=== PATIENT | male | born 1955 | race African-American/Black ===

== ENCOUNTER 2017-07-21 23:47 | Inpatient (IN) ==
--- NOTE | 2017-07-22 00:54 | Emergency Department Note ---
Disposition Clinical Impression: Pneumonia Qualifiers: Pneumonia type: due to unspecified organism Laterality: bilateral Lung location : lower lobe of lung Qualified Code(s): J18.9 - Pneumonia, unspecified organism Disposition: Admitted As Inpatient Condition: Fair Time of Disposition: 03:15 General Adult HPI - General Chief complaint: ED General Medical Stated complaint: poss. food bolus Time Seen by Provider: 07/22/17 00:22 Source: patient, EMS Limitations: no limitations Nursing Notes Reviewed: Yes Vital Signs Reviewed: Yes - History of Present Illness HPI Narrative: Mr. Barry, 61-year-old male, presents from nursing facility for violation of suspected food bolus in his trachea. Patient has an indwelling tracheostomy. At approximately 10:30 this evening, he was eating chicken oliva believes he swallowed wrong. He immediately began coughing and has been coughing since. He has not been able to bring anything up. Feels like it is stuck right behind his sternal notch. Patient has a history of similar episodes; most recently was hamburger she was eventually able to cough up himself. States this feels similar. 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 He completed radiotherapy on 01/19/17. He does have a PEG tube in place for which she administers his pill for medications - he has trouble swallowing pills currently. Otherwise, 10 drinks by mouth. Pain Scale: 0 - Related Data Home Medications Medication Instructions Recorded Confirmed Acetaminophen [Tylenol] 1,000 mg PO Q4H PRN 08/08/16 04/20/17 Aclidinium [place] [Tudorza 400 mcg IH BID 08/08/16 04/20/17 Pressair] Albuterol Neb [Proventil Neb] 2.5 mg IH Q3H PRN 08/08/16 04/20/17 Albuterol Sulfate [Ventolin Hfa] 1 puff IH Q3H PRN 08/08/16 04/20/17 Aspirin [Lo-Dose Aspirin EC] 81 mg PO DAILY 08/08/16 04/20/17 Atorvastatin [Lipitor] 40 mg PO HS 08/08/16 04/20/17 Budesonide/Formoterol 160/4.5 2 puff IH BID 08/08/16 04/20/17 [Symbicort 160/4.5] Gabapentin [Neurontin] 400 mg PO TID 08/08/16 04/20/17 Guaifenesin [Mucinex] 600 mg PO BID 08/08/16 04/20/17 Loratadine [Claritin] 10 mg PO DAILY 08/08/16 04/20/17 Meloxicam [Mobic] 15 mg PO DAILY 08/08/16 04/20/17 Metoprolol XL (24 HR) Succ [Toprol 25 mg PO DAILY 08/08/16 04/20/17 Xl] Potassium Chloride [K-Tab ER] 20 meq PO DAILY 08/08/16 04/20/17 Sennosides [Senokot] 8.6 mg PO DAILY PRN 08/08/16 04/20/17 Tramadol HCl [Ultram] 100 mg PO TID PRN 08/08/16 04/20/17 acetaZOLAMIDE [Diamox] 250 mg PO DAILY 08/08/16 04/20/17 metOLazone [Zaroxolyn] 2.5 mg PO QWEEK 08/08/16 04/20/17 HYDROcodone/Acet 5/325 mg [[place] 1 tab PO TID PRN 04/20/17 04/20/17 5-325 mg] Previous Rx's Medication Instructions Recorded Furosemide [Lasix] 40 mg PO BIDDIURETIC 30 Days 08/16/16 tablet Allergies Allergy/AdvReac Type Severity Reaction Status Date / Time Penicillins Allergy Anaphylaxis Verified 04/20/17 11:33 All systems ED: reviewed and negative except as stated. Review of Systems: As Per HPI Past Medical History - Past Medical History Medical history: Reports: CHF, COPD, hyperlipidemia, hypertension, other Surgical history: Reports: no surgical history Psychiatric history: Reports: anxiety - Social History Smoking Status: Former smoker Smokeless Tobacco Status: No Alcohol use: Reports: none Drug use: Reports: none Physical Exam Vital Signs Reviewed General: Patient is alert, oriented, and in no acute distress. He has a dry cough. HEENT: No facial asymmetry. Head is normocephalic and atraumatic. PERRLA, EOMI. mucosa moist. Trachea midline. Tracheostomy in place. Cardiovascular: Heart regular rate and rhythm without clicks, rubs, gallops, or murmurs. No JVD. PMI nondisplaced. Respiratory: Symmetric chest rise with good respiratory effort. Bilateral breath sounds are coarse and equalx Neuro: GCS 15. Alert and oriented 4. Psych: Patient's affect is appropriate for situation. - General Limitations: no limitations General appearance: alert, in no apparent distress Course Course Narrative: Patient is clinically stable and in no acute respiratory distress. He is irritated by his repeated coughing in the foreign body sensation he has posterior to the sternal notch. Patient's lung sounds are concerning. He is maintaining his saturations well. Chest x-ray concerning for ammonia. Clinically concern for healthcare associated pneumonia versus aspiration pneumonia. Patient is agreeable to admission for IV antibiotics and continued management. As the patient with the admitting hospitalist, Dr. Robert saunders, who agrees to accept the patient for continued evaluation and management. Chest X-Ray 07/22/17 00:50 IMPRESSION: Fcba-[id number]-gfst-right bibasilar airspace disease most consistent with pneumonia. D/ / Ja Lux MD / Ja Lux MD Interpreting Provider: Ja Lux MD Vital Signs Temperature 98.1 F 07/21/17 23:51 Pulse Rate 89 07/21/17 23:51 Respiratory Rate 18 07/21/17 23:51 Blood Pressure 108/67 07/21/17 23:51 O2 Sat by Pulse Oximetry 91 07/21/17 23:51 Temperature 98.1 F 07/21/17 23:51 Pulse Rate 89 07/21/17 23:51 Respiratory Rate 18 07/21/17 23:51 Blood Pressure 108/67 07/21/17 23:51 O2 Sat by Pulse Oximetry 91 07/21/17 23:51 Oxygen Delivery Oxygen Delivery Nasal Cannula Medical Decision Making - Lab Data Result diagrams: 07/22/17 03:32 07/22/17 03:32 Attestation Statement - Attestation Attestation: I, Esteban Sanchez MD, personally evaluated this patient and discussed their management with the resident physician. I reviewed the resident's note and agree with the documented findings, medical decision making, and plan of care. 61-year-old male sent from a local [facility] for possible fluid bolus in the esophagus. Patient has a tracheostomy. He was eating some fried chicken patties and he got choked and felt like he had some stuck in his throat. He states he was unable to drink water because it just would not go down. He was sent here for evaluation of this however he states now this has resolved and it seems to the past and he is swallowing fine. He does complain of a harsh cough for the past few days with some dark sputum. On examination patient is a well-developed well-nourished male in no acute distress. He is alert and oriented 3. There is no diaphoresis. Patient does have some bibasilar rales. Heart regular. Abdomen soft with normal bowel sounds. Chest x-ray shows bibasilar pneumonia, worse on the left. Labs reviewed. The hospitalist, Dr. Monae, was consulted and accepted admission of the patient.
[2017-07-22] MEDS ORDERED: Levofloxacin 750 MG/150 ML 750 MG/150 ML BAG IVPB ONE (02:24)
[2017-07-22] MEDS ORDERED: Vancomycin 1,500 MG in D5% in Water 250 ML IVPB SCH (03:00)
[2017-07-22] MEDS ORDERED: *HR* HYDROcodone/Acet 5/325 mg TABLET PO ONE (03:07)
[2017-07-22 04:02] LABS: Basophils # 0.1 K/mcL (0.0-0.2); Basophils % 0.6 %; Eosinophils # 0.3 K/mcL (0.0-0.6); Eosinophils % 2.8 %; Hematocrit 39.5 % (37.5-50.1); Hemoglobin 11.6 g/dL (12.9-16.9); Immature Granulocytes % 1.3 % (0-4); Lymphocytes # 1.2 K/mcL (0.6-4.6); Lymphocytes % 11.1 %; Mean Corpuscular HGB Conc 29.4 g/dL (31.6-35.5); Mean Corpuscular Hemoglobin 24.1 pg (28.0-33.3); Mean Corpuscular Volume 82.1 fL (83.0-100.0); Mean Platelet Volume 9.5 fL (9.4-12.4); Monocytes # 0.7 K/mcL (0.0-1.3); Monocytes % 6.8 %; Platelet Count 386 K/mcL (140-400); Red Blood Count 4.81 M/mcL (4.19-5.50); Red Cell Distribution Width 18.7 % (11.5-14.5); Segmented Neutrophils % 77.4 %
[2017-07-22 04:14] LABS: BUN/Creatinine Ratio 11 (6-26); Blood Urea Nitrogen 8 mg/dL (8-26); Calcium 9.4 mg/dL (8.6-10.8); Carbon Dioxide 28 mEq/L (19-29); Chloride 103 mEq/L (98-109); Glucose 93 mg/dL (70-99); Osmolality,Calculated 282 (280-300); Potassium 4.1 mEq/L (3.5-4.5); Sodium 137 mEq/L (136-145); eGFR For African Americans > 60 (> 60); eGFR For Non-African Americans > 60 (> 60)
[2017-07-22] MEDS: Vancomycin 1,500 MG in D5% in Water 250 ML IVPB SCH ×2 (04:37→18:33)
--- NOTE | 2017-07-22 05:27 | Internal Med History&Physical ---
<Marla Porter - Last Filed: 07/22/17 06:04> Date of Encounter: 07/22/17 Time of Encounter: 05:07 Assessment and Plan (1) Sepsis Current visit: No Status: Resolved 2 SIRS criteria: (tachypnea 22, tachycardia 100). Afebile. WBC 10.4 Most likely due to pneumonia seen on chest x-ray. Concern for aspiration pneumonia needing anaerobic coverage since patient has history of choking on food. CXR demonstrated findings consistent with by bibasilar pneumonia left worse than right. History of CHF with unknown EF. Will give iv fluids 8-ml/hr unless becomes hypotensive Blood cultures pending IV fluids 80ml/hr monitor hemodynamics closely IV levaquin IV aztreonam Qualifiers: Sepsis type: sepsis due to unspecified organism Qualified Code(s): A41.9 - Sepsis, unspecified organism (2) Pneumonia Current visit: Yes Status: Acute Concern for aspiration pneumonia needing anaerobic coverage since patient has history of choking on food. CXR demonstrates findings consistent with by bibasilar pneumonia left worse than right. Patient reports increase in shortness of breathe, coughing up green sputum, malaise, chest congestion IV levaquin IV aztreonam supplemental oxygen blood cultures pending aspiration precautions speech swallow consulted NPO Qualifiers: Pneumonia type: due to unspecified organism Laterality: bilateral Lung location: lower lobe of lung Qualified Code(s): J18.9 - Pneumonia, unspecified organism (3) COPD (chronic obstructive pulmonary disease) Current visit: No Status: Chronic Patient has a history of COPD on 3L continuous oxygen.' Patient reports increase in shortness of breathe and coughing up green sputum supplemental oxygen Duonebs prn Qualifiers: COPD type: COPD with acute lower respiratory infection Qualified Code(s): J44.0 - Chronic obstructive pulmonary disease with acute lower respiratory infection (4) Cancer of supraglottis Current visit: No Status: Acute History of squamous cell carcinoma of supraglottic larynx. Last radiotherapy was 01/19/2017 He has a tracheostomy He has a peg tube that he used to receive feeding and medication in. He stated that they will be taking it out soon. He follows up in [place] at the [facility] (5) Hypertension Current visit: Yes Status: Acute history of hypertension tachycardic 100 continue home medications once confirmed Qualifiers: Hypertension type: essential hypertension Qualified Code(s): I10 - Essential (primary) hypertension (6) Hyperlipidemia Current visit: Yes Status: Acute history of hyperlipidemia continue home medications once confirmed Qualifiers: Hyperlipidemia type: unspecified Qualified Code(s): E78.5 - Hyperlipidemia , unspecified (7) DVT prophylaxis Current visit: No Status: Acute lovanox Internal Medicine - H&P: HPI Chief complaint: shortness of breathe Admitted From: Long-term Nursing Facility Plans for Post Hospital Care: Transfer Associate Financial Advisor Care History of present illness: Mr. 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 He stated that this evening at 9pm he was eating a chicken oliva when he started choking and has been coughing ever since. He reported that this has happened before and he has had to come to the hospital. He stated he has also been short of breath for the past 2 weeks and it has been getting worse. He stated that exerting himself makes it worse and that oxygen and duonebs make it better. At home he is on 3L of continuous supplemental oxygen. He believes that he has pneumonia and stated that he gets pneumonia once year at the start of winter. Reports that he has been coughing up green sputum, chills, sore throat, wheezing, malaise, chest congestion. He denies fever, headache, chest pain, palpitations, nausea, vomiting, abdominal pain, hemoptysis, melena. He denies recent travel, sickness. He completed radiotherapy or squamous cell carcinoma of the supraglottic larynx on 01/19/2017. He has a peg tube in place due to the cancer. Upon my examination he reported that he no longer feels that food is stuck but still has shortness of breath. Patient received a dose of Levaquin and vancomycin in ED. Blood cultures are ordered. Chest x-ray demonstrated findings consistent with by bibasilar pneumonia left worse than right. 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), other Psychiatric history: anxiety - Past Surgical History Surgical History: no surgical history - Social History Smoking Status: Former smoker Smokeless Tobacco Status: No Alcohol use: none Drug use: none - Family History Mother Hx Family Cardiac Disorders: No Hx Family Respiratory Disorders: No Hx Family Cancer: No Hx Family GI Disorders: No Hx Family Endocrine Disorder: No Hx Family Neuromuscular Disorders: No Hx Family Neurologic Disorders: No Hx Family HEENT Disorders: No Hx Family Autoimmune Disorders: No Father Hx Family Cardiac Disorders: No Hx Family Respiratory Disorders: No Hx Family Cancer: Yes Hx Family GI Disorders: No Hx Family Endocrine Disorder: No Hx Family Neuromuscular Disorders: No Hx Family Neurologic Disorders: No Hx Family HEENT Disorders: No Hx Family Autoimmune Disorders: No Internal Medicine - H&P: Meds Acetaminophen [Tylenol] 1,000 mg PO Q4H PRN 08/08/16 [History] Aclidinium [place] [Tudorza Pressair] 400 mcg IH BID 08/08/16 [History] Albuterol Neb [Proventil Neb] 2.5 mg IH Q3H PRN 08/08/16 [History] Albuterol Sulfate [Ventolin Hfa] 1 puff IH Q3H PRN 08/08/16 [History] Aspirin [Lo-Dose Aspirin EC] 81 mg PO DAILY 08/08/16 [History] Atorvastatin [Lipitor] 40 mg PO HS 08/08/16 [History] Budesonide/Formoterol 160/4.5 [Symbicort 160/4.5] 2 puff IH BID 08/08/16 [ History] Gabapentin [Neurontin] 400 mg PO TID 08/08/16 [History] Guaifenesin [Mucinex] 600 mg PO BID 08/08/16 [History] Loratadine [Claritin] 10 mg PO DAILY 08/08/16 [History] Meloxicam [Mobic] 15 mg PO DAILY 08/08/16 [History] Metoprolol XL (24 HR) Succ [Toprol Xl] 25 mg PO DAILY 08/08/16 [History] Potassium Chloride [K-Tab ER] 20 meq PO DAILY 08/08/16 [History] Sennosides [Senokot] 8.6 mg PO DAILY PRN 08/08/16 [History] Tramadol HCl [Ultram] 100 mg PO TID PRN 08/08/16 [History] acetaZOLAMIDE [Diamox] 250 mg PO DAILY 12/13/16 [History] metOLazone [Zaroxolyn] 2.5 mg PO QWEEK 08/08/16 [History] Furosemide [Lasix] 40 mg PO BIDDIURETIC 30 Days tablet 08/16/16 [Rx] HYDROcodone/Acet 5/325 mg [[place] 5-325 mg] 1 tab PO TID PRN 04/20/17 [History] 3 Allergy/AdvReac Type Severity Reaction Status Date / Time Penicillins Allergy Anaphylaxis Verified 04/20/17 11:33 All Systems PM: A 10-system review of systems was performed and is negative for pertinent findings except as documented above in the HPI. - Constitutional Constitutional: chills, malaise, no fever(s) - EENT Eyes: no change in vision Nose, mouth and throat: sore throat, no sinus pain, no sinus pressure - Cardiovascular Cardiovascular ROS IM: no chest pain, no diaphoresis, no edema, no palpitations - Respiratory Respiratory: cough, dyspnea, dyspnea on exertion, wheezing, chest congestion, change in phlegm color (green), no hemoptysis - Gastrointestinal Gastrointestinal: no abdominal pain, no diarrhea, no hematemesis, no melena, no nausea, no vomiting - Genitourinary Genitourinary ROS male: no hematuria - Neurological Neurological ROS: no dizziness, no frequent falls, no headache(s) - Constitutional Vitals: Temp Pulse Resp BP Pulse Ox 97.3 F L 100 24 117/74 96 07/22/17 04:09 07/22/17 04:09 07/22/17 04:09 07/22/17 04:09 07/22/17 04:09 General appearance: Present: A&O X 3, pleasant, no acute distress - Head Head exam: Present: atraumatic, normocephalic - Eye Eye exam: Present: conjunctival injection, PERRL - ENT ENT exam: Present: mucous membranes dry - Neck Neck exam general surgery: Present: supple. Absent: lymphadenopathy, tenderness - Respiratory Respiratory exam: Present: rales, wheezes. Absent: respiratory distress - Cardiovascular Cardiovascular exam: Present: RRR, +S1, +S2. Absent: clicks - GI/Abdominal GI/Abdominal exam: Present: normal bowel sounds, soft. Absent: firm - Extremities Exam Extremities exam: Present: normal inspection. Absent: pedal edema, tenderness - Back Exam Back exam: Present: normal inspection. Absent: tenderness - Skin Skin exam: Present: dry, intact Internal Med - H&P Results - Labs CBC & Chem 7: 07/22/17 03:32 07/22/17 03:32 Labs: Short CBC 07/22/17 Range/Units 03:32 WBC 10.4 (4.3-11.1) K/mcL Hgb 11.6 L (12.9-16.9) g/dL Hct 39.5 (37.5-50.1) % Plt Count 386 (140-400) K/mcL Neutrophils # 8.0 (1.6-8.9) K/mcL BMP 07/22/17 03:32 Sodium 137 Potassium 4.1 Chloride 103 Carbon Dioxide 28 BUN 8 Creatinine 0.70 L Glucose 93 Calcium 9.4 <Issa Monae - Last Filed: 07/22/17 07:36> Date of Encounter: 07/22/17 Internal Medicine - H&P: HPI History of present illness: Mr. Barry is a 61 year old male All Systems PM: A 10-system review of systems was performed and is negative for pertinent findings except as documented above in the HPI. - Constitutional Vitals: Temp Pulse Resp BP Pulse Ox 97.3 F L 100 24 117/74 96 07/22/17 04:09 07/22/17 04:09 07/22/17 04:09 07/22/17 04:09 07/22/17 05:14 Internal Med - H&P Results - Labs CBC & Chem 7: 07/22/17 03:32 07/22/17 03:32 - Attending Attestation I conducted a face to face diagnostic evaluation of this patient and my medical decision-making was reviewed with the Resident Physician, Dr. Marla Porter. I agree with the documented findings, disposition and treatment plan as described except to the extent set forth below: On exam the patient is in no acute distress lung auscultation reveals bilateral expiratory wheezes and prolonged expiratory phase with bibasilar Rales more pronounced at the left base than the right. Assessment: Aspiration pneumonia and COPD exacerbation Plan: Add IV steroids. Continue IV antibiotics to cover gram-negative rods, gram-positive cocci and anaerobes. Nothing by mouth until speech and swallow evaluation. High risk for aspiration. IV fluids. Aspiration precautions.
[2017-07-22] MEDS ORDERED: Naloxone 0.4 MG/ML INJ IVP PRN (05:47)
[2017-07-22] MEDS: 0.9 % Sodium Chloride 1,000 ML IVC SCH ×2 (06:37→18:37)
[2017-07-22] MEDS ORDERED: Aminoglycoside Consult 1 EACH MC ONE (09:10)
[2017-07-22] MEDS: Aztreonam 2,000 MG in Water for inj. (sterile) 20 ML IVP SCH ×2 (09:35→18:34)
[2017-07-22] MEDS: Ipratropium/Albuterol Neb 3 ML IH PRN ×3 (10:51→23:04)
[2017-07-22] MEDS: methylPREDNISolone 125 MG/2 ML VIAL IVP SCH (18:33)
[2017-07-23] MEDS: Aztreonam 2,000 MG in Water for inj. (sterile) 20 ML IVP SCH ×2 (00:19→10:02)
[2017-07-23] MEDS: methylPREDNISolone 125 MG/2 ML VIAL IVP SCH ×2 (00:20→05:25)
[2017-07-23 03:14] LABS: Basophils % 0.3 %; Hematocrit 37.1 % (37.5-50.1); Hemoglobin 11.1 g/dL (12.9-16.9); Immature Granulocytes % 1.8 % (0-4); Immature Platelets 2.3 % (1.1-6.1); Lymphocytes # 0.4 K/mcL (0.6-4.6); Mean Corpuscular HGB Conc 29.9 g/dL (31.6-35.5); Mean Corpuscular Hemoglobin 24.6 pg (28.0-33.3); Mean Corpuscular Volume 82.1 fL (83.0-100.0); Mean Platelet Volume 8.9 fL (9.4-12.4); Monocytes % 0.3 %; Neutrophils # 6.6 K/mcL (1.6-8.9); Nucleated Red Blood Cells 0.3 /100 WBC (0); Platelet Count 383 K/mcL (140-400); Red Blood Count 4.52 M/mcL (4.19-5.50); Red Cell Distribution Width 18.7 % (11.5-14.5); Segmented Neutrophils % 91.6 %
[2017-07-23 03:28] LABS: BUN/Creatinine Ratio 14 (6-26); Blood Urea Nitrogen 8 mg/dL (8-26); Calcium 9.4 mg/dL (8.6-10.8); Carbon Dioxide 26 mEq/L (19-29); Chloride 106 mEq/L (98-109); Glucose 138 mg/dL (70-99); Osmolality,Calculated 285 (280-300); Potassium 4.2 mEq/L (3.5-4.5); Sodium 137 mEq/L (136-145); eGFR For African Americans > 60 (> 60); eGFR For Non-African Americans > 60 (> 60)
[2017-07-23] MEDS: Vancomycin 1,500 MG in D5% in Water 250 ML IVPB SCH (03:55)
[2017-07-23 04:02] LABS: Anisocytosis 1+ (Not Present); Hypersegmented Neutrophils Present (Not Present); Large Platelets Present (Not Present); Platelet Estimate Normal (Normal); Poikilocytosis 1+ (Not Present); Toxic Granulation Present (Not Present)
[2017-07-23] MEDS: *HR* Enoxaparin 40 MG/0.4 ML SYRINGE SQ SCH (05:25)
[2017-07-23] MEDS: Ipratropium/Albuterol Neb 3 ML IH PRN ×4 (05:56→20:01)
[2017-07-23] MEDS: 0.9 % Sodium Chloride 1,000 ML IVC SCH ×2 (07:17→21:39)
[2017-07-23] MEDS: Levofloxacin 750 MG/150 ML 750 MG/150 ML BAG IVPB SCH (10:03)
[2017-07-23] MEDS: *HR* HYDROcodone/Acet 5/325 mg TABLET PO PRN ×2 (15:42→21:44)
[2017-07-23] MEDS: MetroNIDAZOLE 500 MG/100 ML 500 MG/100 ML BAG IVPB SCH (15:45)
--- NOTE | 2017-07-23 17:49 | Internal Med Progress Note ---
Date of Encounter: 07/23/17 Time of Encounter: 11:00 - Assessment and plan (1) HCAP (healthcare-associated pneumonia) Current Visit: No Status: Resolved Assessment and plan: -Concerns for aspiration pneumonia -Speech therapy evaluated with recommendations for nectar thickened liquids and mechanical altered textures -Will continue IV vancomycin, IV Levaquin and IV Flagyl. (2) Hypertension Current Visit: Yes Status: Acute Assessment and plan: Continue home medications. Qualifiers: Hypertension type: essential hypertension Qualified Code(s): I10 - Essential (primary) hypertension (3) Hyperlipidemia Current Visit: Yes Status: Acute Assessment and plan: Continue home medications Qualifiers: Hyperlipidemia type: unspecified Qualified Code(s): E78.5 - Hyperlipidemia , unspecified (4) Cancer of supraglottis Current Visit: No Status: Acute Assessment and plan: -Patient with tracheotomy (5) COPD (chronic obstructive pulmonary disease) Current Visit: No Status: Chronic Assessment and plan: Continue home medications Qualifiers: COPD type: COPD with acute lower respiratory infection Qualified Code(s): J44.0 - Chronic obstructive pulmonary disease with acute lower respiratory infection (6) DVT prophylaxis Current Visit: No Status: Acute Assessment and plan: Lovenox subcutaneous - Subjective Interval history: Patient reports a feeling better this morning after starting IV antibiotics. - Constitutional Vitals: Temp Pulse Resp BP Pulse Ox 97.6 F 97 18 120/74 96 07/23/17 15:24 07/23/17 15:24 07/23/17 15:38 07/23/17 15:24 07/23/17 15:38 General appearance: Present: A&O X 3, pleasant, no acute distress - Respiratory Respiratory exam: Present: CTAB. Absent: accessory muscle use, rales, rhonchi, wheezes - Cardiovascular Cardiovascular exam: Present: RRR, +S1, +S2. Absent: diastolic murmur, gallop, rubs, systolic murmur Internal Medicine: Result - Labs CBC & Chem 7: 07/23/17 03:04 07/23/17 03:04 Labs: Short CBC 07/23/17 Range/Units 03:04 WBC 7.2 (4.3-11.1) K/mcL Hgb 11.1 L (12.9-16.9) g/dL Hct 37.1 L (37.5-50.1) % Plt Count 383 (140-400) K/mcL Neutrophils # 6.6 (1.6-8.9) K/mcL BMP 07/23/17 03:04 Sodium 137 Potassium 4.2 Chloride 106 Carbon Dioxide 26 BUN 8 Creatinine 0.59 L Glucose 138 H Calcium 9.4 Consult Discharge Plan - Plan Referrals: NONE,PCP [Primary Care Provider] -
[2017-07-24] MEDS: MetroNIDAZOLE 500 MG/100 ML 500 MG/100 ML BAG IVPB SCH ×3 (00:16→16:53)
[2017-07-24] MEDS: Ipratropium/Albuterol Neb 3 ML IH PRN ×5 (00:17→19:57)
[2017-07-24] MEDS: *HR* Enoxaparin 40 MG/0.4 ML SYRINGE SQ SCH (06:42)
[2017-07-24] MEDS: *HR* HYDROcodone/Acet 5/325 mg TABLET PO PRN ×2 (09:05→16:51)
[2017-07-24] MEDS: Levofloxacin 750 MG/150 ML 750 MG/150 ML BAG IVPB SCH (10:00)
[2017-07-24] MEDS ORDERED: Sennosides 8.6 MG TABLET PO PRN (14:21)
[2017-07-24] MEDS ORDERED: metOLazone 2.5 MG TABLET PO SCH (14:30)
--- NOTE | 2017-07-24 15:20 | Internal Med Progress Note ---
Date of Encounter: 07/24/17 Time of Encounter: 10:05 - Assessment and plan (1) Pneumonia Current Visit: Yes Status: Acute Assessment and plan: Continue levofloxacin. Sputum culture positive for Pseudomonas. Repeat chest x -ray shows worsening bibasal airspace disease which could be atelectasis or pneumonia. WBC count is normal. Patient has had not had any further episodes of fever or chills. As such, we will continue Levaquin for now while we await sent culture and sensitivity results. Also continue Flagyl as patient may have also aspirated. Qualifiers: Pneumonia type: due to Pseudomonas Laterality: bilateral Lung location: lower lobe of lung Qualified Code(s): J15.1 - Pneumonia due to Pseudomonas (2) HCAP (healthcare-associated pneumonia) Current Visit: Yes Status: Acute Assessment and plan: Sputum culture positive for Pseudomonas aeruginosa. Currently on Levaquin. Await sensitivity results. (3) Cancer of supraglottis Current Visit: Yes Status: Acute Assessment and plan: Status post tracheotomy. Speech therapy has evaluated patient and recommended nectar thickened liquids and mechanically altered textures. Follow-up outpatient (4) COPD (chronic obstructive pulmonary disease) Current Visit: Yes Status: Chronic Assessment and plan: Continue bronchodilators as needed. Qualifiers: COPD type: COPD with acute lower respiratory infection Qualified Code(s): J44.0 - Chronic obstructive pulmonary disease with acute lower respiratory infection (5) DVT prophylaxis Current Visit: No Status: Acute (6) Hyperlipidemia Current Visit: Yes Status: Chronic Assessment and plan: Continue Lipitor Qualifiers: Hyperlipidemia type: mixed hyperlipidemia Qualified Code(s): E78.2 - Mixed hyperlipidemia (7) Hypertension Current Visit: Yes Status: Chronic Assessment and plan: Well-controlled. Continue current medications Qualifiers: Hypertension type: essential hypertension Qualified Code(s): I10 - Essential (primary) hypertension (8) Sepsis Current Visit: Yes Status: Resolved Assessment and plan: Due to pneumonia. Sepsis has resolved at this time. Continue treatment for pneumonia. Qualifiers: Sepsis type: Pseudomonas Qualified Code(s): A41.52 - Sepsis due to Pseudomonas - Subjective Interval history: Patient feels better overall. He has continued to have some cough. Able to swallow his current diet with mechanically altered ground meat and nectar thickened diet without any coughing spells or aspiration. No fever or chills reported overnight. - Constitutional Vitals: Temp Pulse Resp BP Pulse Ox 97.9 F 84 18 118/65 96 07/24/17 11:38 07/24/17 11:38 07/24/17 11:17 07/24/17 11:38 07/24/17 11:38 General appearance: Present: mild distress, A&O X 3, pleasant, answers questions appropriately - Respiratory Respiratory exam: Present: prolonged expiratory phase. Absent: accessory muscle use, rales, rhonchi, wheezes - Cardiovascular Cardiovascular exam: Present: RRR, +S1, +S2. Absent: diastolic murmur, gallop, rubs, systolic murmur - GI/Abdominal GI/Abdominal exam: Present: normal bowel sounds, soft, no peritoneal signs. Absent: distended, tenderness - Extremities Exam Extremities exam: Present: warm, radial pulses palpable and symmetrical. Absent : calf tenderness, cyanotic, pedal edema - Neurological Exam Neurological exam: Present: alert, oriented X3, no focal deficits. Absent: facial droop, speech deficit - Skin Skin exam: Present: dry, intact Internal Medicine: Result - Labs CBC & Chem 7: 07/23/17 03:04 07/23/17 03:04 - Impressions Impressions Chest X-Ray 07/24/17 08:44 IMPRESSION: Worsening bibasilar airspace disease which may represent atelectasis or pneumonia in the correct clinical setting. Recommend continued follow-up. D/ / 07/24/2017 15:13:36 Yaakov Starr MD / marcel Interpreting Provider: Yaakov Starr MD Consult Discharge Plan - Plan Referrals: NONE,PCP [Primary Care Provider] -
[2017-07-24] MEDS: Furosemide 40 MG TABLET PO SCH (16:51)
[2017-07-24] MEDS: Gabapentin 400 MG CAPSULE PO SCH ×2 (16:51→20:28)
[2017-07-24] MEDS: Aspirin Enteric Coated 81 MG Tablet PO SCH (16:53)
[2017-07-24] MEDS: Budesonide/Formoterol 160/4.5 MDI IH SCH (19:57)
[2017-07-25] MEDS: MetroNIDAZOLE 500 MG/100 ML 500 MG/100 ML BAG IVPB SCH ×3 (01:09→16:37)
[2017-07-25] MEDS: Ipratropium/Albuterol Neb 3 ML IH PRN ×6 (04:53→23:43)
[2017-07-25] MEDS: *HR* Enoxaparin 40 MG/0.4 ML SYRINGE SQ SCH (05:10)
[2017-07-25] MEDS: Budesonide/Formoterol 160/4.5 MDI IH SCH ×2 (07:43→20:35)
[2017-07-25] MEDS ORDERED: Metoprolol XL (24 HR) Succ 25 MG TAB.ER.24H PO SCH (09:00)
[2017-07-25 09:07] LABS: Red Cell Distribution Width 19.3 % (11.5-14.5)
[2017-07-25 09:09] LABS: Basophils # 0.1 K/mcL (0.0-0.2); Eosinophils # 0.2 K/mcL (0.0-0.6); Eosinophils % 2.9 %; Hematocrit 38.2 % (37.5-50.1); Hemoglobin 11.1 g/dL (12.9-16.9); Immature Granulocytes % 0.7 % (0-4); Lymphocytes # 1.4 K/mcL (0.6-4.6); Lymphocytes % 16.8 %; Mean Corpuscular HGB Conc 29.1 g/dL (31.6-35.5); Mean Corpuscular Hemoglobin 24.7 pg (28.0-33.3); Mean Corpuscular Volume 84.9 fL (83.0-100.0); Mean Platelet Volume 9.4 fL (9.4-12.4); Monocytes % 12.2 %; Neutrophils # 5.6 K/mcL (1.6-8.9); Platelet Count 342 K/mcL (140-400); Segmented Neutrophils % 66.4 %
[2017-07-25 09:38] LABS: Anisocytosis 1+ (Not Present); Platelet Estimate Normal (Normal); Polychromasia 1+ (Not Present)
[2017-07-25] MEDS: *HR* HYDROcodone/Acet 5/325 mg TABLET PO PRN ×2 (10:00→16:37)
[2017-07-25] MEDS: Gabapentin 400 MG CAPSULE PO SCH ×3 (10:00→21:45)
[2017-07-25] MEDS: acetaZOLAMIDE 250 MG TABLET PO SCH (10:00)
[2017-07-25] MEDS: Aspirin Enteric Coated 81 MG Tablet PO SCH (10:01)
[2017-07-25] MEDS: Furosemide 40 MG TABLET PO SCH ×2 (10:01→16:37)
[2017-07-25] MEDS: Levofloxacin 750 MG/150 ML 750 MG/150 ML BAG IVPB SCH (10:01)
[2017-07-25] MEDS: Loratadine 10 MG TABLET PO SCH (10:01)
--- NOTE | 2017-07-25 15:01 | Internal Med Progress Note ---
Date of Encounter: 07/25/17 Time of Encounter: 09:15 - Assessment and plan (1) Pneumonia Current Visit: Yes Status: Acute Assessment and plan: Sputum culture positive for Pseudomonas. Continue levofloxacin while we await sensitivities. Moderate risk for complications. Placement to skilled rehabilitation once culture and sensitivities are available and patient is started on appropriate antibiotic. We will continue Flagyl to cover for possible underlying aspiration pneumonia also. 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 Continue O2 supplementation Qualifiers: COPD type: COPD with acute lower respiratory infection Qualified Code(s): J44.0 - Chronic obstructive pulmonary disease with acute lower respiratory infection (5) DVT prophylaxis Current Visit: No Status: Acute Assessment and plan: Continue Lovenox (6) Hyperlipidemia Current Visit: Yes Status: Chronic Assessment and plan: Continue Lipitor Qualifiers: Hyperlipidemia type: mixed hyperlipidemia Qualified Code(s): E78.2 - Mixed hyperlipidemia (7) Hypertension Current Visit: Yes Status: Chronic Assessment and plan: Blood pressure is well controlled Qualifiers: Hypertension type: essential hypertension Qualified Code(s): I10 - Essential (primary) hypertension (8) Sepsis Current Visit: Yes Status: Resolved Qualifiers: Sepsis type: Pseudomonas Qualified Code(s): A41.52 - Sepsis due to Pseudomonas (9) Dysphagia Current Visit: Yes Status: Acute Assessment and plan: 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 Speech therapy evaluated patient again today. Recommend modified barium swallow. Will follow results. Qualifiers: Dysphagia type: oropharyngeal phase Qualified Code(s): R13.12 - Dysphagia, oropharyngeal phase - Subjective Interval history: Patient is sitting up in chair. Doing well. Able to swallow without any complaints. Shortness of breath and cough are improving. No fever or chills reported overnight. - Constitutional Vitals: Temp Pulse Resp BP Pulse Ox 97.6 F 95 14 106/78 96 07/25/17 10:47 07/25/17 10:47 07/25/17 11:23 07/25/17 10:47 07/25/17 11:23 General appearance: Present: mild distress, A&O X 3, pleasant, answers questions appropriately - Neck Neck exam general surgery: Present: supple, trachea midline. Absent: lymphadenopathy Additional comments: trach collar in place - Respiratory Respiratory exam: Present: CTAB. Absent: accessory muscle use, rales, rhonchi, wheezes - Cardiovascular Cardiovascular exam: Present: RRR, +S1, +S2. Absent: diastolic murmur, gallop, rubs, systolic murmur - GI/Abdominal GI/Abdominal exam: Present: normal bowel sounds, soft, no peritoneal signs. Absent: distended, tenderness - Extremities Exam Extremities exam: Present: warm, radial pulses palpable and symmetrical. Absent : calf tenderness, cyanotic, pedal edema - Neurological Exam Neurological exam: Present: alert, oriented X3, no focal deficits. Absent: facial droop, speech deficit - Skin Skin exam: Present: dry, intact Internal Medicine: Result - Labs CBC & Chem 7: 07/25/17 08:29 07/23/17 03:04 Labs: Short CBC 07/25/17 Range/Units 08:29 WBC 8.4 (4.3-11.1) K/mcL Hgb 11.1 L (12.9-16.9) g/dL Hct 38.2 (37.5-50.1) % Plt Count 342 (140-400) K/mcL Neutrophils # 5.6 (1.6-8.9) K/mcL - Impressions Impressions Chest X-Ray 07/24/17 08:44 IMPRESSION: Worsening bibasilar airspace disease which may represent atelectasis or pneumonia in the correct clinical setting. Recommend continued follow-up. D/ / 07/24/2017 15:13:36 Yaakov Starr MD / [email or web address] Interpreting Provider: Yaakov Starr MD Consult Discharge Plan - Plan Referrals: NONE,PCP [Primary Care Provider] -
[2017-07-25] MEDS: traMADol 50 MG TABLET PO PRN (21:46)
[2017-07-26] MEDS: *HR* HYDROcodone/Acet 5/325 mg TABLET PO PRN ×2 (00:28→10:09)
[2017-07-26] MEDS: Ipratropium/Albuterol Neb 3 ML IH PRN ×4 (04:18→15:54)
[2017-07-26] MEDS: *HR* Enoxaparin 40 MG/0.4 ML SYRINGE SQ SCH (05:56)
[2017-07-26] MEDS: Budesonide/Formoterol 160/4.5 MDI IH SCH (07:45)
[2017-07-26] MEDS ORDERED: Cefepime HCl 2,000 MG in D5% in Water (Mini-Bag+) 100 ML IVPB SCH (08:16)
[2017-07-26] MEDS ORDERED: levoFLOXacin 750 MG TABLET PO SCH (09:00)
[2017-07-26] MEDS ORDERED: Aspirin 81 MG TAB.CHEW PO SCH (09:45)
[2017-07-26] MEDS: Furosemide 40 MG TABLET PO SCH ×2 (10:02→16:19)
[2017-07-26] MEDS: acetaZOLAMIDE 250 MG TABLET PO SCH (10:02)
[2017-07-26] MEDS: Loratadine 10 MG TABLET PO SCH (10:02)
[2017-07-26] MEDS: metroNIDAZOLE 500 MG TABLET PO SCH ×3 (10:02→16:19)
[2017-07-26] MEDS: Cefepime HCl 2,000 MG in Water for inj. (sterile) 20 ML IVP SCH ×2 (10:03→17:11)
[2017-07-26] MEDS: Gabapentin 400 MG CAPSULE PO SCH ×2 (10:09→16:19)
--- NOTE | 2017-07-26 11:20 | Discharge Summary ---
Date of Encounter: 07/26/17 Time of Encounter: 11:17 - Discharge Diagnosis (1) Pneumonia Priority: Primary Status: Acute Qualifiers: Pneumonia type: due to Pseudomonas Laterality: bilateral Lung location: lower lobe of lung Qualified Code(s): J15.1 - Pneumonia due to Pseudomonas (2) HCAP (healthcare-associated pneumonia) Priority: Secondary Status: Acute (3) Cancer of supraglottis Priority: Secondary Status: Acute (4) COPD (chronic obstructive pulmonary disease) Priority: Secondary Status: Chronic Qualifiers: COPD type: COPD with acute lower respiratory infection Qualified Code(s): J44.0 - Chronic obstructive pulmonary disease with acute lower respiratory infection (5) DVT prophylaxis Priority: Secondary Status: Acute (6) Hyperlipidemia Priority: Secondary Status: Chronic Qualifiers: Hyperlipidemia type: mixed hyperlipidemia Qualified Code(s): E78.2 - Mixed hyperlipidemia (7) Hypertension Priority: Secondary Status: Chronic Qualifiers: Hypertension type: essential hypertension Qualified Code(s): I10 - Essential (primary) hypertension (8) Sepsis Priority: Secondary Status: Resolved Qualifiers: Sepsis type: Pseudomonas Qualified Code(s): A41.52 - Sepsis due to Pseudomonas (9) Dysphagia Priority: Secondary Status: Acute Qualifiers: Dysphagia type: pharyngeal phase Qualified Code(s): R13.13 - Dysphagia, pharyngeal phase - Discharge Medications Prescriptions: Cefepime HCl/Dextrose, Iso-Osm [Cefepime 2 gm Injection] 2 gm IV Q8H #30 froz.piggy guaiFENesin [Guaifenesin] 200 mg PO QID #250 ml HYDROcodone/Acet 5/325 mg [Norman 5-325 mg] 1 tab PO TID PRN #14 tablet PRN Reason: Pain Lactobacillus Acidophilus [Probiotic Acidophilus] 1 each PO BID #30 tablet Metoprolol [Lopressor] 12.5 mg PO BID #60 tablet Potassium Chloride [Klor-Con] 20 meq PO DAILY #30 packet Tramadol HCl [Ultram] 50 - 100 mg PO TID PRN #20 tablet PRN Reason: Pain Home Medications: Acetaminophen [Tylenol] 1,000 mg PO Q4H PRN 08/08/16 [History] Aclidinium [place] [Tudorza Pressair] 400 mcg IH BID 08/08/16 [History] Albuterol Neb [Proventil Neb] 2.5 mg IH Q3H PRN 08/08/16 [History] Albuterol Sulfate [Ventolin Hfa] 1 puff IH Q3H PRN 08/08/16 [History] Aspirin [Lo-Dose Aspirin EC] 81 mg PO DAILY 08/08/16 [History] Atorvastatin [Lipitor] 40 mg PO HS 08/08/16 [History] Budesonide/Formoterol 160/4.5 [Symbicort 160/4.5] 2 puff IH BID 08/08/16 [ History] Gabapentin [Neurontin] 400 mg PO TID 08/08/16 [History] Loratadine [Claritin] 10 mg PO DAILY 08/08/16 [History] Meloxicam [Mobic] 15 mg PO DAILY 08/08/16 [History] Sennosides [Senokot] 8.6 mg PO DAILY PRN 08/08/16 [History] acetaZOLAMIDE [Diamox] 250 mg PO DAILY 08/08/16 [History] Furosemide [Lasix] 40 mg PO BIDDIURETIC 30 Days tablet 08/16/16 [Rx] Polyvinyl Alcohol [Artificial Tears] 2 drop OP AD PRN 07/22/17 [History] Sertraline [Zoloft] 50 mg PO DAILY 07/22/17 [History] Cefepime HCl/Dextrose, Iso-Osm [Cefepime 2 gm Injection] 2 gm IV Q8H #30 froz.piggy 07/26/17 [Rx] HYDROcodone/Acet 5/325 mg [Norman 5-325 mg] 1 tab PO TID PRN #14 tablet 07/26/17 [Rx] Lactobacillus Acidophilus [Probiotic Acidophilus] 1 each PO BID #30 tablet 07/26 [Rx] Metoprolol [Lopressor] 12.5 mg PO BID #60 tablet 07/26/17 [Rx] Potassium Chloride [Klor-Con] 20 meq PO DAILY #30 packet 07/26/17 [Rx] Tramadol HCl [Ultram] 50 - 100 mg PO TID PRN #20 tablet 07/26/17 [Rx] guaiFENesin [Guaifenesin] 200 mg PO QID #250 ml 07/26/17 [Rx] metroNIDAZOLE [Flagyl] 500 mg PO TID 4 Days tablet 07/26/17 [Rx] Allergies/Adverse Reactions: 3 Allergy/AdvReac Type Severity Reaction Status Date / Time Penicillins Allergy Anaphylaxis Verified 04/20/17 11:33 Date of admission: 07/22/17 06:33 Primary care physician: PCP NONE Consults: 07/22/17 06:50 Consult to Speech Therapy [CONS] Routine Comment: Evaluate, develop and implement POC Reason for Consult: history of aspiration Call Completed: No 07/23/17 12:54 Consult to Substation Design Draftsperson [CONS] Routine Reason for SW Consult: Patient from [facility] 07/26/17 08:16 Consult to PICC team [Consult to Invasive Line Access Team] [CONS] Stat Reason for Consult: Vascular access for IV antibotics terminal gauger supervisor Line Type: EPIV PICC line indications: detention Med/Antibiotic Discharging clinician: Rossy Shipman Anticipated date of discharge: 07/26/17 - Patient Status Disposition: Transfer SNF Condition: Good Functional capacity at discharge: wheelchair bound Overall status at discharge: patient is progressing back to baseline - Discharge Instructions Instructions: Sepsis (DC), Chronic Dysphagia (DC), Pneumonia (DC) Follow Up With: NONE,PCP [Primary Care Provider] - - Diet and Activity Activity: as per physical therapy, wear oxygen at all times Diet: other (Mechanically altered diet with nectar thick liquids) Hospital course: Mr. 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 Patient had been having significant amount of coughing since then. Chest x-ray done in the ER showed presence of bibasal pneumonia. Patient was started on O2 supplementation and intravenous antibiotics to treat aspiration pneumonia. No food particles were identified on x-ray. Patient's symptoms slowly improved with this treatment plan. Sputum was sent for culture and its currently growing pseudomonas that since status to cefepime but resistant to levofloxacin. As such patient will be discharged today on intravenous cefepime for 10 days. He will continue to take Flagyl to complete a short course of treatment to cover anaerobic organisms. Patient was evaluated by speech therapy here and underwent modified PMs follow. Per their evaluation, patient has been placed on a mechanically altered textures and nectar thickened liquids. Patient will be discharged back to his skilled rehab Facility today. - Time Spent with Patient Total time spent providing and/or coordinating discharge services: Greater than 30 minutes (35 min) - Constitutional Vitals: Temp Pulse Resp BP Pulse Ox 97.8 F 81 20 118/76 97 07/26/17 08:02 07/26/17 08:02 07/26/17 08:02 07/26/17 08:02 07/26/17 08:02 General appearance: Present: cooperative, A&O X 3, pleasant, answers questions appropriately - ENT Additional comments: trach collar in place - Respiratory Respiratory exam: Present: CTAB. Absent: accessory muscle use, rales, rhonchi, wheezes - Cardiovascular Cardiovascular exam: Present: RRR, +S1, +S2. Absent: diastolic murmur, gallop, rubs, systolic murmur - GI/Abdominal GI/Abdominal exam: Present: normal bowel sounds, soft, no peritoneal signs. Absent: distended, tenderness - Extremities Exam Extremities exam: Present: warm, radial pulses palpable and symmetrical. Absent : calf tenderness, cyanotic, pedal edema - Neurological Exam Neurological exam: Present: alert, oriented X3, no focal deficits. Absent: facial droop, speech deficit - Skin Skin exam: Present: dry, intact
--- NOTE | 2017-07-26 11:31 | Physician Discharge Referral ---
Extended[facility] Referral Info Provider in Charge after Transfer: PCP Institutional Level of Care: Skilled - Diagnosis (1) Pneumonia Priority: Primary Status: Acute (2) HCAP (healthcare-associated pneumonia) Priority: Secondary Status: Acute (3) Cancer of supraglottis Priority: Secondary Status: Acute (4) COPD (chronic obstructive pulmonary disease) Priority: Secondary Status: Chronic (5) DVT prophylaxis Priority: Secondary Status: Acute (6) Hyperlipidemia Priority: Secondary Status: Chronic (7) Hypertension Priority: Secondary Status: Chronic (8) Sepsis Priority: Secondary Status: Resolved (9) Dysphagia Priority: Secondary Status: Acute Prognosis: Fair Aware of Diagnosis: Patient Aware of Prognosis: Patient - Transfer Medications Prescriptions: Cefepime HCl/Dextrose, Iso-Osm [Cefepime 2 gm Injection] 2 gm IV Q8H #30 froz.piggy HYDROcodone/Acet 5/325 mg [Castle 5-325 mg] 1 tab PO TID PRN #14 tablet PRN Reason: Pain Lactobacillus Acidophilus [Probiotic Acidophilus] 1 each PO BID #30 tablet Tramadol HCl [Ultram] 50 - 100 mg PO TID PRN #20 tablet PRN Reason: Pain Home Medications: Acetaminophen [Tylenol] 1,000 mg PO Q4H PRN 08/08/16 [History] Aclidinium Luana [Tudorza Pressair] 400 mcg IH BID 08/08/16 [History] Albuterol Neb [Proventil Neb] 2.5 mg IH Q3H PRN 08/08/16 [History] Albuterol Sulfate [Ventolin Hfa] 1 puff IH Q3H PRN 08/08/16 [History] Aspirin [Lo-Dose Aspirin EC] 81 mg PO DAILY 08/08/16 [History] Atorvastatin [Lipitor] 40 mg PO HS 08/08/16 [History] Budesonide/Formoterol 160/4.5 [Symbicort 160/4.5] 2 puff IH BID 08/08/16 [ History] Gabapentin [Neurontin] 400 mg PO TID 08/08/16 [History] Guaifenesin [Mucinex] 600 mg PO BID 08/08/16 [History] Loratadine [Claritin] 10 mg PO DAILY 08/08/16 [History] Meloxicam [Mobic] 15 mg PO DAILY 08/08/16 [History] Metoprolol XL (24 HR) Succ [Toprol Xl] 25 mg PO DAILY 08/08/16 [History] Potassium Chloride [K-Tab ER] 20 meq PO DAILY 08/08/16 [History] Sennosides [Senokot] 8.6 mg PO DAILY PRN 08/08/16 [History] acetaZOLAMIDE [Diamox] 250 mg PO DAILY 08/08/16 [History] Furosemide [Lasix] 40 mg PO BIDDIURETIC 30 Days tablet 08/16/16 [Rx] Polyvinyl Alcohol [Artificial Tears] 2 drop OP AD PRN 07/22/17 [History] Sertraline [Zoloft] 50 mg PO DAILY 07/22/17 [History] Cefepime HCl/Dextrose, Iso-Osm [Cefepime 2 gm Injection] 2 gm IV Q8H #30 froz.piggy 07/26/17 [Rx] HYDROcodone/Acet 5/325 mg [Castle 5-325 mg] 1 tab PO TID PRN #14 tablet 07/26/17 [Rx] Lactobacillus Acidophilus [Probiotic Acidophilus] 1 each PO BID #30 tablet 07/26 [Rx] Tramadol HCl [Ultram] 50 - 100 mg PO TID PRN #20 tablet 07/26/17 [Rx] metroNIDAZOLE [Flagyl] 500 mg PO TID 4 Days tablet 07/26/17 [Rx] Allergies/Adverse Reactions: 3 Allergy/AdvReac Type Severity Reaction Status Date / Time Penicillins Allergy Anaphylaxis Verified 04/20/17 11:33 - Respiratory Orders Oxygen / L per min (3) Smoking Cessation: Smoking cessation has been advised. For more information, call the [place] Tobacco Quit Line at 0-626-OTUV-NOW. - Ancillary Orders May consult with Dentist, Manager Financial Services, Supervisory Aide PRN - Advance Directives Code Status: Full Code - Mobility Orders Other (per PT) - Rehabiliation Orders Rehab Potential: Fair Rehab Orders: Evaluation for Physical Therapy, Evaluation for Occupational Therapy, Evaluation for Speech Therapy - Diet Orders Mechanical Soft (Mechanically altered diet with nectar thick liquids) House Supplement per Dietary: Ensure Plus 3 times daily CERTIFICATION: I certify that the transfer of the above named patient to an Extended Care Facility is necessary for the continuing treatment of the diagnosis listed. The above information is true and accurate reflection of patient's current condition. Confidential - Redisclosure prohibited without a patient's written consent.
[2017-07-26] MEDS ORDERED: Potassium Chloride Elixir 20 MEQ/15 ML UDC PO SCH (13:00)
[2017-07-26 15:41] VITALS: BP 105/70
[2017-07-26] MEDS: traMADol 50 MG TABLET PO PRN (16:22)
[2017-07-26] MEDS ORDERED: GuaiFENesin Liq 200 MG/10 ML UDC PO SCH (18:00)
== END 2017-07-26 19:05 | DRG 720 ==
LOC: 2NENU 23:47 → EMEROO 23:47 → 2NENU 07-22 03:10 → SUATTDRO 07-22 06:33
PROVIDERS: ADMIT Internal Medicine; ATTEND Internal Medicine

== ENCOUNTER 2018-11-18 07:25 | Inpatient (IN) ==
--- NOTE | 2018-11-18 07:35 | Emergency Department Note ---
Disposition Clinical Impression: Aspiration pneumonia Qualifiers: Aspiration pneumonia type: due to regurgitated food Laterality: bilateral Lung location: lower lobe of lung Qualified Code(s): J69.0 - Pneumonitis due to inhalation of food and vomit Sepsis Qualifiers: Sepsis type: sepsis due to unspecified organism Qualified Code(s): A41.9 - Sepsis, unspecified organism Disposition: Admitted As Inpatient Condition: Fair Time of Disposition: 09:32 SOB HPI - General Chief Complaint: ED Shortness of Breath/Dyspnea Stated Complaint: SOB Time Seen by Provider: 11/18/18 07:28 Source: patient, EMS Mode of arrival: EMS Limitations: no limitations Nursing Notes Reviewed: Yes Vital Signs Reviewed: Yes - History of Present Illness Patient presenting to the ED via EMS with the chief complaint of vomiting and shortness of breath. Patient is trach dependent and is at [facility]. Patient reports that he had multiple episodes of emesis last night after eating and then developed shortness of breath this morning. EMS reports he is on 3 L of nasal cannula oxygen at all times and they did have to bump him up to 5 and section and due to copious amounts of secretions coming from his trach. He denies any fever or chills. Denies any chest pain or shortness of breath currently. He denies any abdominal pain. He has had no further nausea or vomiting. No diarrhea. States he actually feels okay right now. - Related Data Home Medications Medication Instructions Recorded Confirmed Acetaminophen [Tylenol] 1,000 mg PO Q4H PRN 08/08/16 11/18/18 Aclidinium [place] [Tudorza 400 mcg IH BID 08/08/16 11/18/18 Pressair] Albuterol Neb [Proventil Neb] 2.5 mg IH Q3H PRN 08/08/16 11/18/18 Albuterol Sulfate [Ventolin Hfa] 1 puff IH Q3H PRN 08/08/16 11/18/18 Aspirin [Lo-Dose Aspirin EC] 81 mg PO DAILY 08/08/16 11/18/18 Atorvastatin [Lipitor] 40 mg PO HS 08/08/16 11/18/18 Budesonide/Formoterol 160/4.5 2 puff IH BID 08/08/16 11/18/18 [Symbicort 160/4.5] Gabapentin [Neurontin] 400 mg PO TID 08/08/16 11/18/18 Loratadine [Claritin] 10 mg PO DAILY 08/08/16 07/22/17 Meloxicam [Mobic] 15 mg PO DAILY 08/08/16 11/18/18 Sennosides [Senokot] 8.6 mg PO DAILY PRN 08/08/16 11/18/18 acetaZOLAMIDE [Diamox] 250 mg PO DAILY 08/08/16 11/18/18 Polyvinyl Alcohol [Artificial 2 drop OP AD PRN 07/22/17 11/18/18 Tears] Sertraline [Zoloft] 50 mg PO DAILY 07/22/17 11/18/18 Previous Rx's Medication Instructions Recorded Furosemide [Lasix] 40 mg PO BIDDIURETIC 30 Days 08/16/16 tablet Cefepime HCl/Dextrose, Iso-Osm 2 gm IV Q8H #30 froz.piggy 07/26/17 [Cefepime 2 gm Injection] HYDROcodone/Acet 5/325 mg [[place] 1 tab PO TID PRN #14 tablet 07/26/17 5-325 mg] Lactobacillus Acidophilus 1 each PO BID #30 tablet 07/26/17 [Probiotic Acidophilus] Metoprolol [Lopressor] 12.5 mg PO BID #60 tablet 07/26/17 Potassium Chloride [Klor-Con] 20 meq PO DAILY #30 packet 07/26/17 Tramadol HCl [Ultram] 50 - 100 mg PO TID PRN #20 tablet 07/26/17 guaiFENesin [Guaifenesin] 200 mg PO QID #250 ml 07/26/17 metroNIDAZOLE [Flagyl] 500 mg PO TID 4 Days tablet 07/26/17 Allergies Allergy/AdvReac Type Severity Reaction Status Date / Time Penicillins Allergy Anaphylaxis Verified 04/20/17 11:33 Review of Systems: As reviewed in the HPI. All other systems reviewed are negative or normal. Past Medical History - Past Medical History Attestation: Yes The following information was validated with the patient. 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), other Surgical history: Reports: no surgical history Psychiatric history: Reports: anxiety - Social History Smoking Status: Former smoker Smokeless Tobacco Status: No Alcohol use: Reports: none Drug use: Reports: none Physical Exam CONSTITUTIONAL: [well appearing, alert and in no acute distress] EYES: [EOMI, clear conjunctiva, PERRLA] HENT: [Normocephalic, atraumatic, moist mucus membranes, normal oropharyn tracheostomy with speaking bowels is copiously leaking sputum that is yellow and foul smelling ] NECK: [normal inspection, full ROM, trachea midline, no obvious swelling] PULMONARY: [Coarse and congested lung sounds bilaterally, actually worse on the left, no significant respiratory distress CARDIOVASCULAR: [tachycardic, regular rhythm, normal heart sounds, no murmurs, distal extremities are warm and well perfused] GASTROINSTESTINAL: [soft, non-tender, non-rigid, baseline distended with ascites, no guarding, no rebound, normal bowel sounds] GENITOURINARY/RECTAL: [deferred] NEUROLOGIC: [Alert, oriented x3, normal speech, moves all extremities] EXTREMITIES: [Normal inspection, full ROM, no tenderness, 1+ pedal edema, normal capillary refill] MUSCULOSKELETAL: [no gross deformities, atraumatic] SKIN: [No cyanosis, no diaphoresis, normal color, warm, no rash] PSYCHIATRIC: [normal mood and affect] Course Course Narrative: Patient presenting from the intermediate with suspected aspiration event. Was recently treated for pneumonia, but is off antibiotics. Was slightly hypoxic, requiring more oxygen. he will be suctioned at this time. Labs, chest x-ray, EKG. Disposition pending - Reevaluation(s) Reevaluation #1: Patient has a leukocytosis of 26,000. Further raising concern for aspiration pneumonia. Added on blood cultures. Due to DRIP score > 4, we will start on vancomycin, Levaquin, and cefepime. Patient does have true anaphylaxis to penicillins, but has tolerated cefepime in the past. Vital Signs Temperature 99.2 F 11/18/18 07:27 Pulse Rate 112 11/18/18 07:27 Respiratory Rate 20 11/18/18 07:27 Blood Pressure 104/69 11/18/18 07:27 O2 Sat by Pulse Oximetry 92 11/18/18 07:27 Temperature 99.2 F 11/18/18 07:27 Pulse Rate 112 11/18/18 07:27 Respiratory Rate 20 11/18/18 07:27 Blood Pressure 104/69 11/18/18 07:27 O2 Sat by Pulse Oximetry 92 11/18/18 07:27 Oxygen Delivery Oxygen Delivery Nasal Cannula Shortness of Breath/Dyspnea - Medical Records Medical records reviewed: Yes I reviewed the patient's medical records. - Lab Data Lab results reviewed: Yes I reviewed the patient's lab results. Result diagrams: 11/18/18 07:52 11/18/18 07:52 Lab Results 11/18/18 11/18/18 11/18/18 Range/Units 07:52 07:52 07:52 WBC 26.8 H (4.3-11.1) K/mcL RBC 4.87 (4.19-5.50) M/mcL Hgb 12.2 L (12.9-16.9) g/dL Hct 43.3 (37.5-50.1) % MCV 88.9 (83.0-100.0) fL MCH 25.1 L (28.0-33.3) pg MCHC 28.2 L (31.6-35.5) g/dL RDW 19.0 H (11.5-14.5) % Plt Count 270 (140-400) K/mcL MPV 9.6 (9.4-12.4) fL Immature Gran % Test Not Performed Seg Neutrophils % 92.0 % Band Neutrophils % 6.0 H (0-4) % Lymphocytes % 2.0 % Monocytes % Test Not Performed Eosinophils % Test Not Performed Basophils % Test Not Performed Neutrophils # 26.3 H (1.6-8.9) K/mcL Lymphocytes # 0.5 L (0.6-4.6) K/mcL Monocytes # Test Not Performed Eosinophils # Test Not Performed Basophils # Test Not Performed Platelet Estimate Normal (Normal) Anisocytosis 1+ A (Not Present) Sodium 140 (136-145) mEq/L Potassium 4.4 (3.5-5.1) mEq/L Chloride 102 (98-107) mEq/L Carbon Dioxide 33 H (23-29) mEq/L BUN 15 (8-23) mg/dL Creatinine 0.80 (0.70-1.30) mg/dL Est GFR ( Amer) > 60 (> 60) Est GFR (Non-Af Amer) > 60 (> 60) BUN/Creatinine Ratio 19 (6-26) Glucose 151 H (70-105) mg/dL Calculated Osmolality 294 (280-300) Lactic Acid (0.5-2.2) mmol/L Calcium 9.4 (8.6-10.3) mg/dL Total Bilirubin 0.4 (0.3-1.0) mg/dL Direct Bilirubin 0.1 (0.0-0.2) mg/dL Indirect Bilirubin 0.3 (0.0-1.2) mg/dL AST 21 (13-39) Units/L ALT 24 (7-52) Units/L Alkaline Phosphatase 148 H (34-104) Units/L Troponin I < 0.03 (< 0.04) ng/mL B-Natriuretic Peptide 93 (Less than 100) pg/mL Serum Total Protein 7.7 (6.4-8.9) g/dL Albumin 3.6 (3.5-5.7) g/dL Globulin 4.1 H (2.4-3.5) g/dL Albumin/Globulin Ratio 0.9 L (1.1-2.2) Lipase 3 L (11-82) Units/L Specimen Rejected 11/18/18 11/18/18 Range/Units 07:52 08:50 WBC (4.3-11.1) K/mcL RBC (4.19-5.50) M/mcL Hgb (12.9-16.9) g/dL Hct (37.5-50.1) % MCV (83.0-100.0) fL MCH (28.0-33.3) pg MCHC (31.6-35.5) g/dL RDW (11.5-14.5) % Plt Count (140-400) K/mcL MPV (9.4-12.4) fL Immature Gran % Seg Neutrophils % % Band Neutrophils % (0-4) % Lymphocytes % % Monocytes % Eosinophils % Basophils % Neutrophils # (1.6-8.9) K/mcL Lymphocytes # (0.6-4.6) K/mcL Monocytes # Eosinophils # Basophils # Platelet Estimate (Normal) Anisocytosis (Not Present) Sodium (136-145) mEq/L Potassium (3.5-5.1) mEq/L Chloride (98-107) mEq/L Carbon Dioxide (23-29) mEq/L BUN (8-23) mg/dL Creatinine (0.70-1.30) mg/dL Est GFR ( Amer) (> 60) Est GFR (Non-Af Amer) (> 60) BUN/Creatinine Ratio (6-26) Glucose (70-105) mg/dL Calculated Osmolality (280-300) Lactic Acid 0.9 (0.5-2.2) mmol/L Calcium (8.6-10.3) mg/dL Total Bilirubin (0.3-1.0) mg/dL Direct Bilirubin (0.0-0.2) mg/dL Indirect Bilirubin (0.0-1.2) mg/dL AST (13-39) Units/L ALT (7-52) Units/L Alkaline Phosphatase (34-104) Units/L Troponin I (< 0.04) ng/mL B-Natriuretic Peptide (Less than 100) pg/mL Serum Total Protein (6.4-8.9) g/dL Albumin (3.5-5.7) g/dL Globulin (2.4-3.5) g/dL Albumin/Globulin Ratio (1.1-2.2) Lipase (11-82) Units/L Specimen Rejected Hemolyzed - Radiology Data Radiology results reviewed: Yes I reviewed the patient's radiology results. - EKG Data EKG attestation: Yes I reviewed and interpreted this EKG. EKG results narrative: Sinus tach, rate 117, normal axis, baseline wander but no acute ischemic change Attestation Statement - Attestation Attestation: I, Marino Muñoz, examined this patient and my medical decision-making was reviewed with the RAIL [employer] MECH[employer]IC/PA/Advanced Practice Nurse/Resident Physician. I agree with the documented findings, disposition and treatment plan as described except to the extent set forth below. 63-year-old male presents emergency Department with concerns of interest breath. Patient is a chronic trach who no longer breathe through the tracheostomy site however patient still has a dummy trach still in place. Patient apparently vomited last night and this morning he has significant shortness of breath and extensive phlegm and other productive expectorant from the tracheostomy site. Patient has significantly elevated white count. Imaging shows likely infiltrate. Patient will be treated for aspiration pneumonia. Patient admitted to the hospitalist for further care and evaluation.
[2018-11-18] MEDS ORDERED: *HR* Morphine Immed Rel 30 MG TABLET PO STA (07:56)
[2018-11-18 08:07] LABS: Hematocrit 43.3 % (37.5-50.1); Hemoglobin 12.2 g/dL (12.9-16.9); Lymphocytes # 0.5 K/mcL (0.6-4.6); Mean Corpuscular HGB Conc 28.2 g/dL (31.6-35.5); Mean Corpuscular Hemoglobin 25.1 pg (28.0-33.3); Mean Corpuscular Volume 88.9 fL (83.0-100.0); Mean Platelet Volume 9.6 fL (9.4-12.4); Platelet Count 270 K/mcL (140-400); Red Blood Count 4.87 M/mcL (4.19-5.50)
[2018-11-18] MEDS ORDERED: 0.9 % Sodium Chloride 1,000 ML IVC ONE (08:11)
[2018-11-18] MEDS ORDERED: *HR* Morphine 2 MG/ML SYRINGE IVP ONE (08:16)
[2018-11-18] MEDS ORDERED: Levofloxacin 750 MG/150 ML 750 MG/150 ML BAG IVPB ONE (08:18)
[2018-11-18] MEDS ORDERED: Cefepime HCl 2,000 MG in 0.9 % Sodium Chloride Mini Bag 100 ML IVPB STA (08:21)
[2018-11-18 08:27] LABS: Alanine Aminotransferase 24 Units/L (7-52); Albumin 3.6 g/dL (3.5-5.7); Albumin/Globulin Ratio 0.9 (1.1-2.2); Alkaline Phosphatase 148 Units/L (34-104); Aspartate Amino Transferase 21 Units/L (13-39); BUN/Creatinine Ratio 19 (6-26); Bilirubin,Direct 0.1 mg/dL (0.0-0.2); Bilirubin,Indirect 0.3 mg/dL (0.0-1.2); Bilirubin,Total 0.4 mg/dL (0.3-1.0); Blood Urea Nitrogen 15 mg/dL (8-23); Calcium 9.4 mg/dL (8.6-10.3); Carbon Dioxide 33 mEq/L (23-29); Chloride 102 mEq/L (98-107); Globulin 4.1 g/dL (2.4-3.5); Glucose 151 mg/dL (70-105); Lipase 3 Units/L (11-82); Osmolality,Calculated 294 (280-300); Potassium 4.4 mEq/L (3.5-5.1); Sodium 140 mEq/L (136-145); Total Protein 7.7 g/dL (6.4-8.9); Troponin I < 0.03 ng/mL (< 0.04); eGFR For Non-African Americans > 60 (> 60)
[2018-11-18 08:48] LABS: Neutrophils # 26.3 K/mcL (1.6-8.9); Platelet Estimate Normal (Normal)
[2018-11-18 08:49] LABS: Anisocytosis 1+ (Not Present)
[2018-11-18] MEDS ORDERED: MetroNIDAZOLE 500 MG/100 ML 500 MG/100 ML BAG IVPB ONE (09:16)
--- NOTE | 2018-11-18 09:22 | Internal Med History&Physical ---
Date of Encounter: 11/18/18 Time of Encounter: 09:18 Internal Medicine - H&P: HPI Chief complaint: N/V, SOB Admitted From: Emergency Dept History of present illness: Casey Barry is a 63 M w hx HFpEF, supraglottic cancer s/p resection w structural technician zahra trach, pseudomonas pna's, dysphagia, CAD, WOEN, obesity, who p/w vomiting and SOB. Pt states that he lives at [place] and has a chronic trach but does eat food. He says that yesterday after eating food he started vomiting and coughing a lot, and that he is now coughing up thick sputum. However, he states that he was actually treated as [place] recently with PO and IV antibiotics for a pneumonia, which started about 1.5 weeks ago with productive cough and thick sputum and that those abx stopped last , and initially he had improved. Since then he's noted an increase again in his sputum production and thickness as well as cough, but in the last day or two also noted development of fever and diffuse myalgias. He says he had the flu earlier this year, unsure if he was treated with tamiflu. In the ED, pt HR 110s, RR 20, O2 sat in 80s requiring 3L to recover, coughing up thick sputum and possible vomitus. CXR showing only bibasilar fibrosis. Labs remarkable for WBC 26. Cultures drawn, given 2L fluid, and dose of Cefepime and Levaquin prior to admission. Past medical, surgical, social, and family histories reviewed and updated as below. 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), other Additional medical history: SLEEP APNEA Psychiatric history: anxiety - Past Surgical History Surgical History: no surgical history Additional surgical history: peg tube - Social History Smoking Status: Former smoker Smokeless Tobacco Status: No Alcohol use: none Drug use: none - Family History Mother Hx Family Cardiac Disorders: No Hx Family Respiratory Disorders: No Hx Family Cancer: No Hx Family GI Disorders: No Hx Family Endocrine Disorder: No Hx Family Neuromuscular Disorders: No Hx Family Neurologic Disorders: No Hx Family HEENT Disorders: No Hx Family Autoimmune Disorders: No Father Hx Family Cardiac Disorders: No Hx Family Respiratory Disorders: No Hx Family Cancer: Yes Hx Family GI Disorders: No Hx Family Endocrine Disorder: No Hx Family Neuromuscular Disorders: No Hx Family Neurologic Disorders: No Hx Family HEENT Disorders: No Hx Family Autoimmune Disorders: No Internal Medicine - H&P: Meds Acetaminophen [Tylenol] 1,000 mg PO Q4H PRN 08/08/16 [History] Aclidinium [place] [Tudorza Pressair] 400 mcg IH BID 08/08/16 [History] Albuterol Neb [Proventil Neb] 2.5 mg IH Q3H PRN 08/08/16 [History] Albuterol Sulfate [Ventolin Hfa] 1 puff IH Q3H PRN 08/08/16 [History] Aspirin [Lo-Dose Aspirin EC] 81 mg PO DAILY 08/08/16 [History] Atorvastatin [Lipitor] 40 mg PO HS 08/08/16 [History] Budesonide/Formoterol 160/4.5 [Symbicort 160/4.5] 2 puff IH BID 08/08/16 [History] Gabapentin [Neurontin] 400 mg PO TID 08/08/16 [History] Loratadine [Claritin] 10 mg PO DAILY 08/08/16 [History] Meloxicam [Mobic] 15 mg PO DAILY 08/08/16 [History] Sennosides [Senokot] 8.6 mg PO DAILY PRN 08/08/16 [History] acetaZOLAMIDE [Diamox] 250 mg PO DAILY 08/08/16 [History] Furosemide [Lasix] 40 mg PO BIDDIURETIC 30 Days tablet 08/16/16 [Rx] Polyvinyl Alcohol [Artificial Tears] 2 drop OP AD PRN 07/22/17 [History] Sertraline [Zoloft] 50 mg PO DAILY 07/22/17 [History] Cefepime HCl/Dextrose, Iso-Osm [Cefepime 2 gm Injection] 2 gm IV Q8H #30 froz.piggy 07/26/17 [Rx] HYDROcodone/Acet 5/325 mg [[place] 5-325 mg] 1 tab PO TID PRN #14 tablet 07/26/17 [Rx] Lactobacillus Acidophilus [Probiotic Acidophilus] 1 each PO BID #30 tablet [Rx] Metoprolol [Lopressor] 12.5 mg PO BID #60 tablet 07/26/17 [Rx] Potassium Chloride [Klor-Con] 20 meq PO DAILY #30 packet 07/26/17 [Rx] Tramadol HCl [Ultram] 50 - 100 mg PO TID PRN #20 tablet 07/26/17 [Rx] guaiFENesin [Guaifenesin] 200 mg PO QID #250 ml 07/26/17 [Rx] metroNIDAZOLE [Flagyl] 500 mg PO TID 4 Days tablet 07/26/17 [Rx] Allergy/AdvReac Type Severity Reaction Status Date / Time Penicillins Allergy Anaphylaxis Verified 04/20/17 11:33 All Systems PM: A 10-system review of systems was performed and is negative for pertinent findings except as documented above in the HPI. - Constitutional Vitals: Temp Pulse Resp BP Pulse Ox 99.2 F 112 20 104/69 92 11/18/18 07:27 11/18/18 07:27 11/18/18 07:27 11/18/18 07:27 11/18/18 07:27 Exam: General: NAD, good eye contact, chronically ill appearing, obese, does have tracheostomy Head: Atraumatic, normocephalic. Face symmetric Eyes: EOMI, sclerae anicteric ENT: Mucous membranes moist. Normal oral mucosa and dentition. Trachea midline. Thoracic: No visible chest wall deformities. Bibasilar crackles, scattered rhonchi Cardio: Normal S1 and S2, regular rate and rhythm, no murmurs. Abdomen: Soft, nontender, nondistended, obese Extremities: Warm, well perfused. DP pulses 2+ b/l. Mild edema Skin: Intact. No rashes, bruises, or ulcers Neuro: Awake, fully oriented. Decent memory, good concentration and attention. Speech fluent. Internal Med - H&P Results - Labs CBC & Chem 7: 11/18/18 07:52 11/18/18 07:52 Labs: Short CBC 11/18/18 Range/Units 07:52 WBC 26.8 H (4.3-11.1) K/mcL Hgb 12.2 L (12.9-16.9) g/dL Hct 43.3 (37.5-50.1) % Plt Count 270 (140-400) K/mcL Neutrophils # 26.3 H (1.6-8.9) K/mcL BMP 11/18/18 07:52 Sodium 140 Potassium 4.4 Chloride 102 Carbon Dioxide 33 H BUN 15 Creatinine 0.80 Glucose 151 H Calcium 9.4 Cardiac Enzymes 11/18/18 Range/Units 07:52 Troponin I < 0.03 (< 0.04) ng/mL Liver Function 11/18/18 Range/Units 07:52 Total Bilirubin 0.4 (0.3-1.0) mg/dL Direct Bilirubin 0.1 (0.0-0.2) mg/dL AST 21 (13-39) Units/L ALT 24 (7-52) Units/L Alkaline Phosphatase 148 H (34-104) Units/L Albumin 3.6 (3.5-5.7) g/dL - Impressions ITS Impressions Chest X-Ray 11/18/18 07:29 IMPRESSION: Bibasilar atelectasis or fibrosis. D/ / 11/18/2018 08:23:19 Brett Alamo MD / minh Interpreting Provider: Brett Alamo MD - Summary of Assessment and Plan Summary of Assessment and Plan: Casey Barry is a 63 M w hx HFpEF, supraglottic cancer s/p resection w chronic trach, pseudomonas pna's, dysphagia, CAD, OWEN, obesity PNA: wide ddx. CXR suspiciously unremarkable except bibasilar fibrosis, but pt w fevers and myalgias and says recently treated for PNA. Per ED, pt seen vomiting and subsequently had vomitus mixed with phlegm produced from trach, concern for aspiration pneumonia/pneumonitis. Does also have hx PsA PNA. - speech therapy consult and swallow study - stop vanc - continue cefepime given true anaphylaxis to PCN and tolerated cefepime in past for PsA pneumonia - add flagyl for anaerobic coverage - agree with Levaquin to double cover possible pseudomonas PNA - sputum culture - RVP - MRSA swab Sepsis: Suspected infection as above, lactic acid wnl - BCx x2 pending - lactate - targeted abx as above Acute on chronic hypoxic respiratory failure: requiring 5L O2 to maintain sats >88% - supplemental O2, wean as able - IS - treat cause as above - walk test prior to discharge COPD: not in acute exacerbation, continue home inhalers HFpEF: home lasix 40 bid, metoprolol CAD: ASA, statin OWEN: CPAP qhs Chronic pain: home norco, tramadol, tylenol Obesity: BMI 37 PPx: lovenox FEN: regular, no MIVF Lines: PIV, trach Consults: Code: Full Dispo: patient requires inpatient eval and management at this time. Anticipate 2-3 days. Will be homegoing
[2018-11-18] MEDS ORDERED: Naloxone 0.4 MG/ML INJ IVP PRN (09:23)
[2018-11-18] MEDS ORDERED: *HR* Promethazine 25 MG/ML VIAL IVP PRN (09:23)
[2018-11-18] MEDS ORDERED: Ondansetron 4 MG/2 ML VIAL IVP PRN (09:23)
[2018-11-18] MEDS ORDERED: Sennosides 8.6 MG TABLET PO PRN (09:29)
[2018-11-18] MEDS ORDERED: Artificial Tears SOLN 15 ML BOTTLE OP PRN (09:29)
[2018-11-18] MEDS: 0.9 % Sodium Chloride 1,000 ML IVC SCH ×2 (09:37→14:44)
[2018-11-18] MEDS: GuaiFENesin Liq 200 MG/10 ML UDC PO SCH ×3 (13:15→19:49)
[2018-11-18] MEDS: Aspirin Enteric Coated 81 MG Tablet PO SCH (13:15)
[2018-11-18] MEDS: Cefepime HCl 2,000 MG in 0.9 % Sodium Chloride Mini Bag 100 ML IVPB SCH (13:15)
[2018-11-18] MEDS: Furosemide 40 MG TABLET PO SCH ×2 (13:15→18:19)
[2018-11-18] MEDS: acetaZOLAMIDE 250 MG TABLET PO SCH (13:15)
[2018-11-18] MEDS: metroNIDAZOLE 500 MG TABLET PO SCH ×2 (15:26→20:30)
[2018-11-18] MEDS: Levofloxacin 750 MG/150 ML 750 MG/150 ML BAG IVPB SCH (15:26)
[2018-11-18] MEDS: Gabapentin 400 MG CAPSULE PO SCH ×2 (15:26→19:49)
--- NOTE | 2018-11-18 17:24 | Electrocardiograph Report ---
[address] [place], [place] [address] Test Date: 2018-11-18 Pat Name: Casey Barry Department: [id number] Room: 2NE16 Gender: M Reel Hooker: : 1955 Requested By: Du Martinez Order Number: [id number] Reading MD: Alondra Castellanos Measurements Intervals [place] Rate: 117 P: 109 OR: 184 QRS: 0 QRSD: 90 T: 56 QT: 315 QTc: 442 Interpretive Statements Sinus tachycardia Artifact Electronically Signed On 11-18-2018 17:22:59 EDT by Alondra Castellanos
[2018-11-18] MEDS: Albuterol 2.5 MG/3 ML NEBULIZER IH PRN ×2 (17:33→19:59)
[2018-11-18 18:11] LABS: Adenovirus Not Detected (Not Detect); Coronavirus 229E Not Detected (Not Detect); Coronavirus HKU1 Not Detected (Not Detect); Coronavirus NL63 Not Detected (Not Detect); Coronavirus OC43 Not Detected (Not Detect); Human Metapneumovirus Not Detected (Not Detect); Human Rhinovirus/Enterovirus Not Detected (Not Detect)
[2018-11-18 18:14] LABS: Bordetella Pertussis Not Detected (Not Detect); Chlamydophila pneumoniae Not Detected (Not Detect); Influenza A Untypeable Not Detected (Not Detect); Influenza B Not Detected (Not Detect); Mycoplasma pneumoniae Not Detected (Not Detect); Parainfluenza Virus 1 Not Detected (Not Detect); Parainfluenza Virus 2 Not Detected (Not Detect); Parainfluenza Virus 3 Not Detected (Not Detect); Parainfluenza Virus 4 Not Detected (Not Detect); Respiratory Syncytial Virus Not Detected (Not Detect)
[2018-11-18 18:15] LABS: Influenza A Subtype 2009 H1 DETECTED (Not Detect)
[2018-11-18] MEDS: Acetaminophen 325 MG TABLET PO PRN (19:48)
[2018-11-18] MEDS: Budesonide/Formoterol 160/4.5 1 PUFF INH IH SCH (19:59)
[2018-11-19] MEDS: Aclidinium Bromide [Tudorza Pressair] 400 MCG IH SCH ×3 (00:32→22:43)
[2018-11-19] MEDS: Cefepime HCl 2,000 MG in 0.9 % Sodium Chloride Mini Bag 100 ML IVPB SCH ×4 (00:32→18:52)
[2018-11-19 02:40] LABS: Hematocrit 42.2 % (37.5-50.1); Hemoglobin 11.5 g/dL (12.9-16.9); Mean Corpuscular HGB Conc 27.3 g/dL (31.6-35.5); Mean Corpuscular Hemoglobin 24.6 pg (28.0-33.3); Mean Corpuscular Volume 90.4 fL (83.0-100.0); Platelet Count 233 K/mcL (140-400); Red Blood Count 4.67 M/mcL (4.19-5.50); Red Cell Distribution Width 19.1 % (11.5-14.5)
[2018-11-19 02:59] LABS: BUN/Creatinine Ratio 20 (6-26); Blood Urea Nitrogen 15 mg/dL (8-23); Calcium 8.7 mg/dL (8.6-10.3); Carbon Dioxide 32 mEq/L (23-29); Chloride 103 mEq/L (98-107); Glucose 116 mg/dL (70-105); Osmolality,Calculated 292 (280-300); Potassium 3.9 mEq/L (3.5-5.1); Sodium 140 mEq/L (136-145); eGFR For Non-African Americans > 60 (> 60)
[2018-11-19] MEDS: Acetaminophen 325 MG TABLET PO PRN (04:29)
[2018-11-19] MEDS: Albuterol 2.5 MG/3 ML NEBULIZER IH PRN ×4 (04:35→21:45)
[2018-11-19] MEDS: *HR* Enoxaparin 40 MG/0.4 ML SYRINGE SQ SCH (06:14)
[2018-11-19] MEDS: Nystatin POWDER 30 GM BOTTLE TP SCH ×3 (06:17→22:43)
[2018-11-19] MEDS ORDERED: Ibuprofen 600 MG TABLET PO ONE (06:49)
[2018-11-19] MEDS: Budesonide/Formoterol 160/4.5 1 PUFF INH IH SCH ×2 (07:45→21:45)
[2018-11-19] MEDS: GuaiFENesin Liq 200 MG/10 ML UDC PO SCH ×4 (08:42→22:27)
[2018-11-19] MEDS: metroNIDAZOLE 500 MG TABLET PO SCH ×2 (08:43→13:51)
[2018-11-19] MEDS: acetaZOLAMIDE 250 MG TABLET PO SCH (08:45)
[2018-11-19] MEDS: Aspirin Enteric Coated 81 MG Tablet PO SCH (08:48)
[2018-11-19] MEDS: Levofloxacin 750 MG/150 ML 750 MG/150 ML BAG IVPB SCH (08:51)
[2018-11-19] MEDS: Furosemide 40 MG TABLET PO SCH ×2 (09:03→16:31)
[2018-11-19] MEDS: Gabapentin 400 MG CAPSULE PO SCH ×3 (09:04→22:27)
--- NOTE | 2018-11-19 11:19 | Internal Med Progress Note ---
<Nayely Ferrera - Last Filed: 11/19/18 16:16> Hospitalist Progress Note - Encounter Date of Encounter: 11/19/18 Time of Encounter: 09:00 - Subjective Interval History: Mr. Barry was seen at bedside this morning. He was sitting up and comfortable denied any fever, chills, nausea, emesis. Upon review of his vitals he was noted to have temperature 101.8 repeat temperature 6 hours later was 98. He complains of shortness of breath which is at his baseline. He is complaining of sputum production. He denies nausea, emesis, shortness of breath, chest pain. - Exam Vitals: Temp Pulse Resp BP Pulse Ox 101.8 F H 109 20 113/54 92 11/19/18 06:41 11/19/18 06:41 11/19/18 07:45 11/19/18 06:41 11/19/18 07:45 Exam: General: NAD, good eye contact, chronically ill appearing, obese, does have tracheostomy Head: Atraumatic, normocephalic. Face symmetric Eyes: EOMI, sclerae anicteric Thoracic: No visible chest wall deformities. Bibasilar crackles, scattered rhonchi Cardio: Normal S1 and S2, regular rate and rhythm Abdomen: Soft, nontender, nondistended, obese Extremities: Warm, well perfused. Pulses intact bilaterally Skin: Intact. No rashes, bruises, or ulcers Neuro: Awake, fully oriented. Thought content congruent. - Assessment and Plan (1) Pneumonia Current Visit: No Status: Acute Assessment and Plan: History of supraglottic cancer status post resection, chronic tracheostomy. Presented with fevers and myalgia cough and emesis. Likely aspiration pneumonia given he reports sometimes difficulty swallowing. Chest x-ray does not show any acute abnormalities. Blood and sputum culture pending. Respiratory panel positive for influenza MRSA swab positive -Continue cefepime day 2, vancomycin day 1, meropenem day 1 added for double pseudomonal coverage -Respiratory therapy consulted for tracheostomy care and suction -Speech evaluation was negative for aspiration concern (2) Sepsis Current Visit: Yes Status: Acute Assessment and Plan: Sepsis likely secondary to aspiration pneumonia. He was afebrile at this admission but this morning appears to have fever 101.8 tachycardia. Same plan as pneumonia (3) Acute and chronic respiratory failure with hypoxia Current Visit: Yes Status: Acute Assessment and Plan: History of chronic tracheostomy. Was recently treated with IV and oral antibiotics at outside skilled facility. Reporting emesis and cough with thick sputum production. Secondary to influenza and MRSA pneumonia -Continue to titrate supplemental oxygen -Lives at an outside facility and can be due to pseudomonal infection. -Continue cefepime and meropenem for double pseudomonal coverage and anaerobic coverage, continue vancomycin for MRSA coverage -Continue suctioning by respiratory therapists -CBC in the morning -Sputum cultures pending (4) COPD (chronic obstructive pulmonary disease) Current Visit: Yes Status: Acute Assessment and Plan: History of COPD not in acute exacerbation Continue home nebulizers and symbicort (5) OWEN (obstructive sleep apnea) Current Visit: Yes Status: Acute Assessment and Plan: CPAP at night (6) Obesity (BMI 30-39.9) Current Visit: Yes Status: Acute Assessment and Plan: Continue cardiac diet Urged to get of bed and walk with assistance DVT Prophylaxis: lovenox - Time Spent with Patient Total time spent is greater than 50% in coordination of care (as documented) at patient's floor/unit and/or counseling patient: Internal Medicine: Result - Labs CBC & Chem 7: 11/19/18 01:39 11/19/18 01:39 Labs: Short CBC 11/19/18 Range/Units 01:39 WBC 12.7 H D (4.3-11.1) K/mcL Hgb 11.5 L (12.9-16.9) g/dL Hct 42.2 (37.5-50.1) % Plt Count 233 (140-400) K/mcL BMP 11/19/18 01:39 Sodium 140 Potassium 3.9 Chloride 103 Carbon Dioxide 32 H BUN 15 Creatinine 0.76 Glucose 116 H Calcium 8.7 Consult Discharge Plan - Plan Referrals: NONE,PCP [Primary Care Provider] - <Tyrel Le - Last Filed: 11/19/18 18:49> Hospitalist Progress Note - Encounter Date of Encounter: 11/19/18 - Exam Vitals: Temp Pulse Resp BP Pulse Ox 98.1 F 85 18 125/71 90 11/19/18 15:33 11/19/18 15:33 11/19/18 17:30 11/19/18 15:33 11/19/18 17:30 - Assessment and Plan (1) Pneumonia Current Visit: No Status: Acute (2) Sepsis Current Visit: Yes Status: Acute (3) Acute and chronic respiratory failure with hypoxia Current Visit: Yes Status: Acute (4) COPD (chronic obstructive pulmonary disease) Current Visit: Yes Status: Acute (5) OWEN (obstructive sleep apnea) Current Visit: Yes Status: Acute (6) Obesity (BMI 30-39.9) Current Visit: Yes Status: Acute - Time Spent with Patient Total time spent is greater than 50% in coordination of care (as documented) at patient's floor/unit and/or counseling patient: Internal Medicine: Result - Labs CBC & Chem 7: 11/19/18 01:39 11/19/18 01:39 Labs: Short CBC 11/19/18 Range/Units 01:39 WBC 12.7 H D (4.3-11.1) K/mcL Hgb 11.5 L (12.9-16.9) g/dL Hct 42.2 (37.5-50.1) % Plt Count 233 (140-400) K/mcL BMP 11/19/18 01:39 Sodium 140 Potassium 3.9 Chloride 103 Carbon Dioxide 32 H BUN 15 Creatinine 0.76 Glucose 116 H Calcium 8.7 - Attending Attestation I examined this patient and my medical decision-making was reviewed with the Resident Physician. I agree with the documented findings, disposition and treatment plan as described except to the extent set forth below. <Nayely Ferrera - Last Filed: 11/19/18 16:16> (1) Pneumonia Qualifiers: Pneumonia type: due to Pseudomonas Laterality: bilateral Lung location: lower lobe of lung Qualified Code(s): J15.1 - Pneumonia due to Pseudomonas (2) Sepsis Qualifiers: Sepsis type: sepsis due to unspecified organism Qualified Code(s): A41.9 - Sepsis, unspecified organism (4) COPD (chronic obstructive pulmonary disease) Qualifiers: COPD type: unspecified COPD Qualified Code(s): J44.9 - Chronic obstructive pulmonary disease, unspecified <Tyrel Le - Last Filed: 11/19/18 18:49> (1) Pneumonia Qualifiers: Pneumonia type: due to Pseudomonas Laterality: bilateral Lung location: lower lobe of lung Qualified Code(s): J15.1 - Pneumonia due to Pseudomonas (2) Sepsis Qualifiers: Sepsis type: sepsis due to unspecified organism Qualified Code(s): A41.9 - Sepsis, unspecified organism (4) COPD (chronic obstructive pulmonary disease) Qualifiers: COPD type: unspecified COPD Qualified Code(s): J44.9 - Chronic obstructive pulmonary disease, unspecified
[2018-11-19] MEDS ORDERED: Water for inj. (sterile) 20 ML 20 ML IV ONE (22:20)
[2018-11-19] MEDS: Meropenem 500 MG in Water for inj. (sterile) 20 ML 10 ML IVP SCH (22:33)
[2018-11-20] MEDS: Meropenem 500 MG in Water for inj. (sterile) 20 ML 10 ML IVP SCH ×2 (00:28→07:51)
[2018-11-20] MEDS: traMADol 50 MG TABLET PO PRN (00:54)
[2018-11-20] MEDS: Cefepime HCl 2,000 MG in 0.9 % Sodium Chloride Mini Bag 100 ML IVPB SCH ×3 (02:29→16:51)
[2018-11-20] MEDS: Albuterol 2.5 MG/3 ML NEBULIZER IH PRN ×4 (04:35→20:10)
[2018-11-20] MEDS: *HR* Enoxaparin 40 MG/0.4 ML SYRINGE SQ SCH (06:08)
[2018-11-20 07:29] LABS: Hemoglobin 10.7 g/dL (12.9-16.9); Segmented Neutrophils % 84.7 %
[2018-11-20 07:31] LABS: Basophils % 0.4 %; Hematocrit 39.4 % (37.5-50.1); Immature Granulocytes % 1.1 % (0-4); Lymphocytes # 0.5 K/mcL (0.6-4.6); Lymphocytes % 9.4 %; Mean Corpuscular HGB Conc 27.2 g/dL (31.6-35.5); Mean Corpuscular Hemoglobin 23.9 pg (28.0-33.3); Mean Corpuscular Volume 88.1 fL (83.0-100.0); Monocytes # 0.2 K/mcL (0.0-1.3); Monocytes % 4.4 %; Neutrophils # 4.4 K/mcL (1.6-8.9); Platelet Count 216 K/mcL (140-400); Red Blood Count 4.47 M/mcL (4.19-5.50); Red Cell Distribution Width 18.9 % (11.5-14.5)
[2018-11-20 07:36] LABS: BUN/Creatinine Ratio 29 (6-26); Blood Urea Nitrogen 15 mg/dL (8-23); Calcium 8.4 mg/dL (8.6-10.3); Carbon Dioxide 33 mEq/L (23-29); Chloride 102 mEq/L (98-107); Glucose 102 mg/dL (70-105); Osmolality,Calculated 285 (280-300); Sodium 137 mEq/L (136-145); eGFR For Non-African Americans > 60 (> 60)
[2018-11-20] MEDS: GuaiFENesin Liq 200 MG/10 ML UDC PO SCH ×4 (07:51→20:57)
[2018-11-20] MEDS: Aspirin Enteric Coated 81 MG Tablet PO SCH (07:53)
[2018-11-20] MEDS: Furosemide 40 MG TABLET PO SCH ×2 (07:53→15:30)
[2018-11-20] MEDS: Gabapentin 400 MG CAPSULE PO SCH ×3 (07:53→20:57)
[2018-11-20] MEDS: acetaZOLAMIDE 250 MG TABLET PO SCH (07:53)
[2018-11-20] MEDS: Aclidinium Bromide [Tudorza Pressair] 400 MCG IH SCH ×2 (08:07→20:58)
[2018-11-20] MEDS: Budesonide/Formoterol 160/4.5 1 PUFF INH IH SCH ×2 (08:39→20:10)
[2018-11-20] MEDS: Nystatin POWDER 30 GM BOTTLE TP SCH ×2 (09:00→21:07)
[2018-11-20 09:04] LABS: Anisocytosis 1+ (Not Present); Basophilic Stippling 1+ (Not Present)
[2018-11-20 09:06] LABS: Platelet Estimate Normal (Normal)
[2018-11-20] MEDS ORDERED: Acetylcysteine 10% 2 ML INHSOL IH ONE (10:43)
--- NOTE | 2018-11-20 15:44 | Internal Med Progress Note ---
<Nayely Ferrera - Last Filed: 11/20/18 15:41> Hospitalist Progress Note - Encounter Date of Encounter: 11/20/18 Time of Encounter: 08:15 - Subjective Interval History: Mr. Barry is seen at bedside this morning. He reported still not feeling well. He did not elicit any specific complaints, said overall he feels tired this morning. He denied fever, chills, cough, chest pain, abdominal pain. - Exam Vitals: Temp Pulse Resp BP Pulse Ox 98 F 85 21 116/65 91 11/20/18 15:35 11/20/18 15:35 11/20/18 15:35 11/20/18 15:35 11/20/18 15:35 Exam: General: NAD, good eye contact, chronically ill appearing, obese, does have tracheostomy Head: Atraumatic, normocephalic. Face symmetric Eyes: EOMI, sclerae anicteric Thoracic: No visible chest wall deformities. Bibasilar crackles, scattered rhonchi Cardio: Normal S1 and S2, regular rate and rhythm Abdomen: Soft, nontender, nondistended, obese Extremities: Warm, well perfused. Pulses intact bilaterally Skin: Intact. No rashes, bruises, or ulcers Neuro: Awake, fully oriented. Thought content congruent. - Assessment and Plan (1) Pneumonia Current Visit: No Status: Acute Assessment and Plan: History of supraglottic cancer status post resection, chronic tracheostomy. Presented with fevers and myalgia cough and emesis. Likely aspiration pneumonia given he reports sometimes difficulty swallowing. Chest x-ray does not show any acute abnormalities. Blood and sputum culture pending. Respiratory panel positive for influenza MRSA swab positive -Sputum culture shows gram-negative rods sensitivities pending -Continue cefepime day 3, vancomycin day 2, meropenem day 2 for double pseud omonal coverage -Respiratory therapy consulted for tracheostomy care and suction -Received 1 Mucomyst treatment today -Continue guaifenesin -Speech evaluation was negative for aspiration concern (2) Sepsis Current Visit: Yes Status: Resolved Assessment and Plan: Sepsis likely secondary to aspiration pneumonia. Resolved. Overnight had no episodes of tachycardia or tachypnea remains afebrile. Same plan as pneumonia (3) Acute and chronic respiratory failure with hypoxia Current Visit: Yes Status: Acute Assessment and Plan: History of chronic tracheostomy. Was recently treated with IV and oral antibi otics at outside skilled facility. Reporting emesis and cough with thick sputum production. Secondary to influenza and MRSA pneumonia -Continue to titrate supplemental oxygen -Received 1 Mucomyst treatment -Guaifenesin ordered -Spirometry ordered -Continue cefepime and meropenem for double pseudomonal coverage and anaerobic coverage, continue vancomycin for MRSA coverage -Continue suctioning by respiratory therapists -Sputum cultures was gram-negative guzman likely Pseudomonas -CBC in the morning (4) COPD (chronic obstructive pulmonary disease) Current Visit: Yes Status: Acute Assessment and Plan: History of COPD not in acute exacerbation Continue home nebulizers and symbicort (5) OWEN (obstructive sleep apnea) Current Visit: Yes Status: Acute Assessment and Plan: CPAP at night (6) Obesity (BMI 30-39.9) Current Visit: Yes Status: Acute Assessment and Plan: Continue cardiac diet Urged to get of bed and walk with assistance (7) Depression Current Visit: Yes Status: Acute Assessment and Plan: Continue home Zoloft DVT Prophylaxis: lovenox - Time Spent with Patient Total time spent is greater than 50% in coordination of care (as documented) at patient's floor/unit and/or counseling patient: Internal Medicine: Result - Labs CBC & Chem 7: 11/20/18 06:04 11/20/18 06:04 Labs: Short CBC 11/20/18 Range/Units 06:04 WBC 5.2 D (4.3-11.1) K/mcL Hgb 10.7 L (12.9-16.9) g/dL Hct 39.4 (37.5-50.1) % Plt Count 216 (140-400) K/mcL Neutrophils # 4.4 (1.6-8.9) K/mcL BMP 11/20/18 06:04 Sodium 137 Potassium 4.0 Chloride 102 Carbon Dioxide 33 H BUN 15 Creatinine 0.52 L Glucose 102 Calcium 8.4 L Consult Discharge Plan - Plan Referrals: NONE,PCP [Primary Care Provider] - <William Groves - Last Filed: 11/20/18 17:42> Hospitalist Progress Note - Encounter Date of Encounter: 11/20/18 - Exam Vitals: Temp Pulse Resp BP Pulse Ox 98 F 85 21 116/65 91 11/20/18 15:35 11/20/18 15:35 11/20/18 15:35 11/20/18 15:35 11/20/18 15:35 - Assessment and Plan (1) Pneumonia Current Visit: No Status: Acute (2) Sepsis Current Visit: Yes Status: Resolved (3) Acute and chronic respiratory failure with hypoxia Current Visit: Yes Status: Acute (4) COPD (chronic obstructive pulmonary disease) Current Visit: Yes Status: Acute (5) OWEN (obstructive sleep apnea) Current Visit: Yes Status: Acute (6) Obesity (BMI 30-39.9) Current Visit: Yes Status: Acute (7) Depression Current Visit: Yes Status: Acute - Time Spent with Patient Total time spent is greater than 50% in coordination of care (as documented) at patient's floor/unit and/or counseling patient: Internal Medicine: Result - Labs CBC & Chem 7: 11/20/18 06:04 11/20/18 06:04 Labs: Short CBC 11/20/18 Range/Units 06:04 WBC 5.2 D (4.3-11.1) K/mcL Hgb 10.7 L (12.9-16.9) g/dL Hct 39.4 (37.5-50.1) % Plt Count 216 (140-400) K/mcL Neutrophils # 4.4 (1.6-8.9) K/mcL BMP 11/20/18 06:04 Sodium 137 Potassium 4.0 Chloride 102 Carbon Dioxide 33 H BUN 15 Creatinine 0.52 L Glucose 102 Calcium 8.4 L - Attending Attestation I examined this patient and my medical decision-making was reviewed with the Resident Physician. I agree with the documented findings, disposition and treatment plan as described except to the extent set forth below. <Nayely Ferrera - Last Filed: 11/20/18 15:41> (1) Pneumonia Qualifiers: Pneumonia type: due to Pseudomonas Laterality: bilateral Lung location: lower lobe of lung Qualified Code(s): J15.1 - Pneumonia due to Pseudomonas (2) Sepsis Qualifiers: Sepsis type: sepsis due to unspecified organism Qualified Code(s): A41.9 - Sepsis, unspecified organism (4) COPD (chronic obstructive pulmonary disease) Qualifiers: COPD type: unspecified COPD Qualified Code(s): J44.9 - Chronic obstructive pulmonary disease, unspecified (7) Depression Qualifiers: Depression Type: major depressive disorder Major depression recurrence: unspecified whether recurrent <William Groves - Last Filed: 11/20/18 17:42> (1) Pneumonia Qualifiers: Pneumonia type: due to Pseudomonas Laterality: bilateral Lung location: lower lobe of lung Qualified Code(s): J15.1 - Pneumonia due to Pseudomonas (2) Sepsis Qualifiers: Sepsis type: sepsis due to unspecified organism Qualified Code(s): A41.9 - Sepsis, unspecified organism (4) COPD (chronic obstructive pulmonary disease) Qualifiers: COPD type: unspecified COPD Qualified Code(s): J44.9 - Chronic obstructive pulmonary disease, unspecified (7) Depression Qualifiers: Depression Type: major depressive disorder Major depression recurrence: unspecified whether recurrent
[2018-11-21] MEDS: Cefepime HCl 2,000 MG in 0.9 % Sodium Chloride Mini Bag 100 ML IVPB SCH ×3 (02:06→19:11)
[2018-11-21] MEDS: Albuterol 2.5 MG/3 ML NEBULIZER IH PRN ×4 (04:35→20:27)
[2018-11-21] MEDS: *HR* Enoxaparin 40 MG/0.4 ML SYRINGE SQ SCH (05:43)
[2018-11-21 07:26] LABS: Basophils % 0.6 %; Eosinophils % 0.3 %; Hemoglobin 11.9 g/dL (12.9-16.9)
[2018-11-21 07:27] LABS: Hematocrit 42.8 % (37.5-50.1); Lymphocytes # 0.8 K/mcL (0.6-4.6); Mean Corpuscular HGB Conc 27.8 g/dL (31.6-35.5); Mean Corpuscular Hemoglobin 24.2 pg (28.0-33.3); Mean Platelet Volume 10.1 fL (9.4-12.4); Monocytes # 0.3 K/mcL (0.0-1.3); Monocytes % 9.2 %; Neutrophils # 2.3 K/mcL (1.6-8.9); Nucleated Red Blood Cells 0.9 /100 WBC (0); Platelet Count 235 K/mcL (140-400); Red Blood Count 4.92 M/mcL (4.19-5.50); Red Cell Distribution Width 19.1 % (11.5-14.5); Segmented Neutrophils % 65.9 %
[2018-11-21 07:46] LABS: BUN/Creatinine Ratio 25 (6-26); Blood Urea Nitrogen 13 mg/dL (8-23); Calcium 8.3 mg/dL (8.6-10.3); Carbon Dioxide 33 mEq/L (23-29); Chloride 100 mEq/L (98-107); Glucose 105 mg/dL (70-105); Osmolality,Calculated 284 (280-300); Potassium 3.7 mEq/L (3.5-5.1); Sodium 137 mEq/L (136-145); eGFR For Non-African Americans > 60 (> 60)
[2018-11-21 07:53] LABS: Anisocytosis 1+ (Not Present); Platelet Estimate Normal (Normal)
[2018-11-21] MEDS: Budesonide/Formoterol 160/4.5 1 PUFF INH IH SCH ×2 (07:59→20:27)
[2018-11-21] MEDS: Furosemide 40 MG TABLET PO SCH ×2 (08:34→17:44)
[2018-11-21] MEDS: Gabapentin 400 MG CAPSULE PO SCH ×3 (08:34→22:39)
[2018-11-21] MEDS: acetaZOLAMIDE 250 MG TABLET PO SCH (08:34)
[2018-11-21] MEDS: Aspirin Enteric Coated 81 MG Tablet PO SCH (08:35)
[2018-11-21] MEDS: GuaiFENesin Liq 200 MG/10 ML UDC PO SCH ×4 (08:35→22:39)
[2018-11-21] MEDS: Aclidinium Bromide [Tudorza Pressair] 400 MCG IH SCH ×2 (08:35→22:39)
[2018-11-21] MEDS: *HR* HYDROcodone/Acet 5/325 mg TABLET PO PRN ×2 (08:40→17:44)
[2018-11-21] MEDS: Nystatin POWDER 30 GM BOTTLE TP SCH ×2 (08:41→22:43)
--- NOTE | 2018-11-21 09:06 | Internal Med Progress Note ---
<Nayely Ferrera - Last Filed: 11/21/18 14:35> Hospitalist Progress Note - Encounter Date of Encounter: 11/21/18 Time of Encounter: 09:30 - Subjective Interval History: Mr. Barry was seen at bedside this morning. He was resting comfortably and did not elicit any specific complaints. He continues to say he does not feel well but has noticed some improvement since his admission. He complained of some chills although upon review vitals he remained afebrile overnight. He also elicited nausea and Zofran when necessary is added. She denied abdominal pain, emesis, chest pain, changes in his bowels, shortness of breath. - Exam Vitals: Temp Pulse Resp BP Pulse Ox 97.5 F L 84 20 96/61 94 11/21/18 06:41 11/21/18 06:41 11/21/18 06:41 11/21/18 06:41 11/21/18 06:41 Exam: General: NAD, good eye contact, chronically ill appearing, obese, does have tracheostomy Head: Atraumatic, normocephalic. Face symmetric Eyes: EOMI, sclerae anicteric Thoracic: No visible chest wall deformities. Bibasilar crackles, scattered rhonchi Cardio: Normal S1 and S2, regular rate and rhythm Abdomen: Soft, nontender, nondistended, obese Extremities: Warm, well perfused. Pulses intact bilaterally Skin: Intact. No rashes, bruises, or ulcers Neuro: Awake, fully oriented. Thought content congruent. - Assessment and Plan (1) Pneumonia Current Visit: No Status: Acute Assessment and Plan: History of supraglottic cancer status post resection, chronic tracheostomy. Presented with fevers and myalgia cough and emesis. Sputum cultures positive for Pseudomonas Chest x-ray does not show any acute abnormalities. Blood and sputum culture pending. Respiratory panel positive for influenza MRSA swab positive -Sputum culture shows gram-negative rods sensitivities pending -Continue cefepime day 4, vancomycin day 3; sensitivities have returned for sputum culture and he is sensitive to cefepime -Respiratory therapy consulted for tracheostomy care and suction -Continue guaifenesin -Speech evaluation was negative for aspiration concern -Ordered chest percussion therapy (2) Sepsis Current Visit: Yes Status: Resolved Assessment and Plan: Sepsis likely secondary to aspiration pneumonia. Resolved. Overnight had no episodes of tachycardia or tachypnea remains afebrile. Same plan as pneumonia (3) Acute and chronic respiratory failure with hypoxia Current Visit: Yes Status: Acute Assessment and Plan: History of chronic tracheostomy. Was recently treated with IV and oral antibiotics at outside skilled facility. Reporting emesis and cough with thick sputum production. Secondary to influenza and MRSA pneumonia -Continue to titrate supplemental oxygen -Received 1 Mucomyst treatment -Guaifenesin ordered -Spirometry ordered -Continue cefepime for pseudomonal coverage and vancomycin for MRSA coverage -Continue suctioning by respiratory therapists -Sputum cultures show Pseudomonas and sensitive to cefepime -CBC in the morning -Continue ipratropium nebulizer and Xopenex nebulizer -Continue IV Solu-Medrol 60 mg every 8 hours (4) COPD (chronic obstructive pulmonary disease) Current Visit: Yes Status: Acute Assessment and Plan: History of COPD not in acute exacerbation Continue home nebulizers and symbicort -Continue chest percussion therapy -Continue ipratropium nebulizer and Xopenex nebulizer -Continue 60 mg every 8 hours Solu-Medrol and can titrate based on clinical picture (5) OWEN (obstructive sleep apnea) Current Visit: Yes Status: Acute (6) Obesity (BMI 30-39.9) Current Visit: Yes Status: Acute Assessment and Plan: Continue cardiac diet Urged to get of bed and walk with assistance (7) Depression Current Visit: Yes Status: Acute Assessment and Plan: Continue home Zoloft (8) Tracheostomy present Current Visit: Yes Status: Acute Assessment and Plan: History of chronic tracheostomy. -Respiratory therapy consulted for management and care of the tracheostomy DVT Prophylaxis: lovenox - Time Spent with Patient Total time spent is greater than 50% in coordination of care (as documented) at patient's floor/unit and/or counseling patient: Internal Medicine: Result - Labs CBC & Chem 7: 11/21/18 06:56 11/21/18 06:56 Labs: Short CBC 11/20/18 11/21/18 Range/Units 06:04 06:56 WBC 3.5 L (4.3-11.1) K/mcL Hgb 11.9 L (12.9-16.9) g/dL Hct 42.8 (37.5-50.1) % Plt Count 235 (140-400) K/mcL Neutrophils # 4.4 2.3 (1.6-8.9) K/mcL BMP 11/21/18 06:56 Sodium 137 Potassium 3.7 Chloride 100 Carbon Dioxide 33 H BUN 13 Creatinine 0.53 L Glucose 105 Calcium 8.3 L Consult Discharge Plan - Plan Referrals: NONE,PCP [Primary Care Provider] - <Claude Grovesul Zane - Last Filed: 11/21/18 17:05> Hospitalist Progress Note - Encounter Date of Encounter: 11/21/18 - Exam Vitals: Temp Pulse Resp BP Pulse Ox 98.2 F 86 20 101/71 92 11/21/18 15:59 11/21/18 15:59 11/21/18 15:59 11/21/18 15:59 11/21/18 15:59 - Assessment and Plan (1) Pneumonia Current Visit: No Status: Acute (2) Sepsis Current Visit: Yes Status: Resolved (3) Acute and chronic respiratory failure with hypoxia Current Visit: Yes Status: Acute (4) COPD (chronic obstructive pulmonary disease) Current Visit: Yes Status: Acute (5) OWEN (obstructive sleep apnea) Current Visit: Yes Status: Acute (6) Obesity (BMI 30-39.9) Current Visit: Yes Status: Acute (7) Depression Current Visit: Yes Status: Acute (8) Tracheostomy present Current Visit: Yes Status: Acute - Time Spent with Patient Total time spent is greater than 50% in coordination of care (as documented) at patient's floor/unit and/or counseling patient: Internal Medicine: Result - Labs CBC & Chem 7: 11/21/18 06:56 11/21/18 06:56 Labs: Short CBC 11/21/18 Range/Units 06:56 WBC 3.5 L (4.3-11.1) K/mcL Hgb 11.9 L (12.9-16.9) g/dL Hct 42.8 (37.5-50.1) % Plt Count 235 (140-400) K/mcL Neutrophils # 2.3 (1.6-8.9) K/mcL BMP 11/21/18 06:56 Sodium 137 Potassium 3.7 Chloride 100 Carbon Dioxide 33 H BUN 13 Creatinine 0.53 L Glucose 105 Calcium 8.3 L - Attending Attestation I examined this patient and my medical decision-making was reviewed with the Resident Physician. I agree with the documented findings, disposition and treatment plan as described except to the extent set forth below. <Nayely Ferrera - Last Filed: 11/21/18 14:35> (1) Pneumonia Qualifiers: Pneumonia type: due to Pseudomonas Laterality: bilateral Lung location: lower lobe of lung Qualified Code(s): J15.1 - Pneumonia due to Pseudomonas (2) Sepsis Qualifiers: Sepsis type: sepsis due to unspecified organism Qualified Code(s): A41.9 - Sepsis, unspecified organism (4) COPD (chronic obstructive pulmonary disease) Qualifiers: COPD type: unspecified COPD Qualified Code(s): J44.9 - Chronic obstructive pulmonary disease, unspecified (7) Depression Qualifiers: Depression Type: major depressive disorder Major depression recurrence: unspecified whether recurrent <William Groves - Last Filed: 11/21/18 17:05> (1) Pneumonia Qualifiers: Pneumonia type: due to Pseudomonas Laterality: bilateral Lung location: lower lobe of lung Qualified Code(s): J15.1 - Pneumonia due to Pseudomonas (2) Sepsis Qualifiers: Sepsis type: sepsis due to unspecified organism Qualified Code(s): A41.9 - Sepsis, unspecified organism (4) COPD (chronic obstructive pulmonary disease) Qualifiers: COPD type: unspecified COPD Qualified Code(s): J44.9 - Chronic obstructive pulmonary disease, unspecified (7) Depression Qualifiers: Depression Type: major depressive disorder Major depression recurrence: unspecified whether recurrent
[2018-11-21] MEDS: methylPREDNISolone 125 MG/2 ML VIAL IVP SCH ×2 (13:07→18:00)
[2018-11-21] MEDS ORDERED: methylPREDNISolone 125 MG/2 ML VIAL IVP SCH (16:00)
[2018-11-22] MEDS: Albuterol 2.5 MG/3 ML NEBULIZER IH PRN ×6 (00:12→21:21)
[2018-11-22] MEDS: *HR* HYDROcodone/Acet 5/325 mg TABLET PO PRN ×2 (02:16→17:24)
[2018-11-22] MEDS: methylPREDNISolone 125 MG/2 ML VIAL IVP SCH (02:32)
[2018-11-22] MEDS: Cefepime HCl 2,000 MG in 0.9 % Sodium Chloride Mini Bag 100 ML IVPB SCH ×3 (02:32→17:15)
[2018-11-22 04:48] LABS: Basophils % 0.2 %; Hematocrit 41.5 % (37.5-50.1); Hemoglobin 11.8 g/dL (12.9-16.9); Immature Granulocytes % 1.5 % (0-4); Immature Platelets 3.7 % (1.1-6.1); Lymphocytes # 0.5 K/mcL (0.6-4.6); Lymphocytes % 9.8 %; Mean Corpuscular HGB Conc 28.4 g/dL (31.6-35.5); Mean Corpuscular Hemoglobin 24.3 pg (28.0-33.3); Mean Corpuscular Volume 85.6 fL (83.0-100.0); Mean Platelet Volume 10.3 fL (9.4-12.4); Monocytes # 0.1 K/mcL (0.0-1.3); Monocytes % 2.2 %; Nucleated Red Blood Cells 0.4 /100 WBC (0); Platelet Count 235 K/mcL (140-400); Red Blood Count 4.85 M/mcL (4.19-5.50); Red Cell Distribution Width 18.8 % (11.5-14.5); Segmented Neutrophils % 86.3 %
[2018-11-22 04:52] LABS: BUN/Creatinine Ratio 30 (6-26); Blood Urea Nitrogen 13 mg/dL (8-23); Calcium 8.4 mg/dL (8.6-10.3); Carbon Dioxide 31 mEq/L (23-29); Chloride 102 mEq/L (98-107); Glucose 200 mg/dL (70-105); Osmolality,Calculated 290 (280-300); Potassium 4.2 mEq/L (3.5-5.1); Sodium 137 mEq/L (136-145); eGFR For Non-African Americans > 60 (> 60)
[2018-11-22] MEDS: *HR* Enoxaparin 40 MG/0.4 ML SYRINGE SQ SCH (05:42)
[2018-11-22] MEDS ORDERED: Dextrose Gel 15 GM/37.5 ML TUBE PO PRN ×2 (06:35)
[2018-11-22] MEDS ORDERED: D5% in Water 1,000 ML IVC PRN (06:35)
[2018-11-22] MEDS ORDERED: *HR* Dextrose 50 % in Water (Syg) 50 ML SYRINGE IVP PRN (06:35)
[2018-11-22 06:40] LABS: Platelet Estimate Normal (Normal)
--- NOTE | 2018-11-22 06:40 | Internal Med Progress Note ---
<John Prado - Last Filed: 11/22/18 15:40> Hospitalist Progress Note - Encounter Date of Encounter: 11/22/18 Time of Encounter: 08:40 - Subjective Interval History: Patient is resting comfortably in bed at time of examination. He has no acute complaints today. He says overall his respiratory status has improved. He is coughing today but not significantly. - Exam Vitals: Temp Pulse Resp BP Pulse Ox 97.8 F 97 20 110/65 92 11/22/18 04:16 11/22/18 04:16 11/22/18 04:18 11/22/18 04:16 11/22/18 04:18 Exam: General: NAD, good eye contact, chronically ill appearing, obese, does have tracheostomy Head: Atraumatic, normocephalic. Face symmetric Eyes: EOMI, sclerae anicteric Thoracic: No visible chest wall deformities. scattered rhonchi, coarse throughout Cardio: Normal S1 and S2, regular rate and rhythm Abdomen: Soft, nontender, nondistended, obese Extremities: Warm, well perfused. Pulses intact bilaterally Skin: Intact. No rashes, bruises, or ulcers Neuro: Awake, fully oriented. Thought content congruent. - Assessment and Plan (1) Pneumonia Current Visit: No Status: Acute Assessment and Plan: History of supraglottic cancer status post resection, chronic tracheostomy. Presented with fevers and myalgia cough and emesis. Sputum cultures positive for Pseudomonas Chest x-ray does not show any acute abnormalities. Blood and sputum culture pending. Respiratory panel positive for influenza MRSA swab positive -Sputum culture shows gram-negative rods sensitivities pending -Continue cefepime day 5; sensitivities have returned for sputum culture and he is sensitive to cefepime -Stop vancomycin, no MRSA on culture, vanc has been subtherapeutic but patient has imrpoved -Respiratory therapy consulted for tracheostomy care and suction -Continue guaifenesin -Speech evaluation was negative for aspiration concern -Ordered chest percussion therapy (2) Sepsis Current Visit: Yes Status: Resolved Assessment and Plan: Sepsis likely secondary to aspiration pneumonia. Resolved. Overnight had no episodes of tachycardia or tachypnea remains afebrile. Same plan as pneumonia (3) Acute and chronic respiratory failure with hypoxia Current Visit: Yes Status: Acute Assessment and Plan: History of chronic tracheostomy. Was recently treated with IV and oral antibiotics at outside skilled facility. Reporting emesis and cough with thick sputum production. Secondary to influenza. Do not suspect MRSA pna -Mucolytics prn, aerosols prn. Pulmonary toilet -Continuous oxygen administration, titrate to O2 >88% -Switch to PO steroid (4) COPD (chronic obstructive pulmonary disease) Current Visit: Yes Status: Acute Assessment and Plan: History of COPD not in acute exacerbation Continue home nebulizers and symbicort -Continue chest percussion therapy -Continue ipratropium nebulizer and Xopenex nebulizer -Switch to PO steroid (5) OWEN (obstructive sleep apnea) Current Visit: Yes Status: Acute Assessment and Plan: CPAP at night (6) Obesity (BMI 30-39.9) Current Visit: Yes Status: Acute Assessment and Plan: Continue cardiac diet Urged to get of bed and walk with assistance (7) Depression Current Visit: Yes Status: Acute Assessment and Plan: Continue home Zoloft (8) Tracheostomy present Current Visit: Yes Status: Acute Assessment and Plan: History of chronic tracheostomy. -Respiratory therapy consulted for management and care of the tracheostomy DVT Prophylaxis: lovenox - Time Spent with Patient Total time spent is greater than 50% in coordination of care (as documented) at patient's floor/unit and/or counseling patient: Internal Medicine: Result - Labs CBC & Chem 7: 11/22/18 03:40 11/22/18 03:40 Labs: Short CBC 11/21/18 11/22/18 Range/Units 06:56 03:40 WBC 3.5 L 4.6 (4.3-11.1) K/mcL Hgb 11.9 L 11.8 L (12.9-16.9) g/dL Hct 42.8 41.5 (37.5-50.1) % Plt Count 235 235 (140-400) K/mcL Neutrophils # 2.3 (1.6-8.9) K/mcL BMP 11/21/18 11/22/18 06:56 03:40 Sodium 137 137 Potassium 3.7 4.2 Chloride 100 102 Carbon Dioxide 33 H 31 H BUN 13 13 Creatinine 0.53 L 0.44 L Glucose 105 200 H Calcium 8.3 L 8.4 L Consult Discharge Plan - Plan Referrals: NONE,PCP [Primary Care Provider] - Prescriptions: Cefepime HCl 2 gm IJ Q8H 8 Days #24 vial <William Groves - Last Filed: 11/22/18 17:24> Hospitalist Progress Note - Encounter Date of Encounter: 11/22/18 - Exam Vitals: Temp Pulse Resp BP Pulse Ox 98.0 F 75 16 104/80 93 11/22/18 15:47 11/22/18 15:47 11/22/18 16:04 11/22/18 15:47 11/22/18 16:04 - Assessment and Plan (1) Pneumonia Current Visit: No Status: Acute (2) Sepsis Current Visit: Yes Status: Resolved (3) Acute and chronic respiratory failure with hypoxia Current Visit: Yes Status: Acute (4) COPD (chronic obstructive pulmonary disease) Current Visit: Yes Status: Acute (5) OWEN (obstructive sleep apnea) Current Visit: Yes Status: Acute (6) Obesity (BMI 30-39.9) Current Visit: Yes Status: Acute (7) Depression Current Visit: Yes Status: Acute (8) Tracheostomy present Current Visit: Yes Status: Acute - Time Spent with Patient Total time spent is greater than 50% in coordination of care (as documented) at patient's floor/unit and/or counseling patient: Internal Medicine: Result - Labs CBC & Chem 7: 11/22/18 03:40 11/22/18 03:40 Labs: Short CBC 11/22/18 Range/Units 03:40 WBC 4.6 (4.3-11.1) K/mcL Hgb 11.8 L (12.9-16.9) g/dL Hct 41.5 (37.5-50.1) % Plt Count 235 (140-400) K/mcL Neutrophils # 4.0 (1.6-8.9) K/mcL BMP 11/22/18 03:40 Sodium 137 Potassium 4.2 Chloride 102 Carbon Dioxide 31 H BUN 13 Creatinine 0.44 L Glucose 200 H Calcium 8.4 L - Attending Attestation I examined this patient and my medical decision-making was reviewed with the Resident Physician. I agree with the documented findings, disposition and treatment plan as described except to the extent set forth below. <John Prado - Last Filed: 11/22/18 15:40> (1) Pneumonia Qualifiers: Pneumonia type: due to Pseudomonas Laterality: bilateral Lung location: lower lobe of lung Qualified Code(s): J15.1 - Pneumonia due to Pseudomonas (2) Sepsis Qualifiers: Sepsis type: sepsis due to unspecified organism Qualified Code(s): A41.9 - Sepsis, unspecified organism (4) COPD (chronic obstructive pulmonary disease) Qualifiers: COPD type: unspecified COPD Qualified Code(s): J44.9 - Chronic obstructive pulmonary disease, unspecified (7) Depression Qualifiers: Depression Type: major depressive disorder Major depression recurrence: unspecified whether recurrent Major depression episode severity: unspecified <William Groves - Last Filed: 11/22/18 17:24> (1) Pneumonia Qualifiers: Pneumonia type: due to Pseudomonas Laterality: bilateral Lung location: lower lobe of lung Qualified Code(s): J15.1 - Pneumonia due to Pseudomonas (2) Sepsis Qualifiers: Sepsis type: sepsis due to unspecified organism Qualified Code(s): A41.9 - Sepsis, unspecified organism (4) COPD (chronic obstructive pulmonary disease) Qualifiers: COPD type: unspecified COPD Qualified Code(s): J44.9 - Chronic obstructive pulmonary disease, unspecified (7) Depression Qualifiers: Depression Type: major depressive disorder Major depression recurrence: unspecified whether recurrent Major depression episode severity: unspecified
[2018-11-22] MEDS: Budesonide/Formoterol 160/4.5 1 PUFF INH IH SCH ×2 (07:31→21:21)
[2018-11-22] MEDS ORDERED: Aminoglycoside Consult 1 EACH MC ONE (08:24)
[2018-11-22] MEDS: Aspirin Enteric Coated 81 MG Tablet PO SCH (09:06)
[2018-11-22] MEDS: Gabapentin 400 MG CAPSULE PO SCH ×3 (09:07→22:27)
[2018-11-22] MEDS: Furosemide 40 MG TABLET PO SCH ×2 (09:08→17:15)
[2018-11-22] MEDS: GuaiFENesin Liq 200 MG/10 ML UDC PO SCH ×4 (09:08→22:27)
[2018-11-22] MEDS: Aclidinium Bromide [Tudorza Pressair] 400 MCG IH SCH ×2 (09:08→22:29)
[2018-11-22] MEDS: Nystatin POWDER 30 GM BOTTLE TP SCH ×2 (09:08→23:03)
[2018-11-22] MEDS: acetaZOLAMIDE 250 MG TABLET PO SCH (09:09)
[2018-11-22] MEDS: Insulin LISPRO 300 UNITS/3 ML VIAL SQ SCH ×3 (09:16→17:16)
[2018-11-22] MEDS ORDERED: Insulin LISPRO 300 UNITS/3 ML VIAL SQ SCH (21:00)
[2018-11-22] MEDS: traMADol 50 MG TABLET PO PRN (23:03)
[2018-11-23] MEDS: Albuterol 2.5 MG/3 ML NEBULIZER IH PRN ×3 (00:41→12:40)
[2018-11-23] MEDS: Cefepime HCl 2,000 MG in 0.9 % Sodium Chloride Mini Bag 100 ML IVPB SCH ×2 (02:13→08:30)
[2018-11-23] MEDS: *HR* Enoxaparin 40 MG/0.4 ML SYRINGE SQ SCH (06:27)
[2018-11-23] MEDS: *HR* HYDROcodone/Acet 5/325 mg TABLET PO PRN (07:03)
[2018-11-23 07:16] VITALS: BP 102/63
[2018-11-23] MEDS: Insulin LISPRO 300 UNITS/3 ML VIAL SQ SCH (08:05)
[2018-11-23] MEDS: Aspirin Enteric Coated 81 MG Tablet PO SCH (08:28)
[2018-11-23] MEDS: Gabapentin 400 MG CAPSULE PO SCH (08:29)
[2018-11-23] MEDS: acetaZOLAMIDE 250 MG TABLET PO SCH (08:29)
[2018-11-23] MEDS: Nystatin POWDER 30 GM BOTTLE TP SCH (08:29)
[2018-11-23] MEDS: Furosemide 40 MG TABLET PO SCH (08:29)
[2018-11-23] MEDS: GuaiFENesin Liq 200 MG/10 ML UDC PO SCH (08:30)
[2018-11-23] MEDS: Aclidinium Bromide [Tudorza Pressair] 400 MCG IH SCH (08:36)
[2018-11-23] MEDS ORDERED: predniSONE 20 MG TABLET PO SCH (09:00)
[2018-11-23] MEDS: Budesonide/Formoterol 160/4.5 1 PUFF INH IH SCH (09:41)
--- NOTE | 2018-11-23 10:19 | Discharge Summary ---
- NOTES TO OUTPATIENT PROVIDER Notes to Outpatient Provider: Taper Prednisone. Date of Encounter: 11/23/18 Time of Encounter: 10:14 - Discharge Diagnosis (1) Sepsis Priority: Primary Status: Resolved Qualifiers: Sepsis type: sepsis due to unspecified organism Qualified Code(s): A41.9 - Sepsis, unspecified organism (2) Pneumonia Priority: Secondary Status: Acute Qualifiers: Pneumonia type: due to Pseudomonas Laterality: bilateral Lung location: lower lobe of lung Qualified Code(s): J15.1 - Pneumonia due to Pseudomonas (3) Acute and chronic respiratory failure with hypoxia Priority: Secondary Status: Acute (4) COPD (chronic obstructive pulmonary disease) Priority: Secondary Status: Acute Qualifiers: COPD type: unspecified COPD Qualified Code(s): J44.9 - Chronic obstructive pulmonary disease, unspecified (5) OWEN (obstructive sleep apnea) Priority: Secondary Status: Acute (6) Obesity (BMI 30-39.9) Priority: Secondary Status: Acute (7) Depression Priority: Secondary Status: Acute Qualifiers: Depression Type: major depressive disorder Major depression recurrence: unspecified whether recurrent Active/Remission status: currently active Major depression episode severity: unspecified Qualified Code(s): F32.9 - Major depressive disorder, single episode, unspecified (8) Tracheostomy present Priority: Secondary Status: Acute Hospital course: Casey Barry is a 63 M who was admitted for sepsis from pneumonia. He has a hx HFpEF, supraglottic cancer s/p resection w chronic trach, chronic resp failure on 3L O2, history of pseudomonas pna's, dysphagia, CAD, OWEN, obesity, who p/w vomiting and SOB with thick sputum production. Patient is a resident at [facility] and has chronic tracheostomy. He was recently treated for pneumonia about 10 days prior to admission. He initially improved but after stopping antibiotics symptoms worsened. He seveloped fevers as well. In the ED, a CXR showing only bibasilar fibrosis. Labs remarkable for WBC 26. Cultures drawn, given 2L fluid, and dose of Cefepime and Levaquin prior to admission. He was continued on Cefepime on admission. Vancomycin was started as well but eventually discontinued. Sputum cultures came back positive for Pseudomonas. Based on culture results and his known penicillin allergies, he was continued on Cefepime. Clinically improved and patient was no longer septic. He was weaned back to 3 L O2 and patient discharged in stable condition. Much of his respiratory difficulties stem from frequent trach secretions, with pulm toileting that did improve. He also tested positive for Flu and completed a course of Tamiflu. - Time Spent with Patient Total time spent providing and/or coordinating discharge services: - Discharge Medications Prescriptions: New Cefepime HCl 2 gm IJ Q8H 8 Days #24 vial Metoprolol [Lopressor] 12.5 mg PO BID tablet Nystatin POWDER [Nystop] 1 appl TP BID bottle predniSONE [PredniSONE] See Taper PO DAILY #6 tablet Patient Taking Own Medication 1 each IH BID each GuaiFENesin Liq [Robitussin Liq] 200 mg PO QID udc Continue Gabapentin [Neurontin] 400 mg PO BID Budesonide/Formoterol 160/4.5 [Symbicort 160/4.5] 2 puff IH BID acetaZOLAMIDE [Diamox] 250 mg PO QAM Albuterol Neb [Proventil Neb] 2.5 mg IH Q6H PRN PRN Reason: Shortness Of Breath Atorvastatin [Lipitor] 40 mg PO HS Aspirin [Lo-Dose Aspirin EC] 81 mg PO QAM Albuterol Sulfate [Ventolin Hfa] 1 puff IH Q4H PRN PRN Reason: Shortness Of Breath Furosemide [Lasix] 40 mg PO BIDDIURETIC 30 Days tablet Sertraline [Zoloft] 50 mg PO QAM Polyvinyl Alcohol [Artificial Tears] 2 drop OP BID PRN PRN Reason: Dry Eyes Lactobacillus Acidophilus [Probiotic Acidophilus] 1 each PO BID #30 tablet HYDROcodone/Acet 5/325 mg [[place] 5-325 mg] 1 tab PO TID PRN #14 tablet PRN Reason: Pain Famotidine [Pepcid] 20 mg PO DAILY MOM Conc [MILK OF MAGNESIA conc] 30 ml PO Q24H PRN PRN Reason: Constipation Potassium Chloride [Klor-Con 10] 20 meq PO DAILY Tramadol HCl [Ultram] 100 mg PO Q6H PRN PRN Reason: Pain Discontinued Meloxicam [Mobic] 15 mg PO DAILY Home Medications: Albuterol Neb [Proventil Neb] 2.5 mg IH Q6H PRN 08/08/16 [History] Albuterol Sulfate [Ventolin Hfa] 1 puff IH Q4H PRN 08/08/16 [History] Aspirin [Lo-Dose Aspirin EC] 81 mg PO QAM 08/08/16 [History] Atorvastatin [Lipitor] 40 mg PO HS 08/08/16 [History] Budesonide/Formoterol 160/4.5 [Symbicort 160/4.5] 2 puff IH BID 08/08/16 [History] Gabapentin [Neurontin] 400 mg PO BID 08/08/16 [History] acetaZOLAMIDE [Diamox] 250 mg PO QAM 08/08/16 [History] Furosemide [Lasix] 40 mg PO BIDDIURETIC 30 Days tablet 08/16/16 [Rx] Polyvinyl Alcohol [Artificial Tears] 2 drop OP BID PRN 07/22/17 [History] Sertraline [Zoloft] 50 mg PO QAM 07/22/17 [History] HYDROcodone/Acet 5/325 mg [[place] 5-325 mg] 1 tab PO TID PRN #14 tablet 07/26/17 [Rx] Lactobacillus Acidophilus [Probiotic Acidophilus] 1 each PO BID #30 tablet 07/26/17 [Rx] Famotidine [Pepcid] 20 mg PO DAILY 11/19/18 [History] MOM Conc [MILK OF MAGNESIA conc] 30 ml PO Q24H PRN 11/19/18 [History] Potassium Chloride [Klor-Con 10] 20 meq PO DAILY 11/19/18 [History] Tramadol HCl [Ultram] 100 mg PO Q6H PRN 11/19/18 [History] Cefepime HCl 2 gm IJ Q8H 8 Days #24 vial 11/22/18 [Rx] GuaiFENesin Liq [Robitussin Liq] 200 mg PO QID udc 11/23/18 [Rx] Metoprolol [Lopressor] 12.5 mg PO BID tablet 11/23/18 [Rx] Nystatin POWDER [Nystop] 1 appl TP BID bottle 11/23/18 [Rx] Patient Taking Own Medication 1 each IH BID each 11/23/18 [Rx] predniSONE [PredniSONE] See Taper PO DAILY #6 tablet 11/23/18 [Rx] Allergies/Adverse Reactions: Allergy/AdvReac Type Severity Reaction Status Date / Time Penicillins Allergy Anaphylaxis Verified 11/19/18 09:37 Date of admission: 11/18/18 09:32 Primary care physician: PCP NONE Consults: 11/18/18 09:26 Consult to Speech Therapy [CONS] Routine Comment: Evaluate, develop and implement POC Reason for Consult: aspiration pna, hx supraglottic cancer resection Call Completed: No 11/19/18 09:41 consult to lye boiler [Consult to Nutrition] [CONS] Routine Comment: Consulting Provider: NUTRITION Reason for Dietary Consult: PO Supplementation 11/19/18 09:51 Consult to Nurse Navigator [CONS] Routine Comment: Aspiration pna in trach pt; from [facility] 11/19/18 11:17 Consult to Respiratory Therapy [CONS] Routine Reason for Consult: tracheostomy suctioning and care Call Completed: No Discharging clinician: William Groves - Constitutional Vitals: Temp Pulse Resp BP Pulse Ox 97.4 F L 62 15 102/63 98 11/23/18 07:12 11/23/18 07:12 11/23/18 09:44 11/23/18 07:12 11/23/18 09:44 Exam: General: NAD, good eye contact, chronically ill appearing, obese, does have tracheostomy Head: Atraumatic, normocephalic. Face symmetric Eyes: EOMI, sclerae anicteric Thoracic: No visible chest wall deformities. scattered rhonchi, coarse throughout Cardio: Normal S1 and S2, regular rate and rhythm Abdomen: Soft, nontender, nondistended, obese Extremities: Warm, well perfused. Pulses intact bilaterally Skin: Intact. No rashes, bruises, or ulcers Neuro: Awake, fully oriented. Thought content congruent. - Patient Status Disposition: Transfer SNF Condition: Fair Functional capacity at discharge: independent ambulation Overall status at discharge: patient is progressing back to baseline - Discharge Instructions Follow Up With: NONE,PCP [Primary Care Provider] - - Diet and Activity Activity: as per physical therapy Diet: advance to your usual diet
--- NOTE | 2018-11-23 10:31 | Physician Discharge Referral ---
- Diagnosis (1) Sepsis Priority: Primary Status: Resolved (2) Pneumonia Priority: Secondary Status: Acute (3) Acute and chronic respiratory failure with hypoxia Priority: Secondary Status: Acute (4) COPD (chronic obstructive pulmonary disease) Priority: Secondary Status: Acute (5) OWEN (obstructive sleep apnea) Priority: Secondary Status: Acute (6) Obesity (BMI 30-39.9) Priority: Secondary Status: Acute (7) Depression Priority: Secondary Status: Acute (8) Tracheostomy present Priority: Secondary Status: Acute - Transfer Medications Prescriptions: Cefepime HCl 2 gm IJ Q8H 8 Days #24 vial HYDROcodone/Acet 5/325 mg [[place] 5-325 mg] 1 tab PO Q8H PRN 2 Days #6 tab PRN Reason: Pain Home Medications: Albuterol Neb [Proventil Neb] 2.5 mg IH Q6H PRN 08/08/16 [History] Albuterol Sulfate [Ventolin Hfa] 1 puff IH Q4H PRN 08/08/16 [History] Aspirin [Lo-Dose Aspirin EC] 81 mg PO QAM 08/08/16 [History] Atorvastatin [Lipitor] 40 mg PO HS 08/08/16 [History] Budesonide/Formoterol 160/4.5 [Symbicort 160/4.5] 2 puff IH BID 08/08/16 [History] Gabapentin [Neurontin] 400 mg PO BID 08/08/16 [History] acetaZOLAMIDE [Diamox] 250 mg PO QAM 08/08/16 [History] Furosemide [Lasix] 40 mg PO BIDDIURETIC 30 Days tablet 08/16/16 [Rx] Polyvinyl Alcohol [Artificial Tears] 2 drop OP BID PRN 07/22/17 [History] Sertraline [Zoloft] 50 mg PO QAM 07/22/17 [History] HYDROcodone/Acet 5/325 mg [[place] 5-325 mg] 1 tab PO TID PRN #14 tablet 07/26/17 [Rx] Lactobacillus Acidophilus [Probiotic Acidophilus] 1 each PO BID #30 tablet 07/26/17 [Rx] Famotidine [Pepcid] 20 mg PO DAILY 11/19/18 [History] MOM Conc [MILK OF MAGNESIA conc] 30 ml PO Q24H PRN 11/19/18 [History] Potassium Chloride [Klor-Con 10] 20 meq PO DAILY 11/19/18 [History] Tramadol HCl [Ultram] 100 mg PO Q6H PRN 11/19/18 [History] Cefepime HCl 2 gm IJ Q8H 8 Days #24 vial 11/22/18 [Rx] GuaiFENesin Liq [Robitussin Liq] 200 mg PO QID udc 11/23/18 [Rx] HYDROcodone/Acet 5/325 mg [[place] 5-325 mg] 1 tab PO Q8H PRN 2 Days #6 tab 11/23/18 [Rx] Metoprolol [Lopressor] 12.5 mg PO BID tablet 11/23/18 [Rx] Nystatin POWDER [Nystop] 1 appl TP BID bottle 11/23/18 [Rx] Patient Taking Own Medication 1 each IH BID each 11/23/18 [Rx] predniSONE [PredniSONE] See Taper PO DAILY #6 tablet 11/23/18 [Rx] Allergies/Adverse Reactions: Allergy/AdvReac Type Severity Reaction Status Date / Time Penicillins Allergy Anaphylaxis Verified 11/19/18 09:37 - Respiratory Orders Smoking Cessation: Smoking cessation has been advised. For more information, call the [place] Tobacco Quit Line at 3-364-BLXI-NOW. CERTIFICATION: I certify that the transfer of the above named patient to an Extended Care Facility is necessary for the continuing treatment of the diagnosis listed. The above information is true and accurate reflection of patient's current condition. Confidential - Redisclosure prohibited without a patient's written consent.
== END 2018-11-23 14:09 | DRG 720 ==
LOC: EMEROOARM 07:25 → 2NENU 09:32 → SUATTDRO 09:32 → 2NENU 10:58
PROVIDERS: ADMIT Internal Medicine; ATTEND Student in an Organized Health Care Education/Training Program

== ENCOUNTER 2019-03-08 20:57 | Inpatient (IN) ==
[2019-03-08] MEDS ORDERED: Ipratropium/Albuterol Neb 3 ML IH ONE (21:07)
[2019-03-08] MEDS ORDERED: methylPREDNISolone 125 MG/2 ML VIAL IVP ONE (21:24)
[2019-03-08 21:36] LABS: Basophils % 0.3 %; Hemoglobin 11.8 g/dL (12.9-16.9); Immature Granulocytes % 1.3 % (0-4); Mean Corpuscular HGB Conc 28.8 g/dL (31.6-35.5); Mean Platelet Volume 9.6 fL (9.4-12.4)
[2019-03-08 21:37] LABS: Nucleated Red Blood Cells 0.1 /100 WBC (0)
[2019-03-08 21:38] LABS: Basophils # 0.1 K/mcL (0.0-0.2); Lymphocytes # 1.1 K/mcL (0.6-4.6); Lymphocytes % 4.1 %; Mean Corpuscular Hemoglobin 24.3 pg (28.0-33.3); Mean Corpuscular Volume 84.4 fL (83.0-100.0); Monocytes # 1.2 K/mcL (0.0-1.3); Monocytes % 4.2 %; Neutrophils # 24.6 K/mcL (1.6-8.9); Platelet Count 345 K/mcL (140-400); Red Blood Count 4.86 M/mcL (4.19-5.50); Red Cell Distribution Width 18.9 % (11.5-14.5); Segmented Neutrophils % 90.1 %; White Blood Count 27.3 K/mcL (4.3-11.1)
--- NOTE | 2019-03-08 21:39 | Emergency Department Note ---
Disposition Clinical Impression: Pneumonia Qualifiers: Pneumonia type: due to unspecified organism Laterality: right Lung location: lower lobe of lung Qualified Code(s): J18.1 - Lobar pneumonia, unspecified organism Disposition: Admitted As Inpatient Condition: Good Instructions: Bacterial Pneumonia (ED) Referrals: NONE,PCP [Primary Care Provider] - Forms: ED Satisfaction Letter Time of Disposition: 22:51 General Adult HPI - General Chief complaint: ED Shortness of Breath/Dyspnea Stated complaint: GRACIELA Time Seen by Provider: 03/08/19 21:06 Source: patient, EMS Mode of arrival: EMS Limitations: no limitations Nursing Notes Reviewed: Yes Vital Signs Reviewed: Yes - History of Present Illness HPI Narrative: Casey Barry is a 63 M who has a PMH of HFpEF, 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 He endorses coughing, wheezing, sputum production. Currently lives in a residential. He also endorses subjective fevers and chil ls. He denies any chest pain or palpitations. He says he has experienced similar episodes before due to pneumonia. Do not endorse any sick contacts. Denies any abdominal pain, constipation, diarrhea. Denies any dysuria, hematuria. Denies any nausea or vomiting. Pain Scale: 8 - Related Data Home Medications Medication Instructions Recorded Confirmed Albuterol Neb [Proventil Neb] 2.5 mg IH Q6H PRN 08/08/16 03/08/19 Albuterol Sulfate [Ventolin Hfa] 1 puff IH Q4H PRN 08/08/16 03/08/19 Aspirin [Lo-Dose Aspirin EC] 81 mg PO QAM 08/08/16 03/08/19 Atorvastatin [Lipitor] 40 mg PO HS 08/08/16 03/08/19 Budesonide/Formoterol 160/4.5 2 puff IH BID 08/08/16 03/08/19 [Symbicort 160/4.5] Gabapentin [Neurontin] 400 mg PO BID 08/08/16 03/08/19 acetaZOLAMIDE [Diamox] 250 mg PO QAM 08/08/16 03/08/19 Polyvinyl Alcohol [Artificial 2 drop OP BID PRN 07/22/17 03/08/19 Tears] Sertraline [Zoloft] 50 mg PO QAM 07/22/17 03/08/19 Famotidine [Pepcid] 20 mg PO DAILY 11/19/18 03/08/19 MOM Conc [MILK OF MAGNESIA conc] 30 ml PO Q24H PRN 11/19/18 03/08/19 Potassium Chloride [Klor-Con 10] 20 meq PO DAILY 11/19/18 03/08/19 Tramadol HCl [Ultram] 100 mg PO Q6H PRN 11/19/18 03/08/19 Previous Rx's Medication Instructions Recorded Furosemide [Lasix] 40 mg PO BIDDIURETIC 30 Days 08/16/16 tablet HYDROcodone/Acet 5/325 mg [[place] 1 tab PO TID PRN #14 tablet 07/26/17 5-325 mg] Lactobacillus Acidophilus 1 each PO BID #30 tablet 07/26/17 [Probiotic Acidophilus] GuaiFENesin Liq [Robitussin Liq] 200 mg PO QID udc 11/23/18 Metoprolol [Lopressor] 12.5 mg PO BID tablet 11/23/18 Nystatin POWDER [Nystop] 1 appl TP BID bottle 11/23/18 Patient Taking Own Medication 1 each IH BID each 11/23/18 Allergies Allergy/AdvReac Type Severity Reaction Status Date / Time Penicillins Allergy Anaphylaxis Verified 03/08/19 21:15 All systems ED: reviewed and negative except as stated. Review of Systems: As Per HPI Constitutional: Reports: fever, chills. Denies: weakness, weight change, night sweats Eyes: Denies: eye pain, vision change ENT ED: Denies: throat pain, hearing loss Cardiovascular: Reports: dyspnea on exertion. Denies: chest pain, palpitations, syncope Respiratory: Reports: cough, dyspnea, wheezes Gastrointestinal: Denies: abdominal pain, nausea, vomiting, diarrhea, constipation Genitourinary: Denies: urgency, dysuria, frequency Musculoskeletal: Denies: back pain, neck pain Integumentary: Denies: rash, lesions Neurological: Denies: headache, weakness, numbness, paresthesias Psychiatric: Denies: anxiety, depression Endocrine: Denies: fatigue, heat or cold intolerance Past Medical History - Past Medical History Attestation: Yes The following information was validated with the patient. Source: patient Medical history: Reports: CHF, COPD, hyperlipidemia, hypertension, malignancy, other Surgical history: Reports: no surgical history Psychiatric history: Reports: anxiety - Social History Smoking Status: Former smoker Smokeless Tobacco Status: No Alcohol use: Reports: none Drug use: Reports: none Physical Exam - General Limitations: no limitations General appearance: alert - Head Head exam: atraumatic, normocephalic - Eye Eye exam: Present: normal appearance, PERRL, EOMI - ENT ENT exam: normal exam, normal oropharynx, mucous membranes moist - Neck Neck exam: Present: normal inspection, trachea midline - Chest Chest inspection: Present: normal inspection, symmetric chest wall rise - Respiratory Respiratory exam: Present: respiratory distress, wheezes (Easing and crackles noted in all lung mccoy.) - Cardiovascular Cardiovascular exam: Present: regular rate, normal rhythm, normal heart sounds - Abdominal Exam Abdominal exam: Present: soft, Non-Tender. Absent: tenderness, distention, guarding, rebound, rigidity - Extremities Exam Extremities exam: Present: normal inspection, full ROM. Absent: tenderness, pedal edema - Expanded Lower Extremity Exam Foot/toe exam: Present: normal inspection - Back Exam Back exam: Present: normal inspection, full ROM. Absent: tenderness - Neurological Exam Neurological exam: Present: alert, oriented X3 - Psychiatric Psychiatric exam: Present: normal affect, normal mood - Skin Skin exam: Present: warm, dry, intact, normal color Course Course Narrative: He was seen and examined. Patient was given 3 duo nebs and Solu-Medrol. Respiratory therapy provided suction. Currently on 4 L of oxygen nasal cannula. Plan is to obtain CBC, CMP, troponins, lactic acid, chest x-ray, BNP and EKG. An elevated white count with right-sided infiltrate on chest x-ray. Patient was started on vancomycin, cefepime, Levaquin. Vital Signs Temperature 99.1 F 03/08/19 21:06 Pulse Rate 111 03/08/19 21:06 Respiratory Rate 26 03/08/19 21:06 Blood Pressure 154/87 03/08/19 21:06 O2 Sat by Pulse Oximetry 87 03/08/19 21:06 Temperature 99.1 F 03/08/19 21:22 Pulse Rate 111 03/08/19 21:22 Respiratory Rate 30 03/08/19 22:09 Blood Pressure 154/87 03/08/19 21:22 O2 Sat by Pulse Oximetry 79 03/08/19 22:09 Oxygen Delivery Oxygen Delivery Nasal Cannula Medical Decision Making - MDM Narrative Medical decision making narrative: The patient is a 63-year-old male who presented with shortness of breath for the past day. A differential includes pneumonia, ACS, VA, PE. Upon arrival patient met sepsis criteria with increased respiratory rate and tachycardia. Given history of heart failure, patient was only given 1 L normal saline bolus. Lactate, blood cultures, labs were obtained. EKG was normal making ACS, pneumonia less likely. A chest x-ray showed a significant right lower lobe infiltrate. Patient had a white count of 27 with left shift, making pneumonia for likely. Patient has had a history of Pseudomonas pneumonia. He was started on vancomycin, cefepime, Levaquin. The patient was communicated to the hospitalist and accepted for admission for further treatment of pneumonia with IV antibiotics. - Medical Records Medical records reviewed: Yes I reviewed the patient's medical records. - Lab Data Lab results reviewed: Yes I reviewed the patient's lab results. Result diagrams: 03/08/19 21:22 03/08/19 21:22 Lab Results 03/08/19 03/08/19 03/08/19 Range/Units 21:22 21:22 22:26 WBC 27.3 H (4.3-11.1) K/mcL RBC 4.86 (4.19-5.50) M/mcL Hgb 11.8 L (12.9-16.9) g/dL Hct 41.0 (37.5-50.1) % MCV 84.4 (83.0-100.0) fL MCH 24.3 L (28.0-33.3) pg MCHC 28.8 L (31.6-35.5) g/dL RDW 18.9 H (11.5-14.5) % Plt Count 345 (140-400) K/mcL MPV 9.6 (9.4-12.4) fL Immature Gran % 1.3 (0-4) % Seg Neutrophils % 90.1 % Lymphocytes % 4.1 % Monocytes % 4.2 % Eosinophils % 0.0 % Basophils % 0.3 % Neutrophils # 24.6 H (1.6-8.9) K/mcL Lymphocytes # 1.1 (0.6-4.6) K/mcL Monocytes # 1.2 (0.0-1.3) K/mcL Eosinophils # 0.0 (0.0-0.6) K/mcL Basophils # 0.1 (0.0-0.2) K/mcL Nucleated RBCs/100 WBC 0.1 H (0) /100 WBC Hypersegmented Neuts Present A (Not Present) Reactive Lymphocytes Present A (Not Present) Toxic Granulation Present A (Not Present) Platelet Estimate Normal (Normal) Large Platelets Present A (Not Present) Hypochromasia Present A (Not Present) Anisocytosis 1+ A (Not Present) Sodium 135 L (136-145) mEq/L Potassium 3.8 (3.5-5.1) mEq/L Chloride 99 (98-107) mEq/L Carbon Dioxide 27 (23-29) mEq/L BUN 13 (8-23) mg/dL Creatinine 0.78 (0.70-1.30) mg/dL Est GFR ( Amer) > 60 (> 60) Est GFR (Non-Af Amer) > 60 (> 60) BUN/Creatinine Ratio 17 (6-26) Glucose 173 H (70-105) mg/dL Calculated Osmolality 284 (280-300) Lactic Acid 1.1 (0.5-2.2) mmol/L Calcium 9.4 (8.6-10.3) mg/dL Total Bilirubin 0.6 (0.3-1.0) mg/dL AST 13 (13-39) Units/L ALT 17 (7-52) Units/L Alkaline Phosphatase 141 H (34-104) Units/L Serum Total Protein 8.1 (6.4-8.9) g/dL Albumin 3.5 (3.5-5.7) g/dL Globulin 4.6 H (2.4-3.5) g/dL Albumin/Globulin Ratio 0.8 L (1.1-2.2) - Radiology Data Radiology results reviewed: Yes I reviewed the patient's radiology results. - EKG Data EKG #1 EKG attestation: Yes I reviewed and interpreted this EKG. EKG results narrative: An EKG was performed at 9:06 PM. I interpretation of patient EKG shows sinus tachycardia, normal axis, normal intervals, no hypertrophy, no ST elevations or depressions. No T-wave inversions. Compared to prior from November 18.
[2019-03-08] MEDS ORDERED: levoFLOXacin 750 MG/150 ML 750 MG/150 ML BAG IVPB ONE (21:54)
[2019-03-08] MEDS ORDERED: 0.9 % Sodium Chloride 1,000 ML IVC ONE (21:56)
[2019-03-08] MEDS ORDERED: Cefepime HCl 2,000 MG in Water for inj. (sterile) 20 ML IVP ONE (22:00)
--- NOTE | 2019-03-08 22:02 | Emergency Department Note ---
Disposition Clinical Impression: Pneumonia Qualifiers: Pneumonia type: due to unspecified organism Laterality: right Lung location: lower lobe of lung Qualified Code(s): J18.1 - Lobar pneumonia, unspecified organism Disposition: Admitted As Inpatient Condition: Good Time of Disposition: 22:51 General Adult HPI - General Chief complaint: ED Shortness of Breath/Dyspnea Stated complaint: GRACIELA Time Seen by Provider: 03/08/19 21:06 Source: patient, EMS Mode of arrival: EMS Limitations: no limitations - History of Present Illness Pain Scale: 8 - Related Data Home Medications Medication Instructions Recorded Confirmed Albuterol Neb [Proventil Neb] 2.5 mg IH Q6H PRN 08/08/16 03/09/19 Albuterol Sulfate [Ventolin Hfa] 1 puff IH Q4H PRN 08/08/16 03/09/19 Aspirin [Lo-Dose Aspirin EC] 81 mg PO QAM 08/08/16 03/09/19 Atorvastatin [Lipitor] 40 mg PO HS 08/08/16 03/09/19 Budesonide/Formoterol 160/4.5 2 puff IH BID 08/08/16 03/09/19 [Symbicort 160/4.5] Gabapentin [Neurontin] 400 mg PO BID 08/08/16 03/09/19 acetaZOLAMIDE [Diamox] 250 mg PO QAM 08/08/16 03/09/19 Sertraline [Zoloft] 50 mg PO QAM 07/22/17 03/09/19 Famotidine [Pepcid] 20 mg PO DAILY 11/19/18 03/09/19 MOM Conc [MILK OF MAGNESIA conc] 30 ml PO Q24H PRN 11/19/18 03/09/19 Potassium Chloride [Klor-Con 10] 20 meq PO DAILY 11/19/18 03/09/19 Dextran 70/Hypromellose 2 drop BOTH EYES BID 03/09/19 03/09/19 [Artificial Tears Eye Drops] Loratadine [Allergy Relief] 10 mg PO DAILY 03/09/19 03/09/19 Previous Rx's Medication Instructions Recorded Furosemide [Lasix] 40 mg PO BIDDIURETIC 30 Days 08/16/16 tablet HYDROcodone/Acet 5/325 mg [[place] 1 tab PO TID PRN #14 tablet 07/26/17 5-325 mg] Metoprolol [Lopressor] 12.5 mg PO BID tablet 11/23/18 Allergies Allergy/AdvReac Type Severity Reaction Status Date / Time Penicillins Allergy Anaphylaxis Verified 03/08/19 21:15 Constitutional: Reports: fever, chills. Denies: weakness, weight change, night sweats Eyes: Denies: eye pain, vision change ENT ED: Denies: throat pain, hearing loss Cardiovascular: Reports: dyspnea on exertion. Denies: chest pain, palpitations, syncope Respiratory: Reports: cough, dyspnea, wheezes Gastrointestinal: Denies: abdominal pain, nausea, vomiting, diarrhea, constipation Genitourinary: Denies: urgency, dysuria, frequency Musculoskeletal: Denies: back pain, neck pain Integumentary: Denies: rash, lesions Neurological: Denies: headache, weakness, numbness, paresthesias Psychiatric: Denies: anxiety, depression Endocrine: Denies: fatigue, heat or cold intolerance Past Medical History - Past Medical History Medical history: Reports: CHF, COPD, hyperlipidemia, hypertension, malignancy, other Surgical history: Reports: no surgical history Psychiatric history: Reports: anxiety - Social History Smoking Status: Former smoker Smokeless Tobacco Status: No Alcohol use: Reports: none Drug use: Reports: none Physical Exam - General Limitations: no limitations General appearance: alert Course Vital Signs Temperature 99.1 F 03/08/19 21:06 Pulse Rate 111 03/08/19 21:06 Respiratory Rate 26 03/08/19 21:06 Blood Pressure 154/87 03/08/19 21:06 O2 Sat by Pulse Oximetry 87 03/08/19 21:06 Temperature 98.8 F 03/11/19 00:17 Pulse Rate 57 03/11/19 02:00 Respiratory Rate 22 03/11/19 02:00 Blood Pressure 107/61 03/11/19 02:00 O2 Sat by Pulse Oximetry 98 03/11/19 02:00 Oxygen Delivery Oxygen Delivery Nasal Cannula Medical Decision Making - Lab Data Result diagrams: 03/10/19 01:01 03/10/19 01:01 Lab Results 03/08/19 03/08/19 03/08/19 Range/Units 21:22 21:22 21:22 WBC 27.3 H (4.3-11.1) K/mcL RBC 4.86 (4.19-5.50) M/mcL Hgb 11.8 L (12.9-16.9) g/dL Hct 41.0 (37.5-50.1) % MCV 84.4 (83.0-100.0) fL MCH 24.3 L (28.0-33.3) pg MCHC 28.8 L (31.6-35.5) g/dL RDW 18.9 H (11.5-14.5) % Plt Count 345 (140-400) K/mcL MPV 9.6 (9.4-12.4) fL Immature Gran % 1.3 (0-4) % Seg Neutrophils % 90.1 % Lymphocytes % 4.1 % Monocytes % 4.2 % Eosinophils % 0.0 % Basophils % 0.3 % Neutrophils # 24.6 H (1.6-8.9) K/mcL Lymphocytes # 1.1 (0.6-4.6) K/mcL Monocytes # 1.2 (0.0-1.3) K/mcL Eosinophils # 0.0 (0.0-0.6) K/mcL Basophils # 0.1 (0.0-0.2) K/mcL Nucleated RBCs/100 WBC 0.1 H (0) /100 WBC Hypersegmented Neuts Present A (Not Present) Reactive Lymphocytes Present A (Not Present) Toxic Granulation Present A (Not Present) Platelet Estimate Normal (Normal) Large Platelets Present A (Not Present) Hypochromasia Present A (Not Present) Anisocytosis 1+ A (Not Present) Sodium 135 L (136-145) mEq/L Potassium 3.8 (3.5-5.1) mEq/L Chloride 99 (98-107) mEq/L Carbon Dioxide 27 (23-29) mEq/L BUN 13 (8-23) mg/dL Creatinine 0.78 (0.70-1.30) mg/dL Est GFR ( Amer) > 60 (> 60) Est GFR (Non-Af Amer) > 60 (> 60) BUN/Creatinine Ratio 17 (6-26) Glucose 173 H (70-105) mg/dL Calculated Osmolality 284 (280-300) Lactic Acid (0.5-2.2) mmol/L Calcium 9.4 (8.6-10.3) mg/dL Total Bilirubin 0.6 (0.3-1.0) mg/dL AST 13 (13-39) Units/L ALT 17 (7-52) Units/L Alkaline Phosphatase 141 H (34-104) Units/L Troponin I (< 0.04) ng/mL B-Natriuretic Peptide 79 (Less than 100) pg/mL Serum Total Protein 8.1 (6.4-8.9) g/dL Albumin 3.5 (3.5-5.7) g/dL Globulin 4.6 H (2.4-3.5) g/dL Albumin/Globulin Ratio 0.8 L (1.1-2.2) 03/08/19 03/08/19 Range/Units 22:26 22:26 WBC (4.3-11.1) K/mcL RBC (4.19-5.50) M/mcL Hgb (12.9-16.9) g/dL Hct (37.5-50.1) % MCV (83.0-100.0) fL MCH (28.0-33.3) pg MCHC (31.6-35.5) g/dL RDW (11.5-14.5) % Plt Count (140-400) K/mcL MPV (9.4-12.4) fL Immature Gran % (0-4) % Seg Neutrophils % % Lymphocytes % % Monocytes % % Eosinophils % % Basophils % % Neutrophils # (1.6-8.9) K/mcL Lymphocytes # (0.6-4.6) K/mcL Monocytes # (0.0-1.3) K/mcL Eosinophils # (0.0-0.6) K/mcL Basophils # (0.0-0.2) K/mcL Nucleated RBCs/100 WBC (0) /100 WBC Hypersegmented Neuts (Not Present) Reactive Lymphocytes (Not Present) Toxic Granulation (Not Present) Platelet Estimate (Normal) Large Platelets (Not Present) Hypochromasia (Not Present) Anisocytosis (Not Present) Sodium (136-145) mEq/L Potassium (3.5-5.1) mEq/L Chloride (98-107) mEq/L Carbon Dioxide (23-29) mEq/L BUN (8-23) mg/dL Creatinine (0.70-1.30) mg/dL Est GFR ( Amer) (> 60) Est GFR (Non-Af Amer) (> 60) BUN/Creatinine Ratio (6-26) Glucose (70-105) mg/dL Calculated Osmolality (280-300) Lactic Acid 1.1 (0.5-2.2) mmol/L Calcium (8.6-10.3) mg/dL Total Bilirubin (0.3-1.0) mg/dL AST (13-39) Units/L ALT (7-52) Units/L Alkaline Phosphatase (34-104) Units/L Troponin I < 0.03 (< 0.04) ng/mL B-Natriuretic Peptide (Less than 100) pg/mL Serum Total Protein (6.4-8.9) g/dL Albumin (3.5-5.7) g/dL Globulin (2.4-3.5) g/dL Albumin/Globulin Ratio (1.1-2.2) Attestation Statement - Attestation Attestation: I examined this patient and my medical decision-making was reviewed with the Resident Physician. I agree with the documented findings, disposition and treatment plan as described except to the extent set forth below. Patient 63-year-old gentleman with history of COPD and prior trach that presents to the emergency department with chief complaint of shortness of breath. Per the facility where he lives that could noticed that his oxygen saturations were low. The patient reports that he has been coughing is been productive of sputum states it is been having some breath. Patient denies chest pain denies fever. Physical exam patient is awake alert able to answer questions he is in moderate respiratory distress has rhonchi present bilaterally and has aerial sputum around the area of the trach collar. Medical decision management the patient undergoes aggressive respiratory care with multiple duo nebs and suctioning patient was placed on trach collar for oxygenation and the patient was given IV steroids. Patient will be treated empirically with broad-spectrum anabolic coverage for healthcare associated p neumonia
[2019-03-08 22:04] LABS: Alanine Aminotransferase 17 Units/L (7-52); Albumin 3.5 g/dL (3.5-5.7); Albumin/Globulin Ratio 0.8 (1.1-2.2); Alkaline Phosphatase 141 Units/L (34-104); Aspartate Amino Transferase 13 Units/L (13-39); BUN/Creatinine Ratio 17 (6-26); Bilirubin,Total 0.6 mg/dL (0.3-1.0); Blood Urea Nitrogen 13 mg/dL (8-23); Calcium 9.4 mg/dL (8.6-10.3); Carbon Dioxide 27 mEq/L (23-29); Chloride 99 mEq/L (98-107); Globulin 4.6 g/dL (2.4-3.5); Glucose 173 mg/dL (70-105); Osmolality,Calculated 284 (280-300); Potassium 3.8 mEq/L (3.5-5.1); Sodium 135 mEq/L (136-145); Total Protein 8.1 g/dL (6.4-8.9); eGFR For African Americans > 60 (> 60); eGFR For Non-African Americans > 60 (> 60)
[2019-03-08 22:10] LABS: Anisocytosis 1+ (Not Present)
[2019-03-08 22:11] LABS: Hypersegmented Neutrophils Present (Not Present); Hypochromasia Present (Not Present); Large Platelets Present (Not Present); Platelet Estimate Normal (Normal); Reactive Lymphocytes Present (Not Present); Toxic Granulation Present (Not Present)
[2019-03-09] MEDS ORDERED: Naloxone 0.4 MG/ML INJ IVP PRN (00:23)
[2019-03-09] MEDS ORDERED: Ondansetron 4 MG/2 ML VIAL IVP PRN (00:23)
[2019-03-09] MEDS ORDERED: Acetaminophen 325 MG TABLET PO PRN (00:23)
[2019-03-09] MEDS ORDERED: 0.9 % Sodium Chloride 2,500 ML IVC SCH (00:30)
[2019-03-09] MEDS ORDERED: Albuterol 2.5 MG/3 ML NEBULIZER IH PRN (00:37)
[2019-03-09] MEDS ORDERED: MOM Conc 10 ML UD.LIQ PO PRN (00:38)
[2019-03-09] MEDS ORDERED: Artificial Tears SOLN 15 ML BOTTLE OP PRN (00:38)
--- NOTE | 2019-03-09 00:50 | Internal Med History&Physical ---
Date of Encounter: 03/09/19 Time of Encounter: 00:10 Internal Medicine - H&P: HPI Chief complaint: cough; wheeze; SOB; fever Admitted From: Emergency Dept Plans for Post Hospital Care: Home History of present illness: Mr. Barry is a 63 year old male who presents to the ER with complaints of cough, fever, SOB, wheezing, and purulent drainage from his tracheostomy. He was sent to the ER from his ECF. In the ER, patient was noted to be tachycardic, hypoxemic, and in mild to moderate respiratory failure. He respon ded to suctioning of his trachea, oxygen supplementation, and aerosols. Review of his labs and clinical exam reveal that he is septic. He only received 1 L fluid bolus in the ER. After I assessed him, I added another 2 1/2 liters to equal 30 ml/kg fluid bolus followed by maintenance fluids. Upon my assessment, patient was coughing and wheezing. He did respond to the above measures. I reviewed his old records and note that he has had recurrent bouts of Pseudomonas pneumonia based upon prior tracheal cultures. Of note, patient has an anaphylactic reaction to penicillin. However, he received cefepime in the ER without incident. I also called pharmacy and discussed with our pharmacist, and she informed me that he has had several rounds of cefepime in the recent past which he tolerated well and without allergic reaction. Patient states that this episode started several days ago and has progressively worsened. He was feeling well until about 3 days ago. He has had subjective fevers, chills, but no night sweats. He has had harsh coughing, shortness of breath, and productive sputum from his tracheostomy. He denies any hemoptysis. He denies any chest pain. Past Med Surg Social Fam HX - Past Medical History Attestation: Yes The following information was validated with the patient. Source: patient, old records reviewed Medical history: CHF, COPD, hyperlipidemia, hypertension, malignancy Additional medical history: SLEEP APNEA Psychiatric history: anxiety - Past Surgical History Surgical History: other Additional surgical history: peg tube. trach. ENT surgery for head and neck cancer - Social History Smoking Status: Former smoker Smokeless Tobacco Status: No Alcohol use: none Drug use: none Current living situation: ON LICENSE OF [facility] Recent Out of Country Travel Within the Last 8 Weeks: No - Family History Mother Hx Family Cardiac Disorders: No Hx Family Respiratory Disorders: No Hx Family Cancer: No Hx Family GI Disorders: No Hx Family Endocrine Disorder: No Hx Family Neuromuscular Disorders: No Hx Family Neurologic Disorders: No Hx Family HEENT Disorders: No Hx Family Autoimmune Disorders: No Father Hx Family Cardiac Disorders: No Hx Family Respiratory Disorders: No Hx Family Cancer: Yes Hx Family GI Disorders: No Hx Family Endocrine Disorder: No Hx Family Neuromuscular Disorders: No Hx Family Neurologic Disorders: No Hx Family HEENT Disorders: No Hx Family Autoimmune Disorders: No Internal Medicine - H&P: Meds Albuterol Neb [Proventil Neb] 2.5 mg IH Q6H PRN 08/08/16 [History] Albuterol Sulfate [Ventolin Hfa] 1 puff IH Q4H PRN 08/08/16 [History] Aspirin [Lo-Dose Aspirin EC] 81 mg PO QAM 08/08/16 [History] Atorvastatin [Lipitor] 40 mg PO HS 08/08/16 [History] Budesonide/Formoterol 160/4.5 [Symbicort 160/4.5] 2 puff IH BID 08/08/16 [H istory] Gabapentin [Neurontin] 400 mg PO BID 08/08/16 [History] acetaZOLAMIDE [Diamox] 250 mg PO QAM 08/08/16 [History] Furosemide [Lasix] 40 mg PO BIDDIURETIC 30 Days tablet 08/16/16 [Rx] Polyvinyl Alcohol [Artificial Tears] 2 drop OP BID PRN 07/22/17 [History] Sertraline [Zoloft] 50 mg PO QAM 07/22/17 [History] HYDROcodone/Acet 5/325 mg [[place] 5-325 mg] 1 tab PO TID PRN #14 tablet 07/26/17 [Rx] Lactobacillus Acidophilus [Probiotic Acidophilus] 1 each PO BID #30 tablet 07/26/17 [Rx] Famotidine [Pepcid] 20 mg PO DAILY 11/19/18 [History] MOM Conc [MILK OF MAGNESIA conc] 30 ml PO Q24H PRN 11/19/18 [History] Potassium Chloride [Klor-Con 10] 20 meq PO DAILY 11/19/18 [History] Tramadol HCl [Ultram] 100 mg PO Q6H PRN 11/19/18 [History] GuaiFENesin Liq [Robitussin Liq] 200 mg PO QID udc 11/23/18 [Rx] Metoprolol [Lopressor] 12.5 mg PO BID tablet 11/23/18 [Rx] Nystatin POWDER [Nystop] 1 appl TP BID bottle 11/23/18 [Rx] Patient Taking Own Medication 1 each IH BID each 11/23/18 [Rx] Allergy/AdvReac Type Severity Reaction Status Date / Time Penicillins Allergy Anaphylaxis Verified 03/08/19 21:15 - Constitutional Constitutional: chills, fatigue, fever(s), no night sweats - EENT Eyes: no blurry vision, no change in vision Ears: no ear pain, no tinnitus Nose, mouth and throat: nasal congestion, no sore throat - Cardiovascular Cardiovascular ROS IM: dyspnea, dyspnea on exertion, no chest pain, no orthopnea, no paroxysmal nocturnal dyspnea - Respiratory Respiratory: cough, dyspnea, wheezing, chest congestion, excessive phlegm production, change in phlegm color, no hemoptysis, no pain with cough - Gastrointestinal Gastrointestinal: no abdominal pain, no diarrhea, no hematemesis, no hematochezia, no melena, no nausea, no vomiting - Genitourinary Genitourinary ROS male: no dysuria, no flank pain, no hematuria - Musculoskeletal Musculoskeletal ROS IM: no arthralgias, no back pain - Integumentary Integumentary IM: no rash, no jaundice - Neurological Neurological ROS: no dizziness, no focal weakness, no frequent falls, no headache(s) - Psychiatric Psychiatric: no anxiety, no depression - Endocrine Endocrine IM: no polydipsia, no polyuria - Allergic/Immunologic Allergic/Immunologic: no GI upset with certain foods - Constitutional Vitals: Temp Pulse Resp BP Pulse Ox 99.1 F 111 30 154/87 79 03/08/19 21:22 03/08/19 21:22 03/08/19 22:09 03/08/19 21:22 03/08/19 22:09 General appearance: Present: cooperative, mild distress, A&O X 3, pleasant, answers questions appropriately Exam: in mild to moderate respiratory distress - Head Head exam: Present: atraumatic, normal inspection - Eye Eye exam: Present: EOMI, PERRL. Absent: scleral icterus Pupils: Present: normal accommodation - ENT ENT exam: Present: mucous membranes dry, normal oropharynx Additional comments: tracheostomy with purulent discharge - Neck Neck exam general surgery: Present: full ROM, supple, trachea midline. Absent: tenderness, nuchal rigidity, thyromegaly - Respiratory Respiratory exam: Present: accessory muscle use, rales (predominantly in right base), respiratory distress, rhonchi (scattered), wheezes (rare), tachypnea. Absent: chest wall tenderness - Cardiovascular Cardiovascular exam: Present: RRR, +S1, +S2, tachycardia. Absent: diastolic murmur, systolic murmur - GI/Abdominal GI/Abdominal exam: Present: normal bowel sounds, soft. Absent: guarding, hepatomegaly, mass, rebound, splenomegaly, tenderness, no peritoneal signs - Extremities Exam Extremities exam: Present: full ROM, normal capillary refill, warm, radial pulses palpable and symmetrical. Absent: calf tenderness, joint swelling, pedal edema, tenderness - Back Exam Back exam: Absent: CVA tenderness (L), CVA tenderness (R) - Neurological Exam Neurological exam: Present: alert, motor sensory deficit, oriented X3, no focal deficits, strengths equal and symetr throughout - Psychiatric Psychiatric exam: Present: normal affect, normal mood - Skin Skin exam: Present: dry, intact, warm Internal Med - H&P Results - Labs CBC & Chem 7: 03/09/19 01:14 03/09/19 01:14 Labs: Short CBC 03/08/19 Range/Units 21:22 WBC 27.3 H (4.3-11.1) K/mcL Hgb 11.8 L (12.9-16.9) g/dL Hct 41.0 (37.5-50.1) % Plt Count 345 (140-400) K/mcL Neutrophils # 24.6 H (1.6-8.9) K/mcL BMP 03/08/19 21:22 Sodium 135 L Potassium 3.8 Chloride 99 Carbon Dioxide 27 BUN 13 Creatinine 0.78 Glucose 173 H Calcium 9.4 Cardiac Enzymes 03/08/19 Range/Units 22:26 Troponin I < 0.03 (< 0.04) ng/mL Liver Function 03/08/19 Range/Units 21:22 Total Bilirubin 0.6 (0.3-1.0) mg/dL AST 13 (13-39) Units/L ALT 17 (7-52) Units/L Alkaline Phosphatase 141 H (34-104) Units/L Albumin 3.5 (3.5-5.7) g/dL - EKG Data -: EKG Interpreted by Myself - EKG Data EKG comments: 03/09/19 04:53 Sinus tachycardia - Impressions ITS Impressions Chest X-Ray 03/08/19 21:06 IMPRESSION: In this patient with chronic interstitial changes, there is focal airspace opacification in the right lower lobe that is new from prior exam. Pattern may represent asymmetric edema or developing pneumonitis. D/ / Emil Fitch MD / Emil Fitch MD Interpreting Provider: Emil Fitch MD - Diagnostic Studies Chest x-ray Status: image reviewed by me (RLL infiltrate) - Assessment and Plan (1) Pseudomonas pneumonia Current Visit: Yes Status: Acute Assessment and plan: 1. Will treat with STEFANIE aerosols and IV Cefepime based upon most recent tracheostomy cultures. 2. Continue aerosols, mucomyst, and supportive measures. 3. Add Vancmoycin and Levaquin until cultures are resulted. Qualifiers: Laterality: right Lung location: lower lobe of lung Qualified Code(s): J15.1 - Pneumonia due to Pseudomonas (2) Sepsis Current Visit: Yes Status: Acute Assessment and plan: 1. Patient only received one liter NS bolus in ER. 2. I ordered 2500 ml more in fluid bolus to complete 30ml/kg bolus. 3. Trend lactate and follow cultures. 4. Likely source is pneumonia. Qualifiers: Sepsis type: Pseudomonas Qualified Code(s): A41.52 - Sepsis due to Pseudomonas (3) Hypertension Current Visit: Yes Status: Chronic Assessment and plan: 1. Continue home meds as appropriate. 2. Monitor and hold/adjust BP meds as clinical picture dictates. Qualifiers: Hypertension type: essential hypertension Qualified Code(s): I10 - Essential (primary) hypertension (4) DVT prophylaxis Current Visit: Yes Status: Acute Assessment and plan: 1. Heparin SQ.
[2019-03-09] MEDS ORDERED: Vancomycin (wt based) 1,000 MG VIAL IVPB SCH (01:00)
[2019-03-09 01:29] LABS: Basophils % 0.3 %; Hemoglobin 11.8 g/dL (12.9-16.9); Nucleated Red Blood Cells 0.1 /100 WBC (0)
[2019-03-09 01:31] LABS: Basophils # 0.1 K/mcL (0.0-0.2); Hematocrit 41.3 % (37.5-50.1); Immature Granulocytes % 1.7 % (0-4); Lymphocytes # 0.8 K/mcL (0.6-4.6); Mean Corpuscular HGB Conc 28.6 g/dL (31.6-35.5); Mean Corpuscular Hemoglobin 24.2 pg (28.0-33.3); Mean Corpuscular Volume 84.8 fL (83.0-100.0); Mean Platelet Volume 9.8 fL (9.4-12.4); Monocytes # 0.4 K/mcL (0.0-1.3); Monocytes % 1.3 %; Neutrophils # 25.7 K/mcL (1.6-8.9); Platelet Count 349 K/mcL (140-400); Red Blood Count 4.87 M/mcL (4.19-5.50); Segmented Neutrophils % 93.7 %; White Blood Count 27.4 K/mcL (4.3-11.1)
[2019-03-09 01:39] LABS: INR 1.3; Prothrombin Time 15.2 Seconds (9.4-12.1)
[2019-03-09 01:42] LABS: Activated Partial Thrombo Time 35.7 Seconds (26.0-36.0)
[2019-03-09] MEDS: Budesonide/Formoterol 160/4.5 1 PUFF INH IH SCH ×3 (01:42→19:51)
[2019-03-09 01:44] LABS: Alanine Aminotransferase 16 Units/L (7-52); Albumin 3.3 g/dL (3.5-5.7); Albumin/Globulin Ratio 0.7 (1.1-2.2); Alkaline Phosphatase 134 Units/L (34-104); Aspartate Amino Transferase 12 Units/L (13-39); BUN/Creatinine Ratio 18 (6-26); Bilirubin,Total 0.6 mg/dL (0.3-1.0); Blood Urea Nitrogen 13 mg/dL (8-23); Calcium 8.9 mg/dL (8.6-10.3); Carbon Dioxide 27 mEq/L (23-29); Chloride 101 mEq/L (98-107); Globulin 4.5 g/dL (2.4-3.5); Glucose 184 mg/dL (70-105); Magnesium 1.7 mg/dL (1.6-2.6); Osmolality,Calculated 285 (280-300); Sodium 135 mEq/L (136-145); Total Protein 7.8 g/dL (6.4-8.9); eGFR For African Americans > 60 (> 60); eGFR For Non-African Americans > 60 (> 60)
[2019-03-09 02:09] LABS: Anisocytosis 1+ (Not Present); Hypochromasia Present (Not Present); Platelet Estimate Normal (Normal); Reactive Lymphocytes Present (Not Present); Toxic Granulation Present (Not Present)
[2019-03-09] MEDS ORDERED: Acetylcysteine 10% 2 ML INHSOL IH SCH (04:00)
[2019-03-09] MEDS: Ipratropium/Albuterol Neb 3 ML IH SCH ×6 (04:03→23:28)
[2019-03-09] MEDS: Acetylcysteine 10% 2 ML INHSOL IH SCH ×6 (04:03→23:28)
[2019-03-09] MEDS: methylPREDNISolone 125 MG/2 ML VIAL IVP SCH ×2 (06:05→18:12)
[2019-03-09] MEDS: *HR* Heparin 5,000 UNIT/ML VIAL SQ SCH ×3 (06:05→20:16)
[2019-03-09] MEDS: 0.9 % Sodium Chloride w KCl 20 MEQ/1,000 ML MLS IVC SCH ×2 (06:05→15:00)
[2019-03-09] MEDS: Famotidine 20 MG TABLET PO SCH (06:05)
[2019-03-09] MEDS: *HR* HYDROcodone/Acet 5/325 mg TABLET PO PRN ×2 (07:41→17:08)
[2019-03-09] MEDS: Lactobacillus 1 EACH CAP.SPRINK PO SCH ×2 (09:14→20:16)
[2019-03-09] MEDS: acetaZOLAMIDE 250 MG TABLET PO SCH (09:14)
[2019-03-09] MEDS: Gabapentin 400 MG CAPSULE PO SCH ×2 (09:14→20:16)
[2019-03-09] MEDS: GuaiFENesin Liq 200 MG/10 ML UDC PO SCH ×4 (09:14→20:19)
[2019-03-09] MEDS: Cefepime HCl 2,000 MG in Water for inj. (sterile) 20 ML IVP SCH ×3 (09:15→23:05)
[2019-03-09] MEDS: Tobramycin for INHALATION 300 MG/5 ML AMPUL IH SCH ×2 (10:21→20:10)
--- NOTE | 2019-03-09 10:36 | Internal Med Progress Note ---
Hospitalist Progress Note - Encounter Date of Encounter: 03/09/19 Time of Encounter: 10:34 - Subjective Interval History: the patient was seen and examined at bedside states hsi breathing is better after suctioning currently on [address] chest denesi CP no vomiting no fever - Exam Vitals: Temp Pulse Resp BP Pulse Ox 97.6 F 96 18 136/78 100 03/09/19 07:42 03/09/19 07:42 03/09/19 10:24 03/09/19 07:42 03/09/19 10:24 Exam: Physical examination: Gen.: Patient is alert, seems oriented, in moderate respiratory distress , not in pain, on 8 L oxygen via tracheostomy HEENT: perrla , EOMI, no thyroid gland enlargement, no neck mass, supple neck Heart: S1 and S2 young, normal sinus rhythm, no cardiac murmur no gallop rhythm Chest: Air entry equal bilaterally, decreased breathing bilaterally with diffuse wheezing Abdomen: Soft nontender nondistended positive bowel sounds, no organomegaly Extremities: No pitting edema, peripheral pulses palpable, no cyanosis tenderness Neuro: Able to move all 4 limbs, DVT Prophylaxis: Heparin - Summary of Assessment and Plan Summary of Assessment and Plan: (1) Pseudomonas pneumonia Current Visit: Yes Status: Acute Assessment and plan: 1. continue treat with STEFANIE aerosols and IV Cefepime based upon most recent tracheostomy cultures. 2. Continue aerosols, mucomyst, and supportive measures. 3. Add Vancmoycin and Levaquin until cultures are resulted. Acute on chronic hypoxic respiratory failure: Secondary to pneumonia, On IV steroids On 8 L nasal cannula oxygen , baseline is 2 L at shelter via tracheotomy on BT check ABG order CT chest wc swallow evaluation intermittent suctioning of tracheotomy follow respiratory culture Qualifiers: Laterality: right Lung location: lower lobe of lung Qualified Code(s): J15.1 - Pneumonia due to Pseudomonas (2) Sepsis Current Visit: Yes Status: Acute Assessment and plan: 1. Patient only received one liter NS bolus in ER. 2. has ordered 2500 ml more in fluid bolus to complete 30ml/kg bolus. 3. Trend lactate and follow cultures. 4. Likely source is pneumonia 5- BP stable. Qualifiers: Sepsis type: Pseudomonas Qualified Code(s): A41.52 - Sepsis due to Pseudomonas (3) Hypertension Current Visit: Yes Status: Chronic Assessment and plan: 1. Continue home meds as appropriate. 2. Monitor and hold/adjust BP meds as clinical picture dictates. Qualifiers: Hypertension type: essential hypertension Qualified Code(s): I10 - Essential (primary) hypertension (4) DVT prophylaxis Current Visit: Yes Status: Acute Assessment and plan: 1. Heparin SQ. - Time Spent with Patient Total time spent is greater than 50% in coordination of care (as documented) at patient's floor/unit and/or counseling patient: Internal Medicine: Result - Labs CBC & Chem 7: 03/09/19 01:14 03/09/19 01:14 Labs: Short CBC 03/08/19 03/09/19 Range/Units 21:22 01:14 WBC 27.3 H 27.4 H (4.3-11.1) K/mcL Hgb 11.8 L 11.8 L (12.9-16.9) g/dL Hct 41.0 41.3 (37.5-50.1) % Plt Count 345 349 (140-400) K/mcL Neutrophils # 24.6 H 25.7 H (1.6-8.9) K/mcL BMP 03/08/19 03/09/19 21:22 01:14 Sodium 135 L 135 L Potassium 3.8 4.0 Chloride 99 101 Carbon Dioxide 27 27 BUN 13 13 Creatinine 0.78 0.73 Glucose 173 H 184 H Calcium 9.4 8.9 Cardiac Enzymes 03/08/19 Range/Units 22:26 Troponin I < 0.03 (< 0.04) ng/mL Liver Function 03/08/19 03/09/19 Range/Units 21:22 01:14 Total Bilirubin 0.6 0.6 (0.3-1.0) mg/dL AST 13 12 L (13-39) Units/L ALT 17 16 (7-52) Units/L Alkaline Phosphatase 141 H 134 H (34-104) Units/L Albumin 3.5 3.3 L (3.5-5.7) g/dL - ABG Interpretation ABG results: PT/INR, D-dimer PT 15.2 Seconds (9.4-12.1) H 03/09/19 01:14 - Impressions Impressions Chest X-Ray 03/08/19 21:06 IMPRESSION: In this patient with chronic interstitial changes, there is focal airspace opacification in the right lower lobe that is new from prior exam. Pattern may represent asymmetric edema or developing pneumonitis. D/ / Emil Fitch MD / Emil Fitch MD Interpreting Provider: Emil Fitch MD Consult Discharge Plan - Plan Referrals: NONE,PCP [Primary Care Provider] -
[2019-03-09 11:28] LABS: ABG Base Excess 0 mEq/L (-2 to 3); ABG HCO3 27 mEq/L (21-27); ABG Oxygen Saturation 74 % (95-98); ABG PCO2 51 mmHg (35-45); ABG PH 7.32 pH Units (7.32-7.45); ABG PO2 43 mmHg (85-104); ABG TCO2 28 mEq/L (20-26)
[2019-03-09] MEDS ORDERED: Furosemide 20 MG/2 ML VIAL IVP ONE ×2 (11:39→11:40)
[2019-03-09] MEDS ORDERED: *HR* Midazolam HCl 2 MG/2 ML VIAL ONE (12:09)
[2019-03-09] MEDS ORDERED: *HR* Midazolam HCl 2 MG/2 ML VIAL IVP ONE (12:12)
[2019-03-09] MEDS: Aspirin Enteric Coated 81 MG Tablet PO SCH (12:18)
--- NOTE | 2019-03-09 14:32 | Pulmonology Consult Note ---
<Taylor Laureano - Last Filed: 03/09/19 16:57> Date of Encounter: 03/09/19 Time of Encounter: 14:32 Assessment and Plan (1) Pneumonia Current Visit: Yes Status: Acute * At this time the patient has no definitive bacterial growth but does have a history of pseudomonas grow from his trachea therefore we will cover for this * Continue with cefepime, vancomycin and Levaquin * We will attempt to decrease the amount of fluid intake with antibiotics as the patient does appear to be fluid overloaded causing his respiratory depression * Lasix IV given * Ventilator support with frequent suctioning in ICU * CT chest pending Qualifiers: Pneumonia type: due to unspecified organism Laterality: right Lung location: lower lobe of lung Qualified Code(s): J18.1 - Lobar pneumonia, unspecified organism (2) Sepsis Current Visit: Yes Status: Acute * Patient given 30mL/kg fluid bolus * Likely has aspect of fluid overload, lasix given * Treatment as above * Likely secondary to pneumonia Qualifiers: Sepsis type: sepsis due to unspecified organism Qualified Code(s): A41.9 - Sepsis, unspecified organism (3) Acute and chronic respiratory failure with hypoxia Current Visit: Yes Status: Acute * Likely secondary to pneumonia and edema as above (4) Hypertension Current Visit: Yes Status: Chronic * Blood pressure stable for now, will continue to monitor Qualifiers: Hypertension type: essential hypertension Qualified Code(s): I10 - Essential (primary) hypertension (5) OWEN (obstructive sleep apnea) Current Visit: Yes Status: Acute * Contributing to patients depressed respiratory function (6) Obesity (BMI 30-39.9) Current Visit: Yes Status: Acute * Contributing to patients depressed respiratory function (7) Tracheostomy present Current Visit: Yes Status: Acute * Trach care per unit protocol (8) COPD (chronic obstructive pulmonary disease) Current Visit: Yes Status: Acute * Duonebs, tobramycin, Symbicort, and methylprednisolone scheduled Qualifiers: COPD type: COPD with acute exacerbation Qualified Code(s): J44.1 - Chronic obstructive pulmonary disease with (acute) exacerbation (9) DVT prophylaxis Current Visit: Yes Status: Acute * Heparin SQ History of Present Illness Consult date: 03/09/19 Requesting physician: Dominic Whitt Reason for consult: dyspnea History of present illness: Patient is a 63-year-old male with history of congestive heart failure, 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 Patient had positive Sirs criteria of leukocytosis, tachycardia but without fever or elevated lactate. The patient's blood pressure was stable. He was given 1 L fluid bolus in the emergency department and upon admission he was given a further 2-1/2 L for full 30 mL proximal K fluid bolus as well as maintenance fluids. He was found to have pneumonia of the right lower lobe and was initiated on cefepime, vancomycin, lev aquin and tobramycin aerosols. The patient was suctioned and was requiring supplemental oxygen and there was concern for further respiratory depression and was therefore transferred to the ICU with pulmonology consultation. Past Med Surg Social Fam HX - Past Medical History Medical history: CHF, COPD, hyperlipidemia, hypertension, malignancy Additional medical history: SLEEP APNEA Psychiatric history: anxiety - Past Surgical History Surgical History: other Additional surgical history: peg tube. trach. ENT surgery for head and neck cancer - Social History Smoking Status: Former smoker Smokeless Tobacco Status: No Alcohol use: none Drug use: none - Family History Mother Hx Family Cardiac Disorders: No Hx Family Respiratory Disorders: No Hx Family Cancer: No Hx Family GI Disorders: No Hx Family Endocrine Disorder: No Hx Family Neuromuscular Disorders: No Hx Family Neurologic Disorders: No Hx Family HEENT Disorders: No Hx Family Autoimmune Disorders: No Father Hx Family Cardiac Disorders: No Hx Family Respiratory Disorders: No Hx Family Cancer: Yes Hx Family GI Disorders: No Hx Family Endocrine Disorder: No Hx Family Neuromuscular Disorders: No Hx Family Neurologic Disorders: No Hx Family HEENT Disorders: No Hx Family Autoimmune Disorders: No Medications and Allergies Albuterol Neb [Proventil Neb] 2.5 mg IH Q6H PRN 08/08/16 [History] Albuterol Sulfate [Ventolin Hfa] 1 puff IH Q4H PRN 08/08/16 [History] Aspirin [Lo-Dose Aspirin EC] 81 mg PO QAM 08/08/16 [History] Atorvastatin [Lipitor] 40 mg PO HS 08/08/16 [History] Budesonide/Formoterol 160/4.5 [Symbicort 160/4.5] 2 puff IH BID 08/08/16 [History] Gabapentin [Neurontin] 400 mg PO BID 08/08/16 [History] acetaZOLAMIDE [Diamox] 250 mg PO QAM 08/08/16 [History] Furosemide [Lasix] 40 mg PO BIDDIURETIC 30 Days tablet 08/16/16 [Rx] Polyvinyl Alcohol [Artificial Tears] 2 drop OP BID PRN 07/22/17 [History] Sertraline [Zoloft] 50 mg PO QAM 07/22/17 [History] HYDROcodone/Acet 5/325 mg [[place] 5-325 mg] 1 tab PO TID PRN #14 tablet 07/26/17 [Rx] Lactobacillus Acidophilus [Probiotic Acidophilus] 1 each PO BID #30 tablet 07/26/17 [Rx] Famotidine [Pepcid] 20 mg PO DAILY 11/19/18 [History] MOM Conc [MILK OF MAGNESIA conc] 30 ml PO Q24H PRN 11/19/18 [History] Potassium Chloride [Klor-Con 10] 20 meq PO DAILY 11/19/18 [History] Tramadol HCl [Ultram] 100 mg PO Q6H PRN 11/19/18 [History] GuaiFENesin Liq [Robitussin Liq] 200 mg PO QID udc 11/23/18 [Rx] Metoprolol [Lopressor] 12.5 mg PO BID tablet 11/23/18 [Rx] Nystatin POWDER [Nystop] 1 appl TP BID bottle 11/23/18 [Rx] Patient Taking Own Medication 1 each IH BID each 11/23/18 [Rx] Allergy/AdvReac Type Severity Reaction Status Date / Time Penicillins Allergy Anaphylaxis Verified 03/08/19 21:15 ROS unobtainable: other (tracheostomy) All Systems: The remainder of the systems were reviewed and are negative - Constitutional Constitutional: fever(s), no chills - Cardiovascular Cardiovascular: dyspnea, edema, no chest pain - Respiratory Respiratory: cough, dyspnea - Gastrointestinal Gastrointestinal: no abdominal pain, no cramping - Genitourinary Genitourinary: no dysuria, no hematuria - Integumentary Integumentary: no erythema, no rash - Psychiatric Psychiatric: no anxiety Physical Examination Vital Signs: Vital Signs, Last 4 Hours Temp Pulse Resp BP Pulse Ox 03/09/19 11:27 97.6 F 87 116/73 82 03/09/19 11:08 24 82 General appearance: no acute distress, alert Eyes: nonicteric ENT: oropharynx moist Effort: mildly labored Inspection: other (coarse upper airway sounds from trach) Auscultation: bilateral: rhonchi (coarse wheezing diffusely) Cardiovascular: regular rate and rhythm Gastrointestinal: normoactive bowel sounds, non-tender, non-distended Integumentary: normal normal mental status, non-focal exam mood appropriate, affect normal Ventilator Settings Ventilator Settings: Ventilator Settings, Last 8 Hours Positive End Expiratory 8 Pressure Results - Laboratory Findings CBC and BMP: 03/09/19 01:14 03/09/19 01:14 ABG ABG pH 7.32 pH Units (7.32-7.45) 03/09/19 11:11 ABG pCO2 51 mmHg (35-45) H 03/09/19 11:11 ABG pO2 43 mmHg (85-104) L* 03/09/19 11:11 ABG O2 Saturation 74 % (95-98) L 03/09/19 11:11 PT/INR, D-dimer PT 15.2 Seconds (9.4-12.1) H 03/09/19 01:14 Abnormal lab findings: Abnormal lab results WBC 27.4 K/mcL (4.3-11.1) H 03/09/19 01:14 Hgb 11.8 g/dL (12.9-16.9) L 03/09/19 01:14 MCH 24.2 pg (28.0-33.3) L 03/09/19 01:14 MCHC 28.6 g/dL (31.6-35.5) L 03/09/19 01:14 RDW 19.0 % (11.5-14.5) H 03/09/19 01:14 Neutrophils # 25.7 K/mcL (1.6-8.9) H 03/09/19 01:14 Nucleated RBCs/100 WBC 0.1 /100 WBC (0) H 03/09/19 01:14 Hypersegmented Neuts Present (Not Present) A 03/08/19 21:22 Reactive Lymphocytes Present (Not Present) A 03/09/19 01:14 Toxic Granulation Present (Not Present) A 03/09/19 01:14 Large Platelets Present (Not Present) A 03/08/19 21:22 Hypochromasia Present (Not Present) A 03/09/19 01:14 Anisocytosis 1+ (Not Present) A 03/09/19 01:14 PT 15.2 Seconds (9.4-12.1) H 03/09/19 01:14 ABG pCO2 51 mmHg (35-45) H 03/09/19 11:11 ABG pO2 43 mmHg (85-104) L* 03/09/19 11:11 ABG Total CO2 28 mEq/L (20-26) H 03/09/19 11:11 ABG O2 Saturation 74 % (95-98) L 03/09/19 11:11 Sodium 135 mEq/L (136-145) L 03/09/19 01:14 Glucose 184 mg/dL (70-105) H 03/09/19 01:14 AST 12 Units/L (13-39) L 03/09/19 01:14 Alkaline Phosphatase 134 Units/L (34-104) H 03/09/19 01:14 Albumin 3.3 g/dL (3.5-5.7) L 03/09/19 01:14 Globulin 4.5 g/dL (2.4-3.5) H 03/09/19 01:14 Albumin/Globulin Ratio 0.7 (1.1-2.2) L 03/09/19 01:14 - Microbiology Findings Microbiology Findings: Microbiology, Last 48 Hours 03/09/19 01:29 Respiratory Culture - Preliminary Other-Specify in Comments 03/08/19 22:26 Blood Culture - Preliminary Peripheral Venipuncture Culture is incubating and being continuously monitored for growth. Final report to follow. 03/08/19 22:31 Blood Culture - Preliminary Peripheral Venipuncture Culture is incubating and being continuously monitored for growth. Final report to follow. - Clinical Findings Intake & Output: Intake & Output 03/08/19 03/09/19 03/09/19 23:59 07:59 15:59 Intake Total 4150 / 4170 20 / 4170 Output Total 810 / 1360 550 / 1360 Balance 3340 / 2810 -530 / 2810 Weight 116.664 kg 114.8 kg Consult Discharge Plan - Plan Referrals: NONE,PCP [Primary Care Provider] - <Kallie Cornelius - Last Filed: 03/09/19 17:49> Date of Encounter: 03/09/19 All Systems: The remainder of the systems were reviewed and are negative Physical Examination Vital Signs: Vital Signs, Last 4 Hours Pulse Resp Pulse Ox 03/09/19 16:37 16 99 03/09/19 16:00 74 Ventilator Settings Ventilator Settings: Ventilator Settings, Last 8 Hours Ventilator Tidal Volume 450 Setting Actual Respiratory Rate 15 Positive End Expiratory 5 Pressure Positive End Expiratory 4.5 Pressure Positive End Expiratory 8 Pressure Peak Inspiratory Airway 16 Pressure Peak Inspiratory Airway 16 Pressure Results - Laboratory Findings CBC and BMP: 03/09/19 01:14 03/09/19 01:14 ABG ABG pH 7.25 pH Units (7.32-7.45) L 03/09/19 16:31 ABG pCO2 69 mmHg (35-45) H 03/09/19 16:31 ABG pO2 108 mmHg (85-104) H D 03/09/19 16:31 ABG O2 Saturation 97 % (95-98) 03/09/19 16:31 PT/INR, D-dimer PT 15.2 Seconds (9.4-12.1) H 03/09/19 01:14 Abnormal lab findings: Abnormal lab results WBC 27.4 K/mcL (4.3-11.1) H 03/09/19 01:14 Hgb 11.8 g/dL (12.9-16.9) L 03/09/19 01:14 MCH 24.2 pg (28.0-33.3) L 03/09/19 01:14 MCHC 28.6 g/dL (31.6-35.5) L 03/09/19 01:14 RDW 19.0 % (11.5-14.5) H 03/09/19 01:14 Neutrophils # 25.7 K/mcL (1.6-8.9) H 03/09/19 01:14 Nucleated RBCs/100 WBC 0.1 /100 WBC (0) H 03/09/19 01:14 Hypersegmented Neuts Present (Not Present) A 03/08/19 21:22 Reactive Lymphocytes Present (Not Present) A 03/09/19 01:14 Toxic Granulation Present (Not Present) A 03/09/19 01:14 Large Platelets Present (Not Present) A 03/08/19 21:22 Hypochromasia Present (Not Present) A 03/09/19 01:14 Anisocytosis 1+ (Not Present) A 03/09/19 01:14 PT 15.2 Seconds (9.4-12.1) H 03/09/19 01:14 ABG pH 7.25 pH Units (7.32-7.45) L 03/09/19 16:31 ABG pCO2 69 mmHg (35-45) H 03/09/19 16:31 ABG pO2 108 mmHg (85-104) H D 03/09/19 16:31 ABG HCO3 30 mEq/L (21-27) H 03/09/19 16:31 ABG Total CO2 32 mEq/L (20-26) H 03/09/19 16:31 ABG O2 Saturation 74 % (95-98) L 03/09/19 11:11 Sodium 135 mEq/L (136-145) L 03/09/19 01:14 Glucose 184 mg/dL (70-105) H 03/09/19 01:14 AST 12 Units/L (13-39) L 03/09/19 01:14 Alkaline Phosphatase 134 Units/L (34-104) H 03/09/19 01:14 Albumin 3.3 g/dL (3.5-5.7) L 03/09/19 01:14 Globulin 4.5 g/dL (2.4-3.5) H 03/09/19 01:14 Albumin/Globulin Ratio 0.7 (1.1-2.2) L 03/09/19 01:14 - Microbiology Findings Microbiology Findings: Microbiology, Last 48 Hours 03/09/19 01:29 Respiratory Culture - Preliminary Other-Specify in Comments 03/08/19 22:26 Blood Culture - Preliminary Peripheral Venipuncture Culture is incubating and being continuously monitored for growth. Final report to follow. 03/08/19 22:31 Blood Culture - Preliminary Peripheral Venipuncture Culture is incubating and being continuously monitored for growth. Final report to follow. - Clinical Findings Intake & Output: Intake & Output 03/09/19 03/09/19 03/09/19 07:59 15:59 23:59 Intake Total 4150 / 5190 1020 / 5190 20 / 5190 Output Total 810 / 1360 550 / 1360 Balance 3340 / 3830 470 / 3830 20 / 3830 Weight 114.8 kg - Attending Attestation I saw and evaluated this patient and my medical decision-making was reviewed with the Resident Physician. I agree with the documented findings, disposition and treatment plan as described except to the extent set forth below. We independently had [id number] contact with the patient I spent 45 minutes of Critical Care time with this patient. It involved decision making of high complexity to assess, manipulate, and support vital organ system failure and/or to prevent further life threatening deterioration of the patien t's condition. The time involved in the performance of separately reportable procedures was not counted toward critical care time. Patient seen and examined at bedside Labs, radiology, chart personally reviewed. Management was reviewed during multidisciplinary critical care rounds. [employer]: Patient is conscious oriented despite of this worsening acute hypoxemic respiratory failure Pulm: Patient is chronic tracheostomy dependent now with increased secretion through the tracheostomy tube with thick green secretion suspicious for after care to assess his pneumonia since patient was desaturating on Trach collar decision to put him on ventilator was decided. Patient had a Shiley 4 mm uncu ffed tube changed to Yudi Kuhn 4.0 mm cuffed tube. Patient has acceptable oxygenation and ventilation patient did not tolerate the assist control mode will change to spontaneous pressure support with peep patient tolerated that well. Cards: Patient is hemodynamically stable has some diastolic dysfunction chest x- ray more in favor of pulmonary edema will give gentle diuresis as tolerated FEN-GI: Nothing by mouth for now but he was stable advance diet as tolerated Renal: Labs and output were reviewed ID: [id number]/Onc: Labs reviewed Endo: Glucose Monitored Integ/MSK: Skin Care per routine ICU Nursing Protocol to prevent ulcers. Lines: All lines examined without evidence of infection : Dispo: to remain in ICU with stable overnight of the wrist abdomen. Patient can be transferred to stepdown. CODE:
[2019-03-09 16:42] LABS: ABG Base Excess 1 mEq/L (-2 to 3); ABG HCO3 30 mEq/L (21-27); ABG Oxygen Saturation 97 % (95-98); ABG PCO2 69 mmHg (35-45); ABG PH 7.25 pH Units (7.32-7.45); ABG PO2 108 mmHg (85-104); ABG TCO2 32 mEq/L (20-26); Blood Gas Modality CPAP/PS; Blood Gas PEEP 5 cm H2O
[2019-03-09] MEDS ORDERED: Artificial Tears SOLN 15 ML BOTTLE BOTH EYES PRN (16:57)
--- NOTE | 2019-03-09 17:07 | Event Note ---
Date of Encounter: 03/09/19 Time of Encounter: 17:05 The patient develop more respiratory distress despite frequent trach suctioning, desaturating to 82% despite being on 98% FiO2, CXR show possible fluid overload. i did consult critical care and transferred patient to ICU for possible assisted mechanical ventilator. give lasix iv and continue on broad spectrum iv AB
[2019-03-09] MEDS: Chlorhexidine Rinse 15 ML MOUTHWASH MM SCH (20:16)
[2019-03-09] MEDS: Artificial Tears SOLN 15 ML BOTTLE BOTH EYES SCH (20:19)
[2019-03-09 21:20] LABS: ABG Base Excess 0 mEq/L (-2 to 3); ABG HCO3 30 mEq/L (21-27); ABG Oxygen Saturation 99 % (95-98); ABG PCO2 75 mmHg (35-45); ABG PH 7.21 pH Units (7.32-7.45); ABG PO2 174 mmHg (85-104); ABG TCO2 32 mEq/L (20-26); Blood Gas Modality CPAP/PS; Blood Gas PEEP 5 cm H2O; Blood Gas Pressure Support 10 cm H2O
[2019-03-09] MEDS: Dexmedetomidine HCl 400 MCG/100 ML MLS IVC SCH (21:30)
[2019-03-09 22:45] LABS: ABG Base Excess 0 mEq/L (-2 to 3); ABG HCO3 29 mEq/L (21-27); ABG Oxygen Saturation 90 % (95-98); ABG PCO2 68 mmHg (35-45); ABG PH 7.23 pH Units (7.32-7.45); ABG PO2 73 mmHg (85-104); ABG TCO2 31 mEq/L (20-26); Blood Gas Modality ASSIST CONTROL; Blood Gas PEEP 8 cm H2O; Blood Gas VT 450 cc
[2019-03-09] MEDS ORDERED: levoFLOXacin 750 MG/150 ML 750 MG/150 ML BAG IVPB SCH (23:00)
[2019-03-10] MEDS: Artificial Tears SOLN 15 ML BOTTLE BOTH EYES SCH ×8 (01:04→21:47)
[2019-03-10] MEDS: Dexmedetomidine HCl 400 MCG/100 ML MLS IVC SCH ×15 (01:05→23:55)
[2019-03-10 01:12] LABS: Red Cell Distribution Width 19.2 % (11.5-14.5)
[2019-03-10 01:13] LABS: Hematocrit 38.9 % (37.5-50.1); Hemoglobin 11.1 g/dL (12.9-16.9); Mean Corpuscular HGB Conc 28.5 g/dL (31.6-35.5); Mean Corpuscular Hemoglobin 24.4 pg (28.0-33.3); Mean Corpuscular Volume 85.7 fL (83.0-100.0); Mean Platelet Volume 9.6 fL (9.4-12.4); Platelet Count 327 K/mcL (140-400); Red Blood Count 4.54 M/mcL (4.19-5.50); White Blood Count 18.3 K/mcL (4.3-11.1)
[2019-03-10 01:29] LABS: Alanine Aminotransferase 15 Units/L (7-52); Albumin/Globulin Ratio 0.8 (1.1-2.2); Alkaline Phosphatase 110 Units/L (34-104); Aspartate Amino Transferase 10 Units/L (13-39); BUN/Creatinine Ratio 31 (6-26); Bilirubin,Total 0.3 mg/dL (0.3-1.0); Blood Urea Nitrogen 21 mg/dL (8-23); Calcium 8.6 mg/dL (8.6-10.3); Carbon Dioxide 26 mEq/L (23-29); Chloride 107 mEq/L (98-107); Glucose 172 mg/dL (70-105); Osmolality,Calculated 295 (280-300); Phosphorous 2.3 mg/dL (2.7-4.5); Potassium 4.3 mEq/L (3.5-5.1); Sodium 139 mEq/L (136-145); eGFR For African Americans > 60 (> 60); eGFR For Non-African Americans > 60 (> 60)
[2019-03-10] MEDS: Ipratropium/Albuterol Neb 3 ML IH SCH ×6 (04:01→23:21)
[2019-03-10] MEDS: Acetylcysteine 10% 2 ML INHSOL IH SCH ×6 (04:01→23:21)
[2019-03-10 04:30] LABS: ABG Base Excess 0 mEq/L (-2 to 3); ABG HCO3 28 mEq/L (21-27); ABG Oxygen Saturation 95 % (95-98); ABG PCO2 58 mmHg (35-45); ABG PH 7.29 pH Units (7.32-7.45); ABG PO2 85 mmHg (85-104); ABG TCO2 30 mEq/L (20-26); Blood Gas Modality ASSIST CONTROL; Blood Gas PEEP 8 cm H2O; Blood Gas VT 550 cc
[2019-03-10] MEDS: methylPREDNISolone 125 MG/2 ML VIAL IVP SCH ×2 (07:06→17:50)
[2019-03-10] MEDS: *HR* Heparin 5,000 UNIT/ML VIAL SQ SCH ×3 (07:06→21:19)
[2019-03-10] MEDS: Famotidine 20 MG TABLET PO SCH (07:07)
[2019-03-10] MEDS: Budesonide/Formoterol 160/4.5 1 PUFF INH IH SCH ×2 (07:41→20:58)
--- NOTE | 2019-03-10 07:49 | Pulmonology Progress Note ---
<Armida Yepez - Last Filed: 03/10/19 11:17> Date of Encounter: 03/10/19 Time of Encounter: 07:49 Assessment and Plan (1) Pneumonia Current Visit: Yes Status: Acute At this time the patient has no definitive bacterial growth but does have a history of pseudomonas grow from his trachea therefore we will cover for this Continue with cefepime and Levaquin day 3, Vanc and Tobramycin day 2 We will attempt to decrease the amount of fluid intake with antibiotics as the patient does appear to be fluid overloaded causing his respiratory depression Lasix IV given Ventilator support with frequent suctioning in ICU - pt now tolerating CPAP w ithout desats CT chest shows bilateral lower lobe atelectasis vs PNA Qualifiers: Pneumonia type: due to unspecified organism Laterality: right Lung location: lower lobe of lung Qualified Code(s): J18.1 - Lobar pneumonia, unspecified organism (2) Sepsis Current Visit: Yes Status: Acute Likely secondary to PNA as above Pt received 30 ml/kg bolus Likely has fluid overload IV Lasix with improvement of urinary output - 1485mL yesterday Treatment as above Qualifiers: Sepsis type: sepsis due to unspecified organism Qualified Code(s): A41.9 - Sepsis, unspecified organism (3) Acute and chronic respiratory failure with hypoxia Current Visit: Yes Status: Acute Likely secondary to PNA and edema as above (4) Hypertension Current Visit: Yes Status: Chronic BP stable continue to monitor Continue home meds Qualifiers: Hypertension type: essential hypertension Qualified Code(s): I10 - Essential (primary) hypertension (5) COPD (chronic obstructive pulmonary disease) Current Visit: No Status: Acute Continue Duonebs q4H, Symbicort and Solu-medrol Tobramycin Qualifiers: COPD type: unspecified COPD Qualified Code(s): J44.9 - Chronic obstructive pulmonary disease, unspecified (6) Tracheostomy present Current Visit: Yes Status: Acute 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 Likely transfer to today. Objective PUL Vital signs: Last Vital Signs Temp 96.5 F L 03/10/19 00:00 Pulse 53 03/10/19 07:00 Resp 19 03/10/19 07:42 BP 100/62 03/10/19 07:00 Pulse Ox 98 03/10/19 07:42 General appearance: no acute distress Eyes: nonicteric Effort: normal Auscultation: bilateral: diminished breath sounds, wheezes Cardiovascular: regular rate and rhythm Gastrointestinal: soft, non-tender Extremities: no edema, other (warm, moves all extremities on own) normal mental status, non-focal exam, pupils equal and round Ventilator Settings Ventilator Settings: Ventilator Settings, Last 8 Hours Ventilator Tidal Volume 500 Setting Ventilator Tidal Volume 500 Setting Ventilator Tidal Volume 500 Setting Ventilator Tidal Volume 500 Setting Ventilator Tidal Volume 500 Setting Ventilator Tidal Volume 500 Setting Ventilator Tidal Volume 500 Setting Ventilator Tidal Volume 500 Setting Ventilator Tidal Volume 500 Setting Ventilator Tidal Volume 500 Setting Ventilator Tidal Volume 500 Setting Ventilator Tidal Volume 500 Setting Ventilator Respiratory Rate 22 Setting Ventilator Respiratory Rate 22 Setting Ventilator Respiratory Rate 22 Setting Ventilator Respiratory Rate 22 Setting Ventilator Respiratory Rate 22 Setting Ventilator Respiratory Rate 22 Setting Ventilator Respiratory Rate 22 Setting Ventilator Respiratory Rate 22 Setting Ventilator Respiratory Rate 22 Setting Ventilator Respiratory Rate 22 Setting Ventilator Respiratory Rate 22 Setting Ventilator Respiratory Rate 22 Setting Actual Respiratory Rate 19 Actual Respiratory Rate 22 Actual Respiratory Rate 22 Actual Respiratory Rate 22 Actual Respiratory Rate 22 Actual Respiratory Rate 22 Actual Respiratory Rate 22 Actual Respiratory Rate 22 Actual Respiratory Rate 24 Actual Respiratory Rate 22 Actual Respiratory Rate 24 Actual Respiratory Rate 22 Positive End Expiratory 8 Pressure Positive End Expiratory 8 Pressure Positive End Expiratory 8 Pressure Positive End Expiratory 8 Pressure Positive End Expiratory 8 Pressure Positive End Expiratory 8 Pressure Positive End Expiratory 8 Pressure Positive End Expiratory 8 Pressure Positive End Expiratory 8 Pressure Positive End Expiratory 8 Pressure Positive End Expiratory 8 Pressure Positive End Expiratory 8 Pressure Positive End Expiratory 8 Pressure Peak Inspiratory Airway 19 Pressure Peak Inspiratory Airway 34 Pressure Peak Inspiratory Airway 33 Pressure Peak Inspiratory Airway 36 Pressure Peak Inspiratory Airway 35 Pressure Peak Inspiratory Airway 30 Pressure Peak Inspiratory Airway 30 Pressure Peak Inspiratory Airway 29 Pressure Peak Inspiratory Airway 25 Pressure Peak Inspiratory Airway 35 Pressure Peak Inspiratory Airway 34 Pressure Peak Inspiratory Airway 39 Pressure Results - Laboratory Findings CBC and BMP: 03/10/19 01:01 03/10/19 01:01 ABG ABG pH 7.29 pH Units (7.32-7.45) L 03/10/19 04:26 ABG pCO2 58 mmHg (35-45) H 03/10/19 04:26 ABG pO2 85 mmHg (85-104) 03/10/19 04:26 ABG O2 Saturation 95 % (95-98) 03/10/19 04:26 PT/INR, D-dimer PT 15.2 Seconds (9.4-12.1) H 03/09/19 01:14 Abnormal lab findings: Abnormal lab results WBC 18.3 K/mcL (4.3-11.1) H 03/10/19 01:01 Hgb 11.1 g/dL (12.9-16.9) L 03/10/19 01:01 MCH 24.4 pg (28.0-33.3) L 03/10/19 01:01 MCHC 28.5 g/dL (31.6-35.5) L 03/10/19 01:01 RDW 19.2 % (11.5-14.5) H 03/10/19 01:01 Neutrophils # 25.7 K/mcL (1.6-8.9) H 03/09/19 01:14 Nucleated RBCs/100 WBC 0.1 /100 WBC (0) H 03/09/19 01:14 Hypersegmented Neuts Present (Not Present) A 03/08/19 21:22 Reactive Lymphocytes Present (Not Present) A 03/09/19 01:14 Toxic Granulation Present (Not Present) A 03/09/19 01:14 Large Platelets Present (Not Present) A 03/08/19 21:22 Hypochromasia Present (Not Present) A 03/09/19 01:14 Anisocytosis 1+ (Not Present) A 03/09/19 01:14 PT 15.2 Seconds (9.4-12.1) H 03/09/19 01:14 ABG pH 7.29 pH Units (7.32-7.45) L 03/10/19 04:26 ABG pCO2 58 mmHg (35-45) H 03/10/19 04:26 ABG pO2 73 mmHg (85-104) L D 03/09/19 22:41 ABG HCO3 28 mEq/L (21-27) H 03/10/19 04:26 ABG Total CO2 30 mEq/L (20-26) H 03/10/19 04:26 ABG O2 Saturation 90 % (95-98) L 03/09/19 22:41 Sodium 135 mEq/L (136-145) L 03/09/19 01:14 Creatinine 0.68 mg/dL (0.70-1.30) L 03/10/19 01:01 BUN/Creatinine Ratio 31 (6-26) H 03/10/19 01:01 Glucose 172 mg/dL (70-105) H 03/10/19 01:01 POC Glucose 145 mg/dL (70-99) H 03/09/19 14:06 Phosphorus 2.3 mg/dL (2.7-4.5) L 03/10/19 01:01 AST 10 Units/L (13-39) L 03/10/19 01:01 Alkaline Phosphatase 110 Units/L (34-104) H 03/10/19 01:01 Albumin 3.0 g/dL (3.5-5.7) L 03/10/19 01:01 Globulin 4.0 g/dL (2.4-3.5) H 03/10/19 01:01 Albumin/Globulin Ratio 0.8 (1.1-2.2) L 03/10/19 01:01 - Microbiology Findings Microbiology Findings: Microbiology, Last 48 Hours 03/09/19 01:29 Respiratory Culture - Preliminary Other-Specify in Comments 03/08/19 22:26 Blood Culture - Preliminary Peripheral Venipuncture Culture is incubating and being continuously monitored for growth. Final report to follow. 03/08/19 22:31 Blood Culture - Preliminary Peripheral Venipuncture Culture is incubating and being continuously monitored for growth. Final report to follow. - Clinical Findings Intake & Output: Intake & Output 03/09/19 03/09/19 03/10/19 15:59 23:59 07:59 Intake Total 1020 / 5277.8 107.8 / 5277.8 400 / 400 Output Total 550 / 1485 125 / 1485 0 / 0 Balance 470 / 3792.8 -17.2 / 3792.8 400 / 400 Weight 115.4 kg Consult Discharge Plan - Plan Referrals: NONE,PCP [Primary Care Provider] - (Patient is from [facility] no PCP appointment is needed) <Talia Rayo - Last Filed: 03/14/19 06:16> Date of Encounter: 03/10/19 Objective PUL Vital signs: Last Vital Signs Temp 97.9 F 03/10/19 07:45 Pulse 89 03/10/19 10:00 Resp 24 03/10/19 10:00 BP 120/74 03/10/19 10:00 Pulse Ox 97 03/10/19 10:00 Ventilator Settings Ventilator Settings: Ventilator Settings, Last 8 Hours Ventilator Tidal Volume 500 Setting Ventilator Tidal Volume 500 Setting Ventilator Tidal Volume 500 Setting Ventilator Tidal Volume 500 Setting Ventilator Tidal Volume 500 Setting Ventilator Tidal Volume 500 Setting Ventilator Tidal Volume 500 Setting Ventilator Tidal Volume 500 Setting Ventilator Tidal Volume 500 Setting Ventilator Tidal Volume 500 Setting Ventilator Tidal Volume 500 Setting Ventilator Tidal Volume 500 Setting Ventilator Respiratory Rate 22 Setting Ventilator Respiratory Rate 22 Setting Ventilator Respiratory Rate 22 Setting Ventilator Respiratory Rate 22 Setting Ventilator Respiratory Rate 22 Setting Ventilator Respiratory Rate 22 Setting Ventilator Respiratory Rate 22 Setting Ventilator Respiratory Rate 22 Setting Ventilator Respiratory Rate 22 Setting Ventilator Respiratory Rate 22 Setting Ventilator Respiratory Rate 22 Setting Ventilator Respiratory Rate 22 Setting Actual Respiratory Rate 24 Actual Respiratory Rate 24 Actual Respiratory Rate 18 Actual Respiratory Rate 22 Actual Respiratory Rate 19 Actual Respiratory Rate 22 Actual Respiratory Rate 22 Actual Respiratory Rate 22 Actual Respiratory Rate 22 Actual Respiratory Rate 22 Actual Respiratory Rate 22 Actual Respiratory Rate 22 Actual Respiratory Rate 22 Positive End Expiratory 8 Pressure Positive End Expiratory 8 Pressure Positive End Expiratory 8 Pressure Positive End Expiratory 8 Pressure Positive End Expiratory 8 Pressure Positive End Expiratory 8 Pressure Positive End Expiratory 8 Pressure Positive End Expiratory 8 Pressure Positive End Expiratory 8 Pressure Positive End Expiratory 8 Pressure Positive End Expiratory 8 Pressure Positive End Expiratory 8 Pressure Positive End Expiratory 8 Pressure Positive End Expiratory 8 Pressure Peak Inspiratory Airway 19 Pressure Peak Inspiratory Airway 19 Pressure Peak Inspiratory Airway 19 Pressure Peak Inspiratory Airway 19 Pressure Peak Inspiratory Airway 19 Pressure Peak Inspiratory Airway 34 Pressure Peak Inspiratory Airway 33 Pressure Peak Inspiratory Airway 36 Pressure Peak Inspiratory Airway 35 Pressure Peak Inspiratory Airway 30 Pressure Peak Inspiratory Airway 30 Pressure Peak Inspiratory Airway 29 Pressure Results - Laboratory Findings CBC and BMP: 03/13/19 02:37 03/13/19 02:37 ABG ABG pH 7.29 pH Units (7.32-7.45) L 03/10/19 04:26 ABG pCO2 58 mmHg (35-45) H 03/10/19 04:26 ABG pO2 85 mmHg (85-104) 03/10/19 04:26 ABG O2 Saturation 95 % (95-98) 03/10/19 04:26 PT/INR, D-dimer PT 15.2 Seconds (9.4-12.1) H 03/09/19 01:14 Abnormal lab findings: Abnormal lab results WBC 18.3 K/mcL (4.3-11.1) H 03/10/19 01:01 Hgb 11.1 g/dL (12.9-16.9) L 03/10/19 01:01 MCH 24.4 pg (28.0-33.3) L 03/10/19 01:01 MCHC 28.5 g/dL (31.6-35.5) L 03/10/19 01:01 RDW 19.2 % (11.5-14.5) H 03/10/19 01:01 Neutrophils # 25.7 K/mcL (1.6-8.9) H 03/09/19 01:14 Nucleated RBCs/100 WBC 0.1 /100 WBC (0) H 03/09/19 01:14 Hypersegmented Neuts Present (Not Present) A 03/08/19 21:22 Reactive Lymphocytes Present (Not Present) A 03/09/19 01:14 Toxic Granulation Present (Not Present) A 03/09/19 01:14 Large Platelets Present (Not Present) A 03/08/19 21:22 Hypochromasia Present (Not Present) A 03/09/19 01:14 Anisocytosis 1+ (Not Present) A 03/09/19 01:14 PT 15.2 Seconds (9.4-12.1) H 03/09/19 01:14 ABG pH 7.29 pH Units (7.32-7.45) L 03/10/19 04:26 ABG pCO2 58 mmHg (35-45) H 03/10/19 04:26 ABG pO2 73 mmHg (85-104) L D 03/09/19 22:41 ABG HCO3 28 mEq/L (21-27) H 03/10/19 04:26 ABG Total CO2 30 mEq/L (20-26) H 03/10/19 04:26 ABG O2 Saturation 90 % (95-98) L 03/09/19 22:41 Sodium 135 mEq/L (136-145) L 03/09/19 01:14 Creatinine 0.68 mg/dL (0.70-1.30) L 03/10/19 01:01 BUN/Creatinine Ratio 31 (6-26) H 03/10/19 01:01 Glucose 172 mg/dL (70-105) H 03/10/19 01:01 POC Glucose 145 mg/dL (70-99) H 03/09/19 14:06 Phosphorus 2.3 mg/dL (2.7-4.5) L 03/10/19 01:01 AST 10 Units/L (13-39) L 03/10/19 01:01 Alkaline Phosphatase 110 Units/L (34-104) H 03/10/19 01:01 Albumin 3.0 g/dL (3.5-5.7) L 03/10/19 01:01 Globulin 4.0 g/dL (2.4-3.5) H 03/10/19 01:01 Albumin/Globulin Ratio 0.8 (1.1-2.2) L 03/10/19 01:01 - Microbiology Findings Microbiology Findings: Microbiology, Last 48 Hours 03/09/19 01:29 Respiratory Culture - Preliminary Other-Specify in Comments 03/08/19 22:26 Blood Culture - Preliminary Peripheral Venipuncture Culture is incubating and being continuously monitored for growth. Final report to follow. 03/08/19 22:31 Blood Culture - Preliminary Peripheral Venipuncture Culture is incubating and being continuously monitored for growth. Final report to follow. - Clinical Findings Intake & Output: Intake & Output 03/09/19 03/10/19 03/10/19 23:59 07:59 15:59 Intake Total 107.8 / 5277.8 400 / 400 Output Total 125 / 1485 200 / 200 Balance -17.2 / 3792.8 200 / 200 Weight 115.4 kg - Attending Attestation I examined this patient and my medical decision-making was reviewed with the Resident Physician. I agree with the documented findings, disposition and treatment plan as described except to the extent set forth below. Patient seen and examined. Labs, radiology, chart personally reviewed. Agree with resident's history and physical, assessment, plan with following comments: [employer]: Patient follows commands, however he is somewhat lethargic. Pulmonary: Acceptable oxygenation and ventilation and changed vent setting and try to wean off and changed to pressure support. Patient has tracheostomy am not clear exactly the history and we will try to get more information. I am not able to get any history from the patient if he was independent or he was on trach mask. I am hoping she will tolerate weaning called from the ventilator Reviewed his ABG as well as his chest x-ray. We will continue working with patient to wean him off and if he does tolerate that then we will transfer him to [facility]. Cardiovascular: stable and patient has history of heart failure, but it is unknown to me if it is acute or chronic or systolic or diastolic failure will order limited echo. GI: Nutrition per dietary and GI prophylaxis per routine Heme: DVT prophylaxis per routine ID: Continue antibiotics and plan to de-escalation Renal; urine out put and renal function reviewed Endorcine: blood glucose is monitored Lines: all lines checked and no evidence of infections Skin: skin care to prevent pressure ulcers per nursing routine care Dispo: transfer to 2 Code: Full. Prognosis: Guarded. I spent 32 min of Critical Care time with this patient. It involved decision making of high complexity to assess, manipulate, and support vital organ system failure and/or to prevent further life threatening deterioration of the patient's condition. The time involved in the performance of separately repor table procedures was not counted toward critical care time.
[2019-03-10] MEDS ORDERED: Pantoprazole 40 MG VIAL IVP SCH (09:00)
[2019-03-10] MEDS: Aspirin Enteric Coated 81 MG Tablet PO SCH ×2 (09:35→12:33)
[2019-03-10] MEDS: Cefepime HCl 2,000 MG in Water for inj. (sterile) 20 ML IVP SCH ×3 (09:35→23:46)
[2019-03-10] MEDS: Chlorhexidine Rinse 15 ML MOUTHWASH MM SCH ×2 (09:35→21:18)
[2019-03-10] MEDS: Lactobacillus 1 EACH CAP.SPRINK PO SCH ×3 (09:51→21:18)
[2019-03-10] MEDS: acetaZOLAMIDE 250 MG TABLET PO SCH ×2 (09:51→12:32)
[2019-03-10] MEDS: Tobramycin for INHALATION 300 MG/5 ML AMPUL IH SCH ×2 (09:51→20:58)
[2019-03-10] MEDS: Gabapentin 400 MG CAPSULE PO SCH ×3 (09:52→21:19)
[2019-03-10] MEDS: GuaiFENesin Liq 200 MG/10 ML UDC PO SCH ×4 (09:52→21:18)
[2019-03-10] MEDS ORDERED: Perflutren Lipid Microsphere 1.3 ML in 0.9 % Sodium Chloride 8.7 ML IVP ONE (15:02)
[2019-03-10] MEDS ORDERED: MOM Conc 10 ML UD.LIQ PO PRN (15:06)
[2019-03-10] MEDS ORDERED: Artificial Tears SOLN 15 ML BOTTLE BOTH EYES PRN (15:06)
[2019-03-10] MEDS ORDERED: Ondansetron 4 MG/2 ML VIAL IVP PRN (15:06)
[2019-03-10] MEDS ORDERED: Artificial Tears SOLN 15 ML BOTTLE OP PRN (15:06)
[2019-03-10] MEDS ORDERED: Acetaminophen 325 MG TABLET PO PRN (15:06)
[2019-03-10] MEDS ORDERED: Naloxone 0.4 MG/ML INJ IVP PRN (15:06)
[2019-03-10] MEDS ORDERED: Albuterol 2.5 MG/3 ML NEBULIZER IH PRN (15:06)
[2019-03-10] MEDS: *HR* HYDROcodone/Acet 5/325 mg TABLET PO PRN (18:09)
[2019-03-11] MEDS: Dexmedetomidine HCl 400 MCG/100 ML MLS IVC SCH ×2 (00:51→08:31)
[2019-03-11] MEDS: Ipratropium/Albuterol Neb 3 ML IH SCH ×5 (04:05→20:23)
[2019-03-11] MEDS: Acetylcysteine 10% 2 ML INHSOL IH SCH ×5 (04:05→20:25)
[2019-03-11 04:50] LABS: Hematocrit 37.7 % (37.5-50.1); Hemoglobin 10.6 g/dL (12.9-16.9); Mean Corpuscular HGB Conc 28.1 g/dL (31.6-35.5); Mean Corpuscular Volume 85.5 fL (83.0-100.0); Mean Platelet Volume 9.3 fL (9.4-12.4); Platelet Count 346 K/mcL (140-400); Red Blood Count 4.41 M/mcL (4.19-5.50); Red Cell Distribution Width 19.2 % (11.5-14.5); White Blood Count 14.4 K/mcL (4.3-11.1)
[2019-03-11 05:07] LABS: ABG Base Excess 2 mEq/L (-2 to 3); ABG HCO3 29 mEq/L (21-27); ABG Oxygen Saturation 98 % (95-98); ABG PCO2 53 mmHg (35-45); ABG PH 7.34 pH Units (7.32-7.45); ABG PO2 112 mmHg (85-104); ABG TCO2 30 mEq/L (20-26); Blood Gas Modality ASSIST CONTROL; Blood Gas PEEP 8 cm H2O; Blood Gas VT 550 cc
[2019-03-11] MEDS: *HR* Heparin 5,000 UNIT/ML VIAL SQ SCH ×3 (05:07→21:02)
[2019-03-11 05:08] LABS: Alanine Aminotransferase 12 Units/L (7-52); Albumin 2.9 g/dL (3.5-5.7); Albumin/Globulin Ratio 0.8 (1.1-2.2); Alkaline Phosphatase 94 Units/L (34-104); Aspartate Amino Transferase 7 Units/L (13-39); BUN/Creatinine Ratio 31 (6-26); Bilirubin,Total 0.3 mg/dL (0.3-1.0); Blood Urea Nitrogen 22 mg/dL (8-23); Calcium 8.8 mg/dL (8.6-10.3); Carbon Dioxide 27 mEq/L (23-29); Chloride 107 mEq/L (98-107); Globulin 3.8 g/dL (2.4-3.5); Glucose 198 mg/dL (70-105); Magnesium 2.3 mg/dL (1.6-2.6); Osmolality,Calculated 301 (280-300); Phosphorous 1.8 mg/dL (2.7-4.5); Sodium 141 mEq/L (136-145); Total Protein 6.7 g/dL (6.4-8.9); eGFR For African Americans > 60 (> 60); eGFR For Non-African Americans > 60 (> 60)
[2019-03-11] MEDS: methylPREDNISolone 125 MG/2 ML VIAL IVP SCH ×2 (05:08→17:35)
[2019-03-11] MEDS ORDERED: Potassium Phosphate 44 MEQ in 0.9 % Sodium Chloride 250 ML IVPB ONE (06:08)
--- NOTE | 2019-03-11 07:29 | Pulmonology Progress Note ---
<Armida Yepez R - Last Filed: 03/11/19 08:19> Date of Encounter: 03/11/19 Time of Encounter: 07:28 Assessment and Plan (1) Pneumonia Current Visit: Yes Status: Acute At this time the patient has no definitive bacterial growth but does have a history of pseudomonas grow from his trachea therefore we will cover for this Continue with cefepime and Levaquin day 4, Vanc and Tobramycin day 3 We will attempt to decrease the amount of fluid intake with antibiotics as the patient does appear to be fluid overloaded causing his respiratory depression Lasix IV given Ventilator support with frequent suctioning in ICU - pt now tolerating CPAP w ithout desats CT chest shows bilateral lower lobe atelectasis vs PNA Qualifiers: Pneumonia type: due to unspecified organism Laterality: right Lung location: lower lobe of lung Qualified Code(s): J18.1 - Lobar pneumonia, unspecified organism (2) Sepsis Current Visit: Yes Status: Acute Likely secondary to PNA as above Pt received 30 ml/kg bolus Likely has fluid overload IV Lasix with improvement of urinary output - 525mL yesterday Treatment as above Qualifiers: Sepsis type: sepsis due to unspecified organism Qualified Code(s): A41.9 - Sepsis, unspecified organism (3) Acute and chronic respiratory failure with hypoxia Current Visit: Yes Status: Acute Likely secondary to PNA and edema as above (4) CHF (congestive heart failure) Current Visit: Yes Status: Acute Pt with volume overloaded status Echo performed yesterday shows EF of 60% but unable to evaluate segmental wall motion due to quality of study Continue diuresis as above Qualifiers: Heart failure type: unspecified Heart failure chronicity: acute Qualified Code(s): I50.9 - Heart failure, unspecified (5) Hypertension Current Visit: Yes Status: Chronic BP stable continue to monitor Continue home meds Qualifiers: Hypertension type: essential hypertension Qualified Code(s): I10 - Essential (primary) hypertension (6) COPD (chronic obstructive pulmonary disease) Current Visit: No Status: Acute Continue Duonebs q4H, Symbicort and Solu-medrol Tobramycin Qualifiers: COPD type: unspecified COPD Qualified Code(s): J44.9 - Chronic obstructive pulmonary disease, unspecified (7) Tracheostomy present Current Visit: Yes Status: Acute 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 He continues to tolerate CPAP on his trach and is in NAD. He has no pain or requests at this time. We will attempt to convert his CPAP to a trach mask today while he is in the ICU. Objective PUL Vital signs: Last Vital Signs Temp 98.0 F 03/11/19 03:53 Pulse 71 03/11/19 06:00 Resp 22 03/11/19 06:00 BP 103/61 03/11/19 06:00 Pulse Ox 95 03/11/19 06:00 General appearance: no acute distress, alert Eyes: nonicteric ENT: oropharynx moist Effort: normal Auscultation: bilateral: diminished breath sounds Cardiovascular: regular rate and rhythm Gastrointestinal: non-tender, non-distended Integumentary: normal Extremities: other (left foot with edema) non-focal exam, pupils equal and round mood appropriate Ventilator Settings Ventilator Settings: Ventilator Settings, Last 8 Hours Ventilator Tidal Volume 550 Setting Ventilator Tidal Volume 550 Setting Ventilator Tidal Volume 550 Setting Ventilator Tidal Volume 550 Setting Ventilator Tidal Volume 550 Setting Ventilator Tidal Volume 550 Setting Ventilator Tidal Volume 550 Setting Ventilator Tidal Volume 550 Setting Ventilator Tidal Volume 550 Setting Ventilator Respiratory Rate 22 Setting Ventilator Respiratory Rate 22 Setting Ventilator Respiratory Rate 22 Setting Ventilator Respiratory Rate 22 Setting Ventilator Respiratory Rate 22 Setting Ventilator Respiratory Rate 22 Setting Ventilator Respiratory Rate 22 Setting Ventilator Respiratory Rate 22 Setting Ventilator Respiratory Rate 22 Setting Actual Respiratory Rate 22 Actual Respiratory Rate 29 Actual Respiratory Rate 22 Actual Respiratory Rate 27 Actual Respiratory Rate 22 Actual Respiratory Rate 22 Actual Respiratory Rate 22 Positive End Expiratory 8 Pressure Positive End Expiratory 8 Pressure Positive End Expiratory 8 Pressure Positive End Expiratory 8 Pressure Positive End Expiratory 8 Pressure Positive End Expiratory 8 Pressure Positive End Expiratory 8 Pressure Positive End Expiratory 8 Pressure Positive End Expiratory 8 Pressure Peak Inspiratory Airway 35 Pressure Peak Inspiratory Airway 27 Pressure Peak Inspiratory Airway 34 Pressure Peak Inspiratory Airway 36 Pressure Peak Inspiratory Airway 33 Pressure Peak Inspiratory Airway 21 Pressure Peak Inspiratory Airway 38 Pressure Results - Laboratory Findings CBC and BMP: 03/11/19 04:29 03/11/19 04:29 ABG ABG pH 7.34 pH Units (7.32-7.45) 03/11/19 05:05 ABG pCO2 53 mmHg (35-45) H 03/11/19 05:05 ABG pO2 112 mmHg (85-104) H 03/11/19 05:05 ABG O2 Saturation 98 % (95-98) 03/11/19 05:05 PT/INR, D-dimer PT 15.2 Seconds (9.4-12.1) H 03/09/19 01:14 Abnormal lab findings: Abnormal lab results WBC 14.4 K/mcL (4.3-11.1) H 03/11/19 04:29 Hgb 10.6 g/dL (12.9-16.9) L 03/11/19 04:29 MCH 24.0 pg (28.0-33.3) L 03/11/19 04:29 MCHC 28.1 g/dL (31.6-35.5) L 03/11/19 04:29 RDW 19.2 % (11.5-14.5) H 03/11/19 04:29 MPV 9.3 fL (9.4-12.4) L 03/11/19 04:29 Neutrophils # 25.7 K/mcL (1.6-8.9) H 03/09/19 01:14 Nucleated RBCs/100 WBC 0.1 /100 WBC (0) H 03/09/19 01:14 Hypersegmented Neuts Present (Not Present) A 03/08/19 21:22 Reactive Lymphocytes Present (Not Present) A 03/09/19 01:14 Toxic Granulation Present (Not Present) A 03/09/19 01:14 Large Platelets Present (Not Present) A 03/08/19 21:22 Hypochromasia Present (Not Present) A 03/09/19 01:14 Anisocytosis 1+ (Not Present) A 03/09/19 01:14 PT 15.2 Seconds (9.4-12.1) H 03/09/19 01:14 ABG pH 7.29 pH Units (7.32-7.45) L 03/10/19 04:26 ABG pCO2 53 mmHg (35-45) H 03/11/19 05:05 ABG pO2 112 mmHg (85-104) H 03/11/19 05:05 ABG HCO3 29 mEq/L (21-27) H 03/11/19 05:05 ABG Total CO2 30 mEq/L (20-26) H 03/11/19 05:05 ABG O2 Saturation 90 % (95-98) L 03/09/19 22:41 Sodium 135 mEq/L (136-145) L 03/09/19 01:14 Creatinine 0.68 mg/dL (0.70-1.30) L 03/10/19 01:01 BUN/Creatinine Ratio 31 (6-26) H 03/11/19 04:29 Glucose 198 mg/dL (70-105) H 03/11/19 04:29 POC Glucose 145 mg/dL (70-99) H 03/09/19 14:06 Calculated Osmolality 301 (280-300) H 03/11/19 04:29 Phosphorus 1.8 mg/dL (2.7-4.5) L 03/11/19 04:29 AST 7 Units/L (13-39) L 03/11/19 04:29 Alkaline Phosphatase 110 Units/L (34-104) H 03/10/19 01:01 Albumin 2.9 g/dL (3.5-5.7) L 03/11/19 04:29 Globulin 3.8 g/dL (2.4-3.5) H 03/11/19 04:29 Albumin/Globulin Ratio 0.8 (1.1-2.2) L 03/11/19 04:29 Vancomycin Trough 11 mcg/mL (5-10) H 03/10/19 11:07 - Microbiology Findings Microbiology Findings: Microbiology, Last 48 Hours 03/09/19 01:29 Respiratory Culture - Preliminary Other-Specify in Comments - Clinical Findings Intake & Output: Intake & Output 03/10/19 03/10/19 03/11/19 15:59 23:59 07:59 Intake Total 270 / 1112.2 442.2 / 1112.2 250 / 250 Output Total 200 / 575 125 / 575 325 / 325 Balance 70 / 537.2 317.2 / 537.2 -75 / -75 Weight 116 kg Consult Discharge Plan - Plan Referrals: NONE,PCP [Primary Care Provider] - (Patient is from [facility] no PCP appointment is needed) <Talia Rayo - Last Filed: 03/14/19 06:33> Date of Encounter: 03/11/19 Objective PUL Vital signs: Last Vital Signs Temp 98.6 F 03/11/19 08:00 Pulse 87 03/11/19 08:00 Resp 17 03/11/19 08:00 BP 128/71 03/11/19 08:00 Pulse Ox 99 03/11/19 08:00 Ventilator Settings Ventilator Settings: Ventilator Settings, Last 8 Hours Ventilator Tidal Volume 550 Setting Ventilator Tidal Volume 550 Setting Ventilator Tidal Volume 550 Setting Ventilator Tidal Volume 550 Setting Ventilator Tidal Volume 550 Setting Ventilator Tidal Volume 550 Setting Ventilator Tidal Volume 550 Setting Ventilator Respiratory Rate 22 Setting Ventilator Respiratory Rate 22 Setting Ventilator Respiratory Rate 22 Setting Ventilator Respiratory Rate 22 Setting Ventilator Respiratory Rate 22 Setting Ventilator Respiratory Rate 22 Setting Ventilator Respiratory Rate 22 Setting Actual Respiratory Rate 18 Actual Respiratory Rate 22 Actual Respiratory Rate 29 Actual Respiratory Rate 22 Actual Respiratory Rate 27 Actual Respiratory Rate 22 Actual Respiratory Rate 22 Positive End Expiratory 8 Pressure Positive End Expiratory 8 Pressure Positive End Expiratory 8 Pressure Positive End Expiratory 8 Pressure Positive End Expiratory 8 Pressure Positive End Expiratory 8 Pressure Positive End Expiratory 8 Pressure Positive End Expiratory 8 Pressure Peak Inspiratory Airway 14 Pressure Peak Inspiratory Airway 35 Pressure Peak Inspiratory Airway 27 Pressure Peak Inspiratory Airway 34 Pressure Peak Inspiratory Airway 36 Pressure Peak Inspiratory Airway 33 Pressure Peak Inspiratory Airway 21 Pressure Results - Laboratory Findings CBC and BMP: 03/13/19 02:37 03/13/19 02:37 ABG ABG pH 7.34 pH Units (7.32-7.45) 03/11/19 05:05 ABG pCO2 53 mmHg (35-45) H 03/11/19 05:05 ABG pO2 112 mmHg (85-104) H 03/11/19 05:05 ABG O2 Saturation 98 % (95-98) 03/11/19 05:05 PT/INR, D-dimer PT 15.2 Seconds (9.4-12.1) H 03/09/19 01:14 Abnormal lab findings: Abnormal lab results WBC 14.4 K/mcL (4.3-11.1) H 03/11/19 04:29 Hgb 10.6 g/dL (12.9-16.9) L 03/11/19 04:29 MCH 24.0 pg (28.0-33.3) L 03/11/19 04:29 MCHC 28.1 g/dL (31.6-35.5) L 03/11/19 04:29 RDW 19.2 % (11.5-14.5) H 03/11/19 04:29 MPV 9.3 fL (9.4-12.4) L 03/11/19 04:29 Neutrophils # 25.7 K/mcL (1.6-8.9) H 03/09/19 01:14 Nucleated RBCs/100 WBC 0.1 /100 WBC (0) H 03/09/19 01:14 Hypersegmented Neuts Present (Not Present) A 03/08/19 21:22 Reactive Lymphocytes Present (Not Present) A 03/09/19 01:14 Toxic Granulation Present (Not Present) A 03/09/19 01:14 Large Platelets Present (Not Present) A 03/08/19 21:22 Hypochromasia Present (Not Present) A 03/09/19 01:14 Anisocytosis 1+ (Not Present) A 03/09/19 01:14 PT 15.2 Seconds (9.4-12.1) H 03/09/19 01:14 ABG pH 7.29 pH Units (7.32-7.45) L 03/10/19 04:26 ABG pCO2 53 mmHg (35-45) H 03/11/19 05:05 ABG pO2 112 mmHg (85-104) H 03/11/19 05:05 ABG HCO3 29 mEq/L (21-27) H 03/11/19 05:05 ABG Total CO2 30 mEq/L (20-26) H 03/11/19 05:05 ABG O2 Saturation 90 % (95-98) L 03/09/19 22:41 Sodium 135 mEq/L (136-145) L 03/09/19 01:14 Creatinine 0.68 mg/dL (0.70-1.30) L 03/10/19 01:01 BUN/Creatinine Ratio 31 (6-26) H 03/11/19 04:29 Glucose 198 mg/dL (70-105) H 03/11/19 04:29 POC Glucose 145 mg/dL (70-99) H 03/09/19 14:06 Calculated Osmolality 301 (280-300) H 03/11/19 04:29 Phosphorus 1.8 mg/dL (2.7-4.5) L 03/11/19 04:29 AST 7 Units/L (13-39) L 03/11/19 04:29 Alkaline Phosphatase 110 Units/L (34-104) H 03/10/19 01:01 Albumin 2.9 g/dL (3.5-5.7) L 03/11/19 04:29 Globulin 3.8 g/dL (2.4-3.5) H 03/11/19 04:29 Albumin/Globulin Ratio 0.8 (1.1-2.2) L 03/11/19 04:29 Vancomycin Trough 11 mcg/mL (5-10) H 03/10/19 11:07 - Microbiology Findings Microbiology Findings: Microbiology, Last 48 Hours 03/09/19 01:29 Respiratory Culture - Preliminary Other-Specify in Comments - Clinical Findings Intake & Output: Intake & Output 03/10/19 03/11/19 03/11/19 23:59 07:59 15:59 Intake Total 442.2 / 1112.2 250 / 250 Output Total 125 / 575 325 / 325 0 / 325 Balance 317.2 / 537.2 -75 / -75 0 / -75 Weight 116 kg - Attending Attestation I examined this patient and my medical decision-making was reviewed with the Resident Physician. I agree with the documented findings, disposition and treatment plan as described except to the extent set forth below. Patient seen and examined. Labs, radiology, chart personally reviewed. Agree with resident's history and physical, assessment, plan with following comments: CRUSHER SETTER: Patient follows commands, Pulmonary: Acceptable oxygenation and ventilation and we will try to wean off his pressure support and hoping he will tolerate trach mask. Still waiting for a bed to be transferred to [facility]. Patient with chronic respiratory failure. If patient tolerates trach mask that would be great if not then continue pressure support/full support from the vent. Continue pulmonary toilet. Will follow-up when necessary if patient transfer to [facility]. Please call for any questions. Cardiovascular: stable GI: Nutrition per dietary and GI prophylaxis per routine Heme: DVT prophylaxis per routine ID: Continue antibiotics and plan to de-escalation Renal; urine out put and renal function reviewed Endorcine: blood glucose is monitored Lines: all lines checked and no evidence of infections Skin: skin care to prevent pressure ulcers per nursing routine care Dispo: Waiting for bed to be transferred to [facility]. Code: Full. Prognosis. Fair
[2019-03-11] MEDS: Tobramycin for INHALATION 300 MG/5 ML AMPUL IH SCH ×2 (07:34→20:23)
[2019-03-11] MEDS: Budesonide/Formoterol 160/4.5 1 PUFF INH IH SCH ×2 (07:44→20:20)
[2019-03-11] MEDS: Artificial Tears SOLN 15 ML BOTTLE BOTH EYES SCH ×4 (08:31→21:22)
[2019-03-11] MEDS: Cefepime HCl 2,000 MG in Water for inj. (sterile) 20 ML IVP SCH ×2 (08:38→16:23)
[2019-03-11] MEDS: GuaiFENesin Liq 200 MG/10 ML UDC PO SCH ×4 (08:38→21:03)
[2019-03-11] MEDS: Chlorhexidine Rinse 15 ML MOUTHWASH MM SCH ×2 (08:38→21:02)
[2019-03-11] MEDS: acetaZOLAMIDE 250 MG TABLET PO SCH (08:39)
[2019-03-11] MEDS: Lactobacillus 1 EACH CAP.SPRINK PO SCH ×2 (08:39→21:03)
[2019-03-11] MEDS: Gabapentin 400 MG CAPSULE PO SCH ×2 (08:39→21:02)
[2019-03-11] MEDS: Aspirin Enteric Coated 81 MG Tablet PO SCH (08:39)
[2019-03-11] MEDS ORDERED: Pantoprazole 40 MG VIAL IVP SCH (09:00)
[2019-03-11] MEDS: *HR* HYDROcodone/Acet 5/325 mg TABLET PO PRN ×3 (10:31→21:03)
[2019-03-11] MEDS ORDERED: D5% in Water 1,000 ML IVC PRN (10:32)
[2019-03-11] MEDS ORDERED: Dextrose Gel 15 GM/37.5 ML TUBE PO PRN ×2 (10:32)
[2019-03-11] MEDS ORDERED: *HR* Dextrose 50 % in Water (Syg) 50 ML SYRINGE IVP PRN (10:32)
[2019-03-11] MEDS ORDERED: Insulin LISPRO 300 UNITS/3 ML VIAL SQ SCH (11:30)
[2019-03-11] MEDS: Insulin LISPRO 300 UNITS/3 ML VIAL SQ SCH ×2 (16:24→21:21)
--- NOTE | 2019-03-11 23:07 | Electrocardiograph Report ---
[facility] Test Date: 2019-03-08 Pat Name: Casey Barry Department: EXAM4 Room: 2N03 Gender: M Strategic Planning Specialist: : [id number] Requested By: [id number] Order Number: [id number] Reading MD: Alexey Rasmussen Measurements Intervals [place] Rate: 103 P: 74 NH: 183 QRS: 76 QRSD: 94 T: 71 QT: 325 QTc: 426 Interpretive Statements Sinus tachycardia Supraventricular bigeminy Electronically Signed On 03-11-2019 23:05:45 EDT by Alexey Rasmussen
[2019-03-12] MEDS: Acetylcysteine 10% 2 ML INHSOL IH SCH ×6 (00:13→19:41)
[2019-03-12] MEDS: Ipratropium/Albuterol Neb 3 ML IH SCH ×6 (00:13→19:40)
[2019-03-12] MEDS: Cefepime HCl 2,000 MG in Water for inj. (sterile) 20 ML IVP SCH ×4 (00:15→23:46)
[2019-03-12] MEDS: Artificial Tears SOLN 15 ML BOTTLE BOTH EYES SCH ×7 (00:16→23:44)
[2019-03-12] MEDS: methylPREDNISolone 125 MG/2 ML VIAL IVP SCH ×2 (05:04→16:50)
[2019-03-12] MEDS: *HR* Heparin 5,000 UNIT/ML VIAL SQ SCH ×3 (05:04→20:38)
[2019-03-12 05:26] LABS: Hemoglobin 10.5 g/dL (12.9-16.9); Red Blood Count 4.38 M/mcL (4.19-5.50)
[2019-03-12 05:27] LABS: Mean Corpuscular HGB Conc 27.6 g/dL (31.6-35.5); Mean Corpuscular Volume 86.8 fL (83.0-100.0); Mean Platelet Volume 10.3 fL (9.4-12.4); Platelet Count 378 K/mcL (140-400); Red Cell Distribution Width 19.5 % (11.5-14.5); White Blood Count 15.2 K/mcL (4.3-11.1)
[2019-03-12 05:50] LABS: Alanine Aminotransferase 12 Units/L (7-52); Albumin 2.9 g/dL (3.5-5.7); Albumin/Globulin Ratio 0.8 (1.1-2.2); Alkaline Phosphatase 99 Units/L (34-104); Aspartate Amino Transferase 14 Units/L (13-39); BUN/Creatinine Ratio 31 (6-26); Bilirubin,Total 0.3 mg/dL (0.3-1.0); Blood Urea Nitrogen 22 mg/dL (8-23); Calcium 8.6 mg/dL (8.6-10.3); Carbon Dioxide 26 mEq/L (23-29); Chloride 108 mEq/L (98-107); Globulin 3.6 g/dL (2.4-3.5); Glucose 272 mg/dL (70-105); Magnesium 2.4 mg/dL (1.6-2.6); Osmolality,Calculated 303 (280-300); Phosphorous 2.1 mg/dL (2.7-4.5); Potassium 4.8 mEq/L (3.5-5.1); Sodium 140 mEq/L (136-145); Total Protein 6.5 g/dL (6.4-8.9); eGFR For African Americans > 60 (> 60); eGFR For Non-African Americans > 60 (> 60)
[2019-03-12] MEDS: Budesonide/Formoterol 160/4.5 1 PUFF INH IH SCH ×2 (07:17→19:40)
[2019-03-12] MEDS: Gabapentin 400 MG CAPSULE PO SCH ×2 (08:58→20:37)
[2019-03-12] MEDS: GuaiFENesin Liq 200 MG/10 ML UDC PO SCH ×4 (08:58→20:37)
[2019-03-12] MEDS: Chlorhexidine Rinse 15 ML MOUTHWASH MM SCH ×2 (08:58→20:37)
[2019-03-12] MEDS: acetaZOLAMIDE 250 MG TABLET PO SCH (08:58)
[2019-03-12] MEDS: Lactobacillus 1 EACH CAP.SPRINK PO SCH ×3 (08:58→20:38)
[2019-03-12] MEDS: Aspirin Enteric Coated 81 MG Tablet PO SCH (08:58)
[2019-03-12] MEDS: Insulin LISPRO 300 UNITS/3 ML VIAL SQ SCH ×4 (08:59→20:46)
[2019-03-12] MEDS: *HR* HYDROcodone/Acet 5/325 mg TABLET PO PRN ×2 (09:23→20:36)
[2019-03-12] MEDS: Tobramycin for INHALATION 300 MG/5 ML AMPUL IH SCH ×2 (11:16→19:41)
--- NOTE | 2019-03-12 18:42 | Internal Med Progress Note ---
Hospitalist Progress Note - Encounter Date of Encounter: 03/12/19 Time of Encounter: 07:45 - Subjective Interval History: Patient was transferred from the ICU to . Night was uneventful. Patient states he is doing much better compared to admission. He currently has no complaints - Exam Vitals: Temp Pulse Resp BP Pulse Ox 98.0 F 70 18 141/81 100 03/12/19 16:14 03/12/19 16:14 03/12/19 16:14 03/12/19 16:14 03/12/19 16:14 Exam: GENERAL: Not in distress. Alert and Oriented HEENT: EOM, PERRLA MOUTH: Good oral hygiene NECK:No JVD, No lymph nodes. CHEST AND LUNGS: Traheostomy in place and capped so patient can talk normally. He occasionally stops and catches his breath while talking. No crackles or wheezing on auscultation HEART: S1 and S2 normal, no murmurs ABDOMEN: Soft, nontender, no organomegaly SKIN: Normal color, no rahses, no lesions EXTREMITIES: No deformity, no edema, no tenderness, no joint swelling or clubbing NEUROLOGICAL: Normal cognition, normal motor and sensory exam. - Assessment and Plan (1) Sepsis Current Visit: Yes Status: Acute (2) DVT prophylaxis Current Visit: Yes Status: Acute (3) Hypertension Current Visit: Yes Status: Chronic (4) Pseudomonas pneumonia Current Visit: Yes Status: Acute DVT Prophylaxis: Heparin - Summary of Assessment and Plan Summary of Assessment and Plan: Pt is a 63 yo male with a hx of COPD and Chronic Trach 2/2 Laryngeal Cancer who presented with fever,SOB, cough and purulent sputum from trach and was admitted to the ICU for care on account of hypoxic respiratory failure. He has been receiving treatment for pseudomonas pneumonia and sepsis and is curently doing better.Initially required intubation but now tolerates noninvasive ventilation. He has been transferred to the regular nursing floor. 1. Pseudomonas Pneumonia * pseudmonas growth from trachea * On Cefepime and Levaquin day 5 and Tobramycin day 4 * No growth on blood cultures * CT: Bilateral atelectasis versus pneumonia * Continue antibiotics 2. Congestive heart failure * Patient has preserved ejection fraction of 60% * Wall motion on echo not fully evaluated due to body habitus * Continue diuresis 3. COPD * Continue breathing treatments 4. Hypertension * BP currently stable * Tinea elements - Time Spent with Patient Total time spent is greater than 50% in coordination of care (as documented) at patient's floor/unit and/or counseling patient: 25 - 35 minutes Plan of Care Discussed with: patient Internal Medicine: Result - Labs CBC & Chem 7: 03/12/19 03:27 03/12/19 03:27 Labs: Short CBC 03/12/19 Range/Units 03:27 WBC 15.2 H (4.3-11.1) K/mcL Hgb 10.5 L (12.9-16.9) g/dL Hct 38.0 (37.5-50.1) % Plt Count 378 (140-400) K/mcL BMP 03/12/19 03:27 Sodium 140 Potassium 4.8 Chloride 108 H Carbon Dioxide 26 BUN 22 Creatinine 0.70 Glucose 272 H Calcium 8.6 Liver Function 03/12/19 Range/Units 03:27 Total Bilirubin 0.3 (0.3-1.0) mg/dL AST 14 (13-39) Units/L ALT 12 (7-52) Units/L Alkaline Phosphatase 99 (34-104) Units/L Albumin 2.9 L (3.5-5.7) g/dL - ABG Interpretation ABG results: ABG ABG pH 7.34 pH Units (7.32-7.45) 03/11/19 05:05 ABG pCO2 53 mmHg (35-45) H 03/11/19 05:05 ABG pO2 112 mmHg (85-104) H 03/11/19 05:05 ABG O2 Saturation 98 % (95-98) 03/11/19 05:05 PT/INR, D-dimer PT 15.2 Seconds (9.4-12.1) H 03/09/19 01:14 Consult Discharge Plan - Plan Referrals: NONE,PCP [Primary Care Provider] - (1) Sepsis Qualifiers: Sepsis type: Pseudomonas Qualified Code(s): A41.52 - Sepsis due to P seudomonas (3) Hypertension Qualifiers: Hypertension type: essential hypertension Qualified Code(s): I10 - Essential (primary) hypertension (4) Pseudomonas pneumonia Qualifiers: Laterality: right Lung location: lower lobe of lung Qualified Code(s): J15.1 - Pneumonia due to Pseudomonas
[2019-03-13] MEDS: Acetylcysteine 10% 2 ML INHSOL IH SCH ×7 (00:02→23:22)
[2019-03-13] MEDS: Ipratropium/Albuterol Neb 3 ML IH SCH ×7 (00:02→23:22)
[2019-03-13 03:48] LABS: Red Blood Count 4.54 M/mcL (4.19-5.50)
[2019-03-13 03:49] LABS: Hematocrit 38.7 % (37.5-50.1); Hemoglobin 10.8 g/dL (12.9-16.9); Mean Corpuscular HGB Conc 27.9 g/dL (31.6-35.5); Mean Corpuscular Hemoglobin 23.8 pg (28.0-33.3); Mean Corpuscular Volume 85.2 fL (83.0-100.0); Mean Platelet Volume 10.3 fL (9.4-12.4); Platelet Count 371 K/mcL (140-400); Red Cell Distribution Width 19.8 % (11.5-14.5); White Blood Count 16.6 K/mcL (4.3-11.1)
[2019-03-13 04:00] LABS: Alanine Aminotransferase 15 Units/L (7-52); Albumin 2.8 g/dL (3.5-5.7); Albumin/Globulin Ratio 0.8 (1.1-2.2); Alkaline Phosphatase 172 Units/L (34-104); Aspartate Amino Transferase 15 Units/L (13-39); BUN/Creatinine Ratio 28 (6-26); Bilirubin,Total 0.3 mg/dL (0.3-1.0); Blood Urea Nitrogen 20 mg/dL (8-23); Calcium 8.8 mg/dL (8.6-10.3); Carbon Dioxide 29 mEq/L (23-29); Chloride 104 mEq/L (98-107); Globulin 3.6 g/dL (2.4-3.5); Glucose 309 mg/dL (70-105); Magnesium 2.5 mg/dL (1.6-2.6); Osmolality,Calculated 304 (280-300); Phosphorous 1.7 mg/dL (2.7-4.5); Potassium 5.2 mEq/L (3.5-5.1); Sodium 140 mEq/L (136-145); Total Protein 6.4 g/dL (6.4-8.9); eGFR For African Americans > 60 (> 60); eGFR For Non-African Americans > 60 (> 60)
[2019-03-13] MEDS: Artificial Tears SOLN 15 ML BOTTLE BOTH EYES SCH ×6 (05:40→23:12)
[2019-03-13] MEDS: *HR* Heparin 5,000 UNIT/ML VIAL SQ SCH ×3 (06:55→20:29)
[2019-03-13] MEDS: methylPREDNISolone 125 MG/2 ML VIAL IVP SCH ×2 (06:55→17:21)
[2019-03-13] MEDS: Budesonide/Formoterol 160/4.5 1 PUFF INH IH SCH ×2 (07:24→22:08)
[2019-03-13] MEDS: Cefepime HCl 2,000 MG in Water for inj. (sterile) 20 ML IVP SCH ×3 (08:29→23:11)
[2019-03-13] MEDS: GuaiFENesin Liq 200 MG/10 ML UDC PO SCH ×4 (08:30→20:29)
[2019-03-13] MEDS: Chlorhexidine Rinse 15 ML MOUTHWASH MM SCH ×3 (08:30→20:39)
[2019-03-13] MEDS: Aspirin Enteric Coated 81 MG Tablet PO SCH (08:30)
[2019-03-13] MEDS: acetaZOLAMIDE 250 MG TABLET PO SCH (08:31)
[2019-03-13] MEDS: *HR* HYDROcodone/Acet 5/325 mg TABLET PO PRN ×2 (08:31→20:30)
[2019-03-13] MEDS: Gabapentin 400 MG CAPSULE PO SCH ×2 (08:31→20:30)
[2019-03-13] MEDS: Insulin LISPRO 300 UNITS/3 ML VIAL SQ SCH ×4 (08:32→20:31)
[2019-03-13] MEDS: Tobramycin for INHALATION 300 MG/5 ML AMPUL IH SCH ×2 (11:17→22:09)
--- NOTE | 2019-03-13 17:37 | Internal Med Progress Note ---
Hospitalist Progress Note - Encounter Date of Encounter: 03/13/19 Time of Encounter: 08:50 - Subjective Interval History: No acute events overnight. Patient states that he slept well and is feeling better day by day - Exam Vitals: Temp Pulse Resp BP Pulse Ox 36.8 C 77 20 108/66 90 03/13/19 16:59 03/13/19 16:59 03/13/19 16:59 03/13/19 16:59 03/13/19 16:59 Exam: GENERAL: Not in distress. Alert and Oriented HEENT: EOMI, PERRLA MOUTH: Good oral hygiene NECK:No JVD, No lymph nodes. CHEST AND LUNGS: Wheezing heard on auscultation in both middle zones posteriorly . Tracheostomy in place and capped. No mucus noted to be draining. HEART: S1 and S2 normal, no murmurs ABDOMEN: Soft, nontender, no organomegaly SKIN: Normal color, no rahses, no lesions EXTREMITIES: No deformity, no edema, no tenderness, no joint swelling or clubbing NEUROLOGICAL: Normal cognition, normal motor and sensory exam. - Assessment and Plan (1) Sepsis Current Visit: Yes Status: Resolved (2) DVT prophylaxis Current Visit: Yes Status: Acute (3) Hypertension Current Visit: Yes Status: Chronic (4) Pseudomonas pneumonia Current Visit: Yes Status: Acute - Summary of Assessment and Plan Summary of Assessment and Plan: Pt is a 63 yo male with a hx of COPD and Chronic Trach 2/2 Laryngeal Cancer who presented with fever,SOB, cough and purulent sputum from trach and was admitted to the ICU for care on account of hypoxic respiratory failure. He has been rec eiving treatment for pseudomonas pneumonia and sepsis and is curently doing better.Initially required intubation but now tolerates noninvasive ventilation. He is currently in the step down unit and is improving clinically. 1. Pseudomonas Pneumonia * Vital studies * Patient denies respiratory distress * pseudmonas growth from trachea * On Cefepime and Levaquin day 6 and Tobramycin day 5 * No growth on blood cultures * CT: Bilateral atelectasis versus pneumonia * Continue antibiotics * If patient remained stable he will be transitioned to outpatient care on oral antibiotics 2 Leukocytosis * Persistent leukocytosis * No other evidence of sepsis * White cell count elevation most likely due to steroids 3. Congestive heart failure * Patient has preserved ejection fraction of 60% * Wall motion on echo not fully evaluated due to body habitus * Continue diuresis 4. COPD * Wheezing appreciated on auscultation * Continue breathing treatments 5. Hypertension * BP currently stable * Continue home meds - Time Spent with Patient Total time spent is greater than 50% in coordination of care (as documented) at patient's floor/unit and/or counseling patient: Internal Medicine: Result - Labs CBC & Chem 7: 03/13/19 02:37 03/13/19 02:37 Labs: Short CBC 03/13/19 Range/Units 02:37 WBC 16.6 H (4.3-11.1) K/mcL Hgb 10.8 L (12.9-16.9) g/dL Hct 38.7 (37.5-50.1) % Plt Count 371 (140-400) K/mcL BMP 03/13/19 02:37 Sodium 140 Potassium 5.2 H Chloride 104 Carbon Dioxide 29 BUN 20 Creatinine 0.71 Glucose 309 H Calcium 8.8 Liver Function 03/13/19 Range/Units 02:37 Total Bilirubin 0.3 (0.3-1.0) mg/dL AST 15 (13-39) Units/L ALT 15 (7-52) Units/L Alkaline Phosphatase 172 H (34-104) Units/L Albumin 2.8 L (3.5-5.7) g/dL - ABG Interpretation ABG results: ABG ABG pH 7.34 pH Units (7.32-7.45) 03/11/19 05:05 ABG pCO2 53 mmHg (35-45) H 03/11/19 05:05 ABG pO2 112 mmHg (85-104) H 03/11/19 05:05 ABG O2 Saturation 98 % (95-98) 03/11/19 05:05 PT/INR, D-dimer PT 15.2 Seconds (9.4-12.1) H 03/09/19 01:14 Consult Discharge Plan - Plan Referrals: NONE,PCP [Primary Care Provider] - (Patient is from [facility] no PCP appointment is needed) (1) Sepsis Qualifiers: Sepsis type: Pseudomonas Qualified Code(s): A41.52 - Sepsis due to P seudomonas (3) Hypertension Qualifiers: Hypertension type: essential hypertension Qualified Code(s): I10 - Essential (primary) hypertension (4) Pseudomonas pneumonia Qualifiers: Laterality: right Lung location: lower lobe of lung Qualified Code(s): J15.1 - Pneumonia due to Pseudomonas
[2019-03-13] MEDS: Lactobacillus 1 EACH CAP.SPRINK PO SCH (20:30)
[2019-03-13] MEDS: Simethicone 80 MG TAB.CHEW PO PRN ×2 (22:06→23:11)
[2019-03-14] MEDS: Artificial Tears SOLN 15 ML BOTTLE BOTH EYES SCH ×5 (03:12→20:02)
[2019-03-14] MEDS: Ipratropium/Albuterol Neb 3 ML IH SCH ×5 (04:37→19:51)
[2019-03-14] MEDS: Acetylcysteine 10% 2 ML INHSOL IH SCH ×5 (04:37→19:51)
[2019-03-14] MEDS: methylPREDNISolone 125 MG/2 ML VIAL IVP SCH ×2 (05:36→15:53)
[2019-03-14] MEDS: *HR* Heparin 5,000 UNIT/ML VIAL SQ SCH ×3 (05:37→20:53)
[2019-03-14] MEDS: Tobramycin for INHALATION 300 MG/5 ML AMPUL IH SCH ×2 (07:34→19:51)
[2019-03-14] MEDS: Budesonide/Formoterol 160/4.5 1 PUFF INH IH SCH ×2 (07:35→19:52)
[2019-03-14] MEDS: *HR* HYDROcodone/Acet 5/325 mg TABLET PO PRN ×2 (07:58→19:54)
[2019-03-14] MEDS: GuaiFENesin Liq 200 MG/10 ML UDC PO SCH ×4 (07:58→19:54)
[2019-03-14] MEDS: Aspirin Enteric Coated 81 MG Tablet PO SCH (07:59)
[2019-03-14] MEDS: Gabapentin 400 MG CAPSULE PO SCH ×2 (07:59→19:54)
[2019-03-14] MEDS: Lactobacillus 1 EACH CAP.SPRINK PO SCH ×2 (07:59→19:54)
[2019-03-14] MEDS: Cefepime HCl 2,000 MG in Water for inj. (sterile) 20 ML IVP SCH ×3 (08:00→23:46)
[2019-03-14] MEDS: acetaZOLAMIDE 250 MG TABLET PO SCH (08:00)
[2019-03-14] MEDS: Insulin LISPRO 300 UNITS/3 ML VIAL SQ SCH ×4 (08:02→20:11)
[2019-03-14 08:15] LABS: Hemoglobin 11.6 g/dL (12.9-16.9)
[2019-03-14 08:17] LABS: Hematocrit 41.4 % (37.5-50.1); Mean Corpuscular Hemoglobin 24.2 pg (28.0-33.3); Mean Corpuscular Volume 86.4 fL (83.0-100.0); Mean Platelet Volume 9.7 fL (9.4-12.4); Nucleated Red Blood Cells 0.6 /100 WBC (0); Platelet Count 366 K/mcL (140-400); Red Blood Count 4.79 M/mcL (4.19-5.50); White Blood Count 23.3 K/mcL (4.3-11.1)
[2019-03-14 08:25] LABS: BUN/Creatinine Ratio 30 (6-26); Blood Urea Nitrogen 21 mg/dL (8-23); Calcium 8.7 mg/dL (8.6-10.3); Carbon Dioxide 32 mEq/L (23-29); Chloride 105 mEq/L (98-107); Glucose 259 mg/dL (70-105); Osmolality,Calculated 300 (280-300); Potassium 4.9 mEq/L (3.5-5.1); Sodium 139 mEq/L (136-145); eGFR For African Americans > 60 (> 60); eGFR For Non-African Americans > 60 (> 60)
[2019-03-14 09:36] LABS: Lymphocytes # 1.2 K/mcL (0.6-4.6); Monocytes # 0.9 K/mcL (0.0-1.3); Neutrophils # 21.2 K/mcL (1.6-8.9)
[2019-03-14 09:37] LABS: Platelet Estimate Normal (Normal)
[2019-03-14 09:38] LABS: Hypochromasia Present (Not Present); Polychromasia 1+ (Not Present)
--- NOTE | 2019-03-14 11:35 | Internal Med Progress Note ---
Hospitalist Progress Note - Encounter Date of Encounter: 03/14/19 Time of Encounter: 08:30 - Subjective Interval History: No acute events overnight. Patient says is doing very well. He denies shortness of breath chest pain fever and chills. Also states that he has very good appetite - Exam Vitals: Temp Pulse Resp BP Pulse Ox 37.0 C 80 19 124/83 99 03/14/19 11:24 03/14/19 11:24 03/14/19 11:24 03/14/19 11:24 03/14/19 11:24 Exam: GENERAL: Not in distress. Alert and Oriented HEENT: EOMI, PERRLA MOUTH: Moist oral mucosa NECK:No JVD, No lymph nodes. CHEST AND LUNGS: CTAB HEART: S1 and S2 normal, no murmurs ABDOMEN: Soft, nontender, no organomegaly SKIN: Normal color, no rahses, no lesions EXTREMITIES: No deformity, no edema, no tenderness, no joint swelling or clubbing NEUROLOGICAL: Normal cognition, normal motor and sensory exam. 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 He has been receiving treatment for pseudomonas pneumonia and sepsis and is curently doing better.Initially required intubation but now tolerates noninvasive ventilation. He is currently in the step down unit and is improving clinically. 1. Pseudomonas Pneumonia * Vitals normal * Patient has improved considerably. * On Cefepime and Levaquin day 7 and Tobramycin day 6 * No growth on blood cultures * CT: Bilateral atelectasis versus pneumonia * Continue antibiotics * Possible discharge tomorrow. PT/OT consult placed 2 Leukocytosis * Persistent leukocytosis * No other evidence of sepsis * White cell count elevation most likely due to steroids 3. Congestive heart failure * Patient has preserved ejection fraction of 60% * Wall motion on echo not fully evaluated due to body habitus * Continue diuresis 4. COPD * Wheezing appreciated on auscultation * Continue breathing treatments 5. Hypertension * BP currently stable * Continue home meds - Time Spent with Patient Total time spent is greater than 50% in coordination of care (as documented) at patient's floor/unit and/or counseling patient: Internal Medicine: Result - Labs CBC & Chem 7: 03/14/19 07:48 03/14/19 07:48 Labs: Short CBC 03/14/19 Range/Units 07:48 WBC 23.3 H (4.3-11.1) K/mcL Hgb 11.6 L (12.9-16.9) g/dL Hct 41.4 (37.5-50.1) % Plt Count 366 (140-400) K/mcL Neutrophils # 21.2 H (1.6-8.9) K/mcL BMP 03/14/19 07:48 Sodium 139 Potassium 4.9 Chloride 105 Carbon Dioxide 32 H BUN 21 Creatinine 0.70 Glucose 259 H Calcium 8.7 - ABG Interpretation ABG results: ABG ABG pH 7.34 pH Units (7.32-7.45) 03/11/19 05:05 ABG pCO2 53 mmHg (35-45) H 03/11/19 05:05 ABG pO2 112 mmHg (85-104) H 03/11/19 05:05 ABG O2 Saturation 98 % (95-98) 03/11/19 05:05 PT/INR, D-dimer PT 15.2 Seconds (9.4-12.1) H 03/09/19 01:14 Consult Discharge Plan - Plan Referrals: NONE,PCP [Primary Care Provider] - (Patient is from [facility] no PCP appointment is needed) (1) Sepsis Qualifiers: Sepsis type: Pseudomonas Qualified Code(s): A41.52 - Sepsis due to Pseudomonas (3) Hypertension Qualifiers: Hypertension type: essential hypertension Qualified Code(s): I10 - Essential (primary) hypertension (4) Pseudomonas pneumonia Qualifiers: Laterality: right Lung location: lower lobe of lung Qualified Code(s): J15.1 - Pneumonia due to Pseudomonas
[2019-03-14] MEDS: Chlorhexidine Rinse 15 ML MOUTHWASH MM SCH (19:54)
[2019-03-15] MEDS: Ipratropium/Albuterol Neb 3 ML IH SCH ×4 (00:44→11:16)
[2019-03-15] MEDS: Acetylcysteine 10% 2 ML INHSOL IH SCH ×4 (00:44→11:16)
[2019-03-15] MEDS: Artificial Tears SOLN 15 ML BOTTLE BOTH EYES SCH ×4 (01:41→12:14)
[2019-03-15 02:23] LABS: Nucleated Red Blood Cells 0.6 /100 WBC (0)
[2019-03-15 02:25] LABS: Hematocrit 39.8 % (37.5-50.1); Hemoglobin 11.1 g/dL (12.9-16.9); Mean Corpuscular HGB Conc 27.9 g/dL (31.6-35.5); Mean Corpuscular Hemoglobin 24.1 pg (28.0-33.3); Mean Corpuscular Volume 86.5 fL (83.0-100.0); Mean Platelet Volume 9.7 fL (9.4-12.4); Platelet Count 340 K/mcL (140-400); Red Cell Distribution Width 20.2 % (11.5-14.5); White Blood Count 21.5 K/mcL (4.3-11.1)
[2019-03-15 02:27] LABS: BUN/Creatinine Ratio 34 (6-26); Blood Urea Nitrogen 19 mg/dL (8-23); Calcium 8.4 mg/dL (8.6-10.3); Carbon Dioxide 31 mEq/L (23-29); Chloride 103 mEq/L (98-107); Glucose 353 mg/dL (70-105); Osmolality,Calculated 298 (280-300); Potassium 4.8 mEq/L (3.5-5.1); Sodium 136 mEq/L (136-145); eGFR For African Americans > 60 (> 60); eGFR For Non-African Americans > 60 (> 60)
[2019-03-15 03:46] LABS: Lymphocytes # 1.7 K/mcL (0.6-4.6); Neutrophils # 16.8 K/mcL (1.6-8.9); Platelet Estimate Normal (Normal); Reactive Lymphocytes Present (Not Present)
[2019-03-15 03:47] LABS: Anisocytosis 1+ (Not Present); Hypochromasia Present (Not Present)
[2019-03-15] MEDS: methylPREDNISolone 125 MG/2 ML VIAL IVP SCH (05:48)
[2019-03-15] MEDS: *HR* Heparin 5,000 UNIT/ML VIAL SQ SCH ×2 (05:48→14:31)
[2019-03-15] MEDS: Budesonide/Formoterol 160/4.5 1 PUFF INH IH SCH (08:05)
[2019-03-15] MEDS: Tobramycin for INHALATION 300 MG/5 ML AMPUL IH SCH (08:05)
[2019-03-15] MEDS: Insulin LISPRO 300 UNITS/3 ML VIAL SQ SCH ×2 (09:21→12:13)
[2019-03-15] MEDS: Aspirin Enteric Coated 81 MG Tablet PO SCH (09:22)
[2019-03-15] MEDS: Lactobacillus 1 EACH CAP.SPRINK PO SCH (09:22)
[2019-03-15] MEDS: Chlorhexidine Rinse 15 ML MOUTHWASH MM SCH (09:22)
[2019-03-15] MEDS: GuaiFENesin Liq 200 MG/10 ML UDC PO SCH ×2 (09:22→12:13)
[2019-03-15] MEDS: *HR* HYDROcodone/Acet 5/325 mg TABLET PO PRN ×2 (09:22→14:38)
[2019-03-15] MEDS: acetaZOLAMIDE 250 MG TABLET PO SCH (09:23)
[2019-03-15] MEDS: Gabapentin 400 MG CAPSULE PO SCH (09:23)
[2019-03-15] MEDS: Cefepime HCl 2,000 MG in Water for inj. (sterile) 20 ML IVP SCH (09:23)
--- NOTE | 2019-03-15 09:42 | Internal Med Progress Note ---
Hospitalist Progress Note - Encounter Date of Encounter: 03/15/19 Time of Encounter: 09:42 - Exam Vitals: Temp Pulse Resp BP Pulse Ox 36.6 C 69 18 141/70 98 03/15/19 07:19 03/15/19 07:19 03/15/19 07:19 03/15/19 07:19 03/15/19 07:19 - Assessment and Plan (1) Sepsis Current Visit: Yes Status: Resolved (2) DVT prophylaxis Current Visit: Yes Status: Acute (3) Hypertension Current Visit: Yes Status: Chronic (4) Pseudomonas pneumonia Current Visit: Yes Status: Acute - Time Spent with Patient Total time spent is greater than 50% in coordination of care (as documented) at patient's floor/unit and/or counseling patient: Internal Medicine: Result - Labs CBC & Chem 7: 03/15/19 01:51 03/15/19 01:51 Labs: Short CBC 03/14/19 03/15/19 Range/Units 07:48 01:51 WBC 21.5 H (4.3-11.1) K/mcL Hgb 11.1 L (12.9-16.9) g/dL Hct 39.8 (37.5-50.1) % Plt Count 340 (140-400) K/mcL Neutrophils # 21.2 H 16.8 H (1.6-8.9) K/mcL BMP 03/15/19 01:51 Sodium 136 Potassium 4.8 Chloride 103 Carbon Dioxide 31 H BUN 19 Creatinine 0.56 L Glucose 353 H Calcium 8.4 L - ABG Interpretation ABG results: ABG ABG pH 7.34 pH Units (7.32-7.45) 03/11/19 05:05 ABG pCO2 53 mmHg (35-45) H 03/11/19 05:05 ABG pO2 112 mmHg (85-104) H 03/11/19 05:05 ABG O2 Saturation 98 % (95-98) 03/11/19 05:05 PT/INR, D-dimer PT 15.2 Seconds (9.4-12.1) H 03/09/19 01:14 Consult Discharge Plan - Plan Referrals: NONE,PCP [Primary Care Provider] - (Patient is from [facility] no PCP appointment is needed) (1) Sepsis Qualifiers: Sepsis type: Pseudomonas Qualified Code(s): A41.52 - Sepsis due to Pseudom onas (3) Hypertension Qualifiers: Hypertension type: essential hypertension Qualified Code(s): I10 - Essential (primary) hypertension (4) Pseudomonas pneumonia Qualifiers: Laterality: right Lung location: lower lobe of lung Qualified Code(s): J15.1 - Pneumonia due to Pseudomonas
[2019-03-15 11:59] VITALS: BP 95/61
--- NOTE | 2019-03-15 13:24 | Discharge Summary ---
Orders not resulted at time of discharge: Pending orders 03/13/19 04:00 Arterial Blood Gas DAILY 03/14/19 04:00 Arterial Blood Gas DAILY 03/15/19 04:00 Arterial Blood Gas DAILY 03/16/19 04:00 Arterial Blood Gas DAILY Complete Blood Count [HEME] AM 04003/17/19 04:00 Arterial Blood Gas DAILY Complete Blood Count [HEME] AM 04003/18/19 04:00 Arterial Blood Gas DAILY Date of Encounter: 03/15/19 Time of Encounter: 09:42 - Discharge Diagnosis (1) Pseudomonas pneumonia Priority: Primary Status: Acute Qualifiers: Laterality: right Lung location: lower lobe of lung Qualified Code(s): J15.1 - Pneumonia due to Pseudomonas (2) Sepsis Priority: Secondary Status: Resolved Qualifiers: Sepsis type: Pseudomonas Qualified Code(s): A41.52 - Sepsis due to Pseudomonas (3) DVT prophylaxis Priority: Secondary Status: Acute (4) Hypertension Priority: Secondary Status: Chronic Qualifiers: Hypertension type: essential hypertension Qualified Code(s): I10 - Essential (primary) hypertension Hospital course: Mr. 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 He has been receiving treatment for pseudomonas pneumonia and sepsis and is curently doing better.Initially required intubation but now is on INO2. He is currently in the step down unit and is improving clinically. Discharge discussed with: patient, nurse, social work - Time Spent with Patient Total time spent providing and/or coordinating discharge services: Time spent: Greater than 30 minutes (35) - Discharge Medications Prescriptions: New Ipratropium/Albuterol Neb [Duoneb] 3 ml IH [id number] #20 inhsol Tobramycin for INHALATION [Fuad 300 mg/5 ml Solution] 300 mg IH BIDRESP 3 Days #6 inh Lactobacillus [Culturelle] 1 each PO BID cap.sprink GuaiFENesin Liq [Robitussin Liq] 200 mg PO QID udc predniSONE [PredniSONE] 40 mg PO DAILY 5 Days #5 tablet Continued Gabapentin [Neurontin] 400 mg PO BID Budesonide/Formoterol 160/4.5 [Symbicort 160/4.5] 2 puff IH BID acetaZOLAMIDE [Diamox] 250 mg PO QAM Albuterol Neb [Proventil Neb] 2.5 mg IH Q6H PRN PRN Reason: Shortness Of Breath Atorvastatin [Lipitor] 40 mg PO HS Aspirin [Lo-Dose Aspirin EC] 81 mg PO QAM Albuterol Sulfate [Ventolin Hfa] 1 puff IH Q4H PRN PRN Reason: Shortness Of Breath Furosemide [Lasix] 40 mg PO BIDDIURETIC 30 Days tablet Sertraline [Zoloft] 50 mg PO QAM HYDROcodone/Acet 5/325 mg [[place] 5-325 mg] 1 tab PO TID PRN #14 tablet PRN Reason: Pain Famotidine [Pepcid] 20 mg PO DAILY MOM Conc [MILK OF MAGNESIA conc] 30 ml PO Q24H PRN PRN Reason: Constipation Potassium Chloride [Klor-Con 10] 20 meq PO DAILY Metoprolol [Lopressor] 12.5 mg PO BID tablet Loratadine [Allergy Relief] 10 mg PO DAILY Dextran 70/Hypromellose [Artificial Tears Eye Drops] 2 drop BOTH EYES BID Home Medications: Albuterol Neb [Proventil Neb] 2.5 mg IH Q6H PRN 08/08/16 [History] Albuterol Sulfate [Ventolin Hfa] 1 puff IH Q4H PRN 08/08/16 [History] Aspirin [Lo-Dose Aspirin EC] 81 mg PO QAM 08/08/16 [History] Atorvastatin [Lipitor] 40 mg PO HS 08/08/16 [History] Budesonide/Formoterol 160/4.5 [Symbicort 160/4.5] 2 puff IH BID 08/08/16 [History] Gabapentin [Neurontin] 400 mg PO BID 08/08/16 [History] acetaZOLAMIDE [Diamox] 250 mg PO QAM 08/08/16 [History] Furosemide [Lasix] 40 mg PO BIDDIURETIC 30 Days tablet 08/16/16 [Rx] Sertraline [Zoloft] 50 mg PO QAM 07/22/17 [History] HYDROcodone/Acet 5/325 mg [[place] 5-325 mg] 1 tab PO TID PRN #14 tablet 07/26/17 [Rx] Famotidine [Pepcid] 20 mg PO DAILY 11/19/18 [History] MOM Conc [MILK OF MAGNESIA conc] 30 ml PO Q24H PRN 11/19/18 [History] Potassium Chloride [Klor-Con 10] 20 meq PO DAILY 11/19/18 [History] Metoprolol [Lopressor] 12.5 mg PO BID tablet 11/23/18 [Rx] Dextran 70/Hypromellose [Artificial Tears Eye Drops] 2 drop BOTH EYES BID 03/09/19 [History] Loratadine [Allergy Relief] 10 mg PO DAILY 03/09/19 [History] GuaiFENesin Liq [Robitussin Liq] 200 mg PO QID udc 03/15/19 [Rx] Ipratropium/Albuterol Neb [Duoneb] 3 ml IH [id number] #20 inhsol 03/15/19 [Rx] Lactobacillus [Culturelle] 1 each PO BID cap.sprink 03/15/19 [Rx] Tobramycin for INHALATION [Fuad 300 mg/5 ml Solution] 300 mg IH BIDRESP 3 Days #6 inh 03/15/19 [Rx] predniSONE [PredniSONE] 40 mg PO DAILY 5 Days #5 tablet 03/15/19 [Rx] Allergies/Adverse Reactions: Allergy/AdvReac Type Severity Reaction Status Date / Time Penicillins Allergy Anaphylaxis Verified 03/08/19 21:15 Date of admission: 03/09/19 00:27 Primary care physician: PCP NONE Consults: 03/14/19 11:30 Consult to Occupational Therapy [CONS] Routine Comment: Evaluate, develop and implement POC Reason for Consult: Evaluate and help with decision for next level of care Does patient have active BEDREST order?: No Is patient medically & hemodynamically stable?: Yes - Constitutional Vitals: Temp Pulse Resp BP Pulse Ox 36.8 C 63 18 95/61 97 03/15/19 11:58 03/15/19 11:58 03/15/19 11:58 03/15/19 11:58 03/15/19 11:58 General appearance: Present: cooperative, mild distress, A&O X 3, pleasant, answers questions appropriately Exam: GENERAL: Not in distress. Alert and Oriented HEENT: EOMI, PERRLA MOUTH: Moist oral mucosa NECK:No JVD, No lymph nodes. CHEST AND LUNGS: Transmitted sounds HEART: S1 and S2 normal, no murmurs ABDOMEN: Soft, nontender, no organomegaly SKIN: Normal color, no rahses, no lesions EXTREMITIES: No deformity, no edema, no tenderness, no joint swelling or clubbing NEUROLOGICAL: Normal cognition, normal motor and sensory exam. - Patient Status Disposition: Transfer SNF Condition: Fair Functional capacity at discharge: bed bound Overall status at discharge: patient is progressing back to baseline - Discharge Instructions Follow Up With: NONE,PCP [Primary Care Provider] - (Patient is from [facility] no PCP appointment is needed) Additional Instructions: Patient to complete 3 days of INH Tobramycin 300mg BIDRESP and IV Vancomycin 1,250mg Q12 for 2 days.
--- NOTE | 2019-03-15 13:43 | Physician Discharge Referral ---
ExtendedCare Referral Info Transfer To: SNF Provider in Charge after Transfer: PCP (Patient also needs to complete 2 more days of IV vancomycin 1,250mg BID. It did not appear on the discharge medications.) Institutional Level of Care: Skilled - Diagnosis (1) Pseudomonas pneumonia Priority: Primary Status: Acute (2) Sepsis Priority: Secondary Status: Resolved (3) DVT prophylaxis Priority: Secondary Status: Acute (4) Hypertension Priority: Secondary Status: Chronic Prognosis: Fair - Transfer Medications Prescriptions: Ipratropium/Albuterol Neb [Duoneb] 3 ml IH [id number] #20 inhsol predniSONE [PredniSONE] 40 mg PO DAILY 5 Days #5 tablet Tobramycin for INHALATION [Fuad 300 mg/5 ml Solution] 300 mg IH BIDRESP 3 Days #6 inh Home Medications: Albuterol Neb [Proventil Neb] 2.5 mg IH Q6H PRN 08/08/16 [History] Albuterol Sulfate [Ventolin Hfa] 1 puff IH Q4H PRN 08/08/16 [History] Aspirin [Lo-Dose Aspirin EC] 81 mg PO QAM 08/08/16 [History] Atorvastatin [Lipitor] 40 mg PO HS 08/08/16 [History] Budesonide/Formoterol 160/4.5 [Symbicort 160/4.5] 2 puff IH BID 08/08/16 [History] Gabapentin [Neurontin] 400 mg PO BID 08/08/16 [History] acetaZOLAMIDE [Diamox] 250 mg PO QAM 08/08/16 [History] Furosemide [Lasix] 40 mg PO BIDDIURETIC 30 Days tablet 08/16/16 [Rx] Sertraline [Zoloft] 50 mg PO QAM 07/22/17 [History] HYDROcodone/Acet 5/325 mg [[place] 5-325 mg] 1 tab PO TID PRN #14 tablet 07/26/17 [Rx] Famotidine [Pepcid] 20 mg PO DAILY 11/19/18 [History] MOM Conc [MILK OF MAGNESIA conc] 30 ml PO Q24H PRN 11/19/18 [History] Potassium Chloride [Klor-Con 10] 20 meq PO DAILY 11/19/18 [History] Metoprolol [Lopressor] 12.5 mg PO BID tablet 11/23/18 [Rx] Dextran 70/Hypromellose [Artificial Tears Eye Drops] 2 drop BOTH EYES BID 03/09/19 [History] Loratadine [Allergy Relief] 10 mg PO DAILY 03/09/19 [History] GuaiFENesin Liq [Robitussin Liq] 200 mg PO QID udc 03/15/19 [Rx] Ipratropium/Albuterol Neb [Duoneb] 3 ml IH [id number] #20 inhsol 03/15/19 [Rx] Lactobacillus [Culturelle] 1 each PO BID cap.sprink 03/15/19 [Rx] Tobramycin for INHALATION [Fuad 300 mg/5 ml Solution] 300 mg IH BIDRESP 3 Days #6 inh 03/15/19 [Rx] predniSONE [PredniSONE] 40 mg PO DAILY 5 Days #5 tablet 03/15/19 [Rx] Allergies/Adverse Reactions: Allergy/AdvReac Type Severity Reaction Status Date / Time Penicillins Allergy Anaphylaxis Verified 03/08/19 21:15 - Respiratory Orders Smoking Cessation: Smoking cessation has been advised. For more information, call the [place] Tobacco Quit Line at 0-075-SHES-NOW. CERTIFICATION: I certify that the transfer of the above named patient to an Extended Care Facility is necessary for the continuing treatment of the diagnosis listed. The above information is true and accurate reflection of patient's current condition. Confidential - Redisclosure prohibited without a patient's written consent.
[2019-03-15] MEDS ORDERED: Aminoglycoside Consult 1 EACH MC ONE (16:06)
[2019-03-16] MEDS ORDERED: predniSONE 20 MG TABLET PO SCH (09:00)
== END 2019-03-15 16:07 | DRG 720 ==
LOC: 2NENU 20:57 → EMEROOARM 20:57 → 2NENU 03-09 00:17 → SUATTDRO 03-09 00:27 → ICNU 03-09 14:14 → 2NNU 03-11 15:50
PROVIDERS: ADMIT Family Medicine; ATTEND Internal Medicine

== ENCOUNTER 2019-09-19 20:57 | Inpatient (IN) ==
[2019-09-19] MEDS ORDERED: methylPREDNISolone 125 MG/2 ML VIAL IVP ONE (21:03)
[2019-09-19] MEDS ORDERED: Ipratropium/Albuterol Neb 3 ML IH ONE (21:03)
[2019-09-19] MEDS ORDERED: 0.9 % Sodium Chloride 1,000 ML IVC ONE (21:07)
[2019-09-19 21:28] LABS: Basophils # 0.1 K/mcL (0.0-0.2); Basophils % 0.3 %; Eosinophils % 0.2 %; Hematocrit 41.4 % (37.5-50.1); Hemoglobin 12.2 g/dL (12.9-16.9); Immature Granulocytes % 1.7 % (0-4); Lymphocytes # 1.3 K/mcL (0.6-4.6); Lymphocytes % 7.5 %; Mean Corpuscular HGB Conc 29.5 g/dL (31.6-35.5); Mean Corpuscular Hemoglobin 24.8 pg (28.0-33.3); Mean Corpuscular Volume 84.1 fL (83.0-100.0); Monocytes # 0.9 K/mcL (0.0-1.3); Neutrophils # 15.1 K/mcL (1.6-8.9); Nucleated Red Blood Cells 0.1 /100 WBC (0); Platelet Count 253 K/mcL (140-400); Red Blood Count 4.92 M/mcL (4.19-5.50); Red Cell Distribution Width 19.8 % (11.5-14.5); Segmented Neutrophils % 85.3 %; White Blood Count 17.7 K/mcL (4.3-11.1)
[2019-09-19] MEDS ORDERED: Cefepime HCl 2,000 MG in 0.9 % Sodium Chloride Mini Bag 100 ML IVPB STA (21:47)
[2019-09-19 21:51] LABS: BUN/Creatinine Ratio 16 (6-26); Blood Urea Nitrogen 10 mg/dL (8-23); Calcium 9.2 mg/dL (8.6-10.3); Carbon Dioxide 30 mEq/L (23-29); Chloride 97 mEq/L (98-107); Glucose 148 mg/dL (70-105); Osmolality,Calculated 280 (280-300); Potassium 4.2 mEq/L (3.5-5.1); Sodium 134 mEq/L (136-145); eGFR For African Americans > 60 (> 60); eGFR For Non-African Americans > 60 (> 60)
[2019-09-19] MEDS ORDERED: levoFLOXacin 750 MG/150 ML 750 MG/150 ML BAG IVPB ONE (21:59)
[2019-09-19] MEDS ORDERED: Albuterol 2.5 MG/3 ML NEBULIZER IH STA (22:01)
[2019-09-19 23:15] LABS: Troponin I < 0.03 ng/mL (< 0.04)
[2019-09-20] MEDS ORDERED: GuaiFENesin Liq 200 MG/10 ML UDC PO PRN (00:26)
[2019-09-20] MEDS ORDERED: MOM Conc 10 ML UD.LIQ PO PRN (00:26)
[2019-09-20] MEDS ORDERED: DICLOFENAC GEL TP PRN (00:26)
[2019-09-20] MEDS ORDERED: Naloxone 0.4 MG/ML INJ IVP PRN (00:28)
[2019-09-20] MEDS ORDERED: *HR* Metoprolol 5 MG/5 ML VIAL IVP PRN (00:34)
[2019-09-20] MEDS ORDERED: Nitroglycerin 0.4 MG TAB.SUBL SL PRN (00:34)
[2019-09-20] MEDS ORDERED: Isovue-370 500 ML BOTTLE IVP ONE (00:56)
[2019-09-20] MEDS ORDERED: Acetylcysteine 10% 2 ML INHSOL IH ONE (02:00)
[2019-09-20 02:37] LABS: Adenovirus Not Detected (Not Detect); Bordetella Pertussis Not Detected (Not Detect); Chlamydophila pneumoniae Not Detected (Not Detect); Coronavirus 229E Not Detected (Not Detect); Coronavirus HKU1 Not Detected (Not Detect); Coronavirus NL63 Not Detected (Not Detect); Coronavirus OC43 Not Detected (Not Detect); Human Metapneumovirus Not Detected (Not Detect); Human Rhinovirus/Enterovirus Not Detected (Not Detect); Influenza A Subtype 2009 H1 Not Detected (Not Detect); Influenza B Not Detected (Not Detect); Mycoplasma pneumoniae Not Detected (Not Detect); Parainfluenza Virus 1 Not Detected (Not Detect); Parainfluenza Virus 2 Not Detected (Not Detect); Parainfluenza Virus 3 Not Detected (Not Detect); Parainfluenza Virus 4 Not Detected (Not Detect); Respiratory Syncytial Virus Not Detected (Not Detect)
[2019-09-20] MEDS: Ipratropium Neb 0.5 MG NEBULIZER IH SCH ×7 (03:06→23:31)
[2019-09-20] MEDS ORDERED: MethylPREDNISolone 40 MG/ML VIAL IVP SCH (05:00)
[2019-09-20] MEDS: *HR* Heparin 5,000 UNIT/ML VIAL SQ SCH ×2 (05:01→16:52)
[2019-09-20] MEDS: Levalbuterol Neb 1.25 MG/3 ML IH SCH ×5 (07:29→23:31)
[2019-09-20] MEDS: Budesonide/Formoterol 160/4.5 1 PUFF INH IH SCH ×2 (07:30→19:33)
[2019-09-20] MEDS ORDERED: Cefepime HCl 2,000 MG in Water for inj. (sterile) 20 ML IVP SCH (08:00)
[2019-09-20 08:37] LABS: Basophils % 0.2 %; Eosinophils % 0.1 %; Hematocrit 40.2 % (37.5-50.1); Hemoglobin 11.9 g/dL (12.9-16.9); Lymphocytes # 0.8 K/mcL (0.6-4.6); Mean Corpuscular HGB Conc 29.6 g/dL (31.6-35.5); Mean Corpuscular Volume 84.5 fL (83.0-100.0); Mean Platelet Volume 11.1 fL (9.4-12.4); Monocytes # 0.2 K/mcL (0.0-1.3); Monocytes % 0.8 %; Neutrophils # 18.1 K/mcL (1.6-8.9); Platelet Count 183 K/mcL (140-400); Red Blood Count 4.76 M/mcL (4.19-5.50); Red Cell Distribution Width 19.7 % (11.5-14.5); Segmented Neutrophils % 93.9 %; White Blood Count 19.3 K/mcL (4.3-11.1)
[2019-09-20 08:45] LABS: BUN/Creatinine Ratio 18 (6-26); Blood Urea Nitrogen 10 mg/dL (8-23); Calcium 8.9 mg/dL (8.6-10.3); Carbon Dioxide 30 mEq/L (23-29); Chloride 100 mEq/L (98-107); Glucose 185 mg/dL (70-105); Osmolality,Calculated 288 (280-300); Potassium 4.5 mEq/L (3.5-5.1); Sodium 137 mEq/L (136-145); eGFR For African Americans > 60 (> 60); eGFR For Non-African Americans > 60 (> 60)
[2019-09-20] MEDS ORDERED: *HR* Promethazine 25 MG/ML VIAL IVP PRN (09:21)
[2019-09-20] MEDS: Lactobacillus 1 EACH CAP.SPRINK PO SCH ×2 (11:57→21:12)
[2019-09-20] MEDS: Famotidine 20 MG TABLET PO SCH (11:57)
[2019-09-20] MEDS: Gabapentin 400 MG CAPSULE PO SCH ×2 (11:57→21:13)
[2019-09-20] MEDS: Loratadine 10 MG TABLET PO SCH (11:57)
[2019-09-20] MEDS: *HR* HYDROcodone/Acet 5/325 mg TABLET PO PRN ×2 (12:17→21:12)
[2019-09-20] MEDS: MethylPREDNISolone 40 MG/ML VIAL IVP SCH (16:52)
[2019-09-20] MEDS: Cefepime HCl 2,000 MG in Water for inj. (sterile) 20 ML IVP SCH (16:52)
[2019-09-20] MEDS ORDERED: levoFLOXacin 750 MG/150 ML 750 MG/150 ML BAG IVPB SCH (21:00)
[2019-09-21] MEDS: Cefepime HCl 2,000 MG in Water for inj. (sterile) 20 ML IVP SCH ×4 (00:14→23:55)
[2019-09-21 02:15] LABS: Hemoglobin 11.1 g/dL (12.9-16.9)
[2019-09-21 02:16] LABS: Basophils % 0.2 %; Lymphocytes % 4.6 %; Monocytes % 4.1 %
[2019-09-21 02:17] LABS: Hematocrit 38.1 % (37.5-50.1); Immature Granulocytes % 1.7 % (0-4); Immature Platelets 10.4 % (1.1-6.1); Lymphocytes # 0.9 K/mcL (0.6-4.6); Mean Corpuscular HGB Conc 29.1 g/dL (31.6-35.5); Mean Corpuscular Hemoglobin 24.6 pg (28.0-33.3); Mean Corpuscular Volume 84.5 fL (83.0-100.0); Monocytes # 0.8 K/mcL (0.0-1.3); Neutrophils # 17.2 K/mcL (1.6-8.9); Nucleated Red Blood Cells 0.1 /100 WBC (0); Platelet Count 234 K/mcL (140-400); Red Blood Count 4.51 M/mcL (4.19-5.50); Red Cell Distribution Width 19.8 % (11.5-14.5); Segmented Neutrophils % 89.4 %; White Blood Count 19.2 K/mcL (4.3-11.1)
[2019-09-21 02:35] LABS: BUN/Creatinine Ratio 31 (6-26); Blood Urea Nitrogen 17 mg/dL (8-23); Calcium 8.9 mg/dL (8.6-10.3); Carbon Dioxide 27 mEq/L (23-29); Chloride 105 mEq/L (98-107); Glucose 190 mg/dL (70-105); Osmolality,Calculated 293 (280-300); Potassium 4.4 mEq/L (3.5-5.1); Sodium 138 mEq/L (136-145); eGFR For African Americans > 60 (> 60); eGFR For Non-African Americans > 60 (> 60)
[2019-09-21] MEDS: Levalbuterol Neb 1.25 MG/3 ML IH SCH ×5 (03:46→19:31)
[2019-09-21] MEDS: Ipratropium Neb 0.5 MG NEBULIZER IH SCH ×5 (03:46→19:31)
[2019-09-21] MEDS: *HR* Heparin 5,000 UNIT/ML VIAL SQ SCH ×2 (05:30→16:55)
[2019-09-21] MEDS: MethylPREDNISolone 40 MG/ML VIAL IVP SCH ×2 (05:30→16:54)
[2019-09-21] MEDS: *HR* HYDROcodone/Acet 5/325 mg TABLET PO PRN ×2 (05:39→16:54)
[2019-09-21] MEDS: Budesonide/Formoterol 160/4.5 1 PUFF INH IH SCH ×2 (07:42→19:31)
[2019-09-21] MEDS: Famotidine 20 MG TABLET PO SCH (08:28)
[2019-09-21] MEDS: Gabapentin 400 MG CAPSULE PO SCH ×2 (08:28→21:22)
[2019-09-21] MEDS: Lactobacillus 1 EACH CAP.SPRINK PO SCH ×2 (08:28→21:22)
[2019-09-21] MEDS: Loratadine 10 MG TABLET PO SCH (08:29)
[2019-09-21] MEDS: Azithromycin 500 MG in 0.9 % Sodium Chloride 250 ML IVPB SCH (08:29)
[2019-09-21] MEDS: Furosemide 40 MG TABLET PO SCH (16:50)
[2019-09-22] MEDS: *HR* HYDROcodone/Acet 5/325 mg TABLET PO PRN ×2 (01:03→09:20)
[2019-09-22] MEDS: Ipratropium Neb 0.5 MG NEBULIZER IH SCH ×7 (03:18→23:56)
[2019-09-22] MEDS: Levalbuterol Neb 1.25 MG/3 ML IH SCH ×7 (03:18→23:56)
[2019-09-22 04:44] LABS: Basophils % 0.3 %; Hematocrit 40.3 % (37.5-50.1); Hemoglobin 11.5 g/dL (12.9-16.9); Immature Granulocytes % 2.5 % (0-4); Lymphocytes % 5.8 %; Mean Corpuscular HGB Conc 28.5 g/dL (31.6-35.5); Mean Corpuscular Hemoglobin 24.7 pg (28.0-33.3); Mean Corpuscular Volume 86.5 fL (83.0-100.0); Monocytes % 7.1 %; Neutrophils # 12.3 K/mcL (1.6-8.9); Nucleated Red Blood Cells 0.7 /100 WBC (0); Platelet Count 207 K/mcL (140-400); Red Blood Count 4.66 M/mcL (4.19-5.50); Red Cell Distribution Width 20.1 % (11.5-14.5); Segmented Neutrophils % 84.3 %; White Blood Count 14.6 K/mcL (4.3-11.1)
[2019-09-22 04:45] LABS: Lymphocytes # 0.9 K/mcL (0.6-4.6)
[2019-09-22 04:52] LABS: BUN/Creatinine Ratio 30 (6-26); Blood Urea Nitrogen 22 mg/dL (8-23); Calcium 9.1 mg/dL (8.6-10.3); Carbon Dioxide 32 mEq/L (23-29); Chloride 103 mEq/L (98-107); Glucose 198 mg/dL (70-105); Osmolality,Calculated 301 (280-300); Potassium 4.1 mEq/L (3.5-5.1); Sodium 141 mEq/L (136-145); eGFR For African Americans > 60 (> 60); eGFR For Non-African Americans > 60 (> 60)
[2019-09-22 05:11] LABS: Hypochromasia Present (Not Present); Platelet Estimate Normal (Normal)
[2019-09-22] MEDS: MethylPREDNISolone 40 MG/ML VIAL IVP SCH (05:30)
[2019-09-22] MEDS: *HR* Heparin 5,000 UNIT/ML VIAL SQ SCH ×2 (05:31→17:29)
[2019-09-22] MEDS: Budesonide/Formoterol 160/4.5 1 PUFF INH IH SCH ×2 (07:21→19:56)
[2019-09-22] MEDS ORDERED: Aminoglycoside Consult 1 EACH MC ONE (08:30)
[2019-09-22] MEDS: Azithromycin 500 MG in 0.9 % Sodium Chloride 250 ML IVPB SCH (09:11)
[2019-09-22] MEDS: Cefepime HCl 2,000 MG in Water for inj. (sterile) 20 ML IVP SCH (09:12)
[2019-09-22] MEDS: Gabapentin 400 MG CAPSULE PO SCH ×2 (09:13→23:08)
[2019-09-22] MEDS: Famotidine 20 MG TABLET PO SCH (09:13)
[2019-09-22] MEDS: Furosemide 40 MG TABLET PO SCH ×2 (09:13→17:29)
[2019-09-22] MEDS: Lactobacillus 1 EACH CAP.SPRINK PO SCH ×2 (09:13→23:08)
[2019-09-22] MEDS: Loratadine 10 MG TABLET PO SCH (09:13)
[2019-09-22] MEDS: Sulfamethoxazole/Trimeth DS 1 EACH TABLET PO SCH ×2 (15:08→23:08)
[2019-09-23] MEDS: Levalbuterol Neb 1.25 MG/3 ML IH SCH ×3 (04:02→11:09)
[2019-09-23] MEDS: Ipratropium Neb 0.5 MG NEBULIZER IH SCH ×3 (04:02→11:09)
[2019-09-23 06:10] LABS: Hematocrit 40.2 % (37.5-50.1); Monocytes % 12.7 %; Red Cell Distribution Width 20.2 % (11.5-14.5)
[2019-09-23 06:12] LABS: Basophils # 0.1 K/mcL (0.0-0.2); Basophils % 0.4 %; Hemoglobin 11.2 g/dL (12.9-16.9); Immature Granulocytes % 3.7 % (0-4); Lymphocytes # 2.1 K/mcL (0.6-4.6); Lymphocytes % 17.7 %; Mean Corpuscular HGB Conc 27.9 g/dL (31.6-35.5); Mean Corpuscular Hemoglobin 24.5 pg (28.0-33.3); Mean Platelet Volume 11.8 fL (9.4-12.4); Monocytes # 1.5 K/mcL (0.0-1.3); Neutrophils # 7.9 K/mcL (1.6-8.9); Nucleated Red Blood Cells 0.4 /100 WBC (0); Platelet Count 212 K/mcL (140-400); Red Blood Count 4.57 M/mcL (4.19-5.50); Segmented Neutrophils % 65.5 %
[2019-09-23 06:32] LABS: BUN/Creatinine Ratio 29 (6-26); Blood Urea Nitrogen 18 mg/dL (8-23); Calcium 8.8 mg/dL (8.6-10.3); Carbon Dioxide 35 mEq/L (23-29); Chloride 100 mEq/L (98-107); Glucose 145 mg/dL (70-105); Osmolality,Calculated 292 (280-300); Sodium 139 mEq/L (136-145); eGFR For African Americans > 60 (> 60); eGFR For Non-African Americans > 60 (> 60)
[2019-09-23] MEDS: *HR* Heparin 5,000 UNIT/ML VIAL SQ SCH (06:35)
[2019-09-23 06:55] LABS: Anisocytosis 2+ (Not Present); Hypochromasia Present (Not Present); Microcytosis Present (Not Present); Platelet Estimate Normal (Normal)
[2019-09-23] MEDS: Budesonide/Formoterol 160/4.5 1 PUFF INH IH SCH (07:21)
[2019-09-23] MEDS ORDERED: predniSONE 20 MG TABLET PO SCH (09:00)
[2019-09-23 09:13] VITALS: BP 112/67
[2019-09-23] MEDS: Famotidine 20 MG TABLET PO SCH (09:46)
[2019-09-23] MEDS: Lactobacillus 1 EACH CAP.SPRINK PO SCH (09:46)
[2019-09-23] MEDS: Gabapentin 400 MG CAPSULE PO SCH (09:46)
[2019-09-23] MEDS: *HR* HYDROcodone/Acet 5/325 mg TABLET PO PRN (09:46)
[2019-09-23] MEDS: Loratadine 10 MG TABLET PO SCH (09:47)
[2019-09-23] MEDS: Sulfamethoxazole/Trimeth DS 1 EACH TABLET PO SCH (09:47)
[2019-09-23] MEDS: Furosemide 40 MG TABLET PO SCH (09:47)
[2019-09-23] MEDS: Azithromycin 500 MG in 0.9 % Sodium Chloride 250 ML IVPB SCH (09:48)
[2019-09-23] MEDS ORDERED: GuaiFENesin Liq 200 MG/10 ML UDC PO SCH (12:00)
[2019-09-24 08:39] LABS: Mycoplasma pneumoniae IgG 0.32 U/L (<=0.09)
== END 2019-09-23 13:58 | DRG 140 ==
LOC: EMEROOARM 20:57 → 3ANU 20:57 → SUATTDRO 22:59 → 3ANU 23:47
PROVIDERS: ADMIT Internal Medicine; ATTEND Internal Medicine

== ENCOUNTER 2021-04-05 18:28 | Inpatient (IN) ==
[2021-04-05] MEDS ORDERED: Ipratropium/Albuterol Neb 3 ML IH ONE (18:35)
[2021-04-05] MEDS ORDERED: methylPREDNISolone 125 MG/2 ML VIAL IVP ONE (18:35)
[2021-04-05] MEDS ORDERED: Albuterol 2.5 MG/3 ML NEBULIZER ONE (18:36)
[2021-04-05 18:55] LABS: Nucleated Red Blood Cells 0.2 /100 WBC (0)
[2021-04-05 18:56] LABS: Hemoglobin 12.6 g/dL (12.9-16.9); Mean Corpuscular Hemoglobin 26.6 pg (28.0-33.3); Mean Corpuscular Volume 94.9 fL (83.0-100.0); Mean Platelet Volume 10.3 fL (9.4-12.4); Platelet Count 302 K/mcL (140-400); Red Blood Count 4.74 M/mcL (4.19-5.50); Red Cell Distribution Width 17.8 % (11.5-14.5)
[2021-04-05 18:57] LABS: VBG HCO3 36 mEq/L (21-27); VBG PCO2 79 mmHg (41-51); VBG PH 7.27 pH Units (7.32-7.42); VBG PO2 52 mmHg (25-50)
[2021-04-05] MEDS ORDERED: 0.9 % Sodium Chloride 1,000 ML IVC ONE (19:14)
[2021-04-05 19:15] LABS: BUN/Creatinine Ratio 17 (6-26); Blood Urea Nitrogen 12 mg/dL (8-23); Calcium 9.5 mg/dL (8.6-10.3); Carbon Dioxide 33 mEq/L (23-29); Chloride 96 mEq/L (98-107); Glucose 291 mg/dL (70-105); Osmolality,Calculated 290 (280-300); Potassium 4.2 mEq/L (3.5-5.1); Sodium 135 mEq/L (136-145); eGFR For African Americans > 60 (> 60); eGFR For Non-African Americans > 60 (> 60)
[2021-04-05 19:16] LABS: Anisocytosis 1+ (Not Present); Eosinophils # 0.7 K/mcL (0.0-0.6); Monocytes # 0.7 K/mcL (0.0-1.3); Neutrophils # 31.7 K/mcL (1.6-8.9); Platelet Estimate Normal (Normal); Polychromasia 1+ (Not Present); Stomatocytes 1+ (Not Present)
[2021-04-05 19:17] LABS: Troponin I < 0.03 ng/mL (< 0.04)
[2021-04-05 19:29] LABS: Influenza A PCR Negative (Negative); Influenza B PCR Negative (Negative); Resp. Syncytial Virus PCR Negative (Negative)
[2021-04-05 19:30] LABS: SARS-CoV-2 by PCR (In House) Negative (Negative)
[2021-04-05] MEDS ORDERED: Cefepime HCl 1,000 MG in Water for inj. (sterile) 10 ML IVP STA (19:59)
[2021-04-05] MEDS ORDERED: Vancomycin 1,750 MG/517.5 ML IV.SOLN IVPB ONE (19:59)
[2021-04-05] MEDS ORDERED: Naloxone 0.4 MG/ML INJ IVP PRN (21:32)
[2021-04-05] MEDS ORDERED: Acetaminophen 325 MG TABLET PO PRN (21:32)
[2021-04-05] MEDS ORDERED: Isovue-370 500 ML BOTTLE IVP ONE (21:37)
[2021-04-05] MEDS ORDERED: Vancomycin (wt based) 1,000 MG VIAL IVPB SCH (22:00)
[2021-04-05] MEDS ORDERED: Perflutren Lipid Microsphere 1.3 ML in 0.9 % Sodium Chloride 8.7 ML IVP PRN (23:33)
[2021-04-05] MEDS ORDERED: D5% in Water 1,000 ML IVC PRN (23:37)
[2021-04-05] MEDS ORDERED: *HR* Dextrose 50 % in Water (Vial) 50 ML VIAL IVP PRN (23:37)
[2021-04-05] MEDS ORDERED: Dextrose Gel 15 GM/37.5 ML TUBE PO PRN ×2 (23:37)
[2021-04-05] MEDS ORDERED: Insulin LISPRO 300 UNITS/3 ML VIAL SUBQ SCH (23:45)
[2021-04-06] MEDS: Ipratropium/Albuterol Neb 3 ML IH SCH ×5 (00:04→21:49)
[2021-04-06] MEDS: MethylPREDNISolone 40 MG/ML VIAL IVP SCH ×4 (00:50→17:15)
[2021-04-06] MEDS: 0.9 % Sodium Chloride 1,000 ML IVC SCH ×2 (00:51→10:36)
[2021-04-06] MEDS: *HR* Heparin 5,000 UNIT/ML VIAL SQ SCH ×4 (00:54→21:45)
[2021-04-06] MEDS ORDERED: Azithromycin 500 MG in 0.9 % Sodium Chloride 250 ML IVPB SCH (03:00)
[2021-04-06 05:44] LABS: Hematocrit 38.4 % (37.5-50.1); Hemoglobin 10.6 g/dL (12.9-16.9); Mean Corpuscular HGB Conc 27.6 g/dL (31.6-35.5); Mean Corpuscular Hemoglobin 26.2 pg (28.0-33.3); Nucleated Red Blood Cells 0.1 /100 WBC (0); Platelet Count 269 K/mcL (140-400); Red Blood Count 4.04 M/mcL (4.19-5.50); Red Cell Distribution Width 17.8 % (11.5-14.5)
[2021-04-06 05:56] LABS: Estimated Average Glucose 321 mg/dl; Hemoglobin A1C 12.8 %
[2021-04-06 05:57] LABS: White Blood Count 38.5 K/mcL (4.3-11.1)
[2021-04-06] MEDS ORDERED: Cefepime HCl 1,000 MG in Water for inj. (sterile) 10 ML IVP SCH (06:00)
[2021-04-06 06:10] LABS: BUN/Creatinine Ratio 21 (6-26); Blood Urea Nitrogen 13 mg/dL (8-23); Calcium 8.8 mg/dL (8.6-10.3); Carbon Dioxide 31 mEq/L (23-29); Chloride 100 mEq/L (98-107); Glucose 368 mg/dL (70-105); Magnesium 1.8 mg/dL (1.6-2.6); Osmolality,Calculated 299 (280-300); Phosphorous 1.8 mg/dL (2.7-4.5); Potassium 4.8 mEq/L (3.5-5.1); Sodium 137 mEq/L (136-145); eGFR For African Americans > 60 (> 60); eGFR For Non-African Americans > 60 (> 60)
[2021-04-06 06:21] LABS: Lymphocytes # 0.8 K/mcL (0.6-4.6); Neutrophils # 37.7 K/mcL (1.6-8.9)
[2021-04-06 06:21] LABS: VBG HCO3 33 mEq/L (21-27); VBG PCO2 68 mmHg (41-51); VBG PO2 129 mmHg (25-50)
[2021-04-06 06:22] LABS: Anisocytosis 1+ (Not Present); Platelet Estimate Normal (Normal)
[2021-04-06] MEDS ORDERED: Insulin LISPRO 300 UNITS/3 ML VIAL SUBQ SCH ×2 (07:30→21:00)
[2021-04-06] MEDS: levoFLOXacin 750 MG/150 ML 750 MG/150 ML BAG IVPB SCH (08:06)
[2021-04-06] MEDS: Vancomycin 1,500 MG/265 ML IV.SOLN IVPB SCH ×2 (08:08→20:01)
[2021-04-06] MEDS: Insulin LISPRO 300 UNITS/3 ML VIAL SUBQ SCH ×3 (08:09→17:17)
[2021-04-06 08:41] LABS: Bacteria,Urine Moderate per hpf (None-Few); Bilirubin,Urine Negative (Negative); Blood,Urine Trace (Negative); Budding Yeast,Urine Many per hpf (None Seen); Calcium Oxalate Crystals,Urine Present per hpf; Clarity,Urine Turbid (Clear); Color,Urine Light-Yellow (Yellow); Glucose,Urine (UA) >=1000 mg/dL (Normal); Hyaline Casts,Urine Few per lpf (None Seen); Ketones,Urine 10 mg/dL (Negative); Leukocyte Esterase,Urine Large (Negative); Mucus,Urine Few per lpf (None-Few); Nitrite,Urine Negative (Negative); Protein,Urine Trace mg/dL (Neg-Trace); Specific Gravity,Urine > 1.030 (1.010-1.025); Squamous Epithelial Cell,Urine Few per hpf (None-Few); Urobilinogen,Urine Normal (Normal); WBC,Urine 30-50 per hpf (0-3)
[2021-04-06] MEDS: Budesonide/Formoterol 160/4.5 1 PUFF INH IH SCH ×2 (10:11→21:49)
[2021-04-06] MEDS ORDERED: Insulin DETEMIR 100 UNIT/ML X5UNITS SUBQ SCH (21:00)
[2021-04-07] MEDS: MethylPREDNISolone 40 MG/ML VIAL IVP SCH ×5 (01:13→23:19)
[2021-04-07] MEDS: Insulin LISPRO 300 UNITS/3 ML VIAL SUBQ SCH ×4 (01:14→17:37)
[2021-04-07 01:34] LABS: Immature Granulocytes % 1.2 % (0-4); Red Cell Distribution Width 17.8 % (11.5-14.5)
[2021-04-07 01:36] LABS: Basophils # 0.1 K/mcL (0.0-0.2); Basophils % 0.2 %; Hematocrit 37.6 % (37.5-50.1); Hemoglobin 10.2 g/dL (12.9-16.9); Lymphocytes # 0.9 K/mcL (0.6-4.6); Lymphocytes % 3.3 %; Mean Corpuscular HGB Conc 27.1 g/dL (31.6-35.5); Mean Corpuscular Hemoglobin 25.4 pg (28.0-33.3); Mean Corpuscular Volume 93.8 fL (83.0-100.0); Mean Platelet Volume 10.3 fL (9.4-12.4); Monocytes # 0.7 K/mcL (0.0-1.3); Monocytes % 2.8 %; Neutrophils # 24.2 K/mcL (1.6-8.9); Platelet Count 277 K/mcL (140-400); Red Blood Count 4.01 M/mcL (4.19-5.50); Segmented Neutrophils % 92.5 %; White Blood Count 26.2 K/mcL (4.3-11.1)
[2021-04-07 01:58] LABS: BUN/Creatinine Ratio 38 (6-26); Blood Urea Nitrogen 18 mg/dL (8-23); Calcium 8.7 mg/dL (8.6-10.3); Carbon Dioxide 30 mEq/L (23-29); Chloride 105 mEq/L (98-107); Glucose 336 mg/dL (70-105); Osmolality,Calculated 305 (280-300); Potassium 4.2 mEq/L (3.5-5.1); Sodium 140 mEq/L (136-145); eGFR For African Americans > 60 (> 60); eGFR For Non-African Americans > 60 (> 60)
[2021-04-07 02:10] LABS: Anisocytosis 1+ (Not Present); Platelet Estimate Normal (Normal)
[2021-04-07] MEDS: Ipratropium/Albuterol Neb 3 ML IH SCH ×4 (03:50→22:09)
[2021-04-07] MEDS: *HR* Heparin 5,000 UNIT/ML VIAL SQ SCH ×3 (04:57→20:47)
[2021-04-07] MEDS ORDERED: Insulin DETEMIR 100 UNIT/ML X5UNITS SUBQ SCH (09:00)
[2021-04-07] MEDS: Vancomycin 1,500 MG/265 ML IV.SOLN IVPB SCH ×2 (09:26→20:15)
[2021-04-07] MEDS: levoFLOXacin 750 MG/150 ML 750 MG/150 ML BAG IVPB SCH (09:27)
[2021-04-07] MEDS: Budesonide/Formoterol 160/4.5 1 PUFF INH IH SCH ×2 (09:37→22:09)
[2021-04-07] MEDS ORDERED: CLEAR EYES NATURAL TEARS 15 ML BOTTLE BOTH EYES PRN (11:26)
[2021-04-07] MEDS ORDERED: *HR* HYDROcodone/Acet 5/325 mg TABLET PO PRN (11:26)
[2021-04-07] MEDS ORDERED: MOM Conc 10 ML UD.LIQ PO PRN (11:26)
[2021-04-07] MEDS ORDERED: Insulin DETEMIR 100 UNIT/ML X5UNITS SUBQ ONE (11:30)
[2021-04-07] MEDS: Furosemide 40 MG TABLET PO SCH (11:56)
[2021-04-07] MEDS: Gabapentin 400 MG CAPSULE PO SCH ×2 (14:55→20:15)
[2021-04-07] MEDS: Insulin DETEMIR 100 UNIT/ML X5UNITS SUBQ SCH (20:14)
[2021-04-07] MEDS ORDERED: Budesonide/Formoterol 160/4.5 1 PUFF INH IH SCH (21:00)
[2021-04-08] MEDS: Ipratropium/Albuterol Neb 3 ML IH SCH ×4 (03:51→22:01)
[2021-04-08] MEDS: *HR* Heparin 5,000 UNIT/ML VIAL SQ SCH ×3 (05:39→20:41)
[2021-04-08] MEDS: MethylPREDNISolone 40 MG/ML VIAL IVP SCH ×3 (05:42→20:41)
[2021-04-08 07:59] LABS: Basophils # 0.1 K/mcL (0.0-0.2); Basophils % 0.3 %; Eosinophils % 0.1 %; Hematocrit 38.6 % (37.5-50.1); Immature Granulocytes % 3.1 % (0-4); Lymphocytes # 1.1 K/mcL (0.6-4.6); Lymphocytes % 7.3 %; Mean Corpuscular HGB Conc 28.5 g/dL (31.6-35.5); Mean Corpuscular Hemoglobin 26.9 pg (28.0-33.3); Mean Corpuscular Volume 94.4 fL (83.0-100.0); Mean Platelet Volume 11.1 fL (9.4-12.4); Monocytes # 0.7 K/mcL (0.0-1.3); Monocytes % 4.7 %; Nucleated Red Blood Cells 0.3 /100 WBC (0); Platelet Count 295 K/mcL (140-400); Red Blood Count 4.09 M/mcL (4.19-5.50); Red Cell Distribution Width 17.8 % (11.5-14.5); Segmented Neutrophils % 84.5 %; White Blood Count 15.4 K/mcL (4.3-11.1)
[2021-04-08 08:04] LABS: BUN/Creatinine Ratio 40 (6-26); Blood Urea Nitrogen 21 mg/dL (8-23); Calcium 8.9 mg/dL (8.6-10.3); Carbon Dioxide 33 mEq/L (23-29); Chloride 104 mEq/L (98-107); Glucose 318 mg/dL (70-105); Osmolality,Calculated 299 (280-300); Potassium 4.4 mEq/L (3.5-5.1); Sodium 137 mEq/L (136-145); eGFR For African Americans > 60 (> 60); eGFR For Non-African Americans > 60 (> 60)
[2021-04-08] MEDS: Vancomycin 1,500 MG/265 ML IV.SOLN IVPB SCH ×2 (08:31→21:49)
[2021-04-08] MEDS: levoFLOXacin 750 MG/150 ML 750 MG/150 ML BAG IVPB SCH (08:31)
[2021-04-08] MEDS: Famotidine 20 MG TABLET PO SCH (08:35)
[2021-04-08] MEDS: Gabapentin 400 MG CAPSULE PO SCH ×3 (08:35→20:40)
[2021-04-08] MEDS: Aspirin Enteric Coated 81 MG Tablet PO SCH (08:35)
[2021-04-08] MEDS: Furosemide 40 MG TABLET PO SCH (08:35)
[2021-04-08] MEDS: Loratadine 10 MG TABLET PO SCH (08:35)
[2021-04-08] MEDS: Lactulose Oral Soln 20 GM/30 ML UDC PO SCH (08:35)
[2021-04-08] MEDS: Insulin DETEMIR 100 UNIT/ML X5UNITS SUBQ SCH ×2 (08:36→21:33)
[2021-04-08] MEDS: Insulin LISPRO 300 UNITS/3 ML VIAL SUBQ SCH ×3 (08:36→15:49)
[2021-04-08 08:45] LABS: Platelet Estimate Normal (Normal)
[2021-04-08 08:46] LABS: Anisocytosis 1+ (Not Present); Hypochromasia Present (Not Present)
[2021-04-08] MEDS: Budesonide/Formoterol 160/4.5 1 PUFF INH IH SCH ×2 (10:24→22:00)
[2021-04-08] MEDS: Ondansetron 4 MG/2 ML VIAL IVP PRN (21:41)
[2021-04-09 02:55] LABS: White Blood Count 10.5 K/mcL (4.3-11.1)
[2021-04-09 02:57] LABS: Basophils # 0.1 K/mcL (0.0-0.2); Basophils % 0.6 %; Hematocrit 38.1 % (37.5-50.1); Hemoglobin 10.6 g/dL (12.9-16.9); Immature Granulocytes % 5.3 % (0-4); Lymphocytes # 0.8 K/mcL (0.6-4.6); Lymphocytes % 7.3 %; Mean Corpuscular HGB Conc 27.8 g/dL (31.6-35.5); Mean Corpuscular Volume 93.6 fL (83.0-100.0); Mean Platelet Volume 10.4 fL (9.4-12.4); Monocytes # 0.5 K/mcL (0.0-1.3); Monocytes % 5.1 %; Neutrophils # 8.6 K/mcL (1.6-8.9); Nucleated Red Blood Cells 0.3 /100 WBC (0); Platelet Count 271 K/mcL (140-400); Red Blood Count 4.07 M/mcL (4.19-5.50); Red Cell Distribution Width 17.5 % (11.5-14.5); Segmented Neutrophils % 81.7 %
[2021-04-09 03:12] LABS: BUN/Creatinine Ratio 42 (6-26); Blood Urea Nitrogen 20 mg/dL (8-23); Calcium 8.6 mg/dL (8.6-10.3); Carbon Dioxide 32 mEq/L (23-29); Chloride 103 mEq/L (98-107); Glucose 334 mg/dL (70-105); Osmolality,Calculated 306 (280-300); Potassium 4.3 mEq/L (3.5-5.1); Sodium 140 mEq/L (136-145); eGFR For African Americans > 60 (> 60); eGFR For Non-African Americans > 60 (> 60)
[2021-04-09 03:57] LABS: Anisocytosis 1+ (Not Present)
[2021-04-09 03:58] LABS: Macrocytosis Present (Not Present); Platelet Estimate Normal (Normal); Smudge Cells Present (Not Present)
[2021-04-09] MEDS: Ipratropium/Albuterol Neb 3 ML IH SCH ×4 (04:01→22:22)
[2021-04-09] MEDS: MethylPREDNISolone 40 MG/ML VIAL IVP SCH ×3 (04:48→20:39)
[2021-04-09] MEDS: *HR* Heparin 5,000 UNIT/ML VIAL SQ SCH ×3 (04:51→20:40)
[2021-04-09] MEDS: Insulin LISPRO 300 UNITS/3 ML VIAL SUBQ SCH ×3 (09:31→17:19)
[2021-04-09] MEDS: levoFLOXacin 750 MG TABLET PO SCH (09:32)
[2021-04-09] MEDS: Loratadine 10 MG TABLET PO SCH (09:32)
[2021-04-09] MEDS: Insulin DETEMIR 100 UNIT/ML X5UNITS SUBQ SCH ×2 (09:32→21:51)
[2021-04-09] MEDS: Famotidine 20 MG TABLET PO SCH (09:32)
[2021-04-09] MEDS: Aspirin Enteric Coated 81 MG Tablet PO SCH (09:32)
[2021-04-09] MEDS: Furosemide 40 MG TABLET PO SCH (09:32)
[2021-04-09] MEDS: Vancomycin 1,500 MG/265 ML IV.SOLN IVPB SCH (09:33)
[2021-04-09] MEDS: Gabapentin 400 MG CAPSULE PO SCH ×3 (09:33→20:40)
[2021-04-09] MEDS: Budesonide/Formoterol 160/4.5 1 PUFF INH IH SCH ×2 (09:39→22:22)
[2021-04-09] MEDS: Lactulose Oral Soln 20 GM/30 ML UDC PO SCH (09:40)
[2021-04-09] MEDS: Ondansetron 4 MG/2 ML VIAL IVP PRN (20:51)
[2021-04-09] MEDS: Vancomycin 1,750 MG/517.5 ML IV.SOLN IVPB SCH (22:06)
[2021-04-10] MEDS: Ipratropium/Albuterol Neb 3 ML IH SCH ×2 (04:22→09:13)
[2021-04-10] MEDS: *HR* Heparin 5,000 UNIT/ML VIAL SQ SCH (05:05)
[2021-04-10] MEDS ORDERED: Insulin LISPRO 300 UNITS/3 ML VIAL SUBQ ONE (07:36)
[2021-04-10 07:50] VITALS: BP 110/68; PULSE 85; TEMP 98.3
[2021-04-10] MEDS: Gabapentin 400 MG CAPSULE PO SCH (08:05)
[2021-04-10] MEDS: Furosemide 40 MG TABLET PO SCH (08:05)
[2021-04-10] MEDS: Loratadine 10 MG TABLET PO SCH (08:06)
[2021-04-10] MEDS: Aspirin Enteric Coated 81 MG Tablet PO SCH (08:06)
[2021-04-10] MEDS: MethylPREDNISolone 40 MG/ML VIAL IVP SCH (08:06)
[2021-04-10] MEDS: levoFLOXacin 750 MG TABLET PO SCH (08:06)
[2021-04-10] MEDS: Famotidine 20 MG TABLET PO SCH (08:06)
[2021-04-10] MEDS: Insulin DETEMIR 100 UNIT/ML X5UNITS SUBQ SCH (08:07)
[2021-04-10] MEDS: Vancomycin 1,750 MG/517.5 ML IV.SOLN IVPB SCH (08:07)
[2021-04-10] MEDS: Lactulose Oral Soln 20 GM/30 ML UDC PO SCH (08:07)
[2021-04-10] MEDS: Insulin LISPRO 300 UNITS/3 ML VIAL SUBQ SCH (08:07)
[2021-04-10] MEDS: Budesonide/Formoterol 160/4.5 1 PUFF INH IH SCH (09:13)
[2021-04-10 09:16] VITALS: O2SAT 999
[2021-04-10 09:38] LABS: Adenovirus Not Detected (Not Detect); Bordetella Pertussis Not Detected (Not Detect); Chlamydophila pneumoniae Not Detected (Not Detect); Coronavirus 229E Not Detected (Not Detect); Coronavirus HKU1 Not Detected (Not Detect); Coronavirus NL63 Not Detected (Not Detect); Coronavirus OC43 Not Detected (Not Detect); Human Metapneumovirus Not Detected (Not Detect); Human Rhinovirus/Enterovirus Not Detected (Not Detect); Influenza A Subtype 2009 H1 Not Detected (Not Detect); Influenza B Not Detected (Not Detect); Mycoplasma pneumoniae Not Detected (Not Detect); Parainfluenza Virus 1 Not Detected (Not Detect); Parainfluenza Virus 2 Not Detected (Not Detect); Parainfluenza Virus 3 Not Detected (Not Detect); Parainfluenza Virus 4 Not Detected (Not Detect); Respiratory Syncytial Virus Not Detected (Not Detect); SARS-CoV-2 Not Detected (Not Detect)
== END 2021-04-10 10:57 | DRG 720 ==
LOC: 2ANU 18:28 → EMEROOARM 18:28 → 2ANU 22:51 → SUATTDRO 04-06 01:05
PROVIDERS: ADMIT Internal Medicine; ATTEND Family Medicine

== ENCOUNTER 2021-06-12 20:24 | Inpatient (IN) ==
[2021-06-12 21:18] LABS: Hemoglobin 10.7 g/dL (12.9-16.9); Red Cell Distribution Width 17.2 % (11.5-14.5)
[2021-06-12 21:19] LABS: Basophils # 0.1 K/mcL (0.0-0.2); Basophils % 0.3 %; Eosinophils # 0.3 K/mcL (0.0-0.6); Eosinophils % 0.9 %; Immature Granulocytes % 1.6 % (0-4); Lymphocytes # 1.4 K/mcL (0.6-4.6); Lymphocytes % 4.8 %; Mean Corpuscular HGB Conc 27.4 g/dL (31.6-35.5); Mean Corpuscular Hemoglobin 26.5 pg (28.0-33.3); Mean Corpuscular Volume 96.5 fL (83.0-100.0); Mean Platelet Volume 10.3 fL (9.4-12.4); Monocytes # 1.2 K/mcL (0.0-1.3); Monocytes % 4.1 %; Neutrophils # 25.4 K/mcL (1.6-8.9); Nucleated Red Blood Cells 0.1 /100 WBC (0); Platelet Count 325 K/mcL (140-400); Red Blood Count 4.04 M/mcL (4.19-5.50); Segmented Neutrophils % 88.3 %; White Blood Count 28.8 K/mcL (4.3-11.1)
[2021-06-12 21:20] LABS: VBG HCO3 36 mEq/L (21-27); VBG PCO2 93 mmHg (41-51); VBG PO2 72 mmHg (25-50)
[2021-06-12 21:22] LABS: Hypochromasia Present (Not Present)
[2021-06-12 21:35] LABS: Alanine Aminotransferase 9 Units/L (7-52); Albumin 3.3 g/dL (3.5-5.7); Albumin/Globulin Ratio 0.9 (1.1-2.2); Alkaline Phosphatase 109 Units/L (34-104); Aspartate Amino Transferase 9 Units/L (13-39); BUN/Creatinine Ratio 18 (6-26); Bilirubin,Indirect 0.4 mg/dL (0.0-1.0); Bilirubin,Total 0.4 mg/dL (0.3-1.0); Blood Urea Nitrogen 9 mg/dL (8-23); Calcium 9.2 mg/dL (8.6-10.3); Carbon Dioxide 36 mEq/L (23-29); Chloride 100 mEq/L (98-107); Globulin 3.8 g/dL (2.4-3.5); Glucose 159 mg/dL (70-105); Osmolality,Calculated 292 (280-300); Sodium 140 mEq/L (136-145); Total Protein 7.1 g/dL (6.4-8.9); Troponin I < 0.03 ng/mL (< 0.04); eGFR For African Americans > 60 (> 60); eGFR For Non-African Americans > 60 (> 60)
[2021-06-12] MEDS ORDERED: *HR* HYDROcodone/Acet 5/325 mg TABLET PO ONE (22:06)
[2021-06-12 22:15] LABS: Influenza A PCR Negative (Negative); Influenza B PCR Negative (Negative); Resp. Syncytial Virus PCR Negative (Negative)
[2021-06-12 22:17] LABS: SARS-CoV-2 by PCR (In House) Negative (Negative)
[2021-06-12] MEDS ORDERED: Isovue-370 500 ML BOTTLE IVP ONE (22:21)
[2021-06-12] MEDS ORDERED: levoFLOXacin 750 MG/150 ML 750 MG/150 ML BAG IVPB ONE (22:23)
[2021-06-12] MEDS ORDERED: Doxycycline 100 MG in 0.9 % Sodium Chloride Mini Bag 100 ML IVPB ONE (22:23)
[2021-06-12] MEDS ORDERED: methylPREDNISolone 125 MG/2 ML VIAL IVP ONE (22:40)
[2021-06-12] MEDS ORDERED: Ipratropium/Albuterol Neb 3 ML IH ONE (22:40)
[2021-06-13] MEDS ORDERED: Naloxone 0.4 MG/ML INJ IVP PRN (00:10)
[2021-06-13] MEDS ORDERED: Melatonin 3 MG TABLET PO PRN (00:10)
[2021-06-13] MEDS ORDERED: Acetaminophen 325 MG TABLET PO PRN (00:10)
[2021-06-13 00:59] LABS: Basophils % 0.4 %; Nucleated Red Blood Cells 0.1 /100 WBC (0); Red Cell Distribution Width 17.3 % (11.5-14.5)
[2021-06-13 01:01] LABS: Basophils # 0.1 K/mcL (0.0-0.2); Eosinophils # 0.1 K/mcL (0.0-0.6); Eosinophils % 0.2 %; Hematocrit 40.5 % (37.5-50.1); Hemoglobin 10.7 g/dL (12.9-16.9); Immature Granulocytes % 1.7 % (0-4); Lymphocytes # 1.1 K/mcL (0.6-4.6); Lymphocytes % 3.9 %; Mean Corpuscular HGB Conc 26.4 g/dL (31.6-35.5); Mean Corpuscular Hemoglobin 25.7 pg (28.0-33.3); Mean Corpuscular Volume 97.4 fL (83.0-100.0); Mean Platelet Volume 9.6 fL (9.4-12.4); Monocytes % 3.4 %; Neutrophils # 26.4 K/mcL (1.6-8.9); Platelet Count 312 K/mcL (140-400); Red Blood Count 4.16 M/mcL (4.19-5.50); Segmented Neutrophils % 90.4 %; White Blood Count 29.2 K/mcL (4.3-11.1)
[2021-06-13 01:08] LABS: VBG HCO3 34 mEq/L (21-27); VBG PCO2 87 mmHg (41-51); VBG PO2 82 mmHg (25-50)
[2021-06-13 01:21] LABS: Alanine Aminotransferase 9 Units/L (7-52); Albumin 3.3 g/dL (3.5-5.7); Albumin/Globulin Ratio 0.9 (1.1-2.2); Alkaline Phosphatase 110 Units/L (34-104); Aspartate Amino Transferase 9 Units/L (13-39); BUN/Creatinine Ratio 17 (6-26); Bilirubin,Total 0.3 mg/dL (0.3-1.0); Blood Urea Nitrogen 9 mg/dL (8-23); Calcium 9.3 mg/dL (8.6-10.3); Carbon Dioxide 35 mEq/L (23-29); Chloride 99 mEq/L (98-107); Globulin 3.8 g/dL (2.4-3.5); Glucose 189 mg/dL (70-105); Magnesium 1.6 mg/dL (1.6-2.6); Osmolality,Calculated 292 (280-300); Phosphorous 3.8 mg/dL (2.7-4.5); Potassium 4.3 mEq/L (3.5-5.1); Sodium 139 mEq/L (136-145); Total Protein 7.1 g/dL (6.4-8.9); eGFR For African Americans > 60 (> 60); eGFR For Non-African Americans > 60 (> 60)
[2021-06-13] MEDS ORDERED: *HR* Dextrose 50 % in Water (Syg) 50 ML SYRINGE IVP PRN (01:52)
[2021-06-13] MEDS ORDERED: D5% in Water 1,000 ML IVC PRN (01:52)
[2021-06-13] MEDS ORDERED: Dextrose Gel 15 GM/37.5 ML TUBE PO PRN ×2 (01:52)
[2021-06-13] MEDS: Acetylcysteine 10% 2 ML INHSOL IH SCH ×6 (03:31→21:48)
[2021-06-13] MEDS: Ipratropium/Albuterol Neb 3 ML IH SCH ×4 (04:00→21:47)
[2021-06-13] MEDS ORDERED: 0.9 % Sodium Chloride 1,000 ML IVC ONE (04:17)
[2021-06-13] MEDS: Azithromycin 500 MG in D5% in Water 250 ML IVPB SCH (04:46)
[2021-06-13] MEDS: Insulin LISPRO 300 UNITS/3 ML VIAL SUBQ SCH ×3 (05:51→17:44)
[2021-06-13] MEDS: *HR* Heparin 5,000 UNIT/ML VIAL SQ SCH ×2 (05:53→17:43)
[2021-06-13] MEDS: Cefepime HCl 2,000 MG in 0.9 % Sodium Chloride Mini Bag 100 ML IVPB SCH ×2 (05:54→17:37)
[2021-06-13] MEDS ORDERED: Insulin LISPRO 300 UNITS/3 ML VIAL SUBQ SCH ×2 (07:30→21:00)
[2021-06-13] MEDS: predniSONE 20 MG TABLET PO SCH (09:38)
[2021-06-13] MEDS: MetroNIDAZOLE 500 MG/100 ML 500 MG/100 ML BAG IVPB SCH ×3 (13:32→23:24)
[2021-06-13] MEDS: Albuterol 2.5 MG/3 ML NEBULIZER IH PRN (13:50)
[2021-06-14] MEDS: Insulin LISPRO 300 UNITS/3 ML VIAL SUBQ SCH ×4 (00:04→18:44)
[2021-06-14 03:24] LABS: Basophils % 0.2 %; Mean Platelet Volume 10.5 fL (9.4-12.4); Monocytes % 4.8 %
[2021-06-14 03:26] LABS: Basophils # 0.1 K/mcL (0.0-0.2); Hematocrit 33.1 % (37.5-50.1); Immature Granulocytes % 1.7 % (0-4); Lymphocytes # 1.2 K/mcL (0.6-4.6); Mean Corpuscular HGB Conc 27.2 g/dL (31.6-35.5); Mean Corpuscular Hemoglobin 25.6 pg (28.0-33.3); Mean Corpuscular Volume 94.3 fL (83.0-100.0); Monocytes # 1.2 K/mcL (0.0-1.3); Platelet Count 302 K/mcL (140-400); Red Blood Count 3.51 M/mcL (4.19-5.50); Segmented Neutrophils % 88.3 %; White Blood Count 24.8 K/mcL (4.3-11.1)
[2021-06-14 03:34] LABS: Neutrophils # 21.9 K/mcL (1.6-8.9)
[2021-06-14 04:07] LABS: BUN/Creatinine Ratio 24 (6-26); Blood Urea Nitrogen 9 mg/dL (8-23); Calcium 9.2 mg/dL (8.6-10.3); Carbon Dioxide 35 mEq/L (23-29); Chloride 102 mEq/L (98-107); Glucose 123 mg/dL (70-105); Osmolality,Calculated 292 (280-300); Potassium 3.9 mEq/L (3.5-5.1); Sodium 141 mEq/L (136-145); eGFR For African Americans > 60 (> 60); eGFR For Non-African Americans > 60 (> 60)
[2021-06-14] MEDS: Ipratropium/Albuterol Neb 3 ML IH SCH ×5 (04:08→19:48)
[2021-06-14] MEDS: Acetylcysteine 10% 2 ML INHSOL IH SCH ×5 (04:08→19:48)
[2021-06-14] MEDS: MetroNIDAZOLE 500 MG/100 ML 500 MG/100 ML BAG IVPB SCH ×3 (04:58→21:40)
[2021-06-14] MEDS: Azithromycin 500 MG in D5% in Water 250 ML IVPB SCH (04:59)
[2021-06-14] MEDS: *HR* Heparin 5,000 UNIT/ML VIAL SQ SCH ×2 (05:56→18:43)
[2021-06-14] MEDS: Cefepime HCl 2,000 MG in 0.9 % Sodium Chloride Mini Bag 100 ML IVPB SCH ×3 (06:19→21:35)
[2021-06-14] MEDS: predniSONE 20 MG TABLET PO SCH ×2 (08:39→09:44)
[2021-06-14 09:50] LABS: % Iron Saturation 10 % (20-55); Iron 20 mcg/dL (65-175); Transferrin 150 mg/dL (203-362)
[2021-06-14 10:07] LABS: Ferritin 88 ng/mL (20-250)
[2021-06-14] MEDS: Ondansetron 4 MG/2 ML VIAL IVP PRN (10:52)
[2021-06-14] MEDS: Albuterol 2.5 MG/3 ML NEBULIZER IH PRN (18:16)
[2021-06-15] MEDS: Ipratropium/Albuterol Neb 3 ML IH SCH ×6 (00:33→20:22)
[2021-06-15] MEDS: Acetylcysteine 10% 2 ML INHSOL IH SCH ×7 (00:33→20:22)
[2021-06-15] MEDS: Insulin LISPRO 300 UNITS/3 ML VIAL SUBQ SCH ×4 (00:53→18:31)
[2021-06-15 01:59] LABS: Basophils % 0.5 %; Eosinophils % 0.1 %; Hemoglobin 9.2 g/dL (12.9-16.9)
[2021-06-15 02:00] LABS: Basophils # 0.1 K/mcL (0.0-0.2); Hematocrit 32.4 % (37.5-50.1); Immature Granulocytes % 3.3 % (0-4); Lymphocytes # 1.7 K/mcL (0.6-4.6); Lymphocytes % 9.4 %; Mean Corpuscular HGB Conc 28.4 g/dL (31.6-35.5); Mean Corpuscular Hemoglobin 26.4 pg (28.0-33.3); Mean Corpuscular Volume 93.1 fL (83.0-100.0); Mean Platelet Volume 9.8 fL (9.4-12.4); Monocytes % 5.6 %; Nucleated Red Blood Cells 0.2 /100 WBC (0); Platelet Count 298 K/mcL (140-400); Red Blood Count 3.48 M/mcL (4.19-5.50); Red Cell Distribution Width 17.1 % (11.5-14.5); Segmented Neutrophils % 81.1 %; White Blood Count 18.3 K/mcL (4.3-11.1)
[2021-06-15 02:07] LABS: Neutrophils # 14.8 K/mcL (1.6-8.9)
[2021-06-15 02:21] LABS: BUN/Creatinine Ratio 20 (6-26); Blood Urea Nitrogen 8 mg/dL (8-23); Calcium 9.1 mg/dL (8.6-10.3); Carbon Dioxide 37 mEq/L (23-29); Chloride 103 mEq/L (98-107); Glucose 122 mg/dL (70-105); Osmolality,Calculated 296 (280-300); Potassium 3.7 mEq/L (3.5-5.1); Sodium 143 mEq/L (136-145); eGFR For African Americans > 60 (> 60); eGFR For Non-African Americans > 60 (> 60)
[2021-06-15] MEDS: Azithromycin 500 MG in D5% in Water 250 ML IVPB SCH (04:43)
[2021-06-15] MEDS: Cefepime HCl 2,000 MG in 0.9 % Sodium Chloride Mini Bag 100 ML IVPB SCH ×3 (06:17→23:20)
[2021-06-15] MEDS: MetroNIDAZOLE 500 MG/100 ML 500 MG/100 ML BAG IVPB SCH ×3 (06:22→23:19)
[2021-06-15] MEDS: *HR* Heparin 5,000 UNIT/ML VIAL SQ SCH ×2 (06:24→16:15)
[2021-06-15] MEDS: predniSONE 20 MG TABLET PO SCH (09:12)
[2021-06-15] MEDS: Gabapentin 400 MG CAPSULE PO SCH ×2 (16:15→20:43)
[2021-06-15] MEDS: Budesonide/Formoterol 160/4.5 1 PUFF INH IH SCH (20:24)
[2021-06-15] MEDS: GuaiFENesin Liq 200 MG/10 ML UDC PO SCH (20:43)
[2021-06-15] MEDS: Furosemide 40 MG TABLET PO SCH (20:44)
[2021-06-16] MEDS: Acetylcysteine 10% 2 ML INHSOL IH SCH ×7 (00:20→23:50)
[2021-06-16] MEDS: Ipratropium/Albuterol Neb 3 ML IH SCH ×7 (00:20→23:50)
[2021-06-16 01:03] LABS: Eosinophils % 0.1 %; Hemoglobin 9.1 g/dL (12.9-16.9); Nucleated Red Blood Cells 0.2 /100 WBC (0)
[2021-06-16 01:04] LABS: Basophils # 0.1 K/mcL (0.0-0.2); Basophils % 0.8 %; Hematocrit 32.8 % (37.5-50.1); Immature Granulocytes % 4.8 % (0-4); Lymphocytes # 1.5 K/mcL (0.6-4.6); Lymphocytes % 10.4 %; Mean Corpuscular HGB Conc 27.7 g/dL (31.6-35.5); Mean Corpuscular Hemoglobin 25.8 pg (28.0-33.3); Mean Corpuscular Volume 92.9 fL (83.0-100.0); Mean Platelet Volume 9.7 fL (9.4-12.4); Monocytes % 6.7 %; Neutrophils # 11.2 K/mcL (1.6-8.9); Platelet Count 293 K/mcL (140-400); Red Blood Count 3.53 M/mcL (4.19-5.50); Red Cell Distribution Width 16.9 % (11.5-14.5); Segmented Neutrophils % 77.2 %; White Blood Count 14.5 K/mcL (4.3-11.1)
[2021-06-16 01:18] LABS: BUN/Creatinine Ratio 19 (6-26); Blood Urea Nitrogen 8 mg/dL (8-23); Calcium 8.4 mg/dL (8.6-10.3); Carbon Dioxide 38 mEq/L (23-29); Chloride 104 mEq/L (98-107); Glucose 148 mg/dL (70-105); Osmolality,Calculated 297 (280-300); Potassium 3.7 mEq/L (3.5-5.1); Sodium 143 mEq/L (136-145); eGFR For African Americans > 60 (> 60); eGFR For Non-African Americans > 60 (> 60)
[2021-06-16 02:15] LABS: Hypochromasia Present (Not Present); Platelet Estimate Normal (Normal)
[2021-06-16] MEDS: Insulin LISPRO 300 UNITS/3 ML VIAL SUBQ SCH ×4 (02:31→17:10)
[2021-06-16] MEDS: Azithromycin 500 MG in D5% in Water 250 ML IVPB SCH (04:26)
[2021-06-16] MEDS: *HR* Heparin 5,000 UNIT/ML VIAL SQ SCH ×2 (04:34→17:10)
[2021-06-16] MEDS: MetroNIDAZOLE 500 MG/100 ML 500 MG/100 ML BAG IVPB SCH ×3 (05:57→22:48)
[2021-06-16] MEDS: Cefepime HCl 2,000 MG in 0.9 % Sodium Chloride Mini Bag 100 ML IVPB SCH ×3 (05:58→22:17)
[2021-06-16] MEDS: Budesonide/Formoterol 160/4.5 1 PUFF INH IH SCH ×2 (07:32→20:24)
[2021-06-16] MEDS: Lactulose Oral Soln 20 GM/30 ML UDC PO SCH (08:04)
[2021-06-16] MEDS: GuaiFENesin Liq 200 MG/10 ML UDC PO SCH ×2 (08:04→20:11)
[2021-06-16] MEDS: Aspirin 81 MG TAB.CHEW PO SCH (08:04)
[2021-06-16] MEDS: Gabapentin 400 MG CAPSULE PO SCH ×3 (08:05→20:11)
[2021-06-16] MEDS: Furosemide 40 MG TABLET PO SCH ×2 (08:05→20:11)
[2021-06-16] MEDS: Famotidine 20 MG TABLET PO SCH (08:05)
[2021-06-16] MEDS: predniSONE 20 MG TABLET PO SCH (08:05)
[2021-06-16] MEDS: Loratadine 10 MG TABLET PO SCH (08:05)
[2021-06-16] MEDS: acetaZOLAMIDE 250 MG TABLET PO SCH (08:08)
[2021-06-16] MEDS: *HR* HYDROcodone/Acet 5/325 mg TABLET PO PRN (22:47)
[2021-06-17 02:10] LABS: Hematocrit 33.7 % (37.5-50.1); Nucleated Red Blood Cells 0.7 /100 WBC (0); Red Cell Distribution Width 17.2 % (11.5-14.5)
[2021-06-17 02:11] LABS: Hemoglobin 9.6 g/dL (12.9-16.9); Mean Corpuscular HGB Conc 28.5 g/dL (31.6-35.5); Mean Corpuscular Hemoglobin 26.4 pg (28.0-33.3); Mean Corpuscular Volume 92.8 fL (83.0-100.0); Mean Platelet Volume 9.8 fL (9.4-12.4); Platelet Count 297 K/mcL (140-400); Red Blood Count 3.63 M/mcL (4.19-5.50); White Blood Count 14.7 K/mcL (4.3-11.1)
[2021-06-17 02:28] LABS: BUN/Creatinine Ratio 17 (6-26); Blood Urea Nitrogen 9 mg/dL (8-23); Calcium 8.8 mg/dL (8.6-10.3); Carbon Dioxide 35 mEq/L (23-29); Chloride 102 mEq/L (98-107); Glucose 140 mg/dL (70-105); Osmolality,Calculated 291 (280-300); Potassium 3.5 mEq/L (3.5-5.1); Sodium 140 mEq/L (136-145); eGFR For African Americans > 60 (> 60); eGFR For Non-African Americans > 60 (> 60)
[2021-06-17 02:32] LABS: Hypochromasia Present (Not Present); Platelet Estimate Normal (Normal)
[2021-06-17 02:33] LABS: Basophils # 0.3 K/mcL (0.0-0.2); Eosinophils # 0.3 K/mcL (0.0-0.6); Lymphocytes # 2.1 K/mcL (0.6-4.6); Monocytes # 2.1 K/mcL (0.0-1.3); Neutrophils # 9.7 K/mcL (1.6-8.9)
[2021-06-17] MEDS: Ipratropium/Albuterol Neb 3 ML IH SCH ×6 (03:52→23:51)
[2021-06-17] MEDS: Acetylcysteine 10% 2 ML INHSOL IH SCH ×6 (03:52→23:51)
[2021-06-17] MEDS: Insulin LISPRO 300 UNITS/3 ML VIAL SUBQ SCH ×4 (05:25→17:18)
[2021-06-17] MEDS: Azithromycin 500 MG in D5% in Water 250 ML IVPB SCH (05:26)
[2021-06-17] MEDS: *HR* Heparin 5,000 UNIT/ML VIAL SQ SCH ×2 (06:33→17:20)
[2021-06-17] MEDS: Cefepime HCl 2,000 MG in 0.9 % Sodium Chloride Mini Bag 100 ML IVPB SCH ×2 (06:34→16:01)
[2021-06-17] MEDS: MetroNIDAZOLE 500 MG/100 ML 500 MG/100 ML BAG IVPB SCH (07:22)
[2021-06-17] MEDS: Budesonide/Formoterol 160/4.5 1 PUFF INH IH SCH ×2 (07:32→19:51)
[2021-06-17] MEDS: Aspirin 81 MG TAB.CHEW PO SCH (08:17)
[2021-06-17] MEDS: Famotidine 20 MG TABLET PO SCH (08:17)
[2021-06-17] MEDS: Furosemide 40 MG TABLET PO SCH ×2 (08:17→19:45)
[2021-06-17] MEDS: Lactulose Oral Soln 20 GM/30 ML UDC PO SCH (08:17)
[2021-06-17] MEDS: Loratadine 10 MG TABLET PO SCH (08:17)
[2021-06-17] MEDS: GuaiFENesin Liq 200 MG/10 ML UDC PO SCH ×2 (08:17→19:45)
[2021-06-17] MEDS: Gabapentin 400 MG CAPSULE PO SCH ×3 (08:17→19:45)
[2021-06-17] MEDS: predniSONE 20 MG TABLET PO SCH (08:17)
[2021-06-17] MEDS: *HR* HYDROcodone/Acet 5/325 mg TABLET PO PRN ×2 (08:22→19:51)
[2021-06-17] MEDS: acetaZOLAMIDE 250 MG TABLET PO SCH (08:22)
[2021-06-17] MEDS: Ondansetron 4 MG/2 ML VIAL IVP PRN (08:22)
[2021-06-17] MEDS: Lidocaine 5% OINT 35 APPL/35.44 GM TUBE TP PRN ×2 (10:29→20:32)
[2021-06-17] MEDS: metroNIDAZOLE 500 MG TABLET PO SCH ×2 (14:36→19:45)
[2021-06-18] MEDS: Cefepime HCl 2,000 MG in 0.9 % Sodium Chloride Mini Bag 100 ML IVPB SCH ×3 (00:22→17:15)
[2021-06-18] MEDS: Insulin LISPRO 300 UNITS/3 ML VIAL SUBQ SCH ×4 (00:26→17:56)
[2021-06-18] MEDS: Ipratropium/Albuterol Neb 3 ML IH SCH ×6 (03:52→23:39)
[2021-06-18] MEDS: Acetylcysteine 10% 2 ML INHSOL IH SCH ×6 (03:52→23:39)
[2021-06-18] MEDS: *HR* Heparin 5,000 UNIT/ML VIAL SQ SCH ×2 (05:43→17:15)
[2021-06-18] MEDS: Budesonide/Formoterol 160/4.5 1 PUFF INH IH SCH ×2 (07:22→19:48)
[2021-06-18 07:24] LABS: BUN/Creatinine Ratio 17 (6-26); Blood Urea Nitrogen 8 mg/dL (8-23); Calcium 8.6 mg/dL (8.6-10.3); Carbon Dioxide 34 mEq/L (23-29); Chloride 102 mEq/L (98-107); Glucose 228 mg/dL (70-105); Osmolality,Calculated 294 (280-300); Potassium 3.3 mEq/L (3.5-5.1); Sodium 139 mEq/L (136-145); eGFR For African Americans > 60 (> 60); eGFR For Non-African Americans > 60 (> 60)
[2021-06-18 07:36] LABS: Hemoglobin 9.8 g/dL (12.9-16.9)
[2021-06-18 07:37] LABS: Hematocrit 34.7 % (37.5-50.1); Mean Corpuscular HGB Conc 28.2 g/dL (31.6-35.5); Mean Corpuscular Hemoglobin 26.3 pg (28.0-33.3); Mean Platelet Volume 10.1 fL (9.4-12.4); Nucleated Red Blood Cells 0.7 /100 WBC (0); Platelet Count 300 K/mcL (140-400); Red Blood Count 3.73 M/mcL (4.19-5.50); Red Cell Distribution Width 17.5 % (11.5-14.5); White Blood Count 15.6 K/mcL (4.3-11.1)
[2021-06-18] MEDS: Ondansetron 4 MG/2 ML VIAL IVP PRN (07:59)
[2021-06-18] MEDS: *HR* HYDROcodone/Acet 5/325 mg TABLET PO PRN ×2 (08:00→17:16)
[2021-06-18] MEDS: acetaZOLAMIDE 250 MG TABLET PO SCH (08:01)
[2021-06-18] MEDS: predniSONE 10 MG TABLET PO SCH (08:04)
[2021-06-18] MEDS: Aspirin 81 MG TAB.CHEW PO SCH (08:05)
[2021-06-18] MEDS: Famotidine 20 MG TABLET PO SCH (08:05)
[2021-06-18] MEDS: Furosemide 40 MG TABLET PO SCH ×2 (08:05→23:17)
[2021-06-18] MEDS: Gabapentin 400 MG CAPSULE PO SCH ×3 (08:05→23:18)
[2021-06-18] MEDS: Lactulose Oral Soln 20 GM/30 ML UDC PO SCH (08:06)
[2021-06-18] MEDS: GuaiFENesin Liq 200 MG/10 ML UDC PO SCH ×2 (08:06→23:18)
[2021-06-18] MEDS: metroNIDAZOLE 500 MG TABLET PO SCH ×3 (08:08→23:17)
[2021-06-18] MEDS: Loratadine 10 MG TABLET PO SCH (08:08)
[2021-06-18 08:28] LABS: Eosinophils # 0.3 K/mcL (0.0-0.6); Lymphocytes # 3.4 K/mcL (0.6-4.6); Monocytes # 0.3 K/mcL (0.0-1.3); Neutrophils # 11.5 K/mcL (1.6-8.9); Platelet Estimate Normal (Normal)
[2021-06-18 11:32] LABS: Influenza A PCR Negative (Negative); Influenza B PCR Negative (Negative); Resp. Syncytial Virus PCR Negative (Negative)
[2021-06-18 11:41] LABS: SARS-CoV-2 by PCR (In House) Negative (Negative)
[2021-06-19] MEDS: Cefepime HCl 2,000 MG in 0.9 % Sodium Chloride Mini Bag 100 ML IVPB SCH ×3 (01:09→17:11)
[2021-06-19] MEDS: Insulin LISPRO 300 UNITS/3 ML VIAL SUBQ SCH ×4 (01:21→17:08)
[2021-06-19 02:45] LABS: Hematocrit 34.5 % (37.5-50.1); Hemoglobin 9.5 g/dL (12.9-16.9); Lymphocytes # 2.6 K/mcL (0.6-4.6); Mean Corpuscular HGB Conc 27.5 g/dL (31.6-35.5); Mean Corpuscular Hemoglobin 25.6 pg (28.0-33.3); Mean Platelet Volume 9.5 fL (9.4-12.4); Nucleated Red Blood Cells 0.5 /100 WBC (0); Platelet Count 289 K/mcL (140-400); Red Blood Count 3.71 M/mcL (4.19-5.50); Red Cell Distribution Width 17.5 % (11.5-14.5); White Blood Count 18.6 K/mcL (4.3-11.1)
[2021-06-19 03:05] LABS: BUN/Creatinine Ratio 17 (6-26); Blood Urea Nitrogen 7 mg/dL (8-23); Calcium 8.5 mg/dL (8.6-10.3); Carbon Dioxide 34 mEq/L (23-29); Chloride 103 mEq/L (98-107); Glucose 154 mg/dL (70-105); Osmolality,Calculated 291 (280-300); Potassium 3.7 mEq/L (3.5-5.1); Sodium 140 mEq/L (136-145); eGFR For African Americans > 60 (> 60); eGFR For Non-African Americans > 60 (> 60)
[2021-06-19] MEDS: Ipratropium/Albuterol Neb 3 ML IH SCH ×6 (03:16→23:05)
[2021-06-19] MEDS: Acetylcysteine 10% 2 ML INHSOL IH SCH ×6 (03:16→23:05)
[2021-06-19 04:12] LABS: Platelet Estimate Normal (Normal)
[2021-06-19] MEDS: *HR* Heparin 5,000 UNIT/ML VIAL SQ SCH ×2 (05:30→17:12)
[2021-06-19] MEDS: Budesonide/Formoterol 160/4.5 1 PUFF INH IH SCH ×2 (07:41→19:18)
[2021-06-19] MEDS: Aspirin 81 MG TAB.CHEW PO SCH (11:06)
[2021-06-19] MEDS: Loratadine 10 MG TABLET PO SCH (11:07)
[2021-06-19] MEDS: Lactulose Oral Soln 20 GM/30 ML UDC PO SCH (11:17)
[2021-06-19] MEDS: GuaiFENesin Liq 200 MG/10 ML UDC PO SCH ×2 (11:18→20:13)
[2021-06-19] MEDS: predniSONE 10 MG TABLET PO SCH (11:18)
[2021-06-19] MEDS: *HR* HYDROcodone/Acet 5/325 mg TABLET PO PRN ×2 (11:19→20:12)
[2021-06-19] MEDS: metroNIDAZOLE 500 MG TABLET PO SCH ×3 (11:19→20:11)
[2021-06-19] MEDS: Gabapentin 400 MG CAPSULE PO SCH ×3 (11:20→20:13)
[2021-06-19] MEDS: acetaZOLAMIDE 250 MG TABLET PO SCH (11:20)
[2021-06-19] MEDS: Furosemide 40 MG TABLET PO SCH ×2 (11:20→20:12)
[2021-06-19] MEDS: Famotidine 20 MG TABLET PO SCH (14:33)
[2021-06-19] MEDS: Ondansetron 4 MG/2 ML VIAL IVP PRN (20:25)
[2021-06-20] MEDS: Insulin LISPRO 300 UNITS/3 ML VIAL SUBQ SCH ×4 (00:13→17:11)
[2021-06-20] MEDS: Cefepime HCl 2,000 MG in 0.9 % Sodium Chloride Mini Bag 100 ML IVPB SCH ×3 (01:11→11:09)
[2021-06-20] MEDS: Ipratropium/Albuterol Neb 3 ML IH SCH ×6 (03:20→22:54)
[2021-06-20] MEDS: Acetylcysteine 10% 2 ML INHSOL IH SCH ×6 (03:20→22:54)
[2021-06-20 03:25] LABS: Immature Granulocytes % 6.8 % (0-4)
[2021-06-20 03:26] LABS: Basophils # 0.2 K/mcL (0.0-0.2); Eosinophils # 1.1 K/mcL (0.0-0.6); Eosinophils % 6.5 %; Hematocrit 35.9 % (37.5-50.1); Lymphocytes # 2.5 K/mcL (0.6-4.6); Mean Corpuscular HGB Conc 27.9 g/dL (31.6-35.5); Mean Corpuscular Hemoglobin 25.9 pg (28.0-33.3); Mean Platelet Volume 9.7 fL (9.4-12.4); Monocytes % 5.8 %; Neutrophils # 10.7 K/mcL (1.6-8.9); Nucleated Red Blood Cells 0.3 /100 WBC (0); Platelet Count 289 K/mcL (140-400); Red Blood Count 3.86 M/mcL (4.19-5.50); Red Cell Distribution Width 17.9 % (11.5-14.5); Segmented Neutrophils % 64.9 %; White Blood Count 16.5 K/mcL (4.3-11.1)
[2021-06-20 03:44] LABS: BUN/Creatinine Ratio 18 (6-26); Blood Urea Nitrogen 7 mg/dL (8-23); Carbon Dioxide 33 mEq/L (23-29); Chloride 103 mEq/L (98-107); Glucose 97 mg/dL (70-105); Osmolality,Calculated 286 (280-300); Potassium 4.1 mEq/L (3.5-5.1); Sodium 139 mEq/L (136-145); eGFR For African Americans > 60 (> 60); eGFR For Non-African Americans > 60 (> 60)
[2021-06-20 04:03] LABS: Hypochromasia Present (Not Present); Platelet Estimate Normal (Normal)
[2021-06-20] MEDS: *HR* Heparin 5,000 UNIT/ML VIAL SQ SCH ×2 (04:33→17:11)
[2021-06-20] MEDS: Budesonide/Formoterol 160/4.5 1 PUFF INH IH SCH ×2 (07:33→19:41)
[2021-06-20] MEDS: Gabapentin 400 MG CAPSULE PO SCH ×3 (09:56→22:22)
[2021-06-20] MEDS: Aspirin 81 MG TAB.CHEW PO SCH (10:01)
[2021-06-20] MEDS: Loratadine 10 MG TABLET PO SCH (10:01)
[2021-06-20] MEDS: Furosemide 40 MG TABLET PO SCH ×2 (10:01→22:22)
[2021-06-20] MEDS: Famotidine 20 MG TABLET PO SCH (10:01)
[2021-06-20] MEDS: Lactulose Oral Soln 20 GM/30 ML UDC PO SCH (10:01)
[2021-06-20] MEDS: acetaZOLAMIDE 250 MG TABLET PO SCH (10:01)
[2021-06-20] MEDS: predniSONE 10 MG TABLET PO SCH (10:01)
[2021-06-20] MEDS: GuaiFENesin Liq 200 MG/10 ML UDC PO SCH ×2 (10:01→22:22)
[2021-06-20] MEDS: Ondansetron 4 MG/2 ML VIAL IVP PRN ×2 (15:07→23:35)
[2021-06-20] MEDS ORDERED: *HR* HYDROmorphone (PF) 1 MG/ML SYRINGE IVP ONE (23:47)
[2021-06-21] MEDS: Insulin LISPRO 300 UNITS/3 ML VIAL SUBQ SCH ×4 (00:34→16:58)
[2021-06-21 01:38] LABS: Hematocrit 36.8 % (37.5-50.1); Hemoglobin 10.5 g/dL (12.9-16.9); Mean Corpuscular HGB Conc 28.5 g/dL (31.6-35.5); Mean Corpuscular Hemoglobin 26.2 pg (28.0-33.3); Mean Corpuscular Volume 91.8 fL (83.0-100.0); Mean Platelet Volume 10.3 fL (9.4-12.4); Nucleated Red Blood Cells 0.2 /100 WBC (0); Platelet Count 310 K/mcL (140-400); Red Blood Count 4.01 M/mcL (4.19-5.50); Red Cell Distribution Width 18.1 % (11.5-14.5); White Blood Count 16.9 K/mcL (4.3-11.1)
[2021-06-21 01:56] LABS: BUN/Creatinine Ratio 20 (6-26); Blood Urea Nitrogen 9 mg/dL (8-23); Calcium 8.8 mg/dL (8.6-10.3); Carbon Dioxide 33 mEq/L (23-29); Chloride 101 mEq/L (98-107); Glucose 100 mg/dL (70-105); Osmolality,Calculated 287 (280-300); Potassium 3.8 mEq/L (3.5-5.1); Sodium 139 mEq/L (136-145); eGFR For African Americans > 60 (> 60); eGFR For Non-African Americans > 60 (> 60)
[2021-06-21 01:59] LABS: Anisocytosis 1+ (Not Present); Hypochromasia Present (Not Present); Neutrophils # 13.2 K/mcL (1.6-8.9); Platelet Estimate Normal (Normal); Reactive Lymphocytes Present (Not Present)
[2021-06-21] MEDS: Ipratropium/Albuterol Neb 3 ML IH SCH ×6 (04:13→23:14)
[2021-06-21] MEDS: Acetylcysteine 10% 2 ML INHSOL IH SCH ×6 (04:13→23:14)
[2021-06-21] MEDS ORDERED: *HR* HYDROmorphone (PF) 1 MG/ML SYRINGE IVP ONE (04:41)
[2021-06-21] MEDS: *HR* Heparin 5,000 UNIT/ML VIAL SQ SCH ×2 (04:45→16:59)
[2021-06-21] MEDS: Budesonide/Formoterol 160/4.5 1 PUFF INH IH SCH ×2 (07:39→19:40)
[2021-06-21] MEDS: acetaZOLAMIDE 250 MG TABLET PO SCH (10:01)
[2021-06-21] MEDS: Loratadine 10 MG TABLET PO SCH (10:01)
[2021-06-21] MEDS: Aspirin 81 MG TAB.CHEW PO SCH (10:01)
[2021-06-21] MEDS: Lactulose Oral Soln 20 GM/30 ML UDC PO SCH (10:01)
[2021-06-21] MEDS: Furosemide 40 MG TABLET PO SCH ×2 (10:01→21:33)
[2021-06-21] MEDS: Famotidine 20 MG TABLET PO SCH (10:03)
[2021-06-21] MEDS: Gabapentin 400 MG CAPSULE PO SCH ×3 (10:03→21:32)
[2021-06-21] MEDS: predniSONE 10 MG TABLET PO SCH ×2 (10:15→13:46)
[2021-06-21] MEDS: GuaiFENesin Liq 200 MG/10 ML UDC PO SCH ×4 (10:16→23:47)
[2021-06-21] MEDS ORDERED: Lidocaine -MPF 2% 5 ML VIAL ONE (10:18)
[2021-06-21] MEDS ORDERED: *HR* FentaNYL (PF) 100 MCG/2 ML VIAL ONE (11:32)
[2021-06-21 13:47] LABS: Source of Body Fluid RLL BAL
[2021-06-21] MEDS: *HR* HYDROcodone/Acet 5/325 mg TABLET PO PRN (13:52)
[2021-06-21] MEDS: Ondansetron 4 MG/2 ML VIAL IVP PRN (13:55)
[2021-06-21 16:29] LABS: Appearance of Body Fluid Cloudy (Clear); Volume of Body Fluid 22 mL
[2021-06-21] MEDS: MethylPREDNISolone 40 MG/ML VIAL IVP SCH ×2 (18:09→23:46)
[2021-06-21] MEDS: Furosemide 40 MG/4 ML VIAL IVP SCH (23:46)
[2021-06-22] MEDS: Insulin LISPRO 300 UNITS/3 ML VIAL SUBQ SCH ×4 (00:43→17:51)
[2021-06-22] MEDS: Vancomycin Oral Soln 125 MG/2.5 ML UDC PO SCH ×4 (00:45→17:50)
[2021-06-22 01:47] LABS: INR 1.3; Prothrombin Time 14.6 Seconds (9.4-12.1)
[2021-06-22] MEDS: Ipratropium/Albuterol Neb 3 ML IH SCH ×5 (03:54→19:45)
[2021-06-22] MEDS: Acetylcysteine 10% 2 ML INHSOL IH SCH ×5 (03:54→19:45)
[2021-06-22] MEDS: *HR* Heparin 5,000 UNIT/ML VIAL SQ SCH ×2 (05:37→17:51)
[2021-06-22] MEDS: Budesonide/Formoterol 160/4.5 1 PUFF INH IH SCH ×2 (07:41→19:44)
[2021-06-22] MEDS: MethylPREDNISolone 40 MG/ML VIAL IVP SCH ×2 (07:54→15:04)
[2021-06-22] MEDS: Lactulose Oral Soln 20 GM/30 ML UDC PO SCH (07:54)
[2021-06-22] MEDS: Loratadine 10 MG TABLET PO SCH (07:55)
[2021-06-22] MEDS: Furosemide 40 MG TABLET PO SCH (07:55)
[2021-06-22] MEDS: Gabapentin 400 MG CAPSULE PO SCH ×2 (07:55→15:04)
[2021-06-22] MEDS: acetaZOLAMIDE 250 MG TABLET PO SCH (07:55)
[2021-06-22] MEDS: Aspirin 81 MG TAB.CHEW PO SCH (07:55)
[2021-06-22] MEDS: Furosemide 40 MG/4 ML VIAL IVP SCH (07:55)
[2021-06-22] MEDS: Famotidine 20 MG TABLET PO SCH (07:55)
[2021-06-22] MEDS: Ondansetron 4 MG/2 ML VIAL IVP PRN (11:28)
[2021-06-22] MEDS: *HR* HYDROcodone/Acet 5/325 mg TABLET PO PRN (11:28)
[2021-06-22 17:53] LABS: Adenovirus Not Detected (Not Detect); Bordetella Pertussis Not Detected (Not Detect); Chlamydophila pneumoniae Not Detected (Not Detect); Coronavirus 229E Not Detected (Not Detect); Coronavirus HKU1 Not Detected (Not Detect); Coronavirus NL63 Not Detected (Not Detect); Coronavirus OC43 Not Detected (Not Detect); Human Metapneumovirus Not Detected (Not Detect); Human Rhinovirus/Enterovirus Not Detected (Not Detect); Influenza A Subtype 2009 H1 Not Detected (Not Detect); Influenza B Not Detected (Not Detect); Mycoplasma pneumoniae Not Detected (Not Detect); Parainfluenza Virus 1 Not Detected (Not Detect); Parainfluenza Virus 2 Not Detected (Not Detect); Parainfluenza Virus 3 Not Detected (Not Detect); Parainfluenza Virus 4 Not Detected (Not Detect); Respiratory Syncytial Virus Not Detected (Not Detect); SARS-CoV-2 Not Detected (Not Detect)
[2021-06-22 18:54] VITALS: BP 128/68; PULSE 118; TEMP 97.6
[2021-06-22 19:46] VITALS: O2SAT 93
== END 2021-06-22 20:03 | DRG 720 ==
LOC: 2NNU 20:24 → EMEROOARM 20:24 → SUATTDRO 22:55 → 2NNU 23:53 → SUATTDRO 06-13 13:06 → 2ANU 06-13 15:31
PROVIDERS: ADMIT Internal Medicine; ATTEND Internal Medicine

== ENCOUNTER 2021-07-19 09:11 | Observation (INO) ==
[2021-07-19] MEDS ORDERED: Ringers Solution, Lactated 1,000 ML IVC SCH (10:00)
[2021-07-19] MEDS ORDERED: *HR* FentaNYL (PF) 100 MCG/2 ML VIAL ONE (10:19)
[2021-07-19] MEDS ORDERED: *HR* Propofol 200 MG/20 ML VIAL IVP ONE (10:19)
[2021-07-19] MEDS ORDERED: Ondansetron 4 MG/2 ML VIAL ONE (10:20)
[2021-07-19] MEDS ORDERED: Lidocaine -MPF 2% 5 ML VIAL ONE (10:20)
[2021-07-19] MEDS ORDERED: Lidocaine HCL 4 ML Topical Solution (Laryng-O-Jet Kit Sterile Pak) TP ONE (10:22)
[2021-07-19] MEDS ORDERED: *HR* HYDROmorphone PF 0.5 MG/0.5 ML SYRINGE IVP PRN (10:48)
[2021-07-19] MEDS ORDERED: Promethazine 6.25 MG in Water for inj. (sterile) 20 ML IVPB PRN (10:48)
[2021-07-19] MEDS ORDERED: Ondansetron 4 MG/2 ML VIAL IVP PRN ×2 (10:48→17:07)
[2021-07-19] MEDS ORDERED: *HR* OxyCODONE Immed Rel 5 MG TABLET PO PRN (10:48)
[2021-07-19] MEDS ORDERED: *HR* EPINEPHrine 1 MG/10 ML SYRINGE INTRATRACH PRN (12:04)
[2021-07-19 14:17] LABS: Source of Body Fluid RUL BAL
[2021-07-19 15:17] LABS: Appearance of Body Fluid Cloudy (Clear); Volume of Body Fluid 24 mL
[2021-07-19] MEDS ORDERED: Naloxone 0.4 MG/ML INJ IVP PRN (17:07)
[2021-07-19] MEDS ORDERED: D5% in Water 1,000 ML IVC PRN (17:13)
[2021-07-19] MEDS ORDERED: *HR* Dextrose 50 % in Water (Syg) 50 ML SYRINGE IVP PRN (17:13)
[2021-07-19] MEDS ORDERED: Dextrose Gel 15 GM/37.5 ML TUBE PO PRN ×2 (17:13)
[2021-07-19] MEDS ORDERED: GuaiFENesin Liq 200 MG/10 ML UDC PO PRN (17:45)
[2021-07-19] MEDS ORDERED: CLEAR EYES NATURAL TEARS 15 ML BOTTLE BOTH EYES PRN (17:45)
[2021-07-19 18:09] LABS: Basophils # 0.1 K/mcL (0.0-0.2); Basophils % 0.5 %; Eosinophils % 0.1 %; Hematocrit 40.8 % (37.5-50.1); Hemoglobin 11.3 g/dL (12.9-16.9); Lymphocytes # 0.5 K/mcL (0.6-4.6); Lymphocytes % 3.2 %; Mean Corpuscular HGB Conc 27.7 g/dL (31.6-35.5); Mean Corpuscular Hemoglobin 25.9 pg (28.0-33.3); Mean Corpuscular Volume 93.4 fL (83.0-100.0); Mean Platelet Volume 10.1 fL (9.4-12.4); Monocytes # 0.1 K/mcL (0.0-1.3); Monocytes % 0.7 %; Nucleated Red Blood Cells 0.1 /100 WBC (0); Platelet Count 404 K/mcL (140-400); Red Blood Count 4.37 M/mcL (4.19-5.50); Red Cell Distribution Width 17.2 % (11.5-14.5); Segmented Neutrophils % 93.5 %
[2021-07-19] MEDS: MethylPREDNISolone 40 MG/ML VIAL IVP SCH (18:10)
[2021-07-19] MEDS: Furosemide 40 MG TABLET PO SCH (18:10)
[2021-07-19] MEDS: *HR* Heparin 5,000 UNIT/ML VIAL SQ SCH (18:10)
[2021-07-19 18:24] LABS: BUN/Creatinine Ratio 13 (6-26); Blood Urea Nitrogen 6 mg/dL (8-23); Carbon Dioxide 37 mEq/L (23-29); Chloride 97 mEq/L (98-107); Glucose 180 mg/dL (70-105); Osmolality,Calculated 288 (280-300); Potassium 4.3 mEq/L (3.5-5.1); Sodium 138 mEq/L (136-145); eGFR For African Americans > 60 (> 60); eGFR For Non-African Americans > 60 (> 60)
[2021-07-19 18:36] LABS: Hypochromasia Present (Not Present)
[2021-07-19 19:52] LABS: Estimated Average Glucose 189 mg/dl; Hemoglobin A1C 8.2 %
[2021-07-19] MEDS: Budesonide/Formoterol 160/4.5 1 PUFF INH IH SCH (20:32)
[2021-07-19] MEDS: Ipratropium/Albuterol Neb 3 ML IH SCH ×2 (20:32→23:57)
[2021-07-19] MEDS ORDERED: Insulin LISPRO 300 UNITS/3 ML VIAL SUBQ SCH (21:00)
[2021-07-19] MEDS ORDERED: Insulin DETEMIR 100 UNIT/ML X5UNITS SUBQ SCH (21:00)
[2021-07-19] MEDS: Gabapentin 400 MG CAPSULE PO SCH (21:29)
[2021-07-19] MEDS ORDERED: *HR* HYDROcodone/Acet 5/325 mg TABLET PO PRN (22:19)
[2021-07-19] MEDS ORDERED: ZINC OXIDE TP PRN (22:19)
[2021-07-19] MEDS ORDERED: MENTHOL TP PRN (22:19)
[2021-07-20 01:20] LABS: Basophils % 0.3 %; Hematocrit 37.4 % (37.5-50.1); Hemoglobin 10.6 g/dL (12.9-16.9); Immature Granulocytes % 1.7 % (0-4); Lymphocytes # 0.8 K/mcL (0.6-4.6); Lymphocytes % 6.1 %; Mean Corpuscular HGB Conc 28.3 g/dL (31.6-35.5); Mean Corpuscular Volume 91.7 fL (83.0-100.0); Mean Platelet Volume 10.2 fL (9.4-12.4); Monocytes # 0.1 K/mcL (0.0-1.3); Monocytes % 0.5 %; Neutrophils # 12.4 K/mcL (1.6-8.9); Nucleated Red Blood Cells 0.1 /100 WBC (0); Platelet Count 413 K/mcL (140-400); Red Blood Count 4.08 M/mcL (4.19-5.50); Red Cell Distribution Width 16.9 % (11.5-14.5); Segmented Neutrophils % 91.4 %; White Blood Count 13.6 K/mcL (4.3-11.1)
[2021-07-20 01:52] LABS: Anisocytosis 1+ (Not Present); Hypochromasia Present (Not Present); Platelet Estimate Normal (Normal)
[2021-07-20 02:13] LABS: BUN/Creatinine Ratio 16 (6-26); Blood Urea Nitrogen 7 mg/dL (8-23); Calcium 8.8 mg/dL (8.6-10.3); Carbon Dioxide 34 mEq/L (23-29); Chloride 97 mEq/L (98-107); Glucose 224 mg/dL (70-105); Magnesium 1.9 mg/dL (1.6-2.6); Osmolality,Calculated 291 (280-300); Phosphorous 1.9 mg/dL (2.7-4.5); Potassium 4.3 mEq/L (3.5-5.1); Sodium 138 mEq/L (136-145); eGFR For African Americans > 60 (> 60); eGFR For Non-African Americans > 60 (> 60)
[2021-07-20] MEDS: Ipratropium/Albuterol Neb 3 ML IH SCH ×2 (03:58→08:00)
[2021-07-20] MEDS: *HR* Heparin 5,000 UNIT/ML VIAL SQ SCH (06:02)
[2021-07-20 07:12] VITALS: BP 102/52; PULSE 99; TEMP 97.9
[2021-07-20] MEDS ORDERED: Insulin LISPRO 300 UNITS/3 ML VIAL SUBQ SCH (07:30)
[2021-07-20] MEDS: Budesonide/Formoterol 160/4.5 1 PUFF INH IH SCH (08:00)
[2021-07-20] MEDS: MethylPREDNISolone 40 MG/ML VIAL IVP SCH (08:43)
[2021-07-20] MEDS: Gabapentin 400 MG CAPSULE PO SCH (08:43)
[2021-07-20] MEDS: Furosemide 40 MG TABLET PO SCH (08:44)
[2021-07-20] MEDS ORDERED: Aspirin 81 MG TAB.CHEW PO SCH (09:00)
[2021-07-20 13:29] VITALS: O2SAT 95
[2021-07-25 08:44] LABS: HSV Source BAL
== END 2021-07-20 11:06 ==
LOC: SAMDAY 09:11 → 2ANU 09:11 → SUATTDRO 16:26
PROVIDERS: ADMIT Internal Medicine; ATTEND Internal Medicine
PROC: ENDOBBX (2021-07-19 11:25)

== ENCOUNTER 2021-08-14 23:00 | Inpatient (IN) ==
[2021-08-14 23:35] LABS: INR 1.1
[2021-08-14 23:38] LABS: Activated Partial Thrombo Time 35.2 Seconds (26.0-36.0)
[2021-08-14 23:40] LABS: Mean Platelet Volume 9.8 fL (9.4-12.4)
[2021-08-14 23:41] LABS: Basophils % 0.6 %; Eosinophils # 1.4 K/mcL (0.0-0.6); Eosinophils % 5.8 %; Hematocrit 39.3 % (37.5-50.1); Hemoglobin 10.6 g/dL (12.9-16.9); Immature Granulocytes % 2.7 % (0-4); Lymphocytes # 5.4 K/mcL (0.6-4.6); Lymphocytes % 22.7 %; Mean Corpuscular Hemoglobin 25.9 pg (28.0-33.3); Mean Corpuscular Volume 96.1 fL (83.0-100.0); Monocytes # 1.4 K/mcL (0.0-1.3); Monocytes % 5.7 %; Neutrophils # 14.9 K/mcL (1.6-8.9); Nucleated Red Blood Cells 0.2 /100 WBC (0); Platelet Count 551 K/mcL (140-400); Red Blood Count 4.09 M/mcL (4.19-5.50); Red Cell Distribution Width 18.3 % (11.5-14.5); Segmented Neutrophils % 62.5 %; White Blood Count 23.9 K/mcL (4.3-11.1)
[2021-08-14 23:44] LABS: ABG Base Excess 5 mEq/L (-2 to 3); ABG HCO3 38 mEq/L (21-27); ABG Oxygen Saturation 100 % (95-98); ABG PCO2 112 mmHg (35-45); ABG PH 7.14 pH Units (7.32-7.45); ABG PO2 326 mmHg (85-104); ABG TCO2 42 mEq/L (20-26); Blood Gas Modality ASSIST CONTROL; Blood Gas VT 500 cc
[2021-08-14 23:46] LABS: Basophils # 0.1 K/mcL (0.0-0.2)
[2021-08-14 23:47] LABS: Alanine Aminotransferase 8 Units/L (7-52); Albumin 3.4 g/dL (3.5-5.7); Albumin/Globulin Ratio 0.9 (1.1-2.2); Alkaline Phosphatase 115 Units/L (34-104); Aspartate Amino Transferase 11 Units/L (13-39); BUN/Creatinine Ratio 19 (6-26); Bilirubin,Direct 0.1 mg/dL (0.0-0.2); Bilirubin,Indirect 0.2 mg/dL (0.0-1.0); Bilirubin,Total 0.3 mg/dL (0.3-1.0); Blood Urea Nitrogen 12 mg/dL (8-23); Calcium 9.2 mg/dL (8.6-10.3); Carbon Dioxide 33 mEq/L (23-29); Chloride 98 mEq/L (98-107); Globulin 3.8 g/dL (2.4-3.5); Glucose 291 mg/dL (70-105); Osmolality,Calculated 296 (280-300); Potassium 4.8 mEq/L (3.5-5.1); Sodium 138 mEq/L (136-145); Total Protein 7.2 g/dL (6.4-8.9); eGFR For African Americans > 60 (> 60); eGFR For Non-African Americans > 60 (> 60)
[2021-08-14 23:49] LABS: Troponin I < 0.03 ng/mL (< 0.04)
[2021-08-15 00:03] LABS: Influenza A PCR Negative (Negative); Influenza B PCR Negative (Negative); Resp. Syncytial Virus PCR Negative (Negative); SARS-CoV-2 by PCR (In House) Negative (Negative)
[2021-08-15 00:05] LABS: Hypochromasia Present (Not Present); Stomatocytes 1+ (Not Present)
[2021-08-15 00:09] LABS: Platelet Estimate Increased (Normal)
[2021-08-15] MEDS ORDERED: methylPREDNISolone 125 MG/2 ML VIAL IVP ONE (01:58)
[2021-08-15] MEDS ORDERED: Ipratropium/Albuterol Neb 3 ML IH ONE (02:00)
[2021-08-15 03:27] LABS: ABG Base Excess 6 mEq/L (-2 to 3); ABG HCO3 40 mEq/L (21-27); ABG Oxygen Saturation 92 % (95-98); ABG PCO2 118 mmHg (35-45); ABG PH 7.13 pH Units (7.32-7.45); ABG PO2 89 mmHg (85-104); ABG TCO2 43 mEq/L (20-26); Blood Gas Modality ASSIST CONTROL; Blood Gas VT 500 cc
[2021-08-15] MEDS ORDERED: Naloxone 0.4 MG/ML INJ IVP PRN (04:33)
[2021-08-15] MEDS ORDERED: Melatonin 3 MG TABLET PO PRN (04:33)
[2021-08-15] MEDS: Cefepime HCl 1,000 MG in Water for inj. (sterile) 10 ML IVP SCH ×3 (05:17→20:35)
[2021-08-15] MEDS: Azithromycin 500 MG in 0.9 % Sodium Chloride 250 ML IVPB SCH (05:20)
[2021-08-15] MEDS ORDERED: Dextrose Gel 15 GM/37.5 ML TUBE PO PRN ×2 (05:56)
[2021-08-15] MEDS ORDERED: *HR* Dextrose 50 % in Water (Syg) 50 ML SYRINGE IVP PRN (05:56)
[2021-08-15] MEDS ORDERED: D5% in Water 1,000 ML IVC PRN (05:56)
[2021-08-15] MEDS ORDERED: Ondansetron ODT 4 MG TAB.RAPDIS PO PRN (06:26)
[2021-08-15] MEDS: MethylPREDNISolone 40 MG/ML VIAL IVP SCH ×3 (10:18→23:46)
[2021-08-15] MEDS: Furosemide 20 MG/2 ML VIAL IVP SCH ×3 (10:19→20:35)
[2021-08-15] MEDS: Budesonide/Formoterol 160/4.5 1 PUFF INH IH SCH ×2 (10:36→19:47)
[2021-08-15] MEDS: Ipratropium/Albuterol Neb 3 ML IH SCH ×3 (10:36→19:47)
[2021-08-15] MEDS: Insulin LISPRO 300 UNITS/3 ML VIAL SUBQ SCH ×4 (12:11→20:34)
[2021-08-15] MEDS: Aspirin 81 MG TAB.CHEW PO SCH (12:29)
[2021-08-15] MEDS: Famotidine 20 MG TABLET PO SCH (12:29)
[2021-08-15] MEDS: Gabapentin 400 MG CAPSULE PO SCH ×3 (12:29→20:35)
[2021-08-15] MEDS: *HR* HYDROcodone/Acet 5/325 mg TABLET PO PRN (22:10)
[2021-08-16] MEDS: Ipratropium/Albuterol Neb 3 ML IH SCH ×4 (04:08→21:44)
[2021-08-16] MEDS: Cefepime HCl 1,000 MG in Water for inj. (sterile) 10 ML IVP SCH ×3 (04:16→20:30)
[2021-08-16] MEDS: Azithromycin 500 MG in 0.9 % Sodium Chloride 250 ML IVPB SCH (04:17)
[2021-08-16 04:45] LABS: ABG Base Excess 8 mEq/L (-2 to 3); ABG HCO3 35 mEq/L (21-27); ABG Oxygen Saturation 86 % (95-98); ABG PCO2 56 mmHg (35-45); ABG PO2 53 mmHg (85-104); ABG TCO2 36 mEq/L (20-26); Blood Gas Modality ASSIST CONTROL; Blood Gas VT 500 cc
[2021-08-16 06:20] LABS: Hemoglobin 9.3 g/dL (12.9-16.9); Lymphocytes % 5.2 %; Monocytes % 2.8 %
[2021-08-16 06:21] LABS: Basophils % 0.2 %; Hematocrit 32.9 % (37.5-50.1); Immature Granulocytes % 1.2 % (0-4); Mean Corpuscular HGB Conc 28.3 g/dL (31.6-35.5); Mean Corpuscular Hemoglobin 25.8 pg (28.0-33.3); Mean Corpuscular Volume 91.1 fL (83.0-100.0); Mean Platelet Volume 10.3 fL (9.4-12.4); Monocytes # 0.5 K/mcL (0.0-1.3); Platelet Count 441 K/mcL (140-400); Red Blood Count 3.61 M/mcL (4.19-5.50); Red Cell Distribution Width 17.8 % (11.5-14.5); Segmented Neutrophils % 90.6 %; White Blood Count 18.8 K/mcL (4.3-11.1)
[2021-08-16 06:25] LABS: Hypochromasia Present (Not Present)
[2021-08-16] MEDS: *HR* HYDROcodone/Acet 5/325 mg TABLET PO PRN ×3 (06:26→23:27)
[2021-08-16 06:33] LABS: Alanine Aminotransferase 8 Units/L (7-52); Albumin 3.2 g/dL (3.5-5.7); Alkaline Phosphatase 86 Units/L (34-104); Aspartate Amino Transferase 7 Units/L (13-39); BUN/Creatinine Ratio 34 (6-26); Bilirubin,Total 0.3 mg/dL (0.3-1.0); Blood Urea Nitrogen 17 mg/dL (8-23); Calcium 9.3 mg/dL (8.6-10.3); Carbon Dioxide 34 mEq/L (23-29); Chloride 98 mEq/L (98-107); Globulin 3.3 g/dL (2.4-3.5); Glucose 246 mg/dL (70-105); Osmolality,Calculated 292 (280-300); Phosphorous 1.3 mg/dL (2.7-4.5); Potassium 4.3 mEq/L (3.5-5.1); Sodium 136 mEq/L (136-145); Total Protein 6.5 g/dL (6.4-8.9); eGFR For African Americans > 60 (> 60); eGFR For Non-African Americans > 60 (> 60)
[2021-08-16] MEDS: Budesonide/Formoterol 160/4.5 1 PUFF INH IH SCH ×2 (08:03→21:44)
[2021-08-16] MEDS: Insulin LISPRO 300 UNITS/3 ML VIAL SUBQ SCH ×4 (08:10→20:48)
[2021-08-16] MEDS: MethylPREDNISolone 40 MG/ML VIAL IVP SCH ×3 (08:11→23:26)
[2021-08-16] MEDS: Furosemide 20 MG/2 ML VIAL IVP SCH ×2 (08:13→20:48)
[2021-08-16] MEDS: Famotidine 20 MG TABLET PO SCH (08:17)
[2021-08-16] MEDS: Gabapentin 400 MG CAPSULE PO SCH ×3 (08:17→20:31)
[2021-08-16] MEDS ORDERED: Artificial Tears SOLN 15 ML BOTTLE BOTH EYES PRN (10:50)
[2021-08-16] MEDS: Vancomycin 1,250 MG/262.5 ML IV.SOLN IVPB SCH ×2 (11:05→22:49)
[2021-08-16] MEDS: Artificial Tears SOLN 15 ML BOTTLE BOTH EYES SCH ×4 (11:48→23:26)
[2021-08-16] MEDS: Chlorhexidine Rinse 15 ML MOUTHWASH MM SCH (20:30)
[2021-08-16] MEDS: GuaiFENesin Liq 200 MG/10 ML UDC PO SCH (20:30)
[2021-08-16] MEDS: *HR* LORazepam 0.5 MG TABLET PO SCH (20:31)
[2021-08-17] MEDS: Ipratropium/Albuterol Neb 3 ML IH SCH ×4 (03:29→19:42)
[2021-08-17] MEDS: Artificial Tears SOLN 15 ML BOTTLE BOTH EYES SCH ×5 (03:34→20:00)
[2021-08-17] MEDS: Cefepime HCl 1,000 MG in Water for inj. (sterile) 10 ML IVP SCH ×3 (04:44→20:08)
[2021-08-17] MEDS: Azithromycin 500 MG in 0.9 % Sodium Chloride 250 ML IVPB SCH (04:44)
[2021-08-17] MEDS: *HR* Enoxaparin 40 MG/0.4 ML SYRINGE SQ SCH (05:54)
[2021-08-17] MEDS: *HR* HYDROcodone/Acet 5/325 mg TABLET PO PRN ×2 (07:23→15:01)
[2021-08-17 07:47] LABS: Basophils % 0.1 %; Hematocrit 31.9 % (37.5-50.1); Hemoglobin 9.1 g/dL (12.9-16.9); Mean Corpuscular HGB Conc 28.5 g/dL (31.6-35.5); Monocytes % 5.3 %; Nucleated Red Blood Cells 0.3 /100 WBC (0)
[2021-08-17 07:49] LABS: Immature Granulocytes % 1.2 % (0-4); Lymphocytes # 0.6 K/mcL (0.6-4.6); Lymphocytes % 4.5 %; Mean Corpuscular Hemoglobin 25.5 pg (28.0-33.3); Mean Corpuscular Volume 89.4 fL (83.0-100.0); Mean Platelet Volume 10.2 fL (9.4-12.4); Monocytes # 0.7 K/mcL (0.0-1.3); Neutrophils # 11.8 K/mcL (1.6-8.9); Platelet Count 448 K/mcL (140-400); Red Blood Count 3.57 M/mcL (4.19-5.50); Red Cell Distribution Width 17.7 % (11.5-14.5); Segmented Neutrophils % 88.9 %; White Blood Count 13.3 K/mcL (4.3-11.1)
[2021-08-17] MEDS: Budesonide/Formoterol 160/4.5 1 PUFF INH IH SCH ×2 (07:52→19:43)
[2021-08-17] MEDS: *HR* LORazepam 0.5 MG TABLET PO SCH ×3 (08:00→20:09)
[2021-08-17] MEDS: Gabapentin 400 MG CAPSULE PO SCH ×3 (08:00→20:08)
[2021-08-17] MEDS: Aspirin 81 MG TAB.CHEW PO SCH (08:00)
[2021-08-17] MEDS: Famotidine 20 MG TABLET PO SCH (08:00)
[2021-08-17] MEDS: MethylPREDNISolone 40 MG/ML VIAL IVP SCH ×2 (08:01→15:07)
[2021-08-17] MEDS: Chlorhexidine Rinse 15 ML MOUTHWASH MM SCH ×2 (08:01→20:07)
[2021-08-17] MEDS: GuaiFENesin Liq 200 MG/10 ML UDC PO SCH ×2 (08:01→20:08)
[2021-08-17] MEDS: Furosemide 20 MG/2 ML VIAL IVP SCH ×2 (08:01→20:09)
[2021-08-17 08:21] LABS: Hypochromasia Present (Not Present)
[2021-08-17 08:27] LABS: BUN/Creatinine Ratio 37 (6-26); Blood Urea Nitrogen 19 mg/dL (8-23); Calcium 8.7 mg/dL (8.6-10.3); Carbon Dioxide 31 mEq/L (23-29); Chloride 98 mEq/L (98-107); Glucose 389 mg/dL (70-105); Osmolality,Calculated 298 (280-300); Potassium 4.6 mEq/L (3.5-5.1); Sodium 135 mEq/L (136-145); eGFR For African Americans > 60 (> 60); eGFR For Non-African Americans > 60 (> 60)
[2021-08-17] MEDS ORDERED: Insulin DETEMIR 100 UNIT/ML X5UNITS SUBQ SCH (09:00)
[2021-08-17] MEDS: Vancomycin 1,250 MG/262.5 ML IV.SOLN IVPB SCH (11:29)
[2021-08-17] MEDS: Insulin LISPRO 300 UNITS/3 ML VIAL SUBQ SCH ×3 (11:30→20:11)
[2021-08-17] MEDS: Insulin DETEMIR 100 UNIT/ML X5UNITS SUBQ SCH (20:13)
[2021-08-18] MEDS: Artificial Tears SOLN 15 ML BOTTLE BOTH EYES SCH ×6 (00:05→20:41)
[2021-08-18] MEDS: Vancomycin 1,250 MG/262.5 ML IV.SOLN IVPB SCH (00:05)
[2021-08-18] MEDS: MethylPREDNISolone 40 MG/ML VIAL IVP SCH ×2 (00:05→08:08)
[2021-08-18] MEDS: Albuterol 2.5 MG/3 ML NEBULIZER IH PRN ×3 (00:19→18:42)
[2021-08-18] MEDS: Ipratropium/Albuterol Neb 3 ML IH SCH ×4 (03:13→22:27)
[2021-08-18] MEDS: Cefepime HCl 1,000 MG in Water for inj. (sterile) 10 ML IVP SCH ×3 (05:00→20:39)
[2021-08-18] MEDS: *HR* Enoxaparin 40 MG/0.4 ML SYRINGE SQ SCH (05:00)
[2021-08-18 06:48] LABS: Hemoglobin 9.4 g/dL (12.9-16.9); Nucleated Red Blood Cells 0.1 /100 WBC (0); Red Cell Distribution Width 17.6 % (11.5-14.5); White Blood Count 13.8 K/mcL (4.3-11.1)
[2021-08-18 06:50] LABS: Basophils % 0.2 %; Hematocrit 33.6 % (37.5-50.1); Immature Granulocytes % 1.4 % (0-4); Lymphocytes # 0.7 K/mcL (0.6-4.6); Lymphocytes % 4.7 %; Mean Corpuscular Hemoglobin 25.4 pg (28.0-33.3); Mean Corpuscular Volume 90.8 fL (83.0-100.0); Monocytes # 0.7 K/mcL (0.0-1.3); Monocytes % 4.8 %; Neutrophils # 12.3 K/mcL (1.6-8.9); Platelet Count 436 K/mcL (140-400); Segmented Neutrophils % 88.9 %
[2021-08-18 07:05] LABS: BUN/Creatinine Ratio 37 (6-26); Blood Urea Nitrogen 19 mg/dL (8-23); Calcium 8.3 mg/dL (8.6-10.3); Carbon Dioxide 39 mEq/L (23-29); Chloride 99 mEq/L (98-107); Glucose 319 mg/dL (70-105); Osmolality,Calculated 305 (280-300); Potassium 4.5 mEq/L (3.5-5.1); Sodium 140 mEq/L (136-145); eGFR For African Americans > 60 (> 60); eGFR For Non-African Americans > 60 (> 60)
[2021-08-18 07:55] LABS: Anisocytosis 1+ (Not Present); Hypochromasia Present (Not Present)
[2021-08-18] MEDS: Insulin LISPRO 300 UNITS/3 ML VIAL SUBQ SCH ×5 (08:00→20:46)
[2021-08-18] MEDS: Chlorhexidine Rinse 15 ML MOUTHWASH MM SCH ×2 (08:04→20:41)
[2021-08-18] MEDS: GuaiFENesin Liq 200 MG/10 ML UDC PO SCH ×2 (08:04→20:39)
[2021-08-18] MEDS: Aspirin 81 MG TAB.CHEW PO SCH (08:07)
[2021-08-18] MEDS: Famotidine 20 MG TABLET PO SCH (08:07)
[2021-08-18] MEDS: *HR* LORazepam 0.5 MG TABLET PO SCH ×3 (08:07→20:40)
[2021-08-18] MEDS: Gabapentin 400 MG CAPSULE PO SCH ×3 (08:07→20:40)
[2021-08-18] MEDS: Furosemide 20 MG/2 ML VIAL IVP SCH (08:08)
[2021-08-18] MEDS: Budesonide/Formoterol 160/4.5 1 PUFF INH IH SCH ×2 (08:35→22:27)
[2021-08-18] MEDS ORDERED: Azithromycin 250 MG TABLET PO SCH (09:00)
[2021-08-18] MEDS: Insulin DETEMIR 100 UNIT/ML X5UNITS SUBQ SCH ×2 (11:06→20:47)
[2021-08-18] MEDS: *HR* HYDROcodone/Acet 5/325 mg TABLET PO PRN ×2 (11:06→21:11)
[2021-08-18] MEDS: Vancomycin 1,500 MG/265 ML IV.SOLN IVPB SCH (11:10)
[2021-08-18] MEDS: Furosemide 40 MG TABLET PO SCH (20:40)
[2021-08-19] MEDS: Vancomycin 1,500 MG/265 ML IV.SOLN IVPB SCH ×2 (00:27→14:10)
[2021-08-19] MEDS: Artificial Tears SOLN 15 ML BOTTLE BOTH EYES SCH ×3 (00:28→08:57)
[2021-08-19] MEDS: Ipratropium/Albuterol Neb 3 ML IH SCH ×4 (03:33→21:40)
[2021-08-19] MEDS: Cefepime HCl 1,000 MG in Water for inj. (sterile) 10 ML IVP SCH (04:38)
[2021-08-19 06:15] LABS: Basophils % 0.2 %; Eosinophils % 0.1 %; Hematocrit 31.5 % (37.5-50.1); Hemoglobin 9.1 g/dL (12.9-16.9); Immature Granulocytes % 2.5 % (0-4); Lymphocytes # 1.8 K/mcL (0.6-4.6); Lymphocytes % 13.1 %; Mean Corpuscular HGB Conc 28.9 g/dL (31.6-35.5); Mean Corpuscular Hemoglobin 25.9 pg (28.0-33.3); Mean Corpuscular Volume 89.7 fL (83.0-100.0); Mean Platelet Volume 9.6 fL (9.4-12.4); Monocytes # 1.4 K/mcL (0.0-1.3); Monocytes % 10.4 %; Neutrophils # 10.1 K/mcL (1.6-8.9); Nucleated Red Blood Cells 0.1 /100 WBC (0); Platelet Count 396 K/mcL (140-400); Red Blood Count 3.51 M/mcL (4.19-5.50); Red Cell Distribution Width 17.8 % (11.5-14.5); Segmented Neutrophils % 73.7 %; White Blood Count 13.7 K/mcL (4.3-11.1)
[2021-08-19 06:28] LABS: BUN/Creatinine Ratio 45 (6-26); Blood Urea Nitrogen 22 mg/dL (8-23); Calcium 8.3 mg/dL (8.6-10.3); Carbon Dioxide 34 mEq/L (23-29); Chloride 98 mEq/L (98-107); Glucose 315 mg/dL (70-105); Osmolality,Calculated 297 (280-300); Potassium 3.8 mEq/L (3.5-5.1); Sodium 136 mEq/L (136-145); eGFR For African Americans > 60 (> 60); eGFR For Non-African Americans > 60 (> 60)
[2021-08-19] MEDS: *HR* Enoxaparin 40 MG/0.4 ML SYRINGE SQ SCH (06:38)
[2021-08-19 06:57] LABS: Anisocytosis 1+ (Not Present); Hypochromasia Present (Not Present); Platelet Estimate Normal (Normal)
[2021-08-19] MEDS: Budesonide/Formoterol 160/4.5 1 PUFF INH IH SCH ×2 (07:40→21:40)
[2021-08-19] MEDS: Chlorhexidine Rinse 15 ML MOUTHWASH MM SCH ×2 (08:55→20:07)
[2021-08-19] MEDS: Insulin DETEMIR 100 UNIT/ML X5UNITS SUBQ SCH ×2 (08:55→20:03)
[2021-08-19] MEDS: Insulin LISPRO 300 UNITS/3 ML VIAL SUBQ SCH ×4 (08:56→20:03)
[2021-08-19] MEDS ORDERED: predniSONE 20 MG TABLET PO SCH (09:00)
[2021-08-19] MEDS ORDERED: Lidocaine -MPF 2% 5 ML VIAL ONE (09:40)
[2021-08-19] MEDS ORDERED: *HR* FentaNYL (PF) 100 MCG/2 ML VIAL ONE (09:42)
[2021-08-19] MEDS ORDERED: *HR* Midazolam HCl 2 MG/2 ML VIAL ONE (09:42)
[2021-08-19] MEDS ORDERED: *HR* Propofol 200 MG/20 ML VIAL IVP ONE (10:16)
[2021-08-19] MEDS ORDERED: 0.9 % Sodium Chloride 1,000 ML ONE (11:07)
[2021-08-19] MEDS: GuaiFENesin Liq 200 MG/10 ML UDC PO SCH ×2 (11:38→20:01)
[2021-08-19] MEDS: Gabapentin 400 MG CAPSULE PO SCH ×3 (11:38→20:01)
[2021-08-19] MEDS: Famotidine 20 MG TABLET PO SCH (11:39)
[2021-08-19] MEDS: *HR* LORazepam 0.5 MG TABLET PO SCH ×3 (11:39→20:02)
[2021-08-19] MEDS: Aspirin 81 MG TAB.CHEW PO SCH (11:39)
[2021-08-19] MEDS: *HR* HYDROcodone/Acet 5/325 mg TABLET PO PRN ×2 (11:40→20:18)
[2021-08-19] MEDS: Albuterol 2.5 MG/3 ML NEBULIZER IH PRN (12:00)
[2021-08-19] MEDS: Furosemide 40 MG TABLET PO SCH ×2 (12:17→20:02)
[2021-08-19] MEDS: Sulfamethoxazole/Trimeth 30 ML in D5% in Water 500 ML IVPB SCH ×2 (13:09→20:02)
[2021-08-19] MEDS ORDERED: Acetaminophen 325 MG TABLET PO PRN (15:31)
[2021-08-20] MEDS: Vancomycin 1,500 MG/265 ML IV.SOLN IVPB SCH ×2 (01:16→11:30)
[2021-08-20] MEDS: Ipratropium/Albuterol Neb 3 ML IH SCH ×4 (03:25→20:08)
[2021-08-20] MEDS: Sulfamethoxazole/Trimeth 30 ML in D5% in Water 500 ML IVPB SCH ×3 (05:28→21:03)
[2021-08-20] MEDS: *HR* Enoxaparin 40 MG/0.4 ML SYRINGE SQ SCH (05:29)
[2021-08-20] MEDS ORDERED: 0.9 % Sodium Chloride 500 ML IVC ONE (06:13)
[2021-08-20 07:32] LABS: Eosinophils % 4.9 %
[2021-08-20 07:34] LABS: Basophils # 0.1 K/mcL (0.0-0.2); Basophils % 0.3 %; Eosinophils # 0.8 K/mcL (0.0-0.6); Hematocrit 37.1 % (37.5-50.1); Hemoglobin 10.5 g/dL (12.9-16.9); Lymphocytes # 2.5 K/mcL (0.6-4.6); Lymphocytes % 15.7 %; Mean Corpuscular HGB Conc 28.3 g/dL (31.6-35.5); Mean Corpuscular Hemoglobin 25.9 pg (28.0-33.3); Mean Corpuscular Volume 91.6 fL (83.0-100.0); Mean Platelet Volume 9.8 fL (9.4-12.4); Monocytes # 1.2 K/mcL (0.0-1.3); Monocytes % 7.4 %; Nucleated Red Blood Cells 0.1 /100 WBC (0); Platelet Count 373 K/mcL (140-400); Red Blood Count 4.05 M/mcL (4.19-5.50); Red Cell Distribution Width 17.5 % (11.5-14.5); Segmented Neutrophils % 68.7 %
[2021-08-20 07:47] LABS: Alanine Aminotransferase 28 Units/L (7-52); Alkaline Phosphatase 96 Units/L (34-104); Aspartate Amino Transferase 13 Units/L (13-39); BUN/Creatinine Ratio 23 (6-26); Bilirubin,Total 0.3 mg/dL (0.3-1.0); Blood Urea Nitrogen 12 mg/dL (8-23); Carbon Dioxide 38 mEq/L (23-29); Chloride 95 mEq/L (98-107); Glucose 143 mg/dL (70-105); Osmolality,Calculated 284 (280-300); Potassium 3.9 mEq/L (3.5-5.1); Sodium 136 mEq/L (136-145); eGFR For African Americans > 60 (> 60); eGFR For Non-African Americans > 60 (> 60)
[2021-08-20] MEDS ORDERED: Dextrose Gel 15 GM/37.5 ML TUBE PO PRN ×2 (07:47)
[2021-08-20] MEDS ORDERED: Artificial Tears SOLN 15 ML BOTTLE BOTH EYES PRN (07:47)
[2021-08-20] MEDS ORDERED: *HR* Dextrose 50 % in Water (Syg) 50 ML SYRINGE IVP PRN (07:47)
[2021-08-20] MEDS ORDERED: D5% in Water 1,000 ML IVC PRN (07:47)
[2021-08-20] MEDS ORDERED: Naloxone 0.4 MG/ML INJ IVP PRN (07:47)
[2021-08-20] MEDS ORDERED: Ipratropium/Albuterol Neb 3 ML ONE (07:57)
[2021-08-20 08:11] LABS: Anisocytosis 1+ (Not Present); Hypochromasia Present (Not Present); Platelet Estimate Normal (Normal)
[2021-08-20] MEDS: Budesonide/Formoterol 160/4.5 1 PUFF INH IH SCH ×2 (08:20→20:09)
[2021-08-20] MEDS: Insulin DETEMIR 100 UNIT/ML X5UNITS SUBQ SCH ×2 (10:36→21:05)
[2021-08-20] MEDS: Gabapentin 400 MG CAPSULE PO SCH ×3 (10:38→21:08)
[2021-08-20] MEDS: *HR* LORazepam 0.5 MG TABLET PO SCH ×3 (10:38→21:09)
[2021-08-20] MEDS: Aspirin 81 MG TAB.CHEW PO SCH (10:38)
[2021-08-20] MEDS: GuaiFENesin Liq 200 MG/10 ML UDC PO SCH ×2 (10:39→21:04)
[2021-08-20] MEDS: Chlorhexidine Rinse 15 ML MOUTHWASH MM SCH ×2 (10:39→21:04)
[2021-08-20] MEDS: Furosemide 40 MG TABLET PO SCH ×2 (10:46→18:13)
[2021-08-20] MEDS: Famotidine 20 MG TABLET PO SCH (10:46)
[2021-08-20] MEDS: *HR* HYDROcodone/Acet 5/325 mg TABLET PO PRN ×2 (12:57→21:04)
[2021-08-20] MEDS: Insulin LISPRO 300 UNITS/3 ML VIAL SUBQ SCH ×3 (12:59→21:05)
[2021-08-20] MEDS: Acetylcysteine 10% 2 ML INHSOL IH SCH (16:01)
[2021-08-20] MEDS: Nystatin POWDER 30 GM BOTTLE TP SCH ×2 (18:12→21:06)
[2021-08-20] MEDS: Melatonin 3 MG TABLET PO PRN (21:04)
[2021-08-20] MEDS ORDERED: 0.9 % Sodium Chloride 250 ML ONE (23:01)
[2021-08-21] MEDS ORDERED: 0.9 % Sodium Chloride 500 ML IVC ONE (00:31)
[2021-08-21] MEDS ORDERED: 0.9 % Sodium Chloride 500 ML ONE (00:31)
[2021-08-21] MEDS: Vancomycin 1,500 MG/265 ML IV.SOLN IVPB SCH ×3 (01:11→23:30)
[2021-08-21] MEDS: Acetylcysteine 10% 2 ML INHSOL IH SCH ×3 (04:19→15:34)
[2021-08-21] MEDS: Ipratropium/Albuterol Neb 3 ML IH SCH ×4 (04:19→22:19)
[2021-08-21] MEDS: Sulfamethoxazole/Trimeth 30 ML in D5% in Water 500 ML IVPB SCH ×3 (05:03→20:51)
[2021-08-21] MEDS: *HR* Enoxaparin 40 MG/0.4 ML SYRINGE SQ SCH (05:05)
[2021-08-21] MEDS: Budesonide/Formoterol 160/4.5 1 PUFF INH IH SCH ×2 (10:41→22:20)
[2021-08-21] MEDS: Furosemide 40 MG TABLET PO SCH ×2 (11:32→16:17)
[2021-08-21] MEDS: Insulin DETEMIR 100 UNIT/ML X5UNITS SUBQ SCH ×2 (11:32→20:23)
[2021-08-21] MEDS: Aspirin 81 MG TAB.CHEW PO SCH (11:32)
[2021-08-21] MEDS: Gabapentin 400 MG CAPSULE PO SCH ×3 (11:33→20:23)
[2021-08-21] MEDS: Metoprolol XL (24 HR) Succ 25 MG TAB.ER.24H PO SCH (11:33)
[2021-08-21] MEDS: Famotidine 20 MG TABLET PO SCH (11:33)
[2021-08-21] MEDS: Loratadine 10 MG TABLET PO SCH (11:33)
[2021-08-21] MEDS: Lactulose Oral Soln 20 GM/30 ML UDC PO SCH (11:33)
[2021-08-21] MEDS: GuaiFENesin Liq 200 MG/10 ML UDC PO SCH ×2 (11:33→20:23)
[2021-08-21] MEDS: *HR* LORazepam 0.5 MG TABLET PO SCH ×3 (11:33→20:24)
[2021-08-21] MEDS: Nystatin POWDER 30 GM BOTTLE TP SCH ×2 (11:34→20:52)
[2021-08-21] MEDS: Chlorhexidine Rinse 15 ML MOUTHWASH MM SCH ×2 (11:34→20:23)
[2021-08-21] MEDS: Insulin LISPRO 300 UNITS/3 ML VIAL SUBQ SCH ×4 (11:34→19:54)
[2021-08-21 14:35] LABS: Basophils % 0.2 %; Eosinophils # 0.5 K/mcL (0.0-0.6); Eosinophils % 3.8 %; Hemoglobin 9.3 g/dL (12.9-16.9); Immature Granulocytes % 3.1 % (0-4); Lymphocytes # 1.7 K/mcL (0.6-4.6); Lymphocytes % 12.1 %; Mean Corpuscular HGB Conc 29.1 g/dL (31.6-35.5); Mean Corpuscular Hemoglobin 25.6 pg (28.0-33.3); Mean Corpuscular Volume 88.2 fL (83.0-100.0); Mean Platelet Volume 9.9 fL (9.4-12.4); Monocytes # 0.6 K/mcL (0.0-1.3); Monocytes % 4.5 %; Neutrophils # 10.5 K/mcL (1.6-8.9); Platelet Count 293 K/mcL (140-400); Red Blood Count 3.63 M/mcL (4.19-5.50); Red Cell Distribution Width 17.5 % (11.5-14.5); Segmented Neutrophils % 76.3 %; White Blood Count 13.7 K/mcL (4.3-11.1)
[2021-08-21 14:54] LABS: BUN/Creatinine Ratio 14 (6-26); Blood Urea Nitrogen 9 mg/dL (8-23); Calcium 7.9 mg/dL (8.6-10.3); Carbon Dioxide 34 mEq/L (23-29); Chloride 93 mEq/L (98-107); Glucose 158 mg/dL (70-105); Osmolality,Calculated 276 (280-300); Potassium 4.1 mEq/L (3.5-5.1); Sodium 132 mEq/L (136-145); eGFR For African Americans > 60 (> 60); eGFR For Non-African Americans > 60 (> 60)
[2021-08-22] MEDS: Acetylcysteine 10% 2 ML INHSOL IH SCH ×3 (04:53→16:40)
[2021-08-22] MEDS: Ipratropium/Albuterol Neb 3 ML IH SCH ×4 (04:53→20:07)
[2021-08-22] MEDS: Sulfamethoxazole/Trimeth 30 ML in D5% in Water 500 ML IVPB SCH ×3 (05:00→22:07)
[2021-08-22] MEDS: *HR* Enoxaparin 40 MG/0.4 ML SYRINGE SQ SCH (05:08)
[2021-08-22 05:42] LABS: Hemoglobin 9.1 g/dL (12.9-16.9); Mean Platelet Volume 9.6 fL (9.4-12.4)
[2021-08-22 05:44] LABS: Basophils % 0.3 %; Eosinophils % 7.2 %; Hematocrit 32.3 % (37.5-50.1); Immature Granulocytes % 2.6 % (0-4); Lymphocytes # 1.4 K/mcL (0.6-4.6); Lymphocytes % 10.6 %; Mean Corpuscular HGB Conc 28.2 g/dL (31.6-35.5); Mean Corpuscular Hemoglobin 25.1 pg (28.0-33.3); Mean Corpuscular Volume 89.2 fL (83.0-100.0); Monocytes # 0.7 K/mcL (0.0-1.3); Monocytes % 5.5 %; Neutrophils # 9.8 K/mcL (1.6-8.9); Platelet Count 276 K/mcL (140-400); Red Blood Count 3.62 M/mcL (4.19-5.50); Red Cell Distribution Width 17.8 % (11.5-14.5); Segmented Neutrophils % 73.8 %; White Blood Count 13.3 K/mcL (4.3-11.1)
[2021-08-22 07:03] LABS: BUN/Creatinine Ratio 11 (6-26); Blood Urea Nitrogen 8 mg/dL (8-23); Calcium 8.3 mg/dL (8.6-10.3); Carbon Dioxide 36 mEq/L (23-29); Chloride 95 mEq/L (98-107); Glucose 97 mg/dL (70-105); Osmolality,Calculated 278 (280-300); Potassium 4.1 mEq/L (3.5-5.1); Sodium 135 mEq/L (136-145); eGFR For African Americans > 60 (> 60); eGFR For Non-African Americans > 60 (> 60)
[2021-08-22] MEDS: Chlorhexidine Rinse 15 ML MOUTHWASH MM SCH ×2 (07:57→22:07)
[2021-08-22] MEDS: GuaiFENesin Liq 200 MG/10 ML UDC PO SCH ×2 (07:57→22:07)
[2021-08-22] MEDS: Lactulose Oral Soln 20 GM/30 ML UDC PO SCH (07:57)
[2021-08-22] MEDS: Furosemide 40 MG TABLET PO SCH ×2 (07:58→16:04)
[2021-08-22] MEDS: Loratadine 10 MG TABLET PO SCH (07:58)
[2021-08-22] MEDS: *HR* HYDROcodone/Acet 5/325 mg TABLET PO PRN ×2 (07:58→16:04)
[2021-08-22] MEDS: Metoprolol XL (24 HR) Succ 25 MG TAB.ER.24H PO SCH (07:58)
[2021-08-22] MEDS: Aspirin 81 MG TAB.CHEW PO SCH (07:58)
[2021-08-22] MEDS: Gabapentin 400 MG CAPSULE PO SCH ×3 (07:59→22:07)
[2021-08-22] MEDS: *HR* LORazepam 0.5 MG TABLET PO SCH ×3 (07:59→22:07)
[2021-08-22] MEDS: Famotidine 20 MG TABLET PO SCH (07:59)
[2021-08-22] MEDS: Insulin LISPRO 300 UNITS/3 ML VIAL SUBQ SCH ×4 (07:59→22:07)
[2021-08-22] MEDS: Nystatin POWDER 30 GM BOTTLE TP SCH ×2 (08:00→22:09)
[2021-08-22] MEDS: Insulin DETEMIR 100 UNIT/ML X5UNITS SUBQ SCH ×2 (08:13→22:07)
[2021-08-22] MEDS: Budesonide/Formoterol 160/4.5 1 PUFF INH IH SCH ×2 (08:50→20:07)
[2021-08-22] MEDS: Vancomycin 1,500 MG/265 ML IV.SOLN IVPB SCH (11:46)
[2021-08-22] MEDS: Acetaminophen 325 MG TABLET PO PRN (12:44)
[2021-08-23] MEDS ORDERED: Vancomycin 1,250 MG/262.5 ML IV.SOLN IVPB SCH (01:00)
[2021-08-23] MEDS: Albuterol 2.5 MG/3 ML NEBULIZER IH PRN (01:53)
[2021-08-23] MEDS: Acetylcysteine 10% 2 ML INHSOL IH SCH ×3 (01:53→15:24)
[2021-08-23] MEDS: *HR* HYDROcodone/Acet 5/325 mg TABLET PO PRN ×2 (02:38→20:41)
[2021-08-23] MEDS: Melatonin 3 MG TABLET PO PRN (02:38)
[2021-08-23] MEDS: Ipratropium/Albuterol Neb 3 ML IH SCH ×4 (03:25→21:02)
[2021-08-23] MEDS: *HR* Enoxaparin 40 MG/0.4 ML SYRINGE SQ SCH (05:47)
[2021-08-23 05:53] LABS: Basophils % 0.2 %; Eosinophils % 7.9 %; Hematocrit 30.9 % (37.5-50.1); Monocytes % 5.5 %; Red Blood Count 3.47 M/mcL (4.19-5.50)
[2021-08-23 05:55] LABS: Eosinophils # 1.1 K/mcL (0.0-0.6); Hemoglobin 8.7 g/dL (12.9-16.9); Immature Granulocytes % 2.7 % (0-4); Lymphocytes % 9.7 %; Mean Corpuscular HGB Conc 28.2 g/dL (31.6-35.5); Mean Corpuscular Hemoglobin 25.1 pg (28.0-33.3); Mean Platelet Volume 10.2 fL (9.4-12.4); Monocytes # 0.8 K/mcL (0.0-1.3); Neutrophils # 10.3 K/mcL (1.6-8.9); Platelet Count 281 K/mcL (140-400); Red Cell Distribution Width 18.1 % (11.5-14.5); White Blood Count 13.9 K/mcL (4.3-11.1)
[2021-08-23 06:02] LABS: Lymphocytes # 1.4 K/mcL (0.6-4.6)
[2021-08-23] MEDS: Sulfamethoxazole/Trimeth 30 ML in D5% in Water 500 ML IVPB SCH (06:10)
[2021-08-23 06:46] LABS: BUN/Creatinine Ratio 11 (6-26); Blood Urea Nitrogen 8 mg/dL (8-23); Calcium 8.4 mg/dL (8.6-10.3); Carbon Dioxide 33 mEq/L (23-29); Chloride 97 mEq/L (98-107); Glucose 165 mg/dL (70-105); Osmolality,Calculated 284 (280-300); Potassium 4.3 mEq/L (3.5-5.1); Sodium 136 mEq/L (136-145); eGFR For African Americans > 60 (> 60); eGFR For Non-African Americans > 60 (> 60)
[2021-08-23] MEDS: Insulin LISPRO 300 UNITS/3 ML VIAL SUBQ SCH ×4 (08:15→20:15)
[2021-08-23] MEDS: Insulin DETEMIR 100 UNIT/ML X5UNITS SUBQ SCH ×2 (08:16→20:15)
[2021-08-23] MEDS: *HR* LORazepam 0.5 MG TABLET PO SCH ×3 (08:17→20:21)
[2021-08-23] MEDS: Lactulose Oral Soln 20 GM/30 ML UDC PO SCH (08:17)
[2021-08-23] MEDS: GuaiFENesin Liq 200 MG/10 ML UDC PO SCH ×2 (08:17→20:21)
[2021-08-23] MEDS: Acetaminophen 325 MG TABLET PO PRN (08:17)
[2021-08-23] MEDS: Chlorhexidine Rinse 15 ML MOUTHWASH MM SCH ×2 (08:17→20:21)
[2021-08-23] MEDS: Furosemide 40 MG TABLET PO SCH ×2 (08:18→16:57)
[2021-08-23] MEDS: Gabapentin 400 MG CAPSULE PO SCH ×3 (08:18→20:21)
[2021-08-23] MEDS: Famotidine 20 MG TABLET PO SCH (08:19)
[2021-08-23] MEDS: Nystatin POWDER 30 GM BOTTLE TP SCH ×2 (08:19→20:22)
[2021-08-23] MEDS: Loratadine 10 MG TABLET PO SCH (08:19)
[2021-08-23] MEDS: Aspirin 81 MG TAB.CHEW PO SCH (08:19)
[2021-08-23] MEDS ORDERED: Sulfamethoxazole/Trimeth Oral Soln 400-80mg/10 ML UDC PO SCH (09:00)
[2021-08-23] MEDS ORDERED: Sulfamethoxazole/Trimeth DS 1 EACH TABLET PO SCH (09:00)
[2021-08-23] MEDS: Budesonide/Formoterol 160/4.5 1 PUFF INH IH SCH ×2 (09:19→21:02)
[2021-08-23] MEDS: Sulfamethoxazole/Trimeth Oral Soln 400-80mg/10 ML UDC PO SCH (20:21)
[2021-08-24] MEDS: Acetylcysteine 10% 2 ML INHSOL IH SCH ×3 (03:27→16:56)
[2021-08-24] MEDS: Ipratropium/Albuterol Neb 3 ML IH SCH ×4 (03:27→20:41)
[2021-08-24 04:47] LABS: Basophils % 0.3 %; Eosinophils % 10.7 %; Hemoglobin 9.6 g/dL (12.9-16.9); Lymphocytes % 10.6 %; Red Cell Distribution Width 17.9 % (11.5-14.5)
[2021-08-24 04:49] LABS: Eosinophils # 1.2 K/mcL (0.0-0.6); Hematocrit 34.4 % (37.5-50.1); Immature Granulocytes % 2.3 % (0-4); Lymphocytes # 1.2 K/mcL (0.6-4.6); Mean Corpuscular HGB Conc 27.9 g/dL (31.6-35.5); Mean Corpuscular Hemoglobin 25.2 pg (28.0-33.3); Mean Corpuscular Volume 90.3 fL (83.0-100.0); Mean Platelet Volume 9.9 fL (9.4-12.4); Monocytes # 0.6 K/mcL (0.0-1.3); Monocytes % 5.9 %; Platelet Count 275 K/mcL (140-400); Red Blood Count 3.81 M/mcL (4.19-5.50); Segmented Neutrophils % 70.2 %; White Blood Count 10.9 K/mcL (4.3-11.1)
[2021-08-24 04:54] LABS: Neutrophils # 7.7 K/mcL (1.6-8.9)
[2021-08-24 05:06] LABS: BUN/Creatinine Ratio 7 (6-26); Blood Urea Nitrogen 4 mg/dL (8-23); Calcium 8.9 mg/dL (8.6-10.3); Carbon Dioxide 38 mEq/L (23-29); Chloride 95 mEq/L (98-107); Glucose 90 mg/dL (70-105); Osmolality,Calculated 278 (280-300); Potassium 4.7 mEq/L (3.5-5.1); Sodium 136 mEq/L (136-145); eGFR For African Americans > 60 (> 60); eGFR For Non-African Americans > 60 (> 60)
[2021-08-24 05:33] LABS: Hypochromasia Present (Not Present); Platelet Estimate Normal (Normal)
[2021-08-24] MEDS: *HR* Enoxaparin 40 MG/0.4 ML SYRINGE SQ SCH (05:35)
[2021-08-24] MEDS: *HR* HYDROcodone/Acet 5/325 mg TABLET PO PRN (05:35)
[2021-08-24] MEDS: Gabapentin 400 MG CAPSULE PO SCH ×3 (09:49→20:20)
[2021-08-24] MEDS: Loratadine 10 MG TABLET PO SCH (09:49)
[2021-08-24] MEDS: *HR* LORazepam 0.5 MG TABLET PO SCH ×3 (09:49→20:20)
[2021-08-24] MEDS: Aspirin 81 MG TAB.CHEW PO SCH (09:49)
[2021-08-24] MEDS: Chlorhexidine Rinse 15 ML MOUTHWASH MM SCH ×2 (09:50→20:20)
[2021-08-24] MEDS: Sulfamethoxazole/Trimeth Oral Soln 400-80mg/10 ML UDC PO SCH ×2 (09:50→20:20)
[2021-08-24] MEDS: GuaiFENesin Liq 200 MG/10 ML UDC PO SCH ×2 (09:50→20:20)
[2021-08-24] MEDS: Lactulose Oral Soln 20 GM/30 ML UDC PO SCH (09:50)
[2021-08-24] MEDS: Insulin LISPRO 300 UNITS/3 ML VIAL SUBQ SCH ×4 (09:51→20:21)
[2021-08-24] MEDS: Nystatin POWDER 30 GM BOTTLE TP SCH ×2 (09:52→20:21)
[2021-08-24] MEDS: Furosemide 40 MG TABLET PO SCH ×2 (09:59→16:27)
[2021-08-24] MEDS: Famotidine 20 MG TABLET PO SCH (09:59)
[2021-08-24] MEDS: Insulin DETEMIR 100 UNIT/ML X5UNITS SUBQ SCH ×2 (10:00→20:21)
[2021-08-24] MEDS: Acetaminophen 325 MG TABLET PO PRN (10:19)
[2021-08-24] MEDS: Budesonide/Formoterol 160/4.5 1 PUFF INH IH SCH ×2 (10:48→20:41)
[2021-08-25 01:54] LABS: BUN/Creatinine Ratio 8 (6-26); Blood Urea Nitrogen 5 mg/dL (8-23); Calcium 9.2 mg/dL (8.6-10.3); Carbon Dioxide 41 mEq/L (23-29); Chloride 91 mEq/L (98-107); Glucose 112 mg/dL (70-105); Osmolality,Calculated 278 (280-300); Potassium 4.5 mEq/L (3.5-5.1); Sodium 135 mEq/L (136-145); eGFR For African Americans > 60 (> 60); eGFR For Non-African Americans > 60 (> 60)
[2021-08-25 02:11] LABS: Hemoglobin 9.9 g/dL (12.9-16.9); Mean Platelet Volume 10.5 fL (9.4-12.4)
[2021-08-25 02:13] LABS: Basophils % 0.3 %; Eosinophils # 1.1 K/mcL (0.0-0.6); Hematocrit 36.3 % (37.5-50.1); Immature Granulocytes % 1.6 % (0-4); Lymphocytes # 1.2 K/mcL (0.6-4.6); Lymphocytes % 10.3 %; Mean Corpuscular HGB Conc 27.3 g/dL (31.6-35.5); Mean Corpuscular Volume 91.7 fL (83.0-100.0); Monocytes # 0.7 K/mcL (0.0-1.3); Monocytes % 6.1 %; Neutrophils # 8.7 K/mcL (1.6-8.9); Platelet Count 286 K/mcL (140-400); Red Blood Count 3.96 M/mcL (4.19-5.50); Segmented Neutrophils % 72.7 %
[2021-08-25 02:53] LABS: Hypochromasia Present (Not Present)
[2021-08-25 02:54] LABS: Platelet Estimate Normal (Normal); Reactive Lymphocytes Present (Not Present)
[2021-08-25] MEDS: Acetylcysteine 10% 2 ML INHSOL IH SCH ×3 (03:31→16:48)
[2021-08-25] MEDS: Ipratropium/Albuterol Neb 3 ML IH SCH ×4 (03:31→21:29)
[2021-08-25] MEDS: *HR* Enoxaparin 40 MG/0.4 ML SYRINGE SQ SCH (05:33)
[2021-08-25] MEDS: Insulin LISPRO 300 UNITS/3 ML VIAL SUBQ SCH ×4 (07:49→21:37)
[2021-08-25] MEDS: Loratadine 10 MG TABLET PO SCH (07:50)
[2021-08-25] MEDS: Aspirin 81 MG TAB.CHEW PO SCH (07:50)
[2021-08-25] MEDS: Famotidine 20 MG TABLET PO SCH (07:50)
[2021-08-25] MEDS: Gabapentin 400 MG CAPSULE PO SCH ×3 (07:50→21:32)
[2021-08-25] MEDS: Furosemide 40 MG TABLET PO SCH ×2 (07:50→15:37)
[2021-08-25] MEDS: *HR* LORazepam 0.5 MG TABLET PO SCH ×3 (07:50→21:32)
[2021-08-25] MEDS: Chlorhexidine Rinse 15 ML MOUTHWASH MM SCH ×2 (07:51→21:35)
[2021-08-25] MEDS: Lactulose Oral Soln 20 GM/30 ML UDC PO SCH (07:51)
[2021-08-25] MEDS: Insulin DETEMIR 100 UNIT/ML X5UNITS SUBQ SCH ×2 (07:51→21:52)
[2021-08-25] MEDS: GuaiFENesin Liq 200 MG/10 ML UDC PO SCH ×3 (07:51→21:35)
[2021-08-25] MEDS: Sulfamethoxazole/Trimeth Oral Soln 400-80mg/10 ML UDC PO SCH ×2 (07:51→21:35)
[2021-08-25] MEDS: Nystatin POWDER 30 GM BOTTLE TP SCH ×2 (07:52→21:56)
[2021-08-25] MEDS: Budesonide/Formoterol 160/4.5 1 PUFF INH IH SCH ×2 (08:32→21:29)
[2021-08-25 23:01] LABS: ABG Base Excess 13 mEq/L (-2 to 3); ABG HCO3 41 mEq/L (21-27); ABG Oxygen Saturation 94 % (95-98); ABG PCO2 75 mmHg (35-45); ABG PH 7.35 pH Units (7.32-7.45); ABG PO2 77 mmHg (85-104); ABG TCO2 44 mEq/L (20-26)
[2021-08-26 02:25] LABS: Eosinophils % 8.2 %; Immature Granulocytes % 1.7 % (0-4); Monocytes % 7.4 %; Red Cell Distribution Width 17.9 % (11.5-14.5)
[2021-08-26 02:27] LABS: Basophils % 0.3 %; Eosinophils # 0.9 K/mcL (0.0-0.6); Hemoglobin 9.1 g/dL (12.9-16.9); Lymphocytes # 0.9 K/mcL (0.6-4.6); Lymphocytes % 8.6 %; Mean Corpuscular HGB Conc 27.6 g/dL (31.6-35.5); Mean Corpuscular Hemoglobin 25.1 pg (28.0-33.3); Mean Corpuscular Volume 90.9 fL (83.0-100.0); Mean Platelet Volume 9.8 fL (9.4-12.4); Monocytes # 0.8 K/mcL (0.0-1.3); Platelet Count 248 K/mcL (140-400); Red Blood Count 3.63 M/mcL (4.19-5.50); Segmented Neutrophils % 73.8 %; White Blood Count 10.6 K/mcL (4.3-11.1)
[2021-08-26 02:41] LABS: BUN/Creatinine Ratio 8 (6-26); Blood Urea Nitrogen 5 mg/dL (8-23); Calcium 8.9 mg/dL (8.6-10.3); Carbon Dioxide 41 mEq/L (23-29); Chloride 91 mEq/L (98-107); Glucose 109 mg/dL (70-105); Osmolality,Calculated 280 (280-300); Potassium 4.3 mEq/L (3.5-5.1); Sodium 136 mEq/L (136-145); eGFR For African Americans > 60 (> 60); eGFR For Non-African Americans > 60 (> 60)
[2021-08-26 02:46] LABS: Neutrophils # 7.8 K/mcL (1.6-8.9)
[2021-08-26] MEDS: Ipratropium/Albuterol Neb 3 ML IH SCH ×4 (03:56→20:22)
[2021-08-26] MEDS: Acetylcysteine 10% 2 ML INHSOL IH SCH ×4 (03:56→20:08)
[2021-08-26] MEDS: *HR* Enoxaparin 40 MG/0.4 ML SYRINGE SQ SCH (06:29)
[2021-08-26 06:43] LABS: Hypochromasia Present (Not Present); Target Cells 1+ (Not Present)
[2021-08-26 06:44] LABS: Anisocytosis 1+ (Not Present); Platelet Estimate Normal (Normal)
[2021-08-26] MEDS: Sulfamethoxazole/Trimeth Oral Soln 400-80mg/10 ML UDC PO SCH ×2 (08:13→20:30)
[2021-08-26] MEDS: Lactulose Oral Soln 20 GM/30 ML UDC PO SCH (08:13)
[2021-08-26] MEDS: Furosemide 40 MG TABLET PO SCH ×2 (08:16→17:25)
[2021-08-26] MEDS: Aspirin 81 MG TAB.CHEW PO SCH (08:16)
[2021-08-26] MEDS: Loratadine 10 MG TABLET PO SCH (08:16)
[2021-08-26] MEDS: Chlorhexidine Rinse 15 ML MOUTHWASH MM SCH ×2 (08:17→20:29)
[2021-08-26] MEDS: Gabapentin 400 MG CAPSULE PO SCH ×3 (08:17→20:30)
[2021-08-26] MEDS: Famotidine 20 MG TABLET PO SCH (08:17)
[2021-08-26] MEDS: *HR* LORazepam 0.5 MG TABLET PO SCH ×3 (08:17→20:30)
[2021-08-26] MEDS: Nystatin POWDER 30 GM BOTTLE TP SCH ×2 (08:18→20:30)
[2021-08-26] MEDS: Insulin DETEMIR 100 UNIT/ML X5UNITS SUBQ SCH ×2 (08:18→20:24)
[2021-08-26] MEDS: Insulin LISPRO 300 UNITS/3 ML VIAL SUBQ SCH ×4 (08:19→20:23)
[2021-08-26] MEDS: Budesonide/Formoterol 160/4.5 1 PUFF INH IH SCH ×2 (11:17→20:08)
[2021-08-26] MEDS: GuaiFENesin Liq 200 MG/10 ML UDC PO SCH (20:30)
[2021-08-26] MEDS: *HR* HYDROcodone/Acet 5/325 mg TABLET PO PRN (20:32)
[2021-08-27] MEDS: Ipratropium/Albuterol Neb 3 ML IH SCH ×4 (04:13→20:27)
[2021-08-27] MEDS: *HR* HYDROcodone/Acet 5/325 mg TABLET PO PRN (05:28)
[2021-08-27] MEDS: *HR* Enoxaparin 40 MG/0.4 ML SYRINGE SQ SCH (05:28)
[2021-08-27] MEDS: *HR* LORazepam 0.5 MG TABLET PO SCH ×3 (08:55→19:46)
[2021-08-27] MEDS: Furosemide 40 MG TABLET PO SCH ×2 (08:55→16:17)
[2021-08-27] MEDS: Aspirin 81 MG TAB.CHEW PO SCH (08:55)
[2021-08-27] MEDS: Loratadine 10 MG TABLET PO SCH (08:55)
[2021-08-27] MEDS: Gabapentin 400 MG CAPSULE PO SCH ×3 (08:56→19:46)
[2021-08-27] MEDS: Famotidine 20 MG TABLET PO SCH (08:56)
[2021-08-27] MEDS: GuaiFENesin Liq 200 MG/10 ML UDC PO SCH ×2 (09:00→19:47)
[2021-08-27] MEDS: Chlorhexidine Rinse 15 ML MOUTHWASH MM SCH ×2 (09:01→19:47)
[2021-08-27] MEDS: Lactulose Oral Soln 20 GM/30 ML UDC PO SCH (09:01)
[2021-08-27] MEDS: Insulin DETEMIR 100 UNIT/ML X5UNITS SUBQ SCH ×2 (09:02→20:16)
[2021-08-27] MEDS: Insulin LISPRO 300 UNITS/3 ML VIAL SUBQ SCH ×4 (09:02→19:47)
[2021-08-27] MEDS: Nystatin POWDER 30 GM BOTTLE TP SCH ×2 (09:04→19:48)
[2021-08-27 09:13] LABS: Basophils % 0.3 %; Immature Granulocytes % 1.8 % (0-4); Monocytes % 8.1 %
[2021-08-27 09:14] LABS: Eosinophils # 0.7 K/mcL (0.0-0.6); Eosinophils % 6.4 %; Hematocrit 33.5 % (37.5-50.1); Hemoglobin 9.3 g/dL (12.9-16.9); Lymphocytes # 1.1 K/mcL (0.6-4.6); Lymphocytes % 10.9 %; Mean Corpuscular HGB Conc 27.8 g/dL (31.6-35.5); Mean Corpuscular Hemoglobin 25.5 pg (28.0-33.3); Mean Platelet Volume 9.5 fL (9.4-12.4); Monocytes # 0.8 K/mcL (0.0-1.3); Neutrophils # 7.4 K/mcL (1.6-8.9); Platelet Count 245 K/mcL (140-400); Red Blood Count 3.64 M/mcL (4.19-5.50); Red Cell Distribution Width 17.7 % (11.5-14.5); Segmented Neutrophils % 72.5 %; White Blood Count 10.2 K/mcL (4.3-11.1)
[2021-08-27 09:39] LABS: BUN/Creatinine Ratio 7 (6-26); Blood Urea Nitrogen 5 mg/dL (8-23); Calcium 9.1 mg/dL (8.6-10.3); Carbon Dioxide 45 mEq/L (23-29); Chloride 89 mEq/L (98-107); Glucose 185 mg/dL (70-105); Osmolality,Calculated 284 (280-300); Potassium 4.2 mEq/L (3.5-5.1); Sodium 136 mEq/L (136-145); eGFR For African Americans > 60 (> 60); eGFR For Non-African Americans > 60 (> 60)
[2021-08-27] MEDS: Budesonide/Formoterol 160/4.5 1 PUFF INH IH SCH ×2 (10:57→20:27)
[2021-08-27] MEDS: Acetylcysteine 10% 2 ML INHSOL IH SCH ×3 (10:57→20:27)
[2021-08-27 12:28] LABS: Anisocytosis 1+ (Not Present); Platelet Estimate Normal (Normal)
[2021-08-27 12:29] LABS: Basophilic Stippling 1+ (Not Present); Hypochromasia Present (Not Present); Poikilocytosis 1+ (Not Present); Target Cells 1+ (Not Present)
[2021-08-27] MEDS: Melatonin 3 MG TABLET PO PRN (19:46)
[2021-08-28] MEDS: *HR* HYDROcodone/Acet 5/325 mg TABLET PO PRN ×3 (02:06→22:30)
[2021-08-28] MEDS: Ipratropium/Albuterol Neb 3 ML IH SCH ×4 (03:50→21:02)
[2021-08-28 03:59] LABS: Basophils # 0.1 K/mcL (0.0-0.2); Basophils % 0.4 %; Eosinophils # 0.5 K/mcL (0.0-0.6); Eosinophils % 3.9 %; Hematocrit 32.5 % (37.5-50.1); Immature Granulocytes % 1.4 % (0-4); Lymphocytes % 8.9 %; Mean Corpuscular HGB Conc 27.7 g/dL (31.6-35.5); Mean Corpuscular Hemoglobin 25.6 pg (28.0-33.3); Mean Corpuscular Volume 92.3 fL (83.0-100.0); Mean Platelet Volume 9.7 fL (9.4-12.4); Monocytes % 8.1 %; Platelet Count 258 K/mcL (140-400); Red Blood Count 3.52 M/mcL (4.19-5.50); Segmented Neutrophils % 77.3 %; White Blood Count 11.7 K/mcL (4.3-11.1)
[2021-08-28 04:21] LABS: BUN/Creatinine Ratio 7 (6-26); Blood Urea Nitrogen 4 mg/dL (8-23); Calcium 8.8 mg/dL (8.6-10.3); Carbon Dioxide 40 mEq/L (23-29); Chloride 92 mEq/L (98-107); Glucose 120 mg/dL (70-105); Osmolality,Calculated 280 (280-300); Potassium 4.3 mEq/L (3.5-5.1); Sodium 136 mEq/L (136-145); eGFR For African Americans > 60 (> 60); eGFR For Non-African Americans > 60 (> 60)
[2021-08-28 05:46] LABS: Hypochromasia Present (Not Present); Platelet Estimate Normal (Normal); Stomatocytes 1+ (Not Present)
[2021-08-28] MEDS: *HR* Enoxaparin 40 MG/0.4 ML SYRINGE SQ SCH (06:03)
[2021-08-28] MEDS: Famotidine 20 MG TABLET PO SCH (06:04)
[2021-08-28] MEDS: Budesonide/Formoterol 160/4.5 1 PUFF INH IH SCH ×2 (08:37→21:02)
[2021-08-28] MEDS: Acetylcysteine 10% 2 ML INHSOL IH SCH ×3 (08:38→21:02)
[2021-08-28] MEDS: Insulin LISPRO 300 UNITS/3 ML VIAL SUBQ SCH ×4 (09:03→22:05)
[2021-08-28] MEDS: Gabapentin 400 MG CAPSULE PO SCH ×3 (09:10→22:26)
[2021-08-28] MEDS: Loratadine 10 MG TABLET PO SCH (09:10)
[2021-08-28] MEDS: Chlorhexidine Rinse 15 ML MOUTHWASH MM SCH ×2 (09:11→22:26)
[2021-08-28] MEDS: Lactulose Oral Soln 20 GM/30 ML UDC PO SCH (09:11)
[2021-08-28] MEDS: Aspirin 81 MG TAB.CHEW PO SCH (09:11)
[2021-08-28] MEDS: GuaiFENesin Liq 200 MG/10 ML UDC PO SCH ×2 (09:11→22:26)
[2021-08-28] MEDS: Furosemide 40 MG TABLET PO SCH ×2 (09:11→16:21)
[2021-08-28] MEDS: *HR* LORazepam 0.5 MG TABLET PO SCH ×3 (09:11→22:25)
[2021-08-28] MEDS: Nystatin POWDER 30 GM BOTTLE TP SCH ×2 (09:12→22:26)
[2021-08-28] MEDS: Insulin DETEMIR 100 UNIT/ML X5UNITS SUBQ SCH ×2 (09:28→22:09)
[2021-08-29] MEDS: Ondansetron ODT 4 MG TAB.RAPDIS PO PRN (00:01)
[2021-08-29] MEDS: Ipratropium/Albuterol Neb 3 ML IH SCH ×4 (04:02→20:05)
[2021-08-29 06:31] LABS: Basophils % 0.3 %; Eosinophils # 0.5 K/mcL (0.0-0.6); Eosinophils % 4.8 %; Hematocrit 33.5 % (37.5-50.1); Hemoglobin 9.3 g/dL (12.9-16.9); Immature Granulocytes % 1.5 % (0-4); Lymphocytes # 1.1 K/mcL (0.6-4.6); Lymphocytes % 11.1 %; Mean Corpuscular HGB Conc 27.8 g/dL (31.6-35.5); Mean Corpuscular Hemoglobin 25.8 pg (28.0-33.3); Mean Corpuscular Volume 93.1 fL (83.0-100.0); Mean Platelet Volume 9.6 fL (9.4-12.4); Monocytes # 0.8 K/mcL (0.0-1.3); Monocytes % 8.2 %; Neutrophils # 7.2 K/mcL (1.6-8.9); Platelet Count 265 K/mcL (140-400); Red Cell Distribution Width 18.1 % (11.5-14.5); Segmented Neutrophils % 74.1 %; White Blood Count 9.7 K/mcL (4.3-11.1)
[2021-08-29 06:47] LABS: Hypochromasia Present (Not Present); Platelet Estimate Normal (Normal); Stomatocytes 1+ (Not Present)
[2021-08-29 06:52] LABS: BUN/Creatinine Ratio 8 (6-26); Blood Urea Nitrogen 5 mg/dL (8-23); Calcium 9.1 mg/dL (8.6-10.3); Carbon Dioxide 40 mEq/L (23-29); Chloride 92 mEq/L (98-107); Glucose 166 mg/dL (70-105); Osmolality,Calculated 281 (280-300); Potassium 4.2 mEq/L (3.5-5.1); Sodium 135 mEq/L (136-145); eGFR For African Americans > 60 (> 60); eGFR For Non-African Americans > 60 (> 60)
[2021-08-29] MEDS: Lactulose Oral Soln 20 GM/30 ML UDC PO SCH (08:00)
[2021-08-29] MEDS: Insulin DETEMIR 100 UNIT/ML X5UNITS SUBQ SCH ×2 (08:00→20:29)
[2021-08-29] MEDS: Chlorhexidine Rinse 15 ML MOUTHWASH MM SCH ×2 (08:00→20:27)
[2021-08-29] MEDS: *HR* Enoxaparin 40 MG/0.4 ML SYRINGE SQ SCH (08:00)
[2021-08-29] MEDS: Famotidine 20 MG TABLET PO SCH (08:01)
[2021-08-29] MEDS: Aspirin 81 MG TAB.CHEW PO SCH (08:01)
[2021-08-29] MEDS: Gabapentin 400 MG CAPSULE PO SCH ×3 (08:01→20:26)
[2021-08-29] MEDS: Insulin LISPRO 300 UNITS/3 ML VIAL SUBQ SCH ×4 (08:03→20:27)
[2021-08-29] MEDS: Loratadine 10 MG TABLET PO SCH (08:03)
[2021-08-29] MEDS: Furosemide 40 MG TABLET PO SCH ×2 (08:03→18:24)
[2021-08-29] MEDS: *HR* LORazepam 0.5 MG TABLET PO SCH ×4 (08:03→20:26)
[2021-08-29] MEDS: Nystatin POWDER 30 GM BOTTLE TP SCH ×2 (08:04→23:07)
[2021-08-29] MEDS: GuaiFENesin Liq 200 MG/10 ML UDC PO SCH ×2 (08:04→20:26)
[2021-08-29] MEDS: Acetylcysteine 10% 2 ML INHSOL IH SCH (08:49)
[2021-08-29 09:08] LABS: ABG Base Excess 15 mEq/L (-2 to 3); ABG HCO3 42 mEq/L (21-27); ABG Oxygen Saturation 98 % (95-98); ABG PCO2 65 mmHg (35-45); ABG PH 7.42 pH Units (7.32-7.45); ABG PO2 113 mmHg (85-104); ABG TCO2 44 mEq/L (20-26); Blood Gas Modality ASSIST CONTROL; Blood Gas VT 500 cc
[2021-08-29] MEDS: Budesonide/Formoterol 160/4.5 1 PUFF INH IH SCH ×2 (10:06→20:05)
[2021-08-30] MEDS: Ipratropium/Albuterol Neb 3 ML IH SCH ×4 (04:34→20:05)
[2021-08-30] MEDS: *HR* Enoxaparin 40 MG/0.4 ML SYRINGE SQ SCH (05:20)
[2021-08-30 05:47] LABS: Platelet Count 280 K/mcL (140-400); Red Cell Distribution Width 18.4 % (11.5-14.5)
[2021-08-30 05:48] LABS: Basophils # 0.1 K/mcL (0.0-0.2); Basophils % 0.5 %; Eosinophils # 0.4 K/mcL (0.0-0.6); Eosinophils % 4.4 %; Hematocrit 31.2 % (37.5-50.1); Hemoglobin 8.6 g/dL (12.9-16.9); Immature Granulocytes % 2.6 % (0-4); Lymphocytes # 1.4 K/mcL (0.6-4.6); Lymphocytes % 14.3 %; Mean Corpuscular HGB Conc 27.6 g/dL (31.6-35.5); Mean Corpuscular Hemoglobin 24.6 pg (28.0-33.3); Mean Corpuscular Volume 89.1 fL (83.0-100.0); Mean Platelet Volume 9.6 fL (9.4-12.4); Monocytes # 1.2 K/mcL (0.0-1.3); Neutrophils # 6.5 K/mcL (1.6-8.9); Segmented Neutrophils % 66.2 %; White Blood Count 9.8 K/mcL (4.3-11.1)
[2021-08-30 05:52] LABS: Hypochromasia Present (Not Present); Platelet Estimate Normal (Normal)
[2021-08-30 06:03] LABS: BUN/Creatinine Ratio 8 (6-26); Blood Urea Nitrogen 6 mg/dL (8-23); Carbon Dioxide 38 mEq/L (23-29); Chloride 92 mEq/L (98-107); Glucose 101 mg/dL (70-105); Osmolality,Calculated 278 (280-300); Potassium 3.7 mEq/L (3.5-5.1); Sodium 135 mEq/L (136-145); eGFR For African Americans > 60 (> 60); eGFR For Non-African Americans > 60 (> 60)
[2021-08-30] MEDS: Insulin LISPRO 300 UNITS/3 ML VIAL SUBQ SCH ×4 (07:38→20:04)
[2021-08-30] MEDS: Budesonide/Formoterol 160/4.5 1 PUFF INH IH SCH ×2 (07:50→20:05)
[2021-08-30] MEDS: *HR* LORazepam 0.5 MG TABLET PO SCH ×3 (10:28→20:13)
[2021-08-30] MEDS: Aspirin 81 MG TAB.CHEW PO SCH (10:29)
[2021-08-30] MEDS: Gabapentin 400 MG CAPSULE PO SCH ×3 (10:29→20:13)
[2021-08-30] MEDS: Loratadine 10 MG TABLET PO SCH (10:29)
[2021-08-30] MEDS: Furosemide 40 MG TABLET PO SCH ×2 (10:29→17:02)
[2021-08-30] MEDS: Chlorhexidine Rinse 15 ML MOUTHWASH MM SCH ×2 (10:30→20:13)
[2021-08-30] MEDS: Nystatin POWDER 30 GM BOTTLE TP SCH ×2 (10:30→21:30)
[2021-08-30] MEDS: Famotidine 20 MG TABLET PO SCH (10:30)
[2021-08-30] MEDS: Lactulose Oral Soln 20 GM/30 ML UDC PO SCH (10:30)
[2021-08-30] MEDS: GuaiFENesin Liq 200 MG/10 ML UDC PO SCH ×2 (10:31→20:13)
[2021-08-30] MEDS ORDERED: Azithromycin 200 MG/5 ML UDC GTUBE SCH (11:30)
[2021-08-30] MEDS: Insulin DETEMIR 100 UNIT/ML X5UNITS SUBQ SCH ×2 (13:32→20:16)
[2021-08-30] MEDS ORDERED: Azithromycin 200 MG/5 ML UDC PO SCH (14:15)
[2021-08-30] MEDS: Albuterol 2.5 MG/3 ML NEBULIZER IH PRN (17:13)
[2021-08-30] MEDS: *HR* HYDROcodone/Acet 5/325 mg TABLET PO PRN (20:13)
[2021-08-30] MEDS: Melatonin 3 MG TABLET PO PRN (20:13)
[2021-08-31 02:13] LABS: Eosinophils % 3.8 %; Hematocrit 31.3 % (37.5-50.1); Mean Corpuscular Volume 91.5 fL (83.0-100.0); Red Blood Count 3.42 M/mcL (4.19-5.50); Red Cell Distribution Width 18.5 % (11.5-14.5)
[2021-08-31 02:14] LABS: Basophils # 0.1 K/mcL (0.0-0.2); Basophils % 0.6 %; Eosinophils # 0.4 K/mcL (0.0-0.6); Hemoglobin 8.8 g/dL (12.9-16.9); Immature Granulocytes % 2.3 % (0-4); Lymphocytes # 1.4 K/mcL (0.6-4.6); Lymphocytes % 11.9 %; Mean Corpuscular HGB Conc 28.1 g/dL (31.6-35.5); Mean Corpuscular Hemoglobin 25.7 pg (28.0-33.3); Mean Platelet Volume 9.3 fL (9.4-12.4); Monocytes # 0.9 K/mcL (0.0-1.3); Monocytes % 8.1 %; Neutrophils # 8.5 K/mcL (1.6-8.9); Platelet Count 281 K/mcL (140-400); Segmented Neutrophils % 73.3 %; White Blood Count 11.6 K/mcL (4.3-11.1)
[2021-08-31 02:28] LABS: BUN/Creatinine Ratio 8 (6-26); Blood Urea Nitrogen 6 mg/dL (8-23); Calcium 9.1 mg/dL (8.6-10.3); Carbon Dioxide 36 mEq/L (23-29); Chloride 93 mEq/L (98-107); Glucose 185 mg/dL (70-105); Osmolality,Calculated 286 (280-300); Potassium 3.6 mEq/L (3.5-5.1); Sodium 137 mEq/L (136-145); eGFR For African Americans > 60 (> 60); eGFR For Non-African Americans > 60 (> 60)
[2021-08-31 03:25] LABS: Anisocytosis 1+ (Not Present); Hypochromasia Present (Not Present); Platelet Estimate Normal (Normal); Polychromasia 1+ (Not Present)
[2021-08-31] MEDS: Ipratropium/Albuterol Neb 3 ML IH SCH ×5 (03:44→20:04)
[2021-08-31] MEDS: *HR* Enoxaparin 40 MG/0.4 ML SYRINGE SQ SCH (05:01)
[2021-08-31] MEDS: *HR* HYDROcodone/Acet 5/325 mg TABLET PO PRN ×3 (05:07→22:28)
[2021-08-31] MEDS: Budesonide/Formoterol 160/4.5 1 PUFF INH IH SCH ×2 (09:23→20:01)
[2021-08-31] MEDS: GuaiFENesin Liq 200 MG/10 ML UDC PO SCH ×2 (09:42→20:01)
[2021-08-31] MEDS: Chlorhexidine Rinse 15 ML MOUTHWASH MM SCH ×2 (09:42→20:00)
[2021-08-31] MEDS: Insulin LISPRO 300 UNITS/3 ML VIAL SUBQ SCH ×4 (09:42→19:25)
[2021-08-31] MEDS: Lactulose Oral Soln 20 GM/30 ML UDC PO SCH (09:43)
[2021-08-31] MEDS: Gabapentin 400 MG CAPSULE PO SCH ×3 (09:45→20:01)
[2021-08-31] MEDS: *HR* LORazepam 0.5 MG TABLET PO SCH ×3 (09:45→20:01)
[2021-08-31] MEDS: Aspirin 81 MG TAB.CHEW PO SCH (09:45)
[2021-08-31] MEDS: Nystatin POWDER 30 GM BOTTLE TP SCH ×2 (09:46→21:09)
[2021-08-31] MEDS: Loratadine 10 MG TABLET PO SCH (09:46)
[2021-08-31] MEDS: Furosemide 40 MG TABLET PO SCH ×2 (09:51→17:08)
[2021-08-31] MEDS: Famotidine 20 MG TABLET PO SCH (09:51)
[2021-08-31] MEDS: Insulin DETEMIR 100 UNIT/ML X5UNITS SUBQ SCH ×2 (09:55→20:01)
[2021-08-31] MEDS: Melatonin 3 MG TABLET PO PRN (20:01)
[2021-09-01] MEDS: Albuterol 2.5 MG/3 ML NEBULIZER IH PRN (02:37)
[2021-09-01] MEDS: Ipratropium/Albuterol Neb 3 ML IH SCH ×4 (04:20→21:43)
[2021-09-01] MEDS: *HR* Enoxaparin 40 MG/0.4 ML SYRINGE SQ SCH (04:43)
[2021-09-01] MEDS: Insulin LISPRO 300 UNITS/3 ML VIAL SUBQ SCH ×4 (09:21→20:35)
[2021-09-01] MEDS: Chlorhexidine Rinse 15 ML MOUTHWASH MM SCH ×2 (09:24→20:35)
[2021-09-01] MEDS: Lactulose Oral Soln 20 GM/30 ML UDC PO SCH ×2 (09:24→09:30)
[2021-09-01] MEDS: GuaiFENesin Liq 200 MG/10 ML UDC PO SCH ×2 (09:24→20:35)
[2021-09-01] MEDS: Nystatin POWDER 30 GM BOTTLE TP SCH ×2 (09:26→22:00)
[2021-09-01] MEDS: *HR* HYDROcodone/Acet 5/325 mg TABLET PO PRN ×2 (09:26→17:49)
[2021-09-01] MEDS: Gabapentin 400 MG CAPSULE PO SCH ×3 (09:26→20:35)
[2021-09-01] MEDS: Aspirin 81 MG TAB.CHEW PO SCH (09:26)
[2021-09-01] MEDS: Loratadine 10 MG TABLET PO SCH (09:28)
[2021-09-01] MEDS: Furosemide 40 MG TABLET PO SCH ×2 (09:28→16:15)
[2021-09-01] MEDS: *HR* LORazepam 0.5 MG TABLET PO SCH ×3 (09:28→20:35)
[2021-09-01] MEDS: Famotidine 20 MG TABLET PO SCH (09:41)
[2021-09-01] MEDS: Insulin DETEMIR 100 UNIT/ML X5UNITS SUBQ SCH ×2 (09:41→20:36)
[2021-09-01] MEDS: Budesonide/Formoterol 160/4.5 1 PUFF INH IH SCH ×2 (11:14→21:43)
[2021-09-02 02:11] LABS: Basophils % 0.6 %; Immature Granulocytes % 2.4 % (0-4); Mean Platelet Volume 9.8 fL (9.4-12.4)
[2021-09-02 02:12] LABS: Basophils # 0.1 K/mcL (0.0-0.2); Eosinophils # 0.6 K/mcL (0.0-0.6); Hematocrit 31.9 % (37.5-50.1); Hemoglobin 8.8 g/dL (12.9-16.9); Lymphocytes # 1.4 K/mcL (0.6-4.6); Lymphocytes % 13.5 %; Mean Corpuscular HGB Conc 27.6 g/dL (31.6-35.5); Mean Corpuscular Hemoglobin 25.2 pg (28.0-33.3); Mean Corpuscular Volume 91.4 fL (83.0-100.0); Monocytes # 0.8 K/mcL (0.0-1.3); Platelet Count 334 K/mcL (140-400); Red Blood Count 3.49 M/mcL (4.19-5.50); Segmented Neutrophils % 69.5 %
[2021-09-02 02:29] LABS: BUN/Creatinine Ratio 9 (6-26); Blood Urea Nitrogen 8 mg/dL (8-23); Carbon Dioxide 33 mEq/L (23-29); Chloride 95 mEq/L (98-107); Glucose 141 mg/dL (70-105); Magnesium 1.9 mg/dL (1.6-2.6); Osmolality,Calculated 273 (280-300); Sodium 131 mEq/L (136-145); eGFR For African Americans > 60 (> 60); eGFR For Non-African Americans > 60 (> 60)
[2021-09-02 03:04] LABS: Acanthocytes 1+ (Not Present); Hypochromasia Present (Not Present); Platelet Estimate Normal (Normal)
[2021-09-02] MEDS: Ipratropium/Albuterol Neb 3 ML IH SCH ×4 (04:06→19:51)
[2021-09-02] MEDS: *HR* Enoxaparin 40 MG/0.4 ML SYRINGE SQ SCH (06:20)
[2021-09-02] MEDS: Budesonide/Formoterol 160/4.5 1 PUFF INH IH SCH ×2 (07:24→19:51)
[2021-09-02] MEDS: Ondansetron ODT 4 MG TAB.RAPDIS PO PRN (09:54)
[2021-09-02] MEDS: Insulin LISPRO 300 UNITS/3 ML VIAL SUBQ SCH ×4 (09:55→20:05)
[2021-09-02] MEDS: Gabapentin 400 MG CAPSULE PO SCH ×3 (09:56→20:19)
[2021-09-02] MEDS: Aspirin 81 MG TAB.CHEW PO SCH (09:56)
[2021-09-02] MEDS: Loratadine 10 MG TABLET PO SCH (09:56)
[2021-09-02] MEDS: *HR* LORazepam 0.5 MG TABLET PO SCH ×3 (09:56→20:19)
[2021-09-02] MEDS: Chlorhexidine Rinse 15 ML MOUTHWASH MM SCH ×2 (10:00→20:19)
[2021-09-02] MEDS: GuaiFENesin Liq 200 MG/10 ML UDC PO SCH ×2 (10:00→20:18)
[2021-09-02] MEDS: Lactulose Oral Soln 20 GM/30 ML UDC PO SCH (10:00)
[2021-09-02] MEDS: Nystatin POWDER 30 GM BOTTLE TP SCH ×2 (10:01→20:19)
[2021-09-02] MEDS: Insulin DETEMIR 100 UNIT/ML X5UNITS SUBQ SCH ×2 (10:21→20:18)
[2021-09-02] MEDS: Famotidine 20 MG TABLET PO SCH (10:21)
[2021-09-02] MEDS: Furosemide 40 MG TABLET PO SCH ×2 (10:21→18:11)
[2021-09-03] MEDS: Ipratropium/Albuterol Neb 3 ML IH SCH ×4 (03:39→20:37)
[2021-09-03] MEDS: *HR* Enoxaparin 40 MG/0.4 ML SYRINGE SQ SCH (05:54)
[2021-09-03] MEDS: Budesonide/Formoterol 160/4.5 1 PUFF INH IH SCH ×2 (07:50→20:38)
[2021-09-03] MEDS ORDERED: *HR* Metoprolol 5 MG/5 ML VIAL IVP ONE (09:36)
[2021-09-03] MEDS: Insulin LISPRO 300 UNITS/3 ML VIAL SUBQ SCH ×3 (10:20→16:40)
[2021-09-03] MEDS: Furosemide 40 MG TABLET PO SCH (10:52)
[2021-09-03] MEDS: Albuterol 2.5 MG/3 ML NEBULIZER IH PRN (11:47)
[2021-09-03 11:52] LABS: Eosinophils % 4.3 %; Mean Corpuscular Volume 91.9 fL (83.0-100.0)
[2021-09-03 11:53] LABS: Basophils # 0.1 K/mcL (0.0-0.2); Basophils % 0.6 %; Eosinophils # 0.5 K/mcL (0.0-0.6); Hematocrit 30.8 % (37.5-50.1); Hemoglobin 8.6 g/dL (12.9-16.9); Immature Granulocytes % 1.7 % (0-4); Lymphocytes # 0.7 K/mcL (0.6-4.6); Lymphocytes % 6.8 %; Mean Corpuscular HGB Conc 27.9 g/dL (31.6-35.5); Mean Corpuscular Hemoglobin 25.7 pg (28.0-33.3); Mean Platelet Volume 9.8 fL (9.4-12.4); Monocytes # 0.8 K/mcL (0.0-1.3); Monocytes % 7.1 %; Neutrophils # 8.5 K/mcL (1.6-8.9); Platelet Count 388 K/mcL (140-400); Red Blood Count 3.35 M/mcL (4.19-5.50); Red Cell Distribution Width 18.2 % (11.5-14.5); Segmented Neutrophils % 79.5 %; White Blood Count 10.7 K/mcL (4.3-11.1)
[2021-09-03 11:59] LABS: INR 1.3; Prothrombin Time 14.2 Seconds (9.4-12.1)
[2021-09-03 12:08] LABS: BUN/Creatinine Ratio 7 (6-26); Blood Urea Nitrogen 6 mg/dL (8-23); Calcium 8.7 mg/dL (8.6-10.3); Carbon Dioxide 31 mEq/L (23-29); Chloride 99 mEq/L (98-107); Glucose 188 mg/dL (70-105); Osmolality,Calculated 285 (280-300); Potassium 4.2 mEq/L (3.5-5.1); Sodium 136 mEq/L (136-145); eGFR For African Americans > 60 (> 60); eGFR For Non-African Americans > 60 (> 60)
[2021-09-03] MEDS: Aspirin 81 MG TAB.CHEW PO SCH (12:47)
[2021-09-03] MEDS: GuaiFENesin Liq 200 MG/10 ML UDC PO SCH (12:47)
[2021-09-03] MEDS: Chlorhexidine Rinse 15 ML MOUTHWASH MM SCH ×2 (12:47→20:16)
[2021-09-03] MEDS: Famotidine 20 MG TABLET PO SCH (12:47)
[2021-09-03] MEDS: Insulin DETEMIR 100 UNIT/ML X5UNITS SUBQ SCH (12:47)
[2021-09-03] MEDS: Gabapentin 400 MG CAPSULE PO SCH ×3 (12:47→20:16)
[2021-09-03] MEDS: Loratadine 10 MG TABLET PO SCH (14:50)
[2021-09-03] MEDS: *HR* Metoprolol 5 MG/5 ML VIAL IVP SCH ×2 (14:51→18:07)
[2021-09-03] MEDS: Lactulose Oral Soln 20 GM/30 ML UDC PO SCH (14:51)
[2021-09-03] MEDS: Pantoprazole 40 MG VIAL IVP SCH (14:53)
[2021-09-03] MEDS: Nystatin POWDER 30 GM BOTTLE TP SCH ×2 (14:53→20:16)
[2021-09-04] MEDS: Insulin LISPRO 300 UNITS/3 ML VIAL SUBQ SCH ×4 (00:16→17:49)
[2021-09-04] MEDS: *HR* Metoprolol 5 MG/5 ML VIAL IVP SCH ×2 (00:25→05:13)
[2021-09-04] MEDS: Ipratropium/Albuterol Neb 3 ML IH SCH ×4 (04:10→20:19)
[2021-09-04 05:50] LABS: Hemoglobin 8.2 g/dL (12.9-16.9)
[2021-09-04 05:52] LABS: Basophils % 0.4 %; Eosinophils # 0.4 K/mcL (0.0-0.6); Hematocrit 28.5 % (37.5-50.1); Immature Granulocytes % 1.3 % (0-4); Lymphocytes # 1.9 K/mcL (0.6-4.6); Lymphocytes % 18.5 %; Mean Corpuscular HGB Conc 28.8 g/dL (31.6-35.5); Mean Corpuscular Hemoglobin 25.2 pg (28.0-33.3); Mean Corpuscular Volume 87.4 fL (83.0-100.0); Mean Platelet Volume 9.7 fL (9.4-12.4); Monocytes # 1.1 K/mcL (0.0-1.3); Monocytes % 10.6 %; Neutrophils # 6.7 K/mcL (1.6-8.9); Platelet Count 422 K/mcL (140-400); Red Blood Count 3.26 M/mcL (4.19-5.50); Red Cell Distribution Width 18.1 % (11.5-14.5); Segmented Neutrophils % 65.2 %; White Blood Count 10.2 K/mcL (4.3-11.1)
[2021-09-04 05:54] LABS: Hypochromasia Present (Not Present)
[2021-09-04 06:08] LABS: BUN/Creatinine Ratio 7 (6-26); Blood Urea Nitrogen 6 mg/dL (8-23); Calcium 8.9 mg/dL (8.6-10.3); Carbon Dioxide 32 mEq/L (23-29); Chloride 98 mEq/L (98-107); Glucose 120 mg/dL (70-105); Osmolality,Calculated 283 (280-300); Potassium 3.8 mEq/L (3.5-5.1); Sodium 137 mEq/L (136-145); eGFR For African Americans > 60 (> 60); eGFR For Non-African Americans > 60 (> 60)
[2021-09-04] MEDS: Budesonide/Formoterol 160/4.5 1 PUFF INH IH SCH ×2 (08:25→20:19)
[2021-09-04] MEDS ORDERED: Lidocaine Viscous Oral Soln 15 ML SOLUTION ONE (08:33)
[2021-09-04] MEDS ORDERED: *HR* FentaNYL (PF) 100 MCG/2 ML VIAL ONE (09:00)
[2021-09-04] MEDS ORDERED: Lidocaine -MPF 2% 5 ML VIAL ONE ×3 (09:01→10:23)
[2021-09-04] MEDS ORDERED: *HR* Propofol 200 MG/20 ML VIAL IVP ONE (09:01)
[2021-09-04] MEDS ORDERED: *HR* Midazolam HCl 2 MG/2 ML VIAL ONE (09:01)
[2021-09-04] MEDS ORDERED: *HR* Rocuronium Bromide 50 MG/5 ML VIAL ONE (09:06)
[2021-09-04] MEDS: Gabapentin 400 MG CAPSULE PO SCH ×3 (09:30→21:36)
[2021-09-04] MEDS: Chlorhexidine Rinse 15 ML MOUTHWASH MM SCH ×2 (09:30→21:36)
[2021-09-04] MEDS ORDERED: Sugammadex Sodium 200 MG/2 ML VIAL IV ONE (09:51)
[2021-09-04] MEDS ORDERED: *HR* HYDROmorphone (PF) 1 MG/ML SYRINGE ONE (10:34)
[2021-09-04] MEDS: *HR* HYDROmorphone (PF) 1 MG/ML SYRINGE IVP PRN ×2 (10:35→10:44)
[2021-09-04] MEDS: Pantoprazole 40 MG VIAL IVP SCH (11:59)
[2021-09-04] MEDS: Nystatin POWDER 30 GM BOTTLE TP SCH ×2 (12:00→21:36)
[2021-09-04] MEDS: Lactulose Oral Soln 20 GM/30 ML UDC PO SCH (15:46)
[2021-09-04] MEDS: Loratadine 10 MG TABLET PO SCH (15:46)
[2021-09-05] MEDS: Insulin LISPRO 300 UNITS/3 ML VIAL SUBQ SCH ×4 (00:51→17:34)
[2021-09-05] MEDS: Ipratropium/Albuterol Neb 3 ML IH SCH ×4 (03:45→22:22)
[2021-09-05 04:12] LABS: Basophils % 0.3 %; Hemoglobin 8.2 g/dL (12.9-16.9); Lymphocytes % 12.6 %; Mean Platelet Volume 9.4 fL (9.4-12.4); Segmented Neutrophils % 78.4 %
[2021-09-05 04:14] LABS: Hematocrit 28.3 % (37.5-50.1); Immature Granulocytes % 1.2 % (0-4); Mean Corpuscular Hemoglobin 25.7 pg (28.0-33.3); Mean Corpuscular Volume 88.7 fL (83.0-100.0); Monocytes # 0.6 K/mcL (0.0-1.3); Monocytes % 7.5 %; Platelet Count 454 K/mcL (140-400); Red Blood Count 3.19 M/mcL (4.19-5.50); White Blood Count 7.6 K/mcL (4.3-11.1)
[2021-09-05 04:21] LABS: INR 1.4; Prothrombin Time 15.3 Seconds (9.4-12.1)
[2021-09-05 04:31] LABS: BUN/Creatinine Ratio 11 (6-26); Blood Urea Nitrogen 9 mg/dL (8-23); Carbon Dioxide 32 mEq/L (23-29); Chloride 101 mEq/L (98-107); Glucose 162 mg/dL (70-105); Osmolality,Calculated 290 (280-300); Potassium 3.8 mEq/L (3.5-5.1); Sodium 139 mEq/L (136-145); eGFR For African Americans > 60 (> 60); eGFR For Non-African Americans > 60 (> 60)
[2021-09-05 05:39] LABS: Hypochromasia Present (Not Present); Platelet Estimate Normal (Normal)
[2021-09-05] MEDS: Famotidine 20 MG TABLET PO SCH (07:55)
[2021-09-05] MEDS: Gabapentin 400 MG CAPSULE PO SCH ×3 (07:55→20:11)
[2021-09-05] MEDS: Lactulose Oral Soln 20 GM/30 ML UDC PO SCH (07:56)
[2021-09-05] MEDS: Pantoprazole 40 MG VIAL IVP SCH (07:56)
[2021-09-05] MEDS: GuaiFENesin Liq 200 MG/10 ML UDC PO SCH ×2 (07:56→20:11)
[2021-09-05] MEDS: Loratadine 10 MG TABLET PO SCH (07:56)
[2021-09-05] MEDS: Chlorhexidine Rinse 15 ML MOUTHWASH MM SCH ×2 (07:57→20:11)
[2021-09-05] MEDS: Nystatin POWDER 30 GM BOTTLE TP SCH ×2 (07:57→20:11)
[2021-09-05] MEDS: Budesonide/Formoterol 160/4.5 1 PUFF INH IH SCH ×2 (10:45→22:22)
[2021-09-06] MEDS: Ipratropium/Albuterol Neb 3 ML IH SCH ×4 (02:59→19:35)
[2021-09-06 03:34] LABS: Basophils # 0.1 K/mcL (0.0-0.2); Basophils % 0.6 %; Eosinophils # 0.1 K/mcL (0.0-0.6); Hematocrit 27.9 % (37.5-50.1); Hemoglobin 7.8 g/dL (12.9-16.9); Immature Granulocytes % 0.8 % (0-4); Lymphocytes # 1.6 K/mcL (0.6-4.6); Lymphocytes % 17.4 %; Mean Corpuscular Hemoglobin 25.3 pg (28.0-33.3); Mean Corpuscular Volume 90.6 fL (83.0-100.0); Mean Platelet Volume 9.2 fL (9.4-12.4); Monocytes # 0.8 K/mcL (0.0-1.3); Monocytes % 9.2 %; Neutrophils # 6.5 K/mcL (1.6-8.9); Platelet Count 502 K/mcL (140-400); Red Blood Count 3.08 M/mcL (4.19-5.50); White Blood Count 9.1 K/mcL (4.3-11.1)
[2021-09-06] MEDS: Insulin LISPRO 300 UNITS/3 ML VIAL SUBQ SCH ×4 (03:47→16:42)
[2021-09-06 03:53] LABS: BUN/Creatinine Ratio 10 (6-26); Blood Urea Nitrogen 8 mg/dL (8-23); Calcium 8.8 mg/dL (8.6-10.3); Carbon Dioxide 34 mEq/L (23-29); Chloride 103 mEq/L (98-107); Glucose 97 mg/dL (70-105); Osmolality,Calculated 294 (280-300); Potassium 3.3 mEq/L (3.5-5.1); Sodium 143 mEq/L (136-145); eGFR For African Americans > 60 (> 60); eGFR For Non-African Americans > 60 (> 60)
[2021-09-06 04:06] LABS: Anisocytosis 1+ (Not Present); Hypochromasia Present (Not Present); Platelet Estimate Increased (Normal)
[2021-09-06] MEDS: Famotidine 20 MG TABLET PO SCH (08:30)
[2021-09-06] MEDS: Gabapentin 400 MG CAPSULE PO SCH ×3 (08:30→19:59)
[2021-09-06] MEDS: Pantoprazole 40 MG VIAL IVP SCH (08:30)
[2021-09-06] MEDS: Loratadine 10 MG TABLET PO SCH (08:30)
[2021-09-06] MEDS: Furosemide 40 MG TABLET PO SCH ×2 (08:30→18:28)
[2021-09-06] MEDS: Chlorhexidine Rinse 15 ML MOUTHWASH MM SCH ×2 (08:31→19:58)
[2021-09-06] MEDS: GuaiFENesin Liq 200 MG/10 ML UDC PO SCH ×2 (08:31→19:59)
[2021-09-06] MEDS: Lactulose Oral Soln 20 GM/30 ML UDC PO SCH (08:31)
[2021-09-06] MEDS: Budesonide/Formoterol 160/4.5 1 PUFF INH IH SCH ×2 (11:10→19:35)
[2021-09-06] MEDS: Nystatin POWDER 30 GM BOTTLE TP SCH ×2 (14:36→20:00)
[2021-09-07] MEDS: Ipratropium/Albuterol Neb 3 ML IH SCH ×4 (04:42→20:24)
[2021-09-07 05:12] LABS: Immature Granulocytes % 0.9 % (0-4)
[2021-09-07 05:14] LABS: Basophils # 0.1 K/mcL (0.0-0.2); Basophils % 0.5 %; Eosinophils # 0.4 K/mcL (0.0-0.6); Eosinophils % 3.9 %; Hematocrit 29.8 % (37.5-50.1); Hemoglobin 8.2 g/dL (12.9-16.9); Lymphocytes # 1.4 K/mcL (0.6-4.6); Lymphocytes % 13.7 %; Mean Corpuscular HGB Conc 27.5 g/dL (31.6-35.5); Mean Corpuscular Hemoglobin 24.7 pg (28.0-33.3); Mean Corpuscular Volume 89.8 fL (83.0-100.0); Mean Platelet Volume 9.1 fL (9.4-12.4); Monocytes % 9.6 %; Neutrophils # 7.3 K/mcL (1.6-8.9); Platelet Count 503 K/mcL (140-400); Red Blood Count 3.32 M/mcL (4.19-5.50); Red Cell Distribution Width 18.2 % (11.5-14.5); Segmented Neutrophils % 71.4 %; White Blood Count 10.2 K/mcL (4.3-11.1)
[2021-09-07 05:27] LABS: BUN/Creatinine Ratio 7 (6-26); Blood Urea Nitrogen 6 mg/dL (8-23); Calcium 8.6 mg/dL (8.6-10.3); Carbon Dioxide 36 mEq/L (23-29); Chloride 100 mEq/L (98-107); Glucose 110 mg/dL (70-105); Osmolality,Calculated 290 (280-300); Potassium 3.1 mEq/L (3.5-5.1); Sodium 141 mEq/L (136-145); eGFR For African Americans > 60 (> 60); eGFR For Non-African Americans > 60 (> 60)
[2021-09-07 06:05] LABS: Anisocytosis 1+ (Not Present); Hypochromasia Present (Not Present); Platelet Estimate Increased (Normal)
[2021-09-07] MEDS: Insulin LISPRO 300 UNITS/3 ML VIAL SUBQ SCH ×3 (08:28→16:05)
[2021-09-07] MEDS: Lactulose Oral Soln 20 GM/30 ML UDC PO SCH (08:33)
[2021-09-07] MEDS: Chlorhexidine Rinse 15 ML MOUTHWASH MM SCH ×2 (08:34→21:04)
[2021-09-07] MEDS: Gabapentin 400 MG CAPSULE PO SCH ×3 (08:34→21:04)
[2021-09-07] MEDS: Famotidine 20 MG TABLET PO SCH (08:34)
[2021-09-07] MEDS: Nystatin POWDER 30 GM BOTTLE TP SCH ×2 (08:34→21:04)
[2021-09-07] MEDS: Furosemide 40 MG TABLET PO SCH ×2 (08:34→16:04)
[2021-09-07] MEDS: GuaiFENesin Liq 200 MG/10 ML UDC PO SCH ×2 (08:34→21:04)
[2021-09-07] MEDS: Loratadine 10 MG TABLET PO SCH (08:34)
[2021-09-07] MEDS: Pantoprazole 40 MG VIAL IVP SCH (08:34)
[2021-09-07] MEDS: Budesonide/Formoterol 160/4.5 1 PUFF INH IH SCH ×2 (11:01→20:25)
[2021-09-08] MEDS: Ipratropium/Albuterol Neb 3 ML IH SCH ×4 (03:36→20:40)
[2021-09-08 05:27] LABS: Hematocrit 31.6 % (37.5-50.1); Hemoglobin 8.9 g/dL (12.9-16.9); Mean Corpuscular HGB Conc 28.2 g/dL (31.6-35.5); Mean Corpuscular Hemoglobin 25.6 pg (28.0-33.3); Mean Corpuscular Volume 90.8 fL (83.0-100.0); Mean Platelet Volume 9.8 fL (9.4-12.4); Platelet Count 549 K/mcL (140-400); Red Blood Count 3.48 M/mcL (4.19-5.50); Red Cell Distribution Width 18.1 % (11.5-14.5); White Blood Count 11.7 K/mcL (4.3-11.1)
[2021-09-08 05:56] LABS: Alanine Aminotransferase 9 Units/L (7-52); Albumin 2.8 g/dL (3.5-5.7); Albumin/Globulin Ratio 0.8 (1.1-2.2); Alkaline Phosphatase 111 Units/L (34-104); Aspartate Amino Transferase 9 Units/L (13-39); BUN/Creatinine Ratio 6 (6-26); Bilirubin,Total 0.5 mg/dL (0.3-1.0); Blood Urea Nitrogen 5 mg/dL (8-23); Calcium 8.6 mg/dL (8.6-10.3); Carbon Dioxide 36 mEq/L (23-29); Chloride 96 mEq/L (98-107); Globulin 3.6 g/dL (2.4-3.5); Glucose 125 mg/dL (70-105); Osmolality,Calculated 289 (280-300); Potassium 2.9 mEq/L (3.5-5.1); Sodium 140 mEq/L (136-145); Total Protein 6.4 g/dL (6.4-8.9); eGFR For African Americans > 60 (> 60); eGFR For Non-African Americans > 60 (> 60)
[2021-09-08] MEDS ORDERED: Magnesium Sulfate 1 GM/102 ML PIGGYBACK IVPB ONE (07:49)
[2021-09-08] MEDS: Famotidine 20 MG TABLET PO SCH (08:41)
[2021-09-08] MEDS: Gabapentin 400 MG CAPSULE PO SCH ×3 (08:41→20:29)
[2021-09-08] MEDS: Lactulose Oral Soln 20 GM/30 ML UDC PO SCH (08:42)
[2021-09-08] MEDS: Furosemide 40 MG TABLET PO SCH ×2 (08:42→17:07)
[2021-09-08] MEDS: Chlorhexidine Rinse 15 ML MOUTHWASH MM SCH ×2 (08:42→20:29)
[2021-09-08] MEDS: Loratadine 10 MG TABLET PO SCH (08:42)
[2021-09-08] MEDS: GuaiFENesin Liq 200 MG/10 ML UDC PO SCH ×2 (08:43→20:29)
[2021-09-08] MEDS: Nystatin POWDER 30 GM BOTTLE TP SCH ×2 (08:43→20:29)
[2021-09-08] MEDS: Insulin LISPRO 300 UNITS/3 ML VIAL SUBQ SCH ×3 (08:44→16:48)
[2021-09-08] MEDS: Budesonide/Formoterol 160/4.5 1 PUFF INH IH SCH ×2 (10:52→20:41)
[2021-09-08 15:18] LABS: BUN/Creatinine Ratio 6 (6-26); Blood Urea Nitrogen 5 mg/dL (8-23); Calcium 8.5 mg/dL (8.6-10.3); Carbon Dioxide 33 mEq/L (23-29); Chloride 98 mEq/L (98-107); Glucose 123 mg/dL (70-105); Osmolality,Calculated 285 (280-300); Potassium 3.8 mEq/L (3.5-5.1); Sodium 138 mEq/L (136-145); eGFR For African Americans > 60 (> 60); eGFR For Non-African Americans > 60 (> 60)
[2021-09-09] MEDS: Ipratropium/Albuterol Neb 3 ML IH SCH ×4 (04:02→19:58)
[2021-09-09 04:39] LABS: Hematocrit 31.7 % (37.5-50.1); Hemoglobin 8.7 g/dL (12.9-16.9); Mean Corpuscular HGB Conc 27.4 g/dL (31.6-35.5); Mean Corpuscular Hemoglobin 24.9 pg (28.0-33.3); Mean Corpuscular Volume 90.8 fL (83.0-100.0); Mean Platelet Volume 8.9 fL (9.4-12.4); Platelet Count 491 K/mcL (140-400); Red Blood Count 3.49 M/mcL (4.19-5.50); Red Cell Distribution Width 18.1 % (11.5-14.5); White Blood Count 12.7 K/mcL (4.3-11.1)
[2021-09-09 04:57] LABS: BUN/Creatinine Ratio 6 (6-26); Blood Urea Nitrogen 5 mg/dL (8-23); Calcium 8.5 mg/dL (8.6-10.3); Carbon Dioxide 35 mEq/L (23-29); Chloride 99 mEq/L (98-107); Glucose 157 mg/dL (70-105); Magnesium 2.1 mg/dL (1.6-2.6); Osmolality,Calculated 283 (280-300); Potassium 3.5 mEq/L (3.5-5.1); Sodium 136 mEq/L (136-145); eGFR For African Americans > 60 (> 60); eGFR For Non-African Americans > 60 (> 60)
[2021-09-09] MEDS: Lactulose Oral Soln 20 GM/30 ML UDC PO SCH (08:26)
[2021-09-09] MEDS: Famotidine 20 MG TABLET PO SCH (08:26)
[2021-09-09] MEDS: Nystatin POWDER 30 GM BOTTLE TP SCH ×2 (08:26→19:57)
[2021-09-09] MEDS: Insulin LISPRO 300 UNITS/3 ML VIAL SUBQ SCH ×3 (08:26→17:25)
[2021-09-09] MEDS: Gabapentin 400 MG CAPSULE PO SCH ×3 (08:26→19:56)
[2021-09-09] MEDS: Furosemide 40 MG TABLET PO SCH ×2 (08:26→17:22)
[2021-09-09] MEDS: Chlorhexidine Rinse 15 ML MOUTHWASH MM SCH ×2 (08:26→19:56)
[2021-09-09] MEDS: GuaiFENesin Liq 200 MG/10 ML UDC PO SCH ×2 (08:26→19:56)
[2021-09-09] MEDS: Loratadine 10 MG TABLET PO SCH (08:26)
[2021-09-09] MEDS: Budesonide/Formoterol 160/4.5 1 PUFF INH IH SCH ×2 (10:13→19:59)
[2021-09-09] MEDS ORDERED: *HR* EPINEPHrine 1 MG/10 ML SYRINGE INTRATRACH PRN (14:18)
[2021-09-09] MEDS: Melatonin 3 MG TABLET PO PRN (19:57)
[2021-09-10 03:26] LABS: Hematocrit 29.6 % (37.5-50.1); Hemoglobin 8.4 g/dL (12.9-16.9); Mean Corpuscular HGB Conc 28.4 g/dL (31.6-35.5); Mean Corpuscular Hemoglobin 25.7 pg (28.0-33.3); Mean Corpuscular Volume 90.5 fL (83.0-100.0); Mean Platelet Volume 9.4 fL (9.4-12.4); Platelet Count 528 K/mcL (140-400); Red Blood Count 3.27 M/mcL (4.19-5.50); Red Cell Distribution Width 17.9 % (11.5-14.5)
[2021-09-10 03:43] LABS: BUN/Creatinine Ratio 6 (6-26); Blood Urea Nitrogen 6 mg/dL (8-23); Calcium 8.6 mg/dL (8.6-10.3); Carbon Dioxide 35 mEq/L (23-29); Chloride 96 mEq/L (98-107); Glucose 109 mg/dL (70-105); Osmolality,Calculated 282 (280-300); Potassium 3.1 mEq/L (3.5-5.1); Sodium 137 mEq/L (136-145); eGFR For African Americans > 60 (> 60); eGFR For Non-African Americans > 60 (> 60)
[2021-09-10] MEDS: Ipratropium/Albuterol Neb 3 ML IH SCH ×4 (03:52→20:10)
[2021-09-10] MEDS: Budesonide/Formoterol 160/4.5 1 PUFF INH IH SCH ×2 (07:38→20:19)
[2021-09-10] MEDS: Insulin LISPRO 300 UNITS/3 ML VIAL SUBQ SCH ×3 (08:46→16:00)
[2021-09-10] MEDS: Loratadine 10 MG TABLET PO SCH (09:51)
[2021-09-10] MEDS: GuaiFENesin Liq 200 MG/10 ML UDC PO SCH ×2 (09:51→20:54)
[2021-09-10] MEDS: Lactulose Oral Soln 20 GM/30 ML UDC PO SCH (09:51)
[2021-09-10] MEDS: Gabapentin 400 MG CAPSULE PO SCH ×3 (09:51→20:54)
[2021-09-10] MEDS: Chlorhexidine Rinse 15 ML MOUTHWASH MM SCH ×2 (09:52→20:54)
[2021-09-10] MEDS: Nystatin POWDER 30 GM BOTTLE TP SCH ×2 (09:53→20:54)
[2021-09-10] MEDS: Furosemide 40 MG TABLET PO SCH ×2 (09:56→18:32)
[2021-09-10] MEDS: Famotidine 20 MG TABLET PO SCH (09:56)
[2021-09-10] MEDS ORDERED: Furosemide 40 MG/4 ML VIAL IVP ONE (12:21)
[2021-09-10] MEDS: Melatonin 3 MG TABLET PO PRN (21:59)
[2021-09-11 03:30] LABS: Hematocrit 29.6 % (37.5-50.1); Hemoglobin 8.5 g/dL (12.9-16.9); Mean Corpuscular HGB Conc 28.7 g/dL (31.6-35.5); Mean Corpuscular Hemoglobin 25.3 pg (28.0-33.3); Mean Corpuscular Volume 88.1 fL (83.0-100.0); Mean Platelet Volume 9.4 fL (9.4-12.4); Platelet Count 531 K/mcL (140-400); Red Blood Count 3.36 M/mcL (4.19-5.50); White Blood Count 11.1 K/mcL (4.3-11.1)
[2021-09-11 04:10] LABS: Alanine Aminotransferase 8 Units/L (7-52); Albumin 2.8 g/dL (3.5-5.7); Albumin/Globulin Ratio 0.8 (1.1-2.2); Alkaline Phosphatase 117 Units/L (34-104); Aspartate Amino Transferase 9 Units/L (13-39); BUN/Creatinine Ratio 7 (6-26); Bilirubin,Total 0.3 mg/dL (0.3-1.0); Blood Urea Nitrogen 7 mg/dL (8-23); Calcium 8.5 mg/dL (8.6-10.3); Carbon Dioxide 33 mEq/L (23-29); Chloride 96 mEq/L (98-107); Globulin 3.7 g/dL (2.4-3.5); Glucose 121 mg/dL (70-105); Magnesium 2.2 mg/dL (1.6-2.6); Osmolality,Calculated 281 (280-300); Potassium 3.1 mEq/L (3.5-5.1); Sodium 136 mEq/L (136-145); Total Protein 6.5 g/dL (6.4-8.9); eGFR For African Americans > 60 (> 60); eGFR For Non-African Americans > 60 (> 60)
[2021-09-11] MEDS: Ipratropium/Albuterol Neb 3 ML IH SCH ×4 (04:25→20:33)
[2021-09-11] MEDS: Insulin LISPRO 300 UNITS/3 ML VIAL SUBQ SCH ×3 (08:06→17:36)
[2021-09-11] MEDS: Chlorhexidine Rinse 15 ML MOUTHWASH MM SCH ×2 (09:34→20:22)
[2021-09-11] MEDS: Lactulose Oral Soln 20 GM/30 ML UDC PO SCH (09:34)
[2021-09-11] MEDS: Famotidine 20 MG TABLET PO SCH (09:35)
[2021-09-11] MEDS: GuaiFENesin Liq 200 MG/10 ML UDC PO SCH ×2 (09:35→20:22)
[2021-09-11] MEDS: Loratadine 10 MG TABLET PO SCH (09:36)
[2021-09-11] MEDS: Furosemide 40 MG TABLET PO SCH ×2 (09:36→18:40)
[2021-09-11] MEDS: Gabapentin 400 MG CAPSULE PO SCH ×3 (09:36→20:23)
[2021-09-11] MEDS: Budesonide/Formoterol 160/4.5 1 PUFF INH IH SCH ×2 (10:56→20:34)
[2021-09-11] MEDS: Nystatin POWDER 30 GM BOTTLE TP SCH ×2 (12:34→20:23)
[2021-09-11] MEDS: Melatonin 3 MG TABLET PO PRN (20:22)
[2021-09-12] MEDS: Ipratropium/Albuterol Neb 3 ML IH SCH ×4 (04:09→20:37)
[2021-09-12] MEDS: Insulin LISPRO 300 UNITS/3 ML VIAL SUBQ SCH ×3 (07:59→16:36)
[2021-09-12 09:21] LABS: BUN/Creatinine Ratio 6 (6-26); Blood Urea Nitrogen 6 mg/dL (8-23); Calcium 8.6 mg/dL (8.6-10.3); Carbon Dioxide 33 mEq/L (23-29); Chloride 97 mEq/L (98-107); Glucose 127 mg/dL (70-105); Osmolality,Calculated 279 (280-300); Potassium 3.1 mEq/L (3.5-5.1); Sodium 135 mEq/L (136-145); eGFR For African Americans > 60 (> 60); eGFR For Non-African Americans > 60 (> 60)
[2021-09-12] MEDS: Gabapentin 400 MG CAPSULE PO SCH ×3 (09:21→20:00)
[2021-09-12] MEDS: Loratadine 10 MG TABLET PO SCH (09:22)
[2021-09-12] MEDS: GuaiFENesin Liq 200 MG/10 ML UDC PO SCH ×2 (09:22→19:57)
[2021-09-12] MEDS: Furosemide 40 MG TABLET PO SCH ×2 (09:22→16:32)
[2021-09-12] MEDS: Lactulose Oral Soln 20 GM/30 ML UDC PO SCH (09:23)
[2021-09-12] MEDS: Chlorhexidine Rinse 15 ML MOUTHWASH MM SCH ×2 (09:23→19:57)
[2021-09-12] MEDS: Nystatin POWDER 30 GM BOTTLE TP SCH ×2 (09:23→20:00)
[2021-09-12] MEDS: Famotidine 20 MG TABLET PO SCH (09:25)
[2021-09-12] MEDS: Budesonide/Formoterol 160/4.5 1 PUFF INH IH SCH ×2 (10:30→20:37)
[2021-09-12] MEDS: Melatonin 3 MG TABLET PO PRN (20:00)
[2021-09-13] MEDS: Ipratropium/Albuterol Neb 3 ML IH SCH ×4 (03:28→20:39)
[2021-09-13 05:21] LABS: BUN/Creatinine Ratio 5 (6-26); Blood Urea Nitrogen 5 mg/dL (8-23); Calcium 8.5 mg/dL (8.6-10.3); Carbon Dioxide 29 mEq/L (23-29); Chloride 99 mEq/L (98-107); Glucose 138 mg/dL (70-105); Osmolality,Calculated 277 (280-300); Potassium 3.2 mEq/L (3.5-5.1); Sodium 134 mEq/L (136-145); eGFR For African Americans > 60 (> 60); eGFR For Non-African Americans > 60 (> 60)
[2021-09-13] MEDS: Albuterol 2.5 MG/3 ML NEBULIZER IH PRN (06:10)
[2021-09-13] MEDS: Budesonide/Formoterol 160/4.5 1 PUFF INH IH SCH ×2 (08:06→20:40)
[2021-09-13] MEDS: GuaiFENesin Liq 200 MG/10 ML UDC PO SCH ×2 (08:47→20:50)
[2021-09-13] MEDS: Lactulose Oral Soln 20 GM/30 ML UDC PO SCH (08:47)
[2021-09-13] MEDS: Loratadine 10 MG TABLET PO SCH (08:48)
[2021-09-13] MEDS: Famotidine 20 MG TABLET PO SCH (08:48)
[2021-09-13] MEDS: Gabapentin 400 MG CAPSULE PO SCH ×3 (08:48→20:47)
[2021-09-13] MEDS: Aspirin 81 MG TAB.CHEW PO SCH (08:48)
[2021-09-13] MEDS: Furosemide 40 MG TABLET PO SCH ×2 (08:48→16:18)
[2021-09-13] MEDS: Chlorhexidine Rinse 15 ML MOUTHWASH MM SCH ×2 (08:49→20:30)
[2021-09-13] MEDS: Nystatin POWDER 30 GM BOTTLE TP SCH ×2 (08:49→20:48)
[2021-09-13] MEDS: Potassium Chloride Elixir 20 MEQ/15 ML UDC PO SCH (09:02)
[2021-09-13] MEDS: Insulin LISPRO 300 UNITS/3 ML VIAL SUBQ SCH ×3 (09:02→16:09)
[2021-09-13] MEDS ORDERED: Potassium Chloride Elixir 20 MEQ/15 ML UDC PO ONE (11:52)
[2021-09-13] MEDS: Ondansetron ODT 4 MG TAB.RAPDIS PO PRN (16:18)
[2021-09-14] MEDS: Melatonin 3 MG TABLET PO PRN (00:15)
[2021-09-14 02:06] LABS: Red Cell Distribution Width 18.3 % (11.5-14.5)
[2021-09-14 02:07] LABS: Hematocrit 28.7 % (37.5-50.1); Hemoglobin 8.3 g/dL (12.9-16.9); Mean Corpuscular HGB Conc 28.9 g/dL (31.6-35.5); Mean Corpuscular Hemoglobin 25.1 pg (28.0-33.3); Mean Corpuscular Volume 86.7 fL (83.0-100.0); Mean Platelet Volume 10.1 fL (9.4-12.4); Platelet Count 472 K/mcL (140-400); Red Blood Count 3.31 M/mcL (4.19-5.50); White Blood Count 10.8 K/mcL (4.3-11.1)
[2021-09-14 02:23] LABS: BUN/Creatinine Ratio 7 (6-26); Blood Urea Nitrogen 7 mg/dL (8-23); Calcium 8.3 mg/dL (8.6-10.3); Carbon Dioxide 25 mEq/L (23-29); Chloride 101 mEq/L (98-107); Glucose 126 mg/dL (70-105); Magnesium 2.3 mg/dL (1.6-2.6); Osmolality,Calculated 276 (280-300); Potassium 3.4 mEq/L (3.5-5.1); Sodium 133 mEq/L (136-145); eGFR For African Americans > 60 (> 60); eGFR For Non-African Americans > 60 (> 60)
[2021-09-14] MEDS: Ipratropium/Albuterol Neb 3 ML IH SCH ×4 (03:52→20:25)
[2021-09-14] MEDS: Albuterol 2.5 MG/3 ML NEBULIZER IH PRN (05:20)
[2021-09-14] MEDS: Insulin LISPRO 300 UNITS/3 ML VIAL SUBQ SCH ×3 (07:23→18:19)
[2021-09-14] MEDS: Budesonide/Formoterol 160/4.5 1 PUFF INH IH SCH ×2 (08:06→20:25)
[2021-09-14] MEDS: Famotidine 20 MG TABLET PO SCH (09:02)
[2021-09-14] MEDS: Gabapentin 400 MG CAPSULE PO SCH ×3 (09:02→21:15)
[2021-09-14] MEDS: Chlorhexidine Rinse 15 ML MOUTHWASH MM SCH ×2 (09:02→21:15)
[2021-09-14] MEDS: Lactulose Oral Soln 20 GM/30 ML UDC PO SCH (09:02)
[2021-09-14] MEDS: Loratadine 10 MG TABLET PO SCH (09:02)
[2021-09-14] MEDS: Aspirin 81 MG TAB.CHEW PO SCH (09:02)
[2021-09-14] MEDS: Furosemide 40 MG TABLET PO SCH ×2 (09:02→18:17)
[2021-09-14] MEDS: Potassium Chloride Elixir 20 MEQ/15 ML UDC PO SCH (09:02)
[2021-09-14] MEDS: GuaiFENesin Liq 200 MG/10 ML UDC PO SCH ×2 (09:02→21:15)
[2021-09-14] MEDS: Nystatin POWDER 30 GM BOTTLE TP SCH (09:03)
[2021-09-15] MEDS: Nystatin POWDER 30 GM BOTTLE TP SCH ×2 (00:43→09:02)
[2021-09-15] MEDS: Melatonin 3 MG TABLET PO PRN (02:58)
[2021-09-15 03:25] VITALS: TEMP 98.3
[2021-09-15 03:47] LABS: Influenza A PCR Negative (Negative); Influenza B PCR Negative (Negative); Resp. Syncytial Virus PCR Negative (Negative)
[2021-09-15 03:49] LABS: SARS-CoV-2 by PCR (In House) Negative (Negative)
[2021-09-15] MEDS: Ipratropium/Albuterol Neb 3 ML IH SCH ×2 (03:56→11:07)
[2021-09-15 06:37] LABS: BUN/Creatinine Ratio 8 (6-26); Blood Urea Nitrogen 9 mg/dL (8-23); Calcium 8.3 mg/dL (8.6-10.3); Carbon Dioxide 27 mEq/L (23-29); Chloride 98 mEq/L (98-107); Glucose 137 mg/dL (70-105); Osmolality,Calculated 275 (280-300); Potassium 3.2 mEq/L (3.5-5.1); Sodium 132 mEq/L (136-145); eGFR For African Americans > 60 (> 60); eGFR For Non-African Americans > 60 (> 60)
[2021-09-15] MEDS: Famotidine 20 MG TABLET PO SCH (06:41)
[2021-09-15] MEDS ORDERED: Potassium Chloride Elixir 20 MEQ/15 ML UDC PO ONE (07:30)
[2021-09-15] MEDS: Lactulose Oral Soln 20 GM/30 ML UDC PO SCH (08:58)
[2021-09-15] MEDS: GuaiFENesin Liq 200 MG/10 ML UDC PO SCH (08:58)
[2021-09-15] MEDS: Gabapentin 400 MG CAPSULE PO SCH (08:59)
[2021-09-15] MEDS: Chlorhexidine Rinse 15 ML MOUTHWASH MM SCH (08:59)
[2021-09-15] MEDS: Aspirin 81 MG TAB.CHEW PO SCH (08:59)
[2021-09-15] MEDS: Loratadine 10 MG TABLET PO SCH (08:59)
[2021-09-15] MEDS: Furosemide 40 MG TABLET PO SCH (08:59)
[2021-09-15] MEDS: Insulin LISPRO 300 UNITS/3 ML VIAL SUBQ SCH ×2 (09:02→12:15)
[2021-09-15] MEDS: Budesonide/Formoterol 160/4.5 1 PUFF INH IH SCH (11:09)
[2021-09-15 11:13] VITALS: O2SAT 100
[2021-09-15 11:55] VITALS: BP 106/48; PULSE 96
[2021-09-15] MEDS ORDERED: Docusate Oral Soln 100 MG/10 ML UDC PO ONE (18:42)
== END 2021-09-15 13:53 | DRG 710 ==
LOC: EMEROOARM 23:00 → SUATTDRO 08-15 11:34 → ICNU 08-15 11:34 → 2NNU 08-20 02:06 → 2ANU 08-28 13:03 → 2NNU 08-29 12:26
PROVIDERS: ADMIT Family Medicine; ATTEND Internal Medicine